=== PATIENT | female | born 1955 | race Asian ===

== ENCOUNTER 2016-12-26 07:06 | Inpatient (IN) | payer MEDICARE, MEDICAID ==
[2016-12-26] VITALS (9 sets, daily range): BP systolic 100–150; BP diastolic 55–81
[~2016-12-26] VITALS: Ht 154.9 cm; Wt 24.6 kg
[~2016-12-26 07:06] MED LIST: NALT50 PO; QUET200T29 PO
[2016-12-26] MEDS ORDERED: CYANOCOBALAMIN 1,000 MCG/ML VIAL IM ONE ×2 (10:30→13:30)
[2016-12-26] MEDS ORDERED: LOPERAMIDE HCL 2 MG CAPSULE PO PRN ×2 (10:30→13:30)
[2016-12-26] MEDS ORDERED: HydrOXYzine PAMOATE 50 MG CAPSULE PO PRN ×2 (10:30→13:30)
[2016-12-26] MEDS ORDERED: GuaiFENesin/D-METHORPHAN [SUGAR-FREE] 200-20MG/10 ML SYRUP UDCUP PO PRN ×2 (10:30→13:30)
[2016-12-26] MEDS ORDERED: ZOLPIDEM TARTRATE 10 MG TABLET PO PRN (10:30)
[2016-12-26] MEDS ORDERED: QUEtiapine FUMARATE 100 MG TABLET PO PRN (10:30)
[2016-12-26] MEDS ORDERED: LORazepam 2 MG TABLET PO PRN (10:30)
[2016-12-26] MEDS ORDERED: LORA2TAB2 PO (10:52)
[2016-12-26] MEDS ORDERED: ZOLP10 PO (10:52)
[2016-12-26] MEDS ORDERED: INFLUENZA VIRUS VACCINE QVS 2016-17 (3YR+)/PF 60 MCG/0.5 ML SYRINGE IM ONE (11:00)
[2016-12-26] MEDS ORDERED: LORazepam 2 MG/ML VIAL IM ONE (11:45)
[2016-12-26] MEDS ORDERED: DiphenhydrAMINE HCL 50 MG/ML VIAL IM ONE (11:45)
[2016-12-26] MEDS ORDERED: HALOPERIDOL LACTATE 5 MG/ML VIAL IM ONE (11:45)
[2016-12-26] MEDS ORDERED: DIAZEPAM 10 MG TABLET PO PRN (13:30)
[2016-12-26] MEDS ORDERED: ARIPiprazole ER SUSPENSION 400 MG PRE-FILLED DUAL CHAMBER SYRINGE IM ONE (14:15)
[2016-12-26] MEDS ORDERED: THIAMINE HCL 100 MG TABLET PO SCH (17:00)
[2016-12-26] MEDS: THIAMINE HCL 100 MG TABLET PO SCH (17:26)
[2016-12-26] MEDS: LORazepam 2 MG TABLET PO PRN (17:27)
[2016-12-26] MEDS ORDERED: DENTURE ADHESIVE 68 GM CREAM DT PRN (19:30)
[2016-12-26] MEDS: ARIPiprazole 15 MG TABLET PO SCH (21:51)
[2016-12-27 02:03] VITALS: BP 110/73
[2016-12-27] MEDS: LORazepam 2 MG TABLET PO PRN ×3 (02:09→14:01)
[2016-12-27 02:31] VITALS: BP 100/66
[2016-12-27] MEDS ORDERED: -PHARMACY VACCINE NOTE- MISC ONE ×2 (02:45)
[2016-12-27 06:30] VITALS: BP 118/68
[2016-12-27] MEDS ORDERED: DIAZEPAM 10 MG TABLET PO PRN (07:00)
[2016-12-27] MEDS ORDERED: LORazepam 2 MG TABLET PO PRN (07:00)
[2016-12-27 08:00] VITALS: BP 104/64
[2016-12-27 08:30] LABS: BASOPHILS # (AUTO) 0.02 K/uL (0.00-0.20); BASOPHILS % (AUTO) 0.4 % (0.0-2.0); EOSINOPHILS # (AUTO) 0.37 K/uL (0.00-0.70); EOSINOPHILS % (AUTO) 7.05 % (1.0-6.0); HEMATOCRIT 36.3 % (36-46); HEMOGLOBIN 12.3 g/dL (12.0-16.0); LYMPHOCYTES # (AUTO) 1.3 K/uL (1.0-4.8); LYMPHOCYTES % (AUTO) 24.9 % (22.0-44.0); MEAN CORPUSCULAR HEMOGLOBIN 31.9 pg (26.0-34.0); MEAN CORPUSCULAR HGB CONC 33.9 G/dL (31.0-37.0); MEAN CORPUSCULAR VOLUME 94 fL (80-100); MONOCYTES # (AUTO) 0.2 K/uL (0.1-1.0); MONOCYTES % (AUTO) 4.4 % (2.0-9.0); NEUTROPHILS # (AUTO) 3.4 K/uL (1.8-7.7); NEUTROPHILS % (AUTO) 63.3 % (40.0-70.0); PLATELET COUNT (AUTO) 169 K/uL (150-450); RED BLOOD CELL COUNT(AUTO) 3.86 MIL/uL (4.00-5.20); RED CELL DISTRIBUTION WIDTH 13.6 % (11.5-14.5); WHITE BLOOD COUNT (AUTO) 5.3 K/uL (4.5-11.0)
[2016-12-27] MEDS: FOLIC ACID 1 MG TABLET PO SCH (08:30)
[2016-12-27] MEDS: NICOTINE 21 MG/24 HOUR PATCH TD SCH (08:30)
[2016-12-27] MEDS: DIAZEPAM 10 MG TABLET PO SCH ×4 (08:30→21:38)
[2016-12-27] MEDS: MULTIVITAMINS WITH MINERALS, THERAPEUTIC TABLET PO SCH (08:30)
[2016-12-27] MEDS: THIAMINE HCL 100 MG TABLET PO SCH ×2 (08:30→17:59)
[2016-12-27 08:45] LABS: HEMOGLOBIN A1C 5.3 % (4.5-6.2)
[2016-12-27] MEDS ORDERED: FOLIC ACID 1 MG TABLET PO SCH (09:00)
[2016-12-27] MEDS ORDERED: MULTIVITAMINS WITH MINERALS, THERAPEUTIC TABLET PO SCH (09:00)
[2016-12-27] MEDS ORDERED: LORazepam 2 MG TABLET PO SCH (09:00)
[2016-12-27 09:02] LABS: ALANINE AMINOTRANSFERASE 28 U/L (12-78); ALBUMIN 3.6 g/dL (3.4-5.0); ANION GAP 10 mmol/L (8-16); ASPARTATE AMINOTRANSFERASE 27 U/L (15-37); BILIRUBIN,TOTAL 0.5 mg/dL (0.1-1.0); CALCIUM, TOTAL 8.7 mg/dL (8.8-10.5); CARBON DIOXIDE 25 mmol/L (22-29); CHLORIDE 105 mmol/L (98-107); CREATININE 0.87 mg/dL (0.60-1.30); GLOMERULAR FILTR. RATE CALC > 60 mL/min (>60); SODIUM SERUM 140 mmol/L (136-145); THYROID STIMULATING HORMONE 2.02 uIU/mL (0.36-3.74); TOTAL PROTEIN, SERUM 6.8 g/dL (6.4-8.2); UREA NITROGEN, BLOOD 12 mg/dL (7-18)
[2016-12-27 09:27] LABS: APPEARANCE,URINE CLEAR (CLEAR); GLUCOSE, URINE (UA) NEGATIVE (NEGATIVE); KETONES,URINE NEGATIVE (NEGATIVE); LEUKOCYTE ESTERASE ,URINE NEGATIVE (NEGATIVE); OCCULT BLOOD,URINE NEGATIVE (NEGATIVE); PROTEIN,URINE NEGATIVE (NEGATIVE)
[2016-12-27 09:31] LABS: ADD UA MICROSCOPIC NO
[2016-12-27 16:02] VITALS: BP 128/79
[2016-12-27] MEDS ORDERED: LORazepam 2 MG/ML VIAL IM ONE (17:05)
[2016-12-27] MEDS ORDERED: DiphenhydrAMINE HCL 50 MG/ML VIAL IM ONE (17:05)
[2016-12-27] MEDS ORDERED: HALOPERIDOL LACTATE 5 MG/ML VIAL IM ONE (17:05)
[2016-12-27] MEDS ORDERED: LORazepam 2 MG/ML VIAL ONE (17:12)
[2016-12-27] MEDS ORDERED: HALOPERIDOL LACTATE 5 MG/ML VIAL ONE (17:13)
[2016-12-27] MEDS ORDERED: DiphenhydrAMINE HCL 50 MG/ML VIAL ONE (17:13)
[2016-12-27] MEDS: ARIPiprazole 15 MG TABLET PO SCH (21:39)
[2016-12-28 04:55] VITALS: BP 107/75
[2016-12-28] MEDS: LORazepam 2 MG TABLET PO PRN ×2 (05:02→11:14)
[2016-12-28 08:35] VITALS: BP 94/61
[2016-12-28] MEDS: THIAMINE HCL 100 MG TABLET PO SCH (09:33)
[2016-12-28] MEDS: NICOTINE 21 MG/24 HOUR PATCH TD SCH (09:33)
[2016-12-28] MEDS: FOLIC ACID 1 MG TABLET PO SCH (09:33)
[2016-12-28] MEDS: DIAZEPAM 10 MG TABLET PO SCH (09:33)
[2016-12-28] MEDS: MULTIVITAMINS WITH MINERALS, THERAPEUTIC TABLET PO SCH (09:33)
[2016-12-28] MEDS ORDERED: OLAN7.5T2 PO (10:27)
[2016-12-28] MEDS ORDERED: ARIP400S3 IM (10:29)
[2016-12-29] MEDS ORDERED: DIAZEPAM 5 MG TABLET PO PRN (07:00)
[2016-12-29] MEDS ORDERED: LORazepam 1 MG TABLET PO PRN (07:00)
[2016-12-29] MEDS ORDERED: LORazepam 1 MG TABLET PO SCH (09:00)
[2016-12-29] MEDS ORDERED: DIAZEPAM 5 MG TABLET PO SCH (09:00)
[2016-12-30] MEDS ORDERED: DIAZEPAM 5 MG TABLET PO PRN (07:00)
[2016-12-30] MEDS ORDERED: LORazepam 1 MG TABLET PO PRN (07:00)
[2017-01-23] MEDS ORDERED: ARIPiprazole ER SUSPENSION 400 MG PRE-FILLED DUAL CHAMBER SYRINGE IM SCH (09:00)
== END 2016-12-28 12:00 | disposition home or self-care (01) | DRG 885 ==
LOC: B2S 10:35 → EDSTATUS 10:51
PROVIDERS: ADMIT Psychiatry & Neurology Psychiatry; ATTEND Psychiatry & Neurology Psychiatry
PROC: 3E0234Z Introduction of Serum, Toxoid and Vaccine into Muscle, Percutaneous Approach (ICD-10-PCS; principal; 2016-12-26)
PROC: GZ51ZZZ Individual Psychotherapy, Behavioral (ICD-10-PCS; 2016-12-26)
DX: F25.0 Schizoaffective disorder, bipolar type (principal); E03.9 Hypothyroidism, unspecified; E78.5 Hyperlipidemia, unspecified; F17.200 Nicotine dependence, unspecified, uncomplicated; R32 Unspecified urinary incontinence; Z63.8 Other specified problems related to primary support group; Z91.5 Personal history of self-harm; Z23 Encounter for immunization; Z88.0 Allergy status to penicillin; Z91.19 Patient's noncompliance with other medical treatment and regimen; Z79.899 Other long term (current) drug therapy
CPT/HCPCS: 83036; 84439; 84443; 86592; 90471; J0401; J1200; J1630; J2060

== ENCOUNTER 2017-03-05 12:33 | Inpatient (IN) | payer MEDICARE, MEDICAID ==
[~2017-03-05] VITALS: Ht 154.9 cm; Wt 61.0 kg
[~2017-03-05 12:33] MED LIST changes: +ARIP400S3 IM; -NALT50 PO; -QUET200T29 PO
[2017-03-05 12:45] VITALS: BP 130/90
[2017-03-05] MEDS ORDERED: MAG HYDROX/AL HYDROX/SIMETH ES 30 ML SUSPENSION UDCUP PO PRN (12:45)
[2017-03-05] MEDS ORDERED: LORazepam 2 MG/ML VIAL IM ONE (12:45)
[2017-03-05] MEDS ORDERED: DiphenhydrAMINE HCL 50 MG/ML VIAL IM ONE (12:45)
[2017-03-05] MEDS ORDERED: PROMETHAZINE HCL 25 MG TABLET PO PRN (12:45)
[2017-03-05] MEDS ORDERED: HALOPERIDOL 5 MG TABLET PO PRN (12:45)
[2017-03-05] MEDS ORDERED: GuaiFENesin/D-METHORPHAN [SUGAR-FREE] 200-20MG/10 ML SYRUP UDCUP PO PRN (12:45)
[2017-03-05] MEDS ORDERED: HydrOXYzine PAMOATE 50 MG CAPSULE PO PRN (12:45)
[2017-03-05] MEDS ORDERED: HALOPERIDOL LACTATE 5 MG/ML VIAL IM ONE (12:45)
[2017-03-05] MEDS ORDERED: ACETAMINOPHEN 325 MG TABLET PO PRN ×2 (12:45→21:15)
[2017-03-05] MEDS ORDERED: LOPERAMIDE HCL 2 MG CAPSULE PO PRN (12:45)
[2017-03-05] MEDS ORDERED: ZOLPIDEM TARTRATE 10 MG TABLET PO PRN (12:45)
[2017-03-05] MEDS ORDERED: MAGNESIUM HYDROXIDE SUSPENSION 30 ML UDCUP PO PRN (12:45)
[2017-03-05] MEDS ORDERED: ARIP15TA3 PO (13:30)
[2017-03-05] MEDS: NICOTINE 14 MG/24 HOUR PATCH TD SCH (14:24)
[2017-03-05] MEDS ORDERED: LORazepam 2 MG/ML VIAL ONE (14:47)
[2017-03-05] MEDS ORDERED: DiphenhydrAMINE HCL 50 MG/ML VIAL ONE (14:47)
[2017-03-05] MEDS ORDERED: HALOPERIDOL LACTATE 5 MG/ML VIAL ONE (14:47)
[2017-03-05 16:07] VITALS: BP 101/60
[2017-03-05] MEDS: THIAMINE HCL 100 MG TABLET PO SCH (17:05)
[2017-03-05] MEDS: LORazepam 2 MG TABLET PO PRN (17:56)
[2017-03-05] MEDS ORDERED: IBUPROFEN 600 MG TABLET PO PRN (21:15)
[2017-03-06 00:32] VITALS: BP 100/73
[2017-03-06 01:59] VITALS: BP 111/88
[2017-03-06] MEDS: LORazepam 2 MG TABLET PO PRN ×2 (02:07→08:40)
[2017-03-06] MEDS ORDERED: DENTURE ADHESIVE 68 GM CREAM DT PRN (05:00)
[2017-03-06 08:15] VITALS: BP 100/61
[2017-03-06 08:27] LABS: BASOPHILS % (AUTO) 0.6 % (0.0-2.0); EOSINOPHILS % (AUTO) 10.2 % (1.0-6.0); HEMATOCRIT 36.6 % (36-46); LYMPHOCYTES # (AUTO) 1.3 K/uL (1.0-4.8); LYMPHOCYTES % (AUTO) 28.3 % (22.0-44.0); MEAN CORPUSCULAR HEMOGLOBIN 30.7 pg (26.0-34.0); MEAN CORPUSCULAR HGB CONC 32.7 G/dL (31.0-37.0); MEAN CORPUSCULAR VOLUME 94 fL (80-100); MONOCYTES # (AUTO) 0.3 K/uL (0.1-1.0); MONOCYTES % (AUTO) 5.6 % (2.0-9.0); NEUTROPHILS # (AUTO) 2.5 K/uL (1.8-7.7); NEUTROPHILS % (AUTO) 55.3 % (40.0-70.0); PLATELET COUNT (AUTO) 282 K/uL (150-450); RED BLOOD CELL COUNT(AUTO) 3.89 MIL/uL (4.00-5.20); RED CELL DISTRIBUTION WIDTH 13.3 % (11.5-14.5); WHITE BLOOD COUNT (AUTO) 4.5 K/uL (4.5-11.0)
[2017-03-06 08:35] LABS: HEMOGLOBIN A1C 5.4 % (4.5-6.2)
[2017-03-06] MEDS: THIAMINE HCL 100 MG TABLET PO SCH (08:39)
[2017-03-06 08:40] VITALS: BP 121/81
[2017-03-06] MEDS: NICOTINE 14 MG/24 HOUR PATCH TD SCH (08:40)
[2017-03-06] MEDS ORDERED: MULTIVITAMINS WITH MINERALS, THERAPEUTIC TABLET PO SCH (09:00)
[2017-03-06] MEDS ORDERED: FOLIC ACID 1 MG TABLET PO SCH (09:00)
[2017-03-06] MEDS ORDERED: ARIPiprazole 15 MG TABLET PO SCH (09:00)
[2017-03-06 09:06] LABS: APPEARANCE,URINE CLEAR (CLEAR); GLUCOSE, URINE (UA) NEGATIVE (NEGATIVE); KETONES,URINE NEGATIVE (NEGATIVE); LEUKOCYTE ESTERASE ,URINE NEGATIVE (NEGATIVE); OCCULT BLOOD,URINE NEGATIVE (NEGATIVE); PH,URINE 5.5 (5.0-8.0); PROTEIN,URINE NEGATIVE (NEGATIVE)
[2017-03-06 09:08] LABS: ALANINE AMINOTRANSFERASE 27 U/L (12-78); ALBUMIN 3.7 g/dL (3.4-5.0); ANION GAP 8 mmol/L (8-16); ASPARTATE AMINOTRANSFERASE 28 U/L (15-37); BILIRUBIN,TOTAL 0.3 mg/dL (0.1-1.0); CALCIUM, TOTAL 8.7 mg/dL (8.8-10.5); CARBON DIOXIDE 26 mmol/L (22-29); CHLORIDE 105 mmol/L (98-107); CREATININE 0.76 mg/dL (0.60-1.30); GLOMERULAR FILTR. RATE CALC > 60 mL/min (>60); POTASSIUM 4.5 mmol/L (3.5-5.1); SODIUM SERUM 139 mmol/L (136-145); TOTAL PROTEIN, SERUM 6.7 g/dL (6.4-8.2); UREA NITROGEN, BLOOD 17 mg/dL (7-18)
[2017-03-06 09:09] LABS: CHOL/HDL RATIO 2.5 (3.9-5.7); THYROID STIMULATING HORMONE 2.32 uIU/mL (0.36-3.74)
[2017-03-06 10:24] LABS: ADD UA MICROSCOPIC NO
== END 2017-03-06 10:05 | disposition left against medical advice (07) | DRG 885 ==
LOC: B2X 12:57 → EDSTATUS 13:04 → B2X 13:09 → UNDOADMIN 13:09 → UNDODISIN 03-06 10:05
PROVIDERS: ADMIT Psychiatry & Neurology Psychiatry; ATTEND Psychiatry & Neurology Psychiatry
PROC: GZ51ZZZ Individual Psychotherapy, Behavioral (ICD-10-PCS; principal; 2017-03-06)
DX: F25.0 Schizoaffective disorder, bipolar type (principal); R45.851 Suicidal ideations; Z53.21 Procedure and treatment not carried out due to patient leaving prior to being seen by health care provider; Z53.29 Procedure and treatment not carried out because of patient's decision for other reasons; N39.44 Nocturnal enuresis; K59.00 Constipation, unspecified; I10 Essential (primary) hypertension; F17.200 Nicotine dependence, unspecified, uncomplicated; E11.9 Type 2 diabetes mellitus without complications; E03.9 Hypothyroidism, unspecified; J44.9 Chronic obstructive pulmonary disease, unspecified; M54.40 Lumbago with sciatica, unspecified side; Z91.19 Patient's noncompliance with other medical treatment and regimen; Z88.0 Allergy status to penicillin; Z79.899 Other long term (current) drug therapy
CPT/HCPCS: 83036; 84439; 84443; 86592; J1200; J1630; J2060

== ENCOUNTER 2017-07-27 10:58 | Inpatient (IN) | payer MEDICARE, MEDICAID ==
[~2017-07-27] VITALS: Ht 154.9 cm; Wt 64.9 kg
[2017-07-27 11:39] VITALS: BP 132/84
[2017-07-27] MEDS: LORazepam 2 MG TABLET PO PRN ×2 (12:35→17:02)
[2017-07-27] MEDS ORDERED: GuaiFENesin/D-METHORPHAN [SUGAR-FREE] 200-20MG/10 ML SYRUP UDCUP PO PRN (12:45)
[2017-07-27] MEDS ORDERED: HydrOXYzine PAMOATE 50 MG CAPSULE PO PRN (12:45)
[2017-07-27] MEDS ORDERED: PROMETHAZINE HCL 25 MG TABLET PO PRN (12:45)
[2017-07-27] MEDS ORDERED: MAGNESIUM HYDROXIDE SUSPENSION 30 ML UDCUP PO PRN (12:45)
[2017-07-27] MEDS ORDERED: OLANZapine 5 MG RAPDIS TABLET PO PRN (12:45)
[2017-07-27] MEDS ORDERED: MAG HYDROX/AL HYDROX/SIMETH ES 30 ML SUSPENSION UDCUP PO PRN (12:45)
[2017-07-27] MEDS ORDERED: LOPERAMIDE HCL 2 MG CAPSULE PO PRN (12:45)
[2017-07-27] MEDS ORDERED: INFLUENZA VIRUS VACCINE QVS 2017-18 (3YR+)/PF 60 MCG/0.5 ML SYRINGE IM ONE (14:15)
[2017-07-27] MEDS ORDERED: DiphenhydrAMINE HCL 50 MG/ML VIAL IM ONE (15:00)
[2017-07-27 16:16] VITALS: BP 127/87
[2017-07-27] MEDS: THIAMINE HCL 100 MG TABLET PO SCH (16:18)
[2017-07-27] MEDS: RisperiDONE 4 MG TABLET PO SCH (20:09)
[2017-07-27] MEDS: ZOLPIDEM TARTRATE 10 MG TABLET PO PRN (22:54)
[2017-07-28 05:30] VITALS: BP 110/67
[2017-07-28] MEDS: LORazepam 2 MG TABLET PO PRN ×3 (06:38→16:12)
[2017-07-28] MEDS: ACETAMINOPHEN 325 MG TABLET PO PRN ×2 (06:45→16:13)
[2017-07-28 08:16] LABS: BASOPHILS % (AUTO) 0.1 % (0.0-2.0); EOSINOPHILS % (AUTO) 4.5 % (1.0-6.0); HEMOGLOBIN 12.9 g/dL (12.0-16.0); LYMPHOCYTES # (AUTO) 0.8 K/uL (1.0-4.8); LYMPHOCYTES % (AUTO) 10.8 % (22.0-44.0); MEAN CORPUSCULAR HEMOGLOBIN 32.3 pg (26.0-34.0); MEAN CORPUSCULAR VOLUME 95 fL (80-100); MONOCYTES # (AUTO) 0.3 K/uL (0.1-1.0); MONOCYTES % (AUTO) 4.5 % (2.0-9.0); NEUTROPHILS # (AUTO) 6.2 K/uL (1.8-7.7); NEUTROPHILS % (AUTO) 80.1 % (40.0-70.0); PLATELET COUNT (AUTO) 253 K/uL (150-450); RED CELL DISTRIBUTION WIDTH 14.2 % (11.5-14.5); WHITE BLOOD COUNT (AUTO) 7.7 K/uL (4.5-11.0)
[2017-07-28] MEDS: FOLIC ACID 1 MG TABLET PO SCH (08:18)
[2017-07-28] MEDS: THIAMINE HCL 100 MG TABLET PO SCH ×2 (08:18→16:37)
[2017-07-28] MEDS: MULTIVITAMINS WITH MINERALS, THERAPEUTIC TABLET PO SCH (08:18)
[2017-07-28 08:25] VITALS: BP 101/61
[2017-07-28 08:49] LABS: HEMOGLOBIN A1C 5.6 % (4.5-6.2)
[2017-07-28 08:57] LABS: ALANINE AMINOTRANSFERASE 15 U/L (12-78); ANION GAP 10 mmol/L (8-16); ASPARTATE AMINOTRANSFERASE 12 U/L (15-37); BILIRUBIN,TOTAL 0.3 mg/dL (0.1-1.0); CALCIUM, TOTAL 8.7 mg/dL (8.8-10.5); CARBON DIOXIDE 24 mmol/L (22-29); CHLORIDE 105 mmol/L (98-107); CHOL/HDL RATIO 2.4 (3.9-5.7); CREATININE 0.79 mg/dL (0.60-1.30); GLOMERULAR FILTR. RATE CALC > 60 mL/min (>60); POTASSIUM 4.3 mmol/L (3.5-5.1); SODIUM SERUM 139 mmol/L (136-145); THYROID STIMULATING HORMONE 1.13 uIU/mL (0.36-3.74); UREA NITROGEN, BLOOD 11 mg/dL (7-18)
[2017-07-28 11:00] VITALS: BP 112/66
[2017-07-28] MEDS ORDERED: DiphenhydrAMINE HCL 50 MG/ML VIAL IM ONE (12:00)
[2017-07-28 17:10] VITALS: BP 122/73
[2017-07-28] MEDS: RisperiDONE 4 MG TABLET PO SCH (20:32)
[2017-07-28] MEDS: ZOLPIDEM TARTRATE 10 MG TABLET PO PRN (20:46)
[2017-07-29 00:06] VITALS: BP 121/76
[2017-07-29 05:05] VITALS: BP 110/73
[2017-07-29] MEDS: LORazepam 2 MG TABLET PO PRN ×4 (05:09→22:44)
[2017-07-29 08:17] VITALS: BP 114/68
[2017-07-29] MEDS: THIAMINE HCL 100 MG TABLET PO SCH ×2 (08:47→16:36)
[2017-07-29] MEDS: MULTIVITAMINS WITH MINERALS, THERAPEUTIC TABLET PO SCH (08:47)
[2017-07-29] MEDS: FOLIC ACID 1 MG TABLET PO SCH (08:47)
[2017-07-29] MEDS ORDERED: DiphenhydrAMINE HCL 50 MG/ML VIAL IM ONE (13:45)
[2017-07-29] MEDS: NICOTINE 21 MG/24 HOUR PATCH TD SCH (15:00)
[2017-07-29 16:12] VITALS: BP 119/78
[2017-07-29] MEDS: RisperiDONE 4 MG TABLET PO SCH (20:33)
[2017-07-29] MEDS: ZOLPIDEM TARTRATE 10 MG TABLET PO PRN (20:52)
[2017-07-30 00:06] VITALS: BP 113/79
[2017-07-30 05:22] VITALS: BP 110/75
[2017-07-30] MEDS: LORazepam 2 MG TABLET PO PRN ×4 (05:26→23:58)
[2017-07-30] MEDS: ACETAMINOPHEN 325 MG TABLET PO PRN (05:45)
[2017-07-30] MEDS: MULTIVITAMINS WITH MINERALS, THERAPEUTIC TABLET PO SCH (08:24)
[2017-07-30] MEDS: THIAMINE HCL 100 MG TABLET PO SCH ×2 (08:24→16:06)
[2017-07-30] MEDS: NICOTINE 21 MG/24 HOUR PATCH TD SCH (08:24)
[2017-07-30] MEDS: FOLIC ACID 1 MG TABLET PO SCH (08:24)
[2017-07-30 08:26] VITALS: BP 109/69
[2017-07-30] MEDS ORDERED: DiphenhydrAMINE HCL 25 MG CAPSULE PO ONE (09:45)
[2017-07-30 10:23] VITALS: BP 115/85
[2017-07-30] MEDS ORDERED: RISP4 PO (13:30)
[2017-07-30] MEDS ORDERED: DiphenhydrAMINE HCL 25 MG CAPSULE PO PRN (13:30)
[2017-07-30] MEDS ORDERED: DIPH25 PO (13:30)
[2017-07-30] MEDS ORDERED: DiphenhydrAMINE HCL 50 MG/ML VIAL IM ONE (13:30)
[2017-07-30] MEDS ORDERED: NALT50TA6 PO (13:31)
[2017-07-30 16:06] VITALS: BP 118/78
[2017-07-30] MEDS: RisperiDONE 4 MG TABLET PO SCH (20:20)
[2017-07-30] MEDS: ZOLPIDEM TARTRATE 10 MG TABLET PO PRN (21:09)
[2017-07-31 01:54] VITALS: BP 114/80
[2017-07-31 06:32] VITALS: BP 110/69
[2017-07-31] MEDS: ACETAMINOPHEN 325 MG TABLET PO PRN (06:34)
[2017-07-31] MEDS ORDERED: DiphenhydrAMINE HCL 50 MG/ML VIAL IM ONE (08:15)
[2017-07-31 08:30] VITALS: BP 94/64
[2017-07-31 08:55] VITALS: BP 114/76
[2017-07-31] MEDS: MULTIVITAMINS WITH MINERALS, THERAPEUTIC TABLET PO SCH (08:57)
[2017-07-31] MEDS: NICOTINE 21 MG/24 HOUR PATCH TD SCH (08:58)
[2017-07-31] MEDS: FOLIC ACID 1 MG TABLET PO SCH (08:58)
[2017-07-31] MEDS: THIAMINE HCL 100 MG TABLET PO SCH (08:58)
[2017-07-31] MEDS ORDERED: NALTREXONE HCL 50 MG TABLET PO SCH (09:00)
== END 2017-07-31 11:00 | disposition home or self-care (01) | DRG 885 ==
LOC: B2X 11:36
PROVIDERS: ADMIT Psychiatry & Neurology Psychiatry; ATTEND Psychiatry & Neurology Psychiatry
PROC: 3E0234Z Introduction of Serum, Toxoid and Vaccine into Muscle, Percutaneous Approach (ICD-10-PCS; principal; 2017-07-27)
DX: F25.0 Schizoaffective disorder, bipolar type (principal); C50.912 Malignant neoplasm of unspecified site of left female breast; R45.851 Suicidal ideations; E11.9 Type 2 diabetes mellitus without complications; E03.9 Hypothyroidism, unspecified; D64.9 Anemia, unspecified; F17.210 Nicotine dependence, cigarettes, uncomplicated; I10 Essential (primary) hypertension; K59.00 Constipation, unspecified; N39.44 Nocturnal enuresis; M54.5 Low back pain; G89.29 Other chronic pain; Z88.0 Allergy status to penicillin; Z91.19 Patient's noncompliance with other medical treatment and regimen; Z23 Encounter for immunization
CPT/HCPCS: 83036; 84439; 84443; 90471; J1200

== ENCOUNTER 2017-10-18 05:48 | Inpatient (IN) | payer MEDICARE, MEDICAID ==
[~2017-10-18] VITALS: Ht 160 cm; Wt 65.6 kg
[~2017-10-18 05:48] MED LIST changes: -ARIP400S3 IM; +DIPH25 PO; +NALT50TA6 PO; +RISP4 PO
[2017-10-18] MEDS ORDERED: RISP2 PO (06:11)
[2017-10-18] MEDS ORDERED: ZOLP10TA7 PO (06:11)
[2017-10-18] MEDS ORDERED: LORA2TAB2 PO (06:11)
[2017-10-18 06:50] LABS: BASOPHILS % (AUTO) 0.5 % (0.0-2.0); EOSINOPHILS % (AUTO) 4.4 % (1.0-6.0); HEMATOCRIT 36.4 % (36-46); HEMOGLOBIN 12.5 g/dL (12.0-16.0); LYMPHOCYTES # (AUTO) 1.1 K/uL (1.0-4.8); LYMPHOCYTES % (AUTO) 18.1 % (22.0-44.0); MEAN CORPUSCULAR HEMOGLOBIN 32.5 pg (26.0-34.0); MEAN CORPUSCULAR HGB CONC 34.3 G/dL (31.0-37.0); MEAN CORPUSCULAR VOLUME 95 fL (80-100); MONOCYTES # (AUTO) 0.3 K/uL (0.1-1.0); MONOCYTES % (AUTO) 5.4 % (2.0-9.0); NEUTROPHILS # (AUTO) 4.5 K/uL (1.8-7.7); NEUTROPHILS % (AUTO) 71.6 % (40.0-70.0); PLATELET COUNT (AUTO) 308 K/uL (150-450); RED BLOOD CELL COUNT(AUTO) 3.84 MIL/uL (4.00-5.20); RED CELL DISTRIBUTION WIDTH 13.8 % (11.5-14.5)
[2017-10-18 06:54] LABS: ANION GAP 10 mmol/L (8-16); CALCIUM, TOTAL 9.2 mg/dL (8.8-10.5); CARBON DIOXIDE 25 mmol/L (22-29); CHLORIDE 103 mmol/L (98-107); CREATININE 0.71 mg/dL (0.60-1.30); GLOMERULAR FILTR. RATE CALC > 60 mL/min (>60); GLUCOSE,RANDOM 107 mg/dL (70-110); POTASSIUM 4.1 mmol/L (3.5-5.1); SODIUM SERUM 138 mmol/L (136-145); UREA NITROGEN, BLOOD 12 mg/dL (7-18)
[2017-10-18 07:00] LABS: ALANINE AMINOTRANSFERASE 19 U/L (12-78); ALBUMIN 4.2 g/dL (3.4-5.0); ALKALINE PHOSPHATASE 74 U/L (46-116); ASPARTATE AMINOTRANSFERASE 14 U/L (15-37); BILIRUBIN,TOTAL 0.4 mg/dL (0.1-1.0); TOTAL PROTEIN, SERUM 7.7 g/dL (6.4-8.2)
[2017-10-18 07:22] LABS: AMPHET/METH SCREEN,URINE NEGATIVE (NEGATIVE); BARBITURATE SCREEN, URINE NEGATIVE (NEGATIVE); BENZODIAZEPINES SCREEN,URINE NEGATIVE (NEGATIVE); CANNABINOID SCREEN,URINE NEGATIVE (NEGATIVE); COCAINE SCREEN,URINE NEGATIVE (NEGATIVE); METHADONE SCREEN, URINE NEGATIVE (NEGATIVE); OPIATE SCREEN,URINE NEGATIVE (NEGATIVE); PHENCYCLIDINE SCREEN,URINE NEGATIVE (NEGATIVE)
[2017-10-18] MEDS ORDERED: LORazepam 2 MG TABLET PO ONE (10:15)
[2017-10-18] MEDS ORDERED: DiphenhydrAMINE HCL 50 MG/ML VIAL IM ONE (12:30)
[2017-10-18 13:03] VITALS: BP 109/85
[2017-10-18] MEDS: NICOTINE 21 MG/24 HOUR PATCH TD SCH (13:40)
[2017-10-18] MEDS ORDERED: -PHARMACY VACCINE NOTE- MISC ONE (15:30)
[2017-10-18] MEDS: LORazepam 2 MG TABLET PO PRN (17:01)
[2017-10-18] MEDS: RisperiDONE 4 MG TABLET PO SCH (17:01)
[2017-10-18 17:40] VITALS: BP 108/60
[2017-10-18 18:00] VITALS: BP 111/69
[2017-10-18] MEDS ORDERED: ACETAMINOPHEN 325 MG TABLET PO PRN (18:00)
[2017-10-18] MEDS: IBUPROFEN 600 MG TABLET PO PRN (18:10)
[2017-10-18] MEDS: HALOPERIDOL 5 MG TABLET PO PRN (18:13)
[2017-10-18 19:10] VITALS: BP 110/65
[2017-10-18] MEDS ORDERED: RisperiDONE 4 MG TABLET PO SCH (21:00)
[2017-10-18] MEDS: ZOLPIDEM TARTRATE 10 MG TABLET PO PRN (21:36)
[2017-10-19 05:35] VITALS: BP 107/63
[2017-10-19] MEDS: LORazepam 2 MG TABLET PO PRN ×3 (05:39→17:07)
[2017-10-19] MEDS: IBUPROFEN 600 MG TABLET PO PRN ×2 (06:33→18:48)
[2017-10-19] MEDS: RisperiDONE 4 MG TABLET PO SCH ×2 (08:28→16:49)
[2017-10-19] MEDS: NICOTINE 21 MG/24 HOUR PATCH TD SCH (08:29)
[2017-10-19 08:56] VITALS: BP 104/68
[2017-10-19 10:50] VITALS: BP 122/82
[2017-10-19] MEDS: CHOLECALCIFEROL (VIT D3) 5,000 UNITS CAPSULE PO SCH (12:07)
[2017-10-19] MEDS: HALOPERIDOL 5 MG TABLET PO PRN ×2 (12:23→18:27)
[2017-10-19 16:38] VITALS: BP 104/72
[2017-10-19 17:07] VITALS: BP 122/87
[2017-10-19 18:48] VITALS: BP 116/82
[2017-10-19] MEDS: SIMVASTATIN 40 MG TABLET PO SCH (20:03)
[2017-10-19] MEDS: ZOLPIDEM TARTRATE 10 MG TABLET PO PRN (20:55)
[2017-10-20] VITALS (7 sets, daily range): BP systolic 104–123; BP diastolic 68–86
[2017-10-20] MEDS: LORazepam 2 MG TABLET PO PRN ×4 (04:46→23:46)
[2017-10-20] MEDS: IBUPROFEN 600 MG TABLET PO PRN ×2 (04:55→11:58)
[2017-10-20] MEDS: HALOPERIDOL 5 MG TABLET PO PRN ×4 (04:56→23:46)
[2017-10-20] MEDS: NICOTINE 21 MG/24 HOUR PATCH TD SCH (08:07)
[2017-10-20] MEDS: RisperiDONE 4 MG TABLET PO SCH ×2 (08:07→16:51)
[2017-10-20] MEDS: CHOLECALCIFEROL (VIT D3) 5,000 UNITS CAPSULE PO SCH (08:07)
[2017-10-20] MEDS ORDERED: RISP1 PO (13:19)
[2017-10-20] MEDS: TraMADol HCL 50 MG TABLET PO PRN ×2 (13:30→20:20)
[2017-10-20] MEDS: SIMVASTATIN 40 MG TABLET PO SCH (20:19)
[2017-10-20] MEDS: ZOLPIDEM TARTRATE 10 MG TABLET PO PRN (20:52)
[2017-10-21] VITALS: BP 140/95
[2017-10-21 04:45] VITALS: BP 105/69
[2017-10-21] MEDS: IBUPROFEN 600 MG TABLET PO PRN (05:01)
[2017-10-21 05:32] VITALS: BP 117/85
[2017-10-21] MEDS: LORazepam 2 MG TABLET PO PRN ×3 (05:43→17:09)
[2017-10-21] MEDS: HALOPERIDOL 5 MG TABLET PO PRN (05:43)
[2017-10-21] MEDS: NICOTINE 21 MG/24 HOUR PATCH TD SCH (09:09)
[2017-10-21] MEDS: CHOLECALCIFEROL (VIT D3) 5,000 UNITS CAPSULE PO SCH (09:09)
[2017-10-21] MEDS: RisperiDONE 4 MG TABLET PO SCH ×2 (09:09→16:06)
[2017-10-21 09:10] VITALS: BP 112/75
[2017-10-21] MEDS: TraMADol HCL 50 MG TABLET PO PRN ×2 (09:10→16:06)
[2017-10-21 16:06] VITALS: BP 118/80
[2017-10-21 16:33] VITALS: BP 118/88
[2017-10-21] MEDS: SIMVASTATIN 40 MG TABLET PO SCH (20:11)
[2017-10-21] MEDS: HALOPERIDOL 5 MG TABLET PO SCH (20:11)
[2017-10-21] MEDS: ZOLPIDEM TARTRATE 10 MG TABLET PO PRN (20:56)
[2017-10-22] VITALS (7 sets, daily range): BP systolic 105–125; BP diastolic 70–85
[2017-10-22] MEDS: LORazepam 2 MG TABLET PO PRN ×4 (00:01→18:07)
[2017-10-22] MEDS: TraMADol HCL 50 MG TABLET PO PRN ×3 (05:24→18:07)
[2017-10-22] MEDS: RisperiDONE 4 MG TABLET PO SCH ×2 (08:23→16:41)
[2017-10-22] MEDS: CHOLECALCIFEROL (VIT D3) 5,000 UNITS CAPSULE PO SCH (08:23)
[2017-10-22] MEDS: NICOTINE 21 MG/24 HOUR PATCH TD SCH (08:25)
[2017-10-22] MEDS: IBUPROFEN 600 MG TABLET PO PRN (10:19)
[2017-10-22] MEDS: ZOLPIDEM TARTRATE 10 MG TABLET PO PRN (20:19)
[2017-10-22] MEDS: HALOPERIDOL 5 MG TABLET PO SCH (21:12)
[2017-10-22] MEDS: SIMVASTATIN 40 MG TABLET PO SCH (21:12)
[2017-10-23 00:05] VITALS: BP 131/95
[2017-10-23] MEDS: LORazepam 2 MG TABLET PO PRN ×4 (00:06→17:51)
[2017-10-23 02:35] VITALS: BP 130/80
[2017-10-23] MEDS: TraMADol HCL 50 MG TABLET PO PRN ×3 (02:37→16:07)
[2017-10-23 05:01] VITALS: BP 110/82
[2017-10-23 08:20] VITALS: BP 110/65
[2017-10-23] MEDS: HALOPERIDOL 5 MG TABLET PO PRN (08:57)
[2017-10-23] MEDS: CHOLECALCIFEROL (VIT D3) 5,000 UNITS CAPSULE PO SCH (08:57)
[2017-10-23] MEDS: RisperiDONE 4 MG TABLET PO SCH ×2 (08:57→16:40)
[2017-10-23] MEDS: NICOTINE 21 MG/24 HOUR PATCH TD SCH (08:57)
[2017-10-23 10:00] VITALS: BP 117/73
[2017-10-23 16:02] VITALS: BP 120/84
[2017-10-23] MEDS: SIMVASTATIN 40 MG TABLET PO SCH (20:34)
[2017-10-23] MEDS: HALOPERIDOL 5 MG TABLET PO SCH (20:35)
[2017-10-23] MEDS: ZOLPIDEM TARTRATE 10 MG TABLET PO PRN (21:15)
[2017-10-24 00:40] VITALS: BP 115/76
[2017-10-24] MEDS: TraMADol HCL 50 MG TABLET PO PRN ×4 (00:46→21:14)
[2017-10-24] MEDS: LORazepam 2 MG TABLET PO PRN ×4 (00:46→14:36)
[2017-10-24 06:42] VITALS: BP 123/73
[2017-10-24 09:01] VITALS: BP 104/60
[2017-10-24] MEDS: RisperiDONE 4 MG TABLET PO SCH ×2 (09:18→17:08)
[2017-10-24] MEDS: CHOLECALCIFEROL (VIT D3) 5,000 UNITS CAPSULE PO SCH (09:19)
[2017-10-24] MEDS: NICOTINE 21 MG/24 HOUR PATCH TD SCH (09:19)
[2017-10-24] MEDS: IBUPROFEN 600 MG TABLET PO PRN (09:56)
[2017-10-24 14:36] VITALS: BP 104/65
[2017-10-24 16:07] VITALS: BP 103/60
[2017-10-24] MEDS: HALOPERIDOL 5 MG TABLET PO SCH (20:10)
[2017-10-24] MEDS: SIMVASTATIN 40 MG TABLET PO SCH (20:10)
[2017-10-24] MEDS: ZOLPIDEM TARTRATE 10 MG TABLET PO PRN (20:27)
[2017-10-25 00:43] VITALS: BP 110/76
[2017-10-25] MEDS: LORazepam 2 MG TABLET PO PRN ×2 (01:23→05:57)
[2017-10-25 08:00] VITALS: BP 110/70
[2017-10-25] MEDS: TraMADol HCL 50 MG TABLET PO PRN (08:00)
[2017-10-25] MEDS: RisperiDONE 4 MG TABLET PO SCH (08:16)
[2017-10-25] MEDS ORDERED: HALO5 PO (08:16)
[2017-10-25] MEDS: NICOTINE 21 MG/24 HOUR PATCH TD SCH (08:16)
[2017-10-25] MEDS ORDERED: HYDR28.45 TP (08:16)
[2017-10-25] MEDS ORDERED: RISP4 PO (08:16)
[2017-10-25] MEDS ORDERED: SIMV-261 PO (08:16)
[2017-10-25] MEDS ORDERED: VITAD1000 PO (08:16)
[2017-10-25] MEDS: CHOLECALCIFEROL (VIT D3) 5,000 UNITS CAPSULE PO SCH (08:16)
[2017-10-25] MEDS ORDERED: TRAM50TA4 PO (08:30)
[2017-10-25] MEDS ORDERED: HYDROCORTISONE 1% 30 GM CREAM TP SCH (09:00)
== END 2017-10-25 10:00 | disposition home or self-care (01) | DRG 885 ==
LOC: EMS 05:50 → UNDOADMIN 11:06 → B2X 11:06 → EMS 11:33 → B2X 10-22 16:27
PROVIDERS: ADMIT Psychiatry & Neurology Psychiatry; ATTEND Psychiatry & Neurology Psychiatry
DX: F20.0 Paranoid schizophrenia (principal); R45.851 Suicidal ideations; E11.9 Type 2 diabetes mellitus without complications; E03.9 Hypothyroidism, unspecified; E78.5 Hyperlipidemia, unspecified; F17.210 Nicotine dependence, cigarettes, uncomplicated; F32.9 Major depressive disorder, single episode, unspecified; Z88.0 Allergy status to penicillin; Z85.3 Personal history of malignant neoplasm of breast
CPT/HCPCS: 82306; 99285; 99406; G0480; J1200

== ENCOUNTER 2017-11-20 21:40 | Inpatient (IN) | payer MEDICARE, MEDICAID ==
[~2017-11-20 21:40] MED LIST changes: -DIPH25 PO; +HALO5 PO; +HYDR28.45 TP; -NALT50TA6 PO; +SIMV-261 PO; +TRAM50TA4 PO; +VITAD1000 PO
[2017-11-20] MEDS ORDERED: DiphenhydrAMINE HCL 50 MG/ML VIAL IM ONE (22:00)
[2017-11-20] MEDS ORDERED: LORazepam 2 MG/ML VIAL IM ONE (22:00)
[2017-11-20] MEDS ORDERED: HALOPERIDOL 5 MG TABLET PO PRN (22:00)
[2017-11-20] MEDS ORDERED: HALOPERIDOL LACTATE 5 MG/ML VIAL IM ONE (22:00)
[2017-11-20] MEDS ORDERED: HALOPERIDOL LACTATE 5 MG/ML VIAL ONE (22:04)
[2017-11-20] MEDS ORDERED: LORazepam 2 MG/ML VIAL ONE (22:04)
[2017-11-20] MEDS ORDERED: DiphenhydrAMINE HCL 50 MG/ML VIAL ONE (22:04)
[2017-11-20 22:44] VITALS: BP 143/80
[2017-11-21 01:50] VITALS: BP 131/93
[2017-11-21] MEDS: ZOLPIDEM TARTRATE 10 MG TABLET PO PRN ×2 (01:52→20:56)
[2017-11-21] MEDS ORDERED: TraMADol HCL 50 MG TABLET PO PRN (03:45)
[2017-11-21] MEDS ORDERED: CHOLECALCIFEROL (VIT D3) 1,000 UNITS TABLET PO ONE (03:45)
[2017-11-21] MEDS: LORazepam 2 MG TABLET PO PRN ×3 (06:12→14:45)
[2017-11-21 08:09] LABS: BASOPHILS % (AUTO) 0.9 % (0.0-2.0); EOSINOPHILS % (AUTO) 11.4 % (1.0-6.0); HEMOGLOBIN 11.9 g/dL (12.0-16.0); LYMPHOCYTES # (AUTO) 1.3 K/uL (1.0-4.8); LYMPHOCYTES % (AUTO) 28.3 % (22.0-44.0); MEAN CORPUSCULAR HEMOGLOBIN 31.4 pg (26.0-34.0); MEAN CORPUSCULAR HGB CONC 34.2 G/dL (31.0-37.0); MEAN CORPUSCULAR VOLUME 92 fL (80-100); MONOCYTES # (AUTO) 0.3 K/uL (0.1-1.0); MONOCYTES % (AUTO) 7.5 % (2.0-9.0); NEUTROPHILS # (AUTO) 2.3 K/uL (1.8-7.7); NEUTROPHILS % (AUTO) 51.9 % (40.0-70.0); PLATELET COUNT (AUTO) 233 K/uL (150-450); RED CELL DISTRIBUTION WIDTH 13.1 % (11.5-14.5)
[2017-11-21 08:17] LABS: HEMOGLOBIN A1C 4.8 % (4.5-6.2)
[2017-11-21 08:20] LABS: AMPHET/METH SCREEN,URINE NEGATIVE (NEGATIVE); BARBITURATE SCREEN, URINE NEGATIVE (NEGATIVE); BENZODIAZEPINES SCREEN,URINE NEGATIVE (NEGATIVE); CANNABINOID SCREEN,URINE NEGATIVE (NEGATIVE); COCAINE SCREEN,URINE NEGATIVE (NEGATIVE); METHADONE SCREEN, URINE NEGATIVE (NEGATIVE); OPIATE SCREEN,URINE NEGATIVE (NEGATIVE); PHENCYCLIDINE SCREEN,URINE NEGATIVE (NEGATIVE)
[2017-11-21 08:23] LABS: ANION GAP 9 mmol/L (8-16); CARBON DIOXIDE 27 mmol/L (22-29); CHLORIDE 106 mmol/L (98-107); GLUCOSE,RANDOM 85 mg/dL (70-110); POTASSIUM 3.8 mmol/L (3.5-5.1); SODIUM SERUM 142 mmol/L (136-145)
[2017-11-21 08:24] LABS: ALANINE AMINOTRANSFERASE 17 U/L (12-78); ALBUMIN 3.5 g/dL (3.4-5.0); ALKALINE PHOSPHATASE 77 U/L (46-116); ASPARTATE AMINOTRANSFERASE 14 U/L (15-37); BILIRUBIN,TOTAL 0.5 mg/dL (0.1-1.0); CALCIUM, TOTAL 8.5 mg/dL (8.8-10.5); CHOL/HDL RATIO 2.4 (3.9-5.7); CHOLESTEROL 167 mg/dL (131-200); CREATININE 0.61 mg/dL (0.60-1.30); FREE T4 (FREE THYROXINE) 0.71 ng/dL (0.76-1.46); GLOMERULAR FILTR. RATE CALC > 60 mL/min (>60); HDL CHOLESTEROL 71 mg/dL (40-60); LDL CHOL (CALC.) 70 mg/dL (0-130); THYROID STIMULATING HORMONE 0.66 uIU/mL (0.36-3.74); TOTAL PROTEIN, SERUM 6.7 g/dL (6.4-8.2); TRIGLYCERIDES 132 mg/dL (15-150); UREA NITROGEN, BLOOD 9 mg/dL (7-18)
[2017-11-21] MEDS: HALOPERIDOL 10 MG TABLET PO SCH (08:41)
[2017-11-21 08:47] LABS: APPEARANCE,URINE CLEAR (CLEAR); BILIRUBIN,URINE NEGATIVE (NEGATIVE); GLUCOSE, URINE (UA) NEGATIVE (NEGATIVE); KETONES,URINE NEGATIVE (NEGATIVE); LEUKOCYTE ESTERASE ,URINE NEGATIVE (NEGATIVE); NITRATE,URINE NEGATIVE (NEGATIVE); OCCULT BLOOD,URINE NEGATIVE (NEGATIVE); PROTEIN,URINE NEGATIVE (NEGATIVE); UROBILINOGEN,URINE 0.2 mg/dL (<=1.0)
[2017-11-21] MEDS ORDERED: CHOLECALCIFEROL (VIT D3) 1,000 UNITS TABLET PO SCH (09:00)
[2017-11-21] MEDS ORDERED: MAG HYDROX/AL HYDROX/SIMETH ES 30 ML SUSPENSION UDCUP PO PRN (11:30)
[2017-11-21] MEDS ORDERED: GuaiFENesin/D-METHORPHAN [SUGAR-FREE] 200-20MG/10 ML SYRUP UDCUP PO PRN (11:30)
[2017-11-21] MEDS ORDERED: ACETAMINOPHEN 325 MG TABLET PO PRN (11:30)
[2017-11-21] MEDS ORDERED: LOPERAMIDE HCL 2 MG CAPSULE PO PRN (11:30)
[2017-11-21] MEDS ORDERED: HydrOXYzine PAMOATE 50 MG CAPSULE PO PRN (11:30)
[2017-11-21] MEDS ORDERED: MAGNESIUM HYDROXIDE SUSPENSION 30 ML UDCUP PO PRN (11:30)
[2017-11-21] MEDS ORDERED: PROMETHAZINE HCL 25 MG TABLET PO PRN (11:30)
[2017-11-21] MEDS: ACAMPROSATE CALCIUM 333 MG DR TABLET PO SCH ×2 (13:34→16:19)
[2017-11-21 16:15] VITALS: BP 126/91
[2017-11-21] MEDS: THIAMINE HCL 100 MG TABLET PO SCH (16:21)
[2017-11-21] MEDS ORDERED: ACAM333T7 PO (17:02)
[2017-11-21] MEDS ORDERED: HALO10 PO (17:02)
[2017-11-21] MEDS ORDERED: HALOPERIDOL LACTATE 5 MG/ML VIAL IM ONE (17:15)
[2017-11-21] MEDS ORDERED: LORazepam 2 MG/ML VIAL IM ONE (17:15)
[2017-11-21] MEDS ORDERED: DiphenhydrAMINE HCL 50 MG/ML VIAL IM ONE (17:15)
[2017-11-21] MEDS: TraMADol HCL 50 MG TABLET PO PRN (19:40)
[2017-11-21] MEDS ORDERED: SIMVASTATIN 40 MG TABLET PO SCH (21:00)
[2017-11-22 01:24] VITALS: BP 124/81
[2017-11-22] MEDS: TraMADol HCL 50 MG TABLET PO PRN ×2 (01:30→09:32)
[2017-11-22] MEDS: LORazepam 2 MG TABLET PO PRN ×2 (02:58→08:40)
[2017-11-22 08:19] VITALS: BP 119/76
[2017-11-22] MEDS ORDERED: CHOL100053 PO (08:35)
[2017-11-22] MEDS ORDERED: SIMV40TA5 PO (08:35)
[2017-11-22] MEDS: ACAMPROSATE CALCIUM 333 MG DR TABLET PO SCH (08:39)
[2017-11-22] MEDS: THIAMINE HCL 100 MG TABLET PO SCH (08:39)
[2017-11-22] MEDS: HALOPERIDOL 10 MG TABLET PO SCH (08:39)
[2017-11-22] MEDS ORDERED: FOLIC ACID 1 MG TABLET PO SCH (09:00)
[2017-11-22] MEDS ORDERED: MULTIVITAMINS WITH MINERALS, THERAPEUTIC TABLET PO SCH (09:00)
[2017-11-22] MEDS ORDERED: CHOLECALCIFEROL (VIT D3) 5,000 UNITS CAPSULE PO SCH (09:00)
[2017-11-22] MEDS ORDERED: NICOTINE 21 MG/24 HOUR PATCH TD SCH (09:00)
== END 2017-11-22 12:13 | disposition home or self-care (01) | DRG 885 ==
LOC: EDSTATUS 21:40 → B3A 21:54 → EDSTATUS 22:08
PROVIDERS: ADMIT Psychiatry & Neurology Psychiatry; ATTEND Psychiatry & Neurology Psychiatry
DX: F25.9 Schizoaffective disorder, unspecified (principal); E11.9 Type 2 diabetes mellitus without complications; D64.9 Anemia, unspecified; E03.9 Hypothyroidism, unspecified; E78.5 Hyperlipidemia, unspecified; F17.210 Nicotine dependence, cigarettes, uncomplicated; G89.29 Other chronic pain; I10 Essential (primary) hypertension; K59.00 Constipation, unspecified; M54.5 Low back pain; J44.9 Chronic obstructive pulmonary disease, unspecified; Z85.3 Personal history of malignant neoplasm of breast; Z88.0 Allergy status to penicillin; Z91.19 Patient's noncompliance with other medical treatment and regimen; Z79.899 Other long term (current) drug therapy
CPT/HCPCS: 83036; 84439; 84443; 87081; J1200; J1630; J2060

== ENCOUNTER 2018-02-01 09:53 | Inpatient (IN) | payer MEDICARE, MEDICAID ==
[~2018-02-01] VITALS: Ht 154.9 cm; Wt 83.6 kg
[~2018-02-01 09:53] MED LIST changes: +BENZ1TAB10 PO; +CHOL100053 PO; -HALO5 PO; -HYDR28.45 TP; +RISP3 PO; -RISP4 PO; -SIMV-261 PO; +SIMV40TA5 PO; -VITAD1000 PO
[2018-02-01] MEDS ORDERED: ZOLP10TA7 PO (10:02)
[2018-02-01] MEDS ORDERED: LORA2TAB2 PO (10:02)
[2018-02-01 10:43] LABS: BASOPHILS % (AUTO) 1.3 % (0.0-2.0); EOSINOPHILS % (AUTO) 7.8 % (1.0-6.0); HEMATOCRIT 34.7 % (36-46); HEMOGLOBIN 12.1 g/dL (12.0-16.0); LYMPHOCYTES # (AUTO) 0.9 K/uL (1.0-4.8); LYMPHOCYTES % (AUTO) 32.8 % (22.0-44.0); MEAN CORPUSCULAR HEMOGLOBIN 31.7 pg (26.0-34.0); MEAN CORPUSCULAR HGB CONC 34.9 G/dL (31.0-37.0); MEAN CORPUSCULAR VOLUME 91 fL (80-100); MONOCYTES # (AUTO) 0.2 K/uL (0.1-1.0); MONOCYTES % (AUTO) 8.2 % (2.0-9.0); NEUTROPHILS # (AUTO) 1.4 K/uL (1.8-7.7); NEUTROPHILS % (AUTO) 49.9 % (40.0-70.0); PLATELET COUNT (AUTO) 229 K/uL (150-450); RED BLOOD CELL COUNT(AUTO) 3.82 MIL/uL (4.00-5.20); RED CELL DISTRIBUTION WIDTH 13.8 % (11.5-14.5)
[2018-02-01 10:52] LABS: ANION GAP 6 mmol/L (8-16); CALCIUM, TOTAL 8.9 mg/dL (8.8-10.5); CARBON DIOXIDE 28 mmol/L (22-29); CHLORIDE 105 mmol/L (98-107); CREATININE 0.89 mg/dL (0.60-1.30); GLOMERULAR FILTR. RATE CALC > 60 mL/min (>60); GLUCOSE,RANDOM 106 mg/dL (70-110); POTASSIUM 3.5 mmol/L (3.5-5.1); SODIUM SERUM 139 mmol/L (136-145); UREA NITROGEN, BLOOD 8 mg/dL (7-18)
[2018-02-01 11:00] LABS: ALANINE AMINOTRANSFERASE 20 U/L (12-78); ALKALINE PHOSPHATASE 74 U/L (46-116); ASPARTATE AMINOTRANSFERASE 17 U/L (15-37); BILIRUBIN,TOTAL 0.3 mg/dL (0.1-1.0); TOTAL PROTEIN, SERUM 7.4 g/dL (6.4-8.2)
[2018-02-01] MEDS ORDERED: LORazepam 2 MG/ML VIAL IM ONE (12:15)
[2018-02-01] MEDS ORDERED: DiphenhydrAMINE HCL 50 MG/ML VIAL IM ONE (12:15)
[2018-02-01] MEDS ORDERED: HALOPERIDOL LACTATE 5 MG/ML VIAL IM ONE (12:15)
[2018-02-01 12:16] LABS: AMPHET/METH SCREEN,URINE NEGATIVE (NEGATIVE); BARBITURATE SCREEN, URINE NEGATIVE (NEGATIVE); BENZODIAZEPINES SCREEN,URINE NEGATIVE (NEGATIVE); CANNABINOID SCREEN,URINE NEGATIVE (NEGATIVE); COCAINE SCREEN,URINE NEGATIVE (NEGATIVE); METHADONE SCREEN, URINE NEGATIVE (NEGATIVE); OPIATE SCREEN,URINE NEGATIVE (NEGATIVE); PHENCYCLIDINE SCREEN,URINE NEGATIVE (NEGATIVE)
[2018-02-01] MEDS ORDERED: ZOLPIDEM TARTRATE 10 MG TABLET PO PRN (12:45)
[2018-02-01] MEDS ORDERED: LOPERAMIDE HCL 2 MG CAPSULE PO PRN ×2 (14:00→14:15)
[2018-02-01] MEDS ORDERED: ACETAMINOPHEN 325 MG TABLET PO PRN (14:00)
[2018-02-01] MEDS ORDERED: MAG HYDROX/AL HYDROX/SIMETH ES 30 ML SUSPENSION UDCUP PO PRN ×2 (14:00→14:15)
[2018-02-01] MEDS ORDERED: HydrOXYzine PAMOATE 50 MG CAPSULE PO PRN ×2 (14:00→14:15)
[2018-02-01] MEDS ORDERED: MAGNESIUM HYDROXIDE SUSPENSION 30 ML UDCUP PO PRN (14:00)
[2018-02-01] MEDS ORDERED: GuaiFENesin/D-METHORPHAN [SUGAR-FREE] 200-20MG/10 ML SYRUP UDCUP PO PRN ×2 (14:00→14:15)
[2018-02-01 14:30] VITALS: BP 130/66
[2018-02-01 16:26] VITALS: BP 111/68
[2018-02-01] MEDS: THIAMINE HCL 100 MG TABLET PO SCH (16:50)
[2018-02-01] MEDS: RisperiDONE 3 MG TABLET PO SCH (16:50)
[2018-02-01] MEDS: BENZTROPINE MESYLATE 1 MG TABLET PO SCH (16:50)
[2018-02-01] MEDS: ACETAMINOPHEN 325 MG TABLET PO PRN (16:50)
[2018-02-01] MEDS: ZOLPIDEM TARTRATE 10 MG TABLET PO PRN (20:15)
[2018-02-01] MEDS ORDERED: RisperiDONE 3 MG TABLET PO SCH (21:00)
[2018-02-01] MEDS ORDERED: BENZTROPINE MESYLATE 1 MG TABLET PO SCH (21:00)
[2018-02-01] MEDS ORDERED: THIAMINE HCL 100 MG TABLET PO SCH (21:00)
[2018-02-01] MEDS: LORazepam 2 MG TABLET PO PRN (22:02)
[2018-02-02] VITALS (7 sets, daily range): BP systolic 103–123; BP diastolic 59–84
[2018-02-02] MEDS: LORazepam 2 MG TABLET PO PRN ×3 (03:41→17:06)
[2018-02-02] MEDS: HALOPERIDOL 5 MG TABLET PO PRN (05:36)
[2018-02-02] MEDS: ACETAMINOPHEN 325 MG TABLET PO PRN ×2 (05:37→20:39)
[2018-02-02] MEDS: RisperiDONE 3 MG TABLET PO SCH ×2 (08:37→16:27)
[2018-02-02] MEDS: BENZTROPINE MESYLATE 1 MG TABLET PO SCH ×2 (08:38→16:27)
[2018-02-02] MEDS: NALTREXONE HCL 50 MG TABLET PO SCH (08:38)
[2018-02-02] MEDS: FOLIC ACID 1 MG TABLET PO SCH (08:38)
[2018-02-02] MEDS: MULTIVITAMINS WITH MINERALS, THERAPEUTIC TABLET PO SCH (08:38)
[2018-02-02] MEDS: THIAMINE HCL 100 MG TABLET PO SCH ×2 (08:38→16:27)
[2018-02-02] MEDS ORDERED: DiphenhydrAMINE HCL 50 MG/ML VIAL IM ONE (08:45)
[2018-02-02] MEDS ORDERED: NALTREXONE HCL 50 MG TABLET PO SCH (09:00)
[2018-02-02] MEDS ORDERED: MULTIVITAMINS WITH MINERALS, THERAPEUTIC TABLET PO SCH (09:00)
[2018-02-02] MEDS ORDERED: FOLIC ACID 1 MG TABLET PO SCH (09:00)
[2018-02-02] MEDS: NICOTINE 21 MG/24 HOUR PATCH TD SCH (11:46)
[2018-02-02] MEDS: MAGNESIUM HYDROXIDE SUSPENSION 30 ML UDCUP PO PRN (17:57)
[2018-02-02] MEDS: ZOLPIDEM TARTRATE 10 MG TABLET PO PRN (20:39)
[2018-02-03 00:06] VITALS: BP 108/72
[2018-02-03] MEDS: MAGNESIUM HYDROXIDE SUSPENSION 30 ML UDCUP PO PRN (05:23)
[2018-02-03 05:31] VITALS: BP 116/92
[2018-02-03] MEDS: LORazepam 2 MG TABLET PO PRN ×3 (05:43→22:04)
[2018-02-03] MEDS: HALOPERIDOL 5 MG TABLET PO PRN (07:19)
[2018-02-03] MEDS: RisperiDONE 3 MG TABLET PO SCH ×2 (08:18→17:03)
[2018-02-03] MEDS: NALTREXONE HCL 50 MG TABLET PO SCH (08:18)
[2018-02-03] MEDS: FOLIC ACID 1 MG TABLET PO SCH (08:18)
[2018-02-03] MEDS: THIAMINE HCL 100 MG TABLET PO SCH ×2 (08:18→17:03)
[2018-02-03] MEDS: MULTIVITAMINS WITH MINERALS, THERAPEUTIC TABLET PO SCH (08:18)
[2018-02-03] MEDS: BENZTROPINE MESYLATE 1 MG TABLET PO SCH ×2 (08:18→17:03)
[2018-02-03] MEDS: NICOTINE 21 MG/24 HOUR PATCH TD SCH (08:19)
[2018-02-03 08:34] VITALS: BP 100/66
[2018-02-03 08:36] LABS: BASOPHILS % (AUTO) 0.4 % (0.0-2.0); EOSINOPHILS % (AUTO) 11.5 % (1.0-6.0); HEMATOCRIT 35.2 % (36-46); HEMOGLOBIN 11.9 g/dL (12.0-16.0); MEAN CORPUSCULAR HEMOGLOBIN 30.8 pg (26.0-34.0); MEAN CORPUSCULAR HGB CONC 33.7 G/dL (31.0-37.0); MEAN CORPUSCULAR VOLUME 92 fL (80-100); MONOCYTES # (AUTO) 0.3 K/uL (0.1-1.0); MONOCYTES % (AUTO) 7.5 % (2.0-9.0); NEUTROPHILS # (AUTO) 2.3 K/uL (1.8-7.7); NEUTROPHILS % (AUTO) 55.6 % (40.0-70.0); PLATELET COUNT (AUTO) 216 K/uL (150-450); RED BLOOD CELL COUNT(AUTO) 3.85 MIL/uL (4.00-5.20); RED CELL DISTRIBUTION WIDTH 13.8 % (11.5-14.5)
[2018-02-03 10:49] VITALS: BP 112/68
[2018-02-03] MEDS: ACETAMINOPHEN 325 MG TABLET PO PRN (10:49)
[2018-02-03] MEDS ORDERED: DiphenhydrAMINE HCL 50 MG/ML VIAL IM ONE (12:15)
[2018-02-03] MEDS ORDERED: TraMADol HCL 50 MG TABLET PO PRN (12:15)
[2018-02-03 14:09] VITALS: BP 116/69
[2018-02-03 16:24] VITALS: BP 125/72
[2018-02-03] MEDS ORDERED: HydrOXYzine HCL 25 MG TABLET PO SCH (17:00)
[2018-02-03] MEDS: HYDROCORTISONE 1% 30 GM OINTMENT TP SCH (17:03)
[2018-02-03] MEDS: ZOLPIDEM TARTRATE 10 MG TABLET PO PRN (20:37)
[2018-02-04 00:07] VITALS: BP 116/81
[2018-02-04] MEDS: LORazepam 2 MG TABLET PO PRN ×2 (03:53→08:59)
[2018-02-04 03:55] VITALS: BP 120/78
[2018-02-04 08:27] VITALS: BP 117/74
[2018-02-04] MEDS ORDERED: NALT50TA6 PO (08:44)
[2018-02-04] MEDS ORDERED: BENZ1TAB10 PO (08:45)
[2018-02-04] MEDS ORDERED: HYDR-3421 PO (08:45)
[2018-02-04] MEDS ORDERED: HYDR30OI13 TP (08:47)
[2018-02-04] MEDS: RisperiDONE 3 MG TABLET PO SCH (08:57)
[2018-02-04] MEDS: NALTREXONE HCL 50 MG TABLET PO SCH (08:57)
[2018-02-04] MEDS: BENZTROPINE MESYLATE 1 MG TABLET PO SCH (08:57)
[2018-02-04] MEDS: FOLIC ACID 1 MG TABLET PO SCH (08:57)
[2018-02-04] MEDS: MULTIVITAMINS WITH MINERALS, THERAPEUTIC TABLET PO SCH (08:57)
[2018-02-04] MEDS: HALOPERIDOL 5 MG TABLET PO PRN (08:58)
[2018-02-04] MEDS: THIAMINE HCL 100 MG TABLET PO SCH (08:58)
[2018-02-04] MEDS: NICOTINE 21 MG/24 HOUR PATCH TD SCH (08:59)
[2018-02-04] MEDS: HYDROCORTISONE 1% 30 GM OINTMENT TP SCH (09:02)
[2018-02-04] MEDS ORDERED: TRAM50TA4 PO (09:06)
== END 2018-02-04 10:10 | disposition home or self-care (01) | DRG 885 ==
LOC: EMS 09:54 → B2X 13:15 → EMS 14:11
PROVIDERS: ADMIT Psychiatry & Neurology Psychiatry; ATTEND Psychiatry & Neurology Psychiatry
DX: F25.9 Schizoaffective disorder, unspecified (principal); R45.851 Suicidal ideations; E11.9 Type 2 diabetes mellitus without complications; E03.9 Hypothyroidism, unspecified; F17.210 Nicotine dependence, cigarettes, uncomplicated; F41.9 Anxiety disorder, unspecified; M16.11 Unilateral primary osteoarthritis, right hip; R32 Unspecified urinary incontinence; Z85.3 Personal history of malignant neoplasm of breast; Z91.5 Personal history of self-harm; Z88.0 Allergy status to penicillin; Z79.899 Other long term (current) drug therapy; Z91.19 Patient's noncompliance with other medical treatment and regimen
CPT/HCPCS: 87081; G0480; J1200; J1630; J2060; J3230

== ENCOUNTER 2018-02-05 11:53 | Inpatient (IN) | payer MEDICARE, MEDICAID ==
[~2018-02-05] VITALS: Ht 154.9 cm; Wt 68.9 kg
[~2018-02-05 11:53] MED LIST changes: -CHOL100053 PO; +HYDR-3421 PO; +HYDR30OI13 TP; +NALT50TA6 PO; -SIMV40TA5 PO; -TRAM50TA4 PO
[2018-02-05] MEDS ORDERED: RisperiDONE 1 MG TABLET PO PRN (12:45)
[2018-02-05] MEDS ORDERED: HydrOXYzine PAMOATE 50 MG CAPSULE PO PRN (12:45)
[2018-02-05] MEDS ORDERED: GuaiFENesin/D-METHORPHAN [SUGAR-FREE] 200-20MG/10 ML SYRUP UDCUP PO PRN (12:45)
[2018-02-05] MEDS ORDERED: LOPERAMIDE HCL 2 MG CAPSULE PO PRN (12:45)
[2018-02-05] MEDS ORDERED: PROMETHAZINE HCL 25 MG TABLET PO PRN (12:45)
[2018-02-05] MEDS ORDERED: MAG HYDROX/AL HYDROX/SIMETH ES 30 ML SUSPENSION UDCUP PO PRN (12:45)
[2018-02-05] MEDS ORDERED: -PHARMACY VACCINE NOTE- MISC ONE (13:30)
[2018-02-05] MEDS ORDERED: LORazepam 2 MG/ML VIAL IM ONE (13:45)
[2018-02-05] MEDS ORDERED: DiphenhydrAMINE HCL 50 MG/ML VIAL IM ONE (13:45)
[2018-02-05] MEDS ORDERED: ChlorproMAZINE HCL 25 MG TABLET PO PRN (13:45)
[2018-02-05 14:50] VITALS: BP 116/80
[2018-02-05 15:13] LABS: GLUCOMETER DEV NAME(LOC) BV2N3; GLUCOSE,POINT OF CARE 103 MG/DL (70-110)
[2018-02-05 16:07] VITALS: BP 116/83
[2018-02-05] MEDS: RisperiDONE 3 MG TABLET PO SCH (16:09)
[2018-02-05] MEDS: BENZTROPINE MESYLATE 1 MG TABLET PO SCH (16:09)
[2018-02-05] MEDS: THIAMINE HCL 100 MG TABLET PO SCH (16:09)
[2018-02-05] MEDS: ZOLPIDEM TARTRATE 10 MG TABLET PO PRN (20:41)
[2018-02-05] MEDS: ACETAMINOPHEN 325 MG TABLET PO PRN (20:41)
[2018-02-06] MEDS: LORazepam 2 MG TABLET PO PRN ×4 (00:05→16:54)
[2018-02-06 05:22] VITALS: BP 120/86
[2018-02-06 06:10] VITALS: BP 110/68
[2018-02-06 08:26] VITALS: BP 109/77
[2018-02-06] MEDS: THIAMINE HCL 100 MG TABLET PO SCH ×2 (09:07→16:54)
[2018-02-06] MEDS: MULTIVITAMINS WITH MINERALS, THERAPEUTIC TABLET PO SCH (09:07)
[2018-02-06] MEDS: BENZTROPINE MESYLATE 1 MG TABLET PO SCH (09:07)
[2018-02-06] MEDS: RisperiDONE 3 MG TABLET PO SCH (09:07)
[2018-02-06] MEDS: FOLIC ACID 1 MG TABLET PO SCH (09:07)
[2018-02-06] MEDS ORDERED: DiphenhydrAMINE HCL 50 MG/ML VIAL IM ONE (12:45)
[2018-02-06] MEDS ORDERED: NALT50TA6 PO (13:54)
[2018-02-06] MEDS ORDERED: DIPH25 PO (13:54)
[2018-02-06] MEDS ORDERED: CHLO50 PO (13:54)
[2018-02-06 16:36] VITALS: BP 117/78
[2018-02-06] MEDS: DiphenhydrAMINE HCL 25 MG CAPSULE PO SCH ×2 (16:54→20:56)
[2018-02-06] MEDS: ChlorproMAZINE HCL 50 MG TABLET PO SCH ×2 (16:59→20:55)
[2018-02-06] MEDS: MAGNESIUM HYDROXIDE SUSPENSION 30 ML UDCUP PO PRN (17:35)
[2018-02-06] MEDS: ACETAMINOPHEN 325 MG TABLET PO PRN (17:36)
[2018-02-06] MEDS: ZOLPIDEM TARTRATE 10 MG TABLET PO PRN (20:56)
[2018-02-07 01:28] VITALS: BP 118/75
[2018-02-07] MEDS: LORazepam 2 MG TABLET PO PRN (01:28)
[2018-02-07] MEDS ORDERED: CHLO50 PO (04:28)
[2018-02-07] MEDS ORDERED: DIPH50 PO (04:28)
[2018-02-07] MEDS ORDERED: NALT50TA6 PO (04:28)
[2018-02-07] MEDS: MAGNESIUM HYDROXIDE SUSPENSION 30 ML UDCUP PO PRN (06:17)
[2018-02-07 08:18] VITALS: BP 105/66
[2018-02-07] MEDS: MULTIVITAMINS WITH MINERALS, THERAPEUTIC TABLET PO SCH (08:25)
[2018-02-07] MEDS: DiphenhydrAMINE HCL 25 MG CAPSULE PO SCH (08:26)
[2018-02-07] MEDS: THIAMINE HCL 100 MG TABLET PO SCH (08:26)
[2018-02-07] MEDS: FOLIC ACID 1 MG TABLET PO SCH (08:26)
[2018-02-07] MEDS: ChlorproMAZINE HCL 50 MG TABLET PO SCH (08:26)
[2018-02-07] MEDS ORDERED: NALTREXONE HCL 50 MG TABLET PO SCH (09:00)
== END 2018-02-07 10:00 | disposition home or self-care (01) | DRG 885 ==
LOC: B2S 12:21
PROVIDERS: ADMIT Psychiatry & Neurology Psychiatry; ATTEND Psychiatry & Neurology Psychiatry
DX: F31.5 Bipolar disorder, current episode depressed, severe, with psychotic features (principal); R45.851 Suicidal ideations; E11.9 Type 2 diabetes mellitus without complications; D64.9 Anemia, unspecified; E03.9 Hypothyroidism, unspecified; F17.210 Nicotine dependence, cigarettes, uncomplicated; G89.29 Other chronic pain; I10 Essential (primary) hypertension; M54.5 Low back pain; K59.00 Constipation, unspecified; N39.44 Nocturnal enuresis; Z85.3 Personal history of malignant neoplasm of breast; Z88.0 Allergy status to penicillin; Z91.19 Patient's noncompliance with other medical treatment and regimen
CPT/HCPCS: 82962; 87081; J1200; J2060; J3230

== ENCOUNTER 2018-04-14 08:55 | Emergency (ER) | payer MEDICARE, OTHER ==
[~2018-04-14] VITALS: Ht 154.9 cm; Wt 68.2 kg
[~2018-04-14 08:55] MED LIST changes: -BENZ1TAB10 PO; +CHLO50 PO; +DIPH25 PO; +DIPH50 PO; -HYDR-3421 PO; -HYDR30OI13 TP; -RISP3 PO
[2018-04-14 09:03] VITALS: BP 140/94
[2018-04-14] MEDS ORDERED: ARIP400S IM (09:11)
[2018-04-14] MEDS ORDERED: LORA2TAB2 PO (09:11)
[2018-04-14 09:25] LABS: BASOPHILS % (AUTO) 0.9 % (0.0-2.0); EOSINOPHILS % (AUTO) 8.5 % (1.0-6.0); HEMATOCRIT 38.1 % (36-46); HEMOGLOBIN 13.2 g/dL (12.0-16.0); LYMPHOCYTES # (AUTO) 0.9 K/uL (1.0-4.8); MEAN CORPUSCULAR HEMOGLOBIN 31.6 pg (26.0-34.0); MEAN CORPUSCULAR HGB CONC 34.6 G/dL (31.0-37.0); MEAN CORPUSCULAR VOLUME 91 fL (80-100); MONOCYTES # (AUTO) 0.2 K/uL (0.1-1.0); MONOCYTES % (AUTO) 4.9 % (2.0-9.0); NEUTROPHILS # (AUTO) 2.5 K/uL (1.8-7.7); NEUTROPHILS % (AUTO) 62.7 % (40.0-70.0); PLATELET COUNT (AUTO) 242 K/uL (150-450); RED BLOOD CELL COUNT(AUTO) 4.18 MIL/uL (4.00-5.20); RED CELL DISTRIBUTION WIDTH 13.5 % (11.5-14.5)
[2018-04-14 09:39] LABS: ANION GAP 8 mmol/L (8-16); CALCIUM, TOTAL 8.6 mg/dL (8.8-10.5); CARBON DIOXIDE 26 mmol/L (22-29); CHLORIDE 106 mmol/L (98-107); CREATININE 0.94 mg/dL (0.60-1.30); GLOMERULAR FILTR. RATE CALC > 60 mL/min (>60); GLUCOSE,RANDOM 100 mg/dL (70-110); POTASSIUM 3.9 mmol/L (3.5-5.1); SODIUM SERUM 140 mmol/L (136-145); UREA NITROGEN, BLOOD 11 mg/dL (7-18)
[2018-04-14 09:45] LABS: ALANINE AMINOTRANSFERASE 20 U/L (12-78); ALBUMIN 4.3 g/dL (3.4-5.0); ALKALINE PHOSPHATASE 82 U/L (46-116); ASPARTATE AMINOTRANSFERASE 13 U/L (15-37); BILIRUBIN,TOTAL 0.3 mg/dL (0.1-1.0); TOTAL PROTEIN, SERUM 7.4 g/dL (6.4-8.2)
[2018-04-14] MEDS ORDERED: RisperiDONE 1 MG TABLET PO ONE (10:45)
[2018-04-14] MEDS ORDERED: LORazepam 2 MG TABLET PO ONE (10:45)
[2018-04-14 11:01] LABS: AMPHET/METH SCREEN,URINE NEGATIVE (NEGATIVE); BARBITURATE SCREEN, URINE NEGATIVE (NEGATIVE); BENZODIAZEPINES SCREEN,URINE NEGATIVE (NEGATIVE); CANNABINOID SCREEN,URINE NEGATIVE (NEGATIVE); COCAINE SCREEN,URINE NEGATIVE (NEGATIVE); METHADONE SCREEN, URINE NEGATIVE (NEGATIVE); OPIATE SCREEN,URINE NEGATIVE (NEGATIVE); PHENCYCLIDINE SCREEN,URINE NEGATIVE (NEGATIVE)
== END 2018-04-14 11:15 | disposition home or self-care (01) ==
LOC: EMS 08:56
DX: F20.0 Paranoid schizophrenia (principal); F17.210 Nicotine dependence, cigarettes, uncomplicated; E11.9 Type 2 diabetes mellitus without complications; E03.9 Hypothyroidism, unspecified; Z88.0 Allergy status to penicillin; Z79.899 Other long term (current) drug therapy
CPT/HCPCS: 36415; 80053; 80307; 85025; 99284; 99406; G0480

== ENCOUNTER 2018-05-06 12:03 | Inpatient (IN) | payer MEDICARE, MEDICAID ==
[~2018-05-06] VITALS: Ht 154.9 cm; Wt 66.1 kg
[~2018-05-06 12:03] MED LIST changes: +ARIP400S IM; -CHLO50 PO; -DIPH25 PO; -DIPH50 PO; +LORA2TAB2 PO; -NALT50TA6 PO
[2018-05-06] MEDS ORDERED: ZOLPIDEM TARTRATE 10 MG TABLET PO PRN (12:45)
[2018-05-06] MEDS ORDERED: GuaiFENesin/D-METHORPHAN [SUGAR-FREE] 200-20MG/10 ML SYRUP UDCUP PO PRN (12:45)
[2018-05-06] MEDS ORDERED: MAG HYDROX/AL HYDROX/SIMETH ES 30 ML SUSPENSION UDCUP PO PRN (12:45)
[2018-05-06] MEDS ORDERED: ACETAMINOPHEN 325 MG TABLET PO PRN (12:45)
[2018-05-06] MEDS ORDERED: LOPERAMIDE HCL 2 MG CAPSULE PO PRN (12:45)
[2018-05-06] MEDS ORDERED: ARIPiprazole ER SUSPENSION 400 MG PRE-FILLED DUAL CHAMBER SYRINGE IM ONE (12:45)
[2018-05-06] MEDS ORDERED: HALOPERIDOL 5 MG TABLET PO PRN (12:45)
[2018-05-06] MEDS ORDERED: MAGNESIUM HYDROXIDE SUSPENSION 30 ML UDCUP PO PRN (12:45)
[2018-05-06] MEDS ORDERED: PROMETHAZINE HCL 25 MG TABLET PO PRN (12:45)
[2018-05-06] MEDS ORDERED: HydrOXYzine PAMOATE 50 MG CAPSULE PO PRN (12:45)
[2018-05-06 13:45] VITALS: BP 158/100
[2018-05-06 13:50] VITALS: BP 128/99
[2018-05-06] MEDS ORDERED: CloNIDine HCL 0.1 MG TABLET PO PRN (14:30)
[2018-05-06] MEDS ORDERED: INSULIN LISPRO 100 UNITS/ML SQ PRN (14:30)
[2018-05-06] MEDS ORDERED: GLUCAGON,HUMAN RECOMBINANT 1 MG VIAL IM PRN (14:30)
[2018-05-06 14:55] LABS: GLUCOMETER DEV NAME(LOC) BV2N3; GLUCOSE,POINT OF CARE 101 MG/DL (70-110)
[2018-05-06] MEDS: LORazepam 2 MG TABLET PO PRN (15:06)
[2018-05-06] MEDS: THIAMINE HCL 100 MG TABLET PO SCH (16:48)
[2018-05-06 18:43] LABS: GLUCOMETER DEV NAME(LOC) BV2N3; GLUCOSE,POINT OF CARE 107 MG/DL (70-110)
[2018-05-06] MEDS ORDERED: DiphenhydrAMINE HCL 50 MG/ML VIAL IM ONE (19:15)
[2018-05-06 20:53] VITALS: BP 114/79
[2018-05-06 20:54] LABS: GLUCOMETER DEV NAME(LOC) BV2N3; GLUCOSE,POINT OF CARE 122 MG/DL (70-110)
[2018-05-06] MEDS ORDERED: LORazepam 2 MG/ML VIAL IM ONE (21:00)
[2018-05-07] MEDS ORDERED: BISACODYL 5 MG EC TABLET PO PRN
[2018-05-07 00:24] VITALS: BP 115/84
[2018-05-07] MEDS: LORazepam 2 MG TABLET PO PRN ×2 (04:30→17:29)
[2018-05-07 04:31] VITALS: BP 118/79
[2018-05-07 05:58] LABS: GLUCOMETER DEV NAME(LOC) BV2N3; GLUCOSE,POINT OF CARE 94 MG/DL (70-110)
[2018-05-07 08:10] VITALS: BP 108/68
[2018-05-07] MEDS: NICOTINE 7 MG/24 HOUR PATCH TD SCH (08:49)
[2018-05-07] MEDS: THIAMINE HCL 100 MG TABLET PO SCH ×2 (08:49→16:39)
[2018-05-07] MEDS: NALTREXONE HCL 50 MG TABLET PO SCH (08:49)
[2018-05-07] MEDS: MULTIVITAMINS WITH MINERALS, THERAPEUTIC TABLET PO SCH (08:49)
[2018-05-07] MEDS: FOLIC ACID 1 MG TABLET PO SCH (08:49)
[2018-05-07] MEDS: ARIPiprazole 15 MG TABLET PO SCH (08:49)
[2018-05-07 08:54] LABS: BASOPHILS % (AUTO) 0.8 % (0.0-2.0); EOSINOPHILS % (AUTO) 7.8 % (1.0-6.0); HEMATOCRIT 35.5 % (36-46); HEMOGLOBIN 12.2 g/dL (12.0-16.0); LYMPHOCYTES # (AUTO) 0.8 K/uL (1.0-4.8); LYMPHOCYTES % (AUTO) 17.3 % (22.0-44.0); MEAN CORPUSCULAR HEMOGLOBIN 31.9 pg (26.0-34.0); MEAN CORPUSCULAR HGB CONC 34.4 G/dL (31.0-37.0); MEAN CORPUSCULAR VOLUME 93 fL (80-100); MONOCYTES # (AUTO) 0.3 K/uL (0.1-1.0); MONOCYTES % (AUTO) 6.6 % (2.0-9.0); NEUTROPHILS % (AUTO) 67.5 % (40.0-70.0); PLATELET COUNT (AUTO) 248 K/uL (150-450); RED BLOOD CELL COUNT(AUTO) 3.83 MIL/uL (4.00-5.20); RED CELL DISTRIBUTION WIDTH 14.2 % (11.5-14.5)
[2018-05-07 09:09] LABS: ALANINE AMINOTRANSFERASE 16 U/L (12-78); ALBUMIN 3.6 g/dL (3.4-5.0); ALKALINE PHOSPHATASE 76 U/L (46-116); ANION GAP 8 mmol/L (8-16); ASPARTATE AMINOTRANSFERASE 12 U/L (15-37); BILIRUBIN,TOTAL 0.3 mg/dL (0.1-1.0); CALCIUM, TOTAL 8.4 mg/dL (8.8-10.5); CARBON DIOXIDE 24 mmol/L (22-29); CHLORIDE 104 mmol/L (98-107); CHOL/HDL RATIO 2.9 (3.9-5.7); CHOLESTEROL 205 mg/dL (131-200); FREE T4 (FREE THYROXINE) 0.81 ng/dL (0.76-1.46); GLOMERULAR FILTR. RATE CALC > 60 mL/min (>60); GLUCOSE,RANDOM 179 mg/dL (70-110); HDL CHOLESTEROL 71 mg/dL (40-60); LDL CHOL (CALC.) 104 mg/dL (0-130); POTASSIUM 3.7 mmol/L (3.5-5.1); SODIUM SERUM 136 mmol/L (136-145); THYROID STIMULATING HORMONE 1.46 uIU/mL (0.36-3.74); TOTAL PROTEIN, SERUM 6.6 g/dL (6.4-8.2); TRIGLYCERIDES 150 mg/dL (15-150); UREA NITROGEN, BLOOD 17 mg/dL (7-18)
[2018-05-07] MEDS ORDERED: BACLOFEN 10 MG TABLET PO PRN (09:15)
[2018-05-07 09:16] LABS: HEMOGLOBIN A1C 5.5 % (4.5-6.2)
[2018-05-07] MEDS ORDERED: DiphenhydrAMINE HCL 50 MG/ML VIAL IM ONE (09:45)
[2018-05-07 13:48] VITALS: BP 118/73
[2018-05-07] MEDS: TraMADol HCL 50 MG TABLET PO PRN ×2 (13:48→20:09)
[2018-05-07] MEDS ORDERED: DiphenhydrAMINE HCL 25 MG CAPSULE PO PRN (16:15)
[2018-05-07 16:18] LABS: GLUCOMETER DEV NAME(LOC) BV2N3; GLUCOSE,POINT OF CARE 96 MG/DL (70-110)
[2018-05-07 16:24] VITALS: BP 116/77
[2018-05-07 20:10] VITALS: BP 115/80
[2018-05-07] MEDS: DiphenhydrAMINE HCL 25 MG CAPSULE PO SCH (21:11)
[2018-05-08 01:45] VITALS: BP 119/76
[2018-05-08] MEDS: LORazepam 2 MG TABLET PO PRN ×2 (02:55→08:04)
[2018-05-08 06:30] LABS: GLUCOMETER DEV NAME(LOC) BV2N3; GLUCOSE,POINT OF CARE 92 MG/DL (70-110)
[2018-05-08 08:00] VITALS: BP 115/75
[2018-05-08] MEDS: MULTIVITAMINS WITH MINERALS, THERAPEUTIC TABLET PO SCH (08:04)
[2018-05-08] MEDS: NICOTINE 7 MG/24 HOUR PATCH TD SCH (08:04)
[2018-05-08] MEDS: FOLIC ACID 1 MG TABLET PO SCH (08:04)
[2018-05-08] MEDS: DiphenhydrAMINE HCL 25 MG CAPSULE PO SCH (08:04)
[2018-05-08] MEDS: NALTREXONE HCL 50 MG TABLET PO SCH (08:04)
[2018-05-08] MEDS: ARIPiprazole 15 MG TABLET PO SCH (08:04)
[2018-05-08] MEDS: THIAMINE HCL 100 MG TABLET PO SCH (08:05)
[2018-05-08] MEDS ORDERED: THIA100T67 PO (09:16)
[2018-05-08] MEDS ORDERED: NALT50TA6 PO (09:16)
[2018-05-08] MEDS ORDERED: DIPH25 PO (09:16)
[2018-05-08] MEDS ORDERED: MULT-1239 PO (09:16)
[2018-05-08] MEDS ORDERED: FOLI1 PO (09:16)
[2018-05-08] MEDS ORDERED: ARIP15TA2 PO (09:16)
[2018-05-09] MEDS ORDERED: LORA2TAB2 PO (08:00)
[2018-06-03] MEDS ORDERED: ARIPiprazole ER SUSPENSION 400 MG PRE-FILLED DUAL CHAMBER SYRINGE IM SCH (09:00)
== END 2018-05-08 10:15 | disposition home or self-care (01) | DRG 885 ==
LOC: B2X 14:27
PROVIDERS: ADMIT Psychiatry & Neurology Psychiatry; ATTEND Psychiatry & Neurology Psychiatry
DX: F25.9 Schizoaffective disorder, unspecified (principal); D64.9 Anemia, unspecified; E03.9 Hypothyroidism, unspecified; K59.00 Constipation, unspecified; F17.200 Nicotine dependence, unspecified, uncomplicated; M16.10 Unilateral primary osteoarthritis, unspecified hip; N39.44 Nocturnal enuresis; R73.03 Prediabetes; Z80.3 Family history of malignant neoplasm of breast; Z85.3 Personal history of malignant neoplasm of breast; Z88.0 Allergy status to penicillin; Z91.19 Patient's noncompliance with other medical treatment and regimen; Z82.0 Family history of epilepsy and other diseases of the nervous system
CPT/HCPCS: 83036; 84439; 84443; 86592; 93005; J0401; J1200; J2060

== ENCOUNTER 2018-05-09 07:07 | Inpatient (IN) | payer MEDICARE, MEDICAID ==
[~2018-05-09] VITALS: Ht 154.9 cm; Wt 68.7 kg
[~2018-05-09 07:07] MED LIST changes: +ARIP15TA2 PO; +DIPH25 PO; +FOLI1 PO; -LORA2TAB2 PO; +MULT-1239 PO; +NALT50TA6 PO; +THIA100T67 PO
[2018-05-09] MEDS ORDERED: LORA2TAB2 PO (08:00)
[2018-05-09] MEDS ORDERED: LORazepam 2 MG TABLET PO ONE (08:30)
[2018-05-09 08:42] LABS: BASOPHILS % (AUTO) 0.9 % (0.0-2.0); EOSINOPHILS % (AUTO) 3.1 % (1.0-6.0); HEMOGLOBIN 13.4 g/dL (12.0-16.0); LYMPHOCYTES # (AUTO) 0.6 K/uL (1.0-4.8); LYMPHOCYTES % (AUTO) 14.9 % (22.0-44.0); MEAN CORPUSCULAR HEMOGLOBIN 32.1 pg (26.0-34.0); MEAN CORPUSCULAR HGB CONC 35.2 G/dL (31.0-37.0); MEAN CORPUSCULAR VOLUME 91 fL (80-100); MONOCYTES # (AUTO) 0.2 K/uL (0.1-1.0); MONOCYTES % (AUTO) 4.5 % (2.0-9.0); NEUTROPHILS # (AUTO) 2.9 K/uL (1.8-7.7); NEUTROPHILS % (AUTO) 76.6 % (40.0-70.0); PLATELET COUNT (AUTO) 269 K/uL (150-450); RED BLOOD CELL COUNT(AUTO) 4.16 MIL/uL (4.00-5.20); RED CELL DISTRIBUTION WIDTH 14.2 % (11.5-14.5)
[2018-05-09 08:54] LABS: AMPHET/METH SCREEN,URINE NEGATIVE (NEGATIVE); BARBITURATE SCREEN, URINE NEGATIVE (NEGATIVE); BENZODIAZEPINES SCREEN,URINE NEGATIVE (NEGATIVE); CANNABINOID SCREEN,URINE NEGATIVE (NEGATIVE); COCAINE SCREEN,URINE NEGATIVE (NEGATIVE); METHADONE SCREEN, URINE NEGATIVE (NEGATIVE); OPIATE SCREEN,URINE NEGATIVE (NEGATIVE)
[2018-05-09 08:54] LABS: ANION GAP 10 mmol/L (8-16); CALCIUM, TOTAL 8.9 mg/dL (8.8-10.5); CARBON DIOXIDE 28 mmol/L (22-29); CHLORIDE 103 mmol/L (98-107); CREATININE 0.62 mg/dL (0.60-1.30); GLOMERULAR FILTR. RATE CALC > 60 mL/min (>60); GLUCOSE,RANDOM 98 mg/dL (70-110); POTASSIUM 4.1 mmol/L (3.5-5.1); SODIUM SERUM 141 mmol/L (136-145); UREA NITROGEN, BLOOD 14 mg/dL (7-18)
[2018-05-09 08:55] LABS: PHENCYCLIDINE SCREEN,URINE NEGATIVE (NEGATIVE)
[2018-05-09 08:59] LABS: ALANINE AMINOTRANSFERASE 19 U/L (12-78); ALBUMIN 4.1 g/dL (3.4-5.0); ALKALINE PHOSPHATASE 76 U/L (46-116); ASPARTATE AMINOTRANSFERASE 20 U/L (15-37); BILIRUBIN,TOTAL 0.4 mg/dL (0.1-1.0); TOTAL PROTEIN, SERUM 7.6 g/dL (6.4-8.2)
[2018-05-09] MEDS ORDERED: DiphenhydrAMINE HCL 25 MG CAPSULE PO PRN (09:30)
[2018-05-09] MEDS ORDERED: HALOPERIDOL 5 MG TABLET PO PRN (09:30)
[2018-05-09] MEDS ORDERED: ARIPiprazole 15 MG TABLET PO SCH (09:43)
[2018-05-09 10:55] LABS: APPEARANCE,URINE CLOUDY (CLEAR); BILIRUBIN,URINE NEGATIVE (NEGATIVE); GLUCOSE, URINE (UA) NEGATIVE (NEGATIVE); KETONES,URINE NEGATIVE (NEGATIVE); LEUKOCYTE ESTERASE ,URINE NEGATIVE (NEGATIVE); NITRATE,URINE NEGATIVE (NEGATIVE); OCCULT BLOOD,URINE NEGATIVE (NEGATIVE); PH,URINE 6.5 (5.0-8.0); PROTEIN,URINE NEGATIVE (NEGATIVE); UROBILINOGEN,URINE 0.2 mg/dL (<=1.0)
[2018-05-09] MEDS: LORazepam 2 MG TABLET PO PRN ×2 (13:44→20:37)
[2018-05-09] MEDS ORDERED: PROMETHAZINE HCL 25 MG TABLET PO PRN ×2 (14:00)
[2018-05-09] MEDS ORDERED: HydrOXYzine PAMOATE 50 MG CAPSULE PO PRN (14:00)
[2018-05-09] MEDS ORDERED: ACETAMINOPHEN 325 MG TABLET PO PRN (14:00)
[2018-05-09] MEDS ORDERED: LOPERAMIDE HCL 2 MG CAPSULE PO PRN (14:00)
[2018-05-09] MEDS ORDERED: GuaiFENesin/D-METHORPHAN [SUGAR-FREE] 200-20MG/10 ML SYRUP UDCUP PO PRN (14:00)
[2018-05-09] MEDS ORDERED: MAG HYDROX/AL HYDROX/SIMETH ES 30 ML SUSPENSION UDCUP PO PRN (14:00)
[2018-05-09] MEDS ORDERED: MAGNESIUM HYDROXIDE SUSPENSION 30 ML UDCUP PO PRN (14:00)
[2018-05-09] MEDS: DiphenhydrAMINE HCL 25 MG CAPSULE PO SCH ×2 (16:10→20:31)
[2018-05-09] MEDS: THIAMINE HCL 100 MG TABLET PO SCH (16:10)
[2018-05-09 16:11] VITALS: BP 121/86
[2018-05-09] MEDS: PROPRANOLOL HCL 10 MG TABLET PO SCH (16:58)
[2018-05-09] MEDS ORDERED: ZOLPIDEM TARTRATE 10 MG TABLET PO SCH (21:00)
[2018-05-10 06:42] VITALS: BP 117/68
[2018-05-10] MEDS: LORazepam 2 MG TABLET PO PRN ×4 (06:43→23:50)
[2018-05-10] MEDS ORDERED: BISACODYL 5 MG EC TABLET PO PRN (07:15)
[2018-05-10 08:47] VITALS: BP 102/61
[2018-05-10] MEDS: MULTIVITAMINS WITH MINERALS, THERAPEUTIC TABLET PO SCH (09:00)
[2018-05-10] MEDS: DiphenhydrAMINE HCL 25 MG CAPSULE PO SCH ×4 (09:00→20:54)
[2018-05-10] MEDS: NALTREXONE HCL 50 MG TABLET PO SCH (09:00)
[2018-05-10] MEDS: FOLIC ACID 1 MG TABLET PO SCH (09:01)
[2018-05-10] MEDS: PROPRANOLOL HCL 10 MG TABLET PO SCH ×3 (09:01→16:15)
[2018-05-10] MEDS: THIAMINE HCL 100 MG TABLET PO SCH ×2 (09:01→16:15)
[2018-05-10 09:14] LABS: BASOPHILS % (AUTO) 0.9 % (0.0-2.0); EOSINOPHILS % (AUTO) 10.6 % (1.0-6.0); HEMATOCRIT 40.3 % (36-46); HEMOGLOBIN 13.8 g/dL (12.0-16.0); LYMPHOCYTES # (AUTO) 0.9 K/uL (1.0-4.8); LYMPHOCYTES % (AUTO) 24.7 % (22.0-44.0); MEAN CORPUSCULAR HEMOGLOBIN 31.8 pg (26.0-34.0); MEAN CORPUSCULAR HGB CONC 34.4 G/dL (31.0-37.0); MEAN CORPUSCULAR VOLUME 93 fL (80-100); MONOCYTES # (AUTO) 0.2 K/uL (0.1-1.0); MONOCYTES % (AUTO) 5.9 % (2.0-9.0); NEUTROPHILS # (AUTO) 2.1 K/uL (1.8-7.7); NEUTROPHILS % (AUTO) 57.9 % (40.0-70.0); PLATELET COUNT (AUTO) 287 K/uL (150-450); RED BLOOD CELL COUNT(AUTO) 4.35 MIL/uL (4.00-5.20); RED CELL DISTRIBUTION WIDTH 14.3 % (11.5-14.5)
[2018-05-10 09:46] LABS: ALANINE AMINOTRANSFERASE 19 U/L (12-78); ALBUMIN 4.1 g/dL (3.4-5.0); ALKALINE PHOSPHATASE 71 U/L (46-116); ANION GAP 6 mmol/L (8-16); ASPARTATE AMINOTRANSFERASE 15 U/L (15-37); BILIRUBIN,TOTAL 0.6 mg/dL (0.1-1.0); CALCIUM, TOTAL 8.9 mg/dL (8.8-10.5); CARBON DIOXIDE 28 mmol/L (22-29); CHLORIDE 105 mmol/L (98-107); CHOLESTEROL 242 mg/dL (131-200); CREATININE 0.76 mg/dL (0.60-1.30); GLOMERULAR FILTR. RATE CALC > 60 mL/min (>60); GLUCOSE,RANDOM 101 mg/dL (70-110); HDL CHOLESTEROL 80 mg/dL (40-60); LDL CHOL (CALC.) 137 mg/dL (0-130); POTASSIUM 4.6 mmol/L (3.5-5.1); SODIUM SERUM 139 mmol/L (136-145); TOTAL PROTEIN, SERUM 7.1 g/dL (6.4-8.2); TRIGLYCERIDES 126 mg/dL (15-150); UREA NITROGEN, BLOOD 13 mg/dL (7-18)
[2018-05-10 10:38] VITALS: BP 112/67
[2018-05-10] MEDS: IBUPROFEN 600 MG TABLET PO PRN (10:38)
[2018-05-10] MEDS: ACETAMINOPHEN 325 MG TABLET PO PRN (16:16)
[2018-05-10] MEDS: ZOLPIDEM TARTRATE 10 MG TABLET PO PRN (21:53)
[2018-05-11 00:47] VITALS: BP 126/94
[2018-05-11] MEDS: ACETAMINOPHEN 325 MG TABLET PO PRN (00:49)
[2018-05-11 08:37] VITALS: BP 101/69
[2018-05-11] MEDS: FOLIC ACID 1 MG TABLET PO SCH (08:58)
[2018-05-11] MEDS: NALTREXONE HCL 50 MG TABLET PO SCH (08:58)
[2018-05-11] MEDS: MULTIVITAMINS WITH MINERALS, THERAPEUTIC TABLET PO SCH (08:58)
[2018-05-11] MEDS: PROPRANOLOL HCL 10 MG TABLET PO SCH ×3 (08:58→16:31)
[2018-05-11] MEDS: THIAMINE HCL 100 MG TABLET PO SCH ×2 (08:58→16:31)
[2018-05-11] MEDS: DiphenhydrAMINE HCL 25 MG CAPSULE PO SCH ×4 (08:58→20:31)
[2018-05-11] MEDS: LORazepam 2 MG TABLET PO PRN ×3 (08:58→19:16)
[2018-05-11] MEDS: ARIPiprazole 10 MG TABLET PO SCH (09:57)
[2018-05-11 15:53] VITALS: BP 112/84
[2018-05-11] MEDS: IBUPROFEN 600 MG TABLET PO PRN (15:53)
[2018-05-11 16:36] VITALS: BP 118/89
[2018-05-11] MEDS: ZOLPIDEM TARTRATE 10 MG TABLET PO PRN (21:46)
[2018-05-12 02:20] VITALS: BP 150/100
[2018-05-12] MEDS: LORazepam 2 MG TABLET PO PRN ×3 (02:21→15:50)
[2018-05-12] MEDS: IBUPROFEN 600 MG TABLET PO PRN ×2 (05:42→12:34)
[2018-05-12] MEDS: ARIPiprazole 10 MG TABLET PO SCH (08:35)
[2018-05-12] MEDS: THIAMINE HCL 100 MG TABLET PO SCH ×2 (08:36→16:59)
[2018-05-12] MEDS: NALTREXONE HCL 50 MG TABLET PO SCH (08:36)
[2018-05-12] MEDS: MULTIVITAMINS WITH MINERALS, THERAPEUTIC TABLET PO SCH (08:36)
[2018-05-12] MEDS: FOLIC ACID 1 MG TABLET PO SCH (08:36)
[2018-05-12] MEDS: PROPRANOLOL HCL 10 MG TABLET PO SCH ×3 (08:36→16:59)
[2018-05-12] MEDS: DiphenhydrAMINE HCL 25 MG CAPSULE PO SCH ×4 (08:36→20:02)
[2018-05-12 08:40] VITALS: BP 118/91
[2018-05-12 12:32] VITALS: BP 104/71
[2018-05-12 16:00] VITALS: BP 125/84
[2018-05-12 16:58] VITALS: BP 123/88
[2018-05-12] MEDS: ZOLPIDEM TARTRATE 10 MG TABLET PO PRN (20:35)
[2018-05-13] VITALS: BP 127/64
[2018-05-13] MEDS: LORazepam 2 MG TABLET PO PRN ×2 (00:28→05:51)
[2018-05-13 05:48] VITALS: BP 137/83
[2018-05-13 08:00] VITALS: BP 118/84
[2018-05-13] MEDS ORDERED: NALT50TA6 PO (08:32)
[2018-05-13] MEDS ORDERED: ARIP10TA8 PO (08:32)
[2018-05-13] MEDS ORDERED: PROP10TA73 PO (08:33)
[2018-05-13] MEDS: ARIPiprazole 10 MG TABLET PO SCH (09:00)
[2018-05-13] MEDS: NALTREXONE HCL 50 MG TABLET PO SCH (09:00)
[2018-05-13] MEDS: DiphenhydrAMINE HCL 25 MG CAPSULE PO SCH (09:00)
[2018-05-13] MEDS: FOLIC ACID 1 MG TABLET PO SCH (09:00)
[2018-05-13] MEDS: PROPRANOLOL HCL 10 MG TABLET PO SCH (09:00)
[2018-05-13] MEDS: MULTIVITAMINS WITH MINERALS, THERAPEUTIC TABLET PO SCH (09:00)
[2018-05-13] MEDS: THIAMINE HCL 100 MG TABLET PO SCH (09:01)
== END 2018-05-13 09:07 | disposition home or self-care (01) | DRG 885 ==
LOC: EMS 07:08 → B2S 10:12
PROVIDERS: ADMIT Psychiatry & Neurology Psychiatry; ATTEND Psychiatry & Neurology Psychiatry
DX: F25.9 Schizoaffective disorder, unspecified (principal); R45.851 Suicidal ideations; F17.210 Nicotine dependence, cigarettes, uncomplicated; D72.819 Decreased white blood cell count, unspecified; E03.9 Hypothyroidism, unspecified; E11.9 Type 2 diabetes mellitus without complications; E78.5 Hyperlipidemia, unspecified; F32.9 Major depressive disorder, single episode, unspecified; F41.9 Anxiety disorder, unspecified; K59.00 Constipation, unspecified; M16.10 Unilateral primary osteoarthritis, unspecified hip; Z88.0 Allergy status to penicillin; Z79.899 Other long term (current) drug therapy; Z80.3 Family history of malignant neoplasm of breast; Z81.8 Family history of other mental and behavioral disorders; Z85.3 Personal history of malignant neoplasm of breast; Z91.19 Patient's noncompliance with other medical treatment and regimen
CPT/HCPCS: 87081; 99285; G0480

== ENCOUNTER 2018-05-29 08:41 | Emergency (ER) | payer MEDICARE, OTHER ==
[~2018-05-29] VITALS: Ht 154.9 cm; Wt 70.5 kg
[~2018-05-29 08:41] MED LIST changes: +ARIP10TA8 PO; -ARIP15TA2 PO; -ARIP400S IM; -DIPH25 PO; -FOLI1 PO; -MULT-1239 PO; +PROP10TA73 PO; -THIA100T67 PO
[2018-05-29 10:22] LABS: BASOPHILS % (AUTO) 0.8 % (0.0-2.0); EOSINOPHILS % (AUTO) 11.4 % (1.0-6.0); HEMATOCRIT 37.5 % (36-46); HEMOGLOBIN 12.9 g/dL (12.0-16.0); LYMPHOCYTES # (AUTO) 0.6 K/uL (1.0-4.8); LYMPHOCYTES % (AUTO) 21.2 % (22.0-44.0); MEAN CORPUSCULAR HEMOGLOBIN 32.6 pg (26.0-34.0); MEAN CORPUSCULAR HGB CONC 34.4 G/dL (31.0-37.0); MEAN CORPUSCULAR VOLUME 95 fL (80-100); MONOCYTES # (AUTO) 0.2 K/uL (0.1-1.0); MONOCYTES % (AUTO) 7.9 % (2.0-9.0); NEUTROPHILS # (AUTO) 1.6 K/uL (1.8-7.7); NEUTROPHILS % (AUTO) 58.7 % (40.0-70.0); PLATELET COUNT (AUTO) 243 K/uL (150-450); RED BLOOD CELL COUNT(AUTO) 3.95 MIL/uL (4.00-5.20); RED CELL DISTRIBUTION WIDTH 14.4 % (11.5-14.5)
[2018-05-29 10:31] LABS: ANION GAP 11 mmol/L (8-16); CALCIUM, TOTAL 9.2 mg/dL (8.8-10.5); CARBON DIOXIDE 23 mmol/L (22-29); CHLORIDE 105 mmol/L (98-107); CREATININE 0.66 mg/dL (0.60-1.30); GLOMERULAR FILTR. RATE CALC > 60 mL/min (>60); GLUCOSE,RANDOM 85 mg/dL (70-110); POTASSIUM 3.7 mmol/L (3.5-5.1); SODIUM SERUM 139 mmol/L (136-145); UREA NITROGEN, BLOOD 5 mg/dL (7-18)
[2018-05-29 10:37] LABS: ALANINE AMINOTRANSFERASE 18 U/L (12-78); ALKALINE PHOSPHATASE 74 U/L (46-116); ASPARTATE AMINOTRANSFERASE 18 U/L (15-37); BILIRUBIN,TOTAL 0.6 mg/dL (0.1-1.0); TOTAL PROTEIN, SERUM 7.2 g/dL (6.4-8.2)
[2018-05-29 12:20] VITALS: BP 138/78
[2018-05-29] MEDS ORDERED: LORazepam 1 MG TABLET PO ONE (12:30)
[2018-05-29 12:37] LABS: AMPHET/METH SCREEN,URINE NEGATIVE (NEGATIVE); BARBITURATE SCREEN, URINE NEGATIVE (NEGATIVE); BENZODIAZEPINES SCREEN,URINE NEGATIVE (NEGATIVE); CANNABINOID SCREEN,URINE NEGATIVE (NEGATIVE); COCAINE SCREEN,URINE NEGATIVE (NEGATIVE); METHADONE SCREEN, URINE NEGATIVE (NEGATIVE); OPIATE SCREEN,URINE NEGATIVE (NEGATIVE)
[2018-05-29 12:38] LABS: PHENCYCLIDINE SCREEN,URINE NEGATIVE (NEGATIVE)
== END 2018-05-29 13:55 | disposition home or self-care (01) ==
LOC: EMS 08:43
DX: R44.0 Auditory hallucinations (principal); R45.851 Suicidal ideations; F41.9 Anxiety disorder, unspecified; E11.9 Type 2 diabetes mellitus without complications; E03.9 Hypothyroidism, unspecified; F20.9 Schizophrenia, unspecified; F17.210 Nicotine dependence, cigarettes, uncomplicated; Z88.0 Allergy status to penicillin
CPT/HCPCS: 99284

== ENCOUNTER 2018-06-01 08:45 | Emergency (ER) | payer MEDICARE, OTHER ==
[~2018-06-01] VITALS: Ht 154.9 cm; Wt 68.2 kg
[~2018-06-01 08:45] MED LIST changes: -NALT50TA6 PO; -PROP10TA73 PO
[2018-06-01] MEDS ORDERED: LORA2TAB2 PO (09:00)
[2018-06-01 09:35] LABS: BASOPHILS % (AUTO) 1.3 % (0.0-2.0); EOSINOPHILS % (AUTO) 9.8 % (1.0-6.0); HEMATOCRIT 35.3 % (36-46); HEMOGLOBIN 12.4 g/dL (12.0-16.0); LYMPHOCYTES # (AUTO) 0.7 K/uL (1.0-4.8); LYMPHOCYTES % (AUTO) 26.6 % (22.0-44.0); MEAN CORPUSCULAR HEMOGLOBIN 33.1 pg (26.0-34.0); MEAN CORPUSCULAR HGB CONC 35.2 G/dL (31.0-37.0); MEAN CORPUSCULAR VOLUME 94 fL (80-100); MONOCYTES # (AUTO) 0.2 K/uL (0.1-1.0); MONOCYTES % (AUTO) 7.9 % (2.0-9.0); NEUTROPHILS # (AUTO) 1.5 K/uL (1.8-7.7); NEUTROPHILS % (AUTO) 54.4 % (40.0-70.0); PLATELET COUNT (AUTO) 235 K/uL (150-450); RED BLOOD CELL COUNT(AUTO) 3.76 MIL/uL (4.00-5.20); RED CELL DISTRIBUTION WIDTH 14.8 % (11.5-14.5)
[2018-06-01 09:38] LABS: ANION GAP 11 mmol/L (8-16); CALCIUM, TOTAL 8.6 mg/dL (8.8-10.5); CARBON DIOXIDE 24 mmol/L (22-29); CHLORIDE 107 mmol/L (98-107); CREATININE 0.66 mg/dL (0.60-1.30); GLOMERULAR FILTR. RATE CALC > 60 mL/min (>60); GLUCOSE,RANDOM 97 mg/dL (70-110); POTASSIUM 3.7 mmol/L (3.5-5.1); SODIUM SERUM 142 mmol/L (136-145); UREA NITROGEN, BLOOD 6 mg/dL (7-18)
[2018-06-01 09:44] LABS: ALANINE AMINOTRANSFERASE 18 U/L (12-78); ALBUMIN 3.7 g/dL (3.4-5.0); ALKALINE PHOSPHATASE 68 U/L (46-116); ASPARTATE AMINOTRANSFERASE 13 U/L (15-37); BILIRUBIN,TOTAL 0.3 mg/dL (0.1-1.0); TOTAL PROTEIN, SERUM 6.7 g/dL (6.4-8.2)
[2018-06-01] MEDS ORDERED: LORazepam 1 MG TABLET PO ONE (09:45)
[2018-06-01 11:05] VITALS: BP 119/90
[2018-06-01 11:05] LABS: AMPHET/METH SCREEN,URINE NEGATIVE (NEGATIVE); BARBITURATE SCREEN, URINE NEGATIVE (NEGATIVE); BENZODIAZEPINES SCREEN,URINE NEGATIVE (NEGATIVE); CANNABINOID SCREEN,URINE NEGATIVE (NEGATIVE); COCAINE SCREEN,URINE NEGATIVE (NEGATIVE); METHADONE SCREEN, URINE NEGATIVE (NEGATIVE); OPIATE SCREEN,URINE NEGATIVE (NEGATIVE)
[2018-06-01 11:10] LABS: PHENCYCLIDINE SCREEN,URINE NEGATIVE (NEGATIVE)
[2018-06-01] MEDS ORDERED: HALOPERIDOL 5 MG TABLET PO ONE (11:15)
== END 2018-06-01 11:28 | disposition home or self-care (01) ==
LOC: EMS 08:47
DX: F41.9 Anxiety disorder, unspecified (principal); F25.9 Schizoaffective disorder, unspecified; F31.9 Bipolar disorder, unspecified; E11.9 Type 2 diabetes mellitus without complications; E03.9 Hypothyroidism, unspecified; F20.9 Schizophrenia, unspecified; F17.210 Nicotine dependence, cigarettes, uncomplicated; Z88.0 Allergy status to penicillin
CPT/HCPCS: 36415; 80053; 80307; 85025; 99284; G0480

== ENCOUNTER 2018-06-13 15:36 | Inpatient (IN) | payer MEDICARE, MEDICAID ==
[~2018-06-13] VITALS: Ht 154.9 cm; Wt 62.6 kg
[~2018-06-13 15:36] MED LIST changes: +LORA2TAB2 PO
[2018-06-13 15:44] VITALS: BP 110/74
[2018-06-13] MEDS ORDERED: RisperiDONE 1 MG TABLET PO PRN (15:45)
[2018-06-13] MEDS ORDERED: PROMETHAZINE HCL 25 MG TABLET PO PRN (15:45)
[2018-06-13] MEDS ORDERED: MAG HYDROX/AL HYDROX/SIMETH ES 30 ML SUSPENSION UDCUP PO PRN (15:45)
[2018-06-13] MEDS ORDERED: GuaiFENesin/D-METHORPHAN [SUGAR-FREE] 200-20MG/10 ML SYRUP UDCUP PO PRN (15:45)
[2018-06-13] MEDS ORDERED: LOPERAMIDE HCL 2 MG CAPSULE PO PRN (15:45)
[2018-06-13] MEDS ORDERED: HydrOXYzine PAMOATE 50 MG CAPSULE PO PRN (15:45)
[2018-06-13] MEDS ORDERED: MAGNESIUM HYDROXIDE SUSPENSION 30 ML UDCUP PO PRN (15:45)
[2018-06-13 16:19] VITALS: BP 140/86
[2018-06-13] MEDS ORDERED: RISP2 PO (16:23)
[2018-06-13] MEDS: LORazepam 2 MG TABLET PO PRN (16:52)
[2018-06-13] MEDS: ACETAMINOPHEN 325 MG TABLET PO PRN (16:53)
[2018-06-13] MEDS: THIAMINE HCL 100 MG TABLET PO SCH (16:56)
[2018-06-13 17:09] LABS: GLUCOMETER DEV NAME(LOC) BV2N3; GLUCOSE,POINT OF CARE 72 MG/DL (70-110)
[2018-06-13] MEDS ORDERED: RisperiDONE 3 MG TABLET PO SCH (21:00)
[2018-06-14] VITALS (9 sets, daily range): BP systolic 110–141; BP diastolic 72–86
[2018-06-14] MEDS: LORazepam 2 MG TABLET PO PRN ×4 (01:57→19:29)
[2018-06-14] MEDS: ZOLPIDEM TARTRATE 10 MG TABLET PO PRN ×2 (02:56→20:53)
[2018-06-14] MEDS: MULTIVITAMINS WITH MINERALS, THERAPEUTIC TABLET PO SCH (08:14)
[2018-06-14] MEDS: NALTREXONE HCL 50 MG TABLET PO SCH (08:14)
[2018-06-14] MEDS: THIAMINE HCL 100 MG TABLET PO SCH ×2 (08:14→16:35)
[2018-06-14] MEDS: FOLIC ACID 1 MG TABLET PO SCH (08:14)
[2018-06-14] MEDS: NICOTINE 14 MG/24 HOUR PATCH TD SCH (08:14)
[2018-06-14] MEDS: ACETAMINOPHEN 325 MG TABLET PO PRN ×2 (08:15→13:06)
[2018-06-14 08:46] LABS: EOSINOPHILS % (AUTO) 12.3 % (1.0-6.0); HEMATOCRIT 37.8 % (36-46); HEMOGLOBIN 12.8 g/dL (12.0-16.0); LYMPHOCYTES # (AUTO) 1.1 K/uL (1.0-4.8); LYMPHOCYTES % (AUTO) 36.5 % (22.0-44.0); MEAN CORPUSCULAR HEMOGLOBIN 32.4 pg (26.0-34.0); MEAN CORPUSCULAR HGB CONC 33.9 G/dL (31.0-37.0); MEAN CORPUSCULAR VOLUME 96 fL (80-100); MONOCYTES # (AUTO) 0.2 K/uL (0.1-1.0); MONOCYTES % (AUTO) 6.2 % (2.0-9.0); NEUTROPHILS # (AUTO) 1.3 K/uL (1.8-7.7); PLATELET COUNT (AUTO) 269 K/uL (150-450); RED BLOOD CELL COUNT(AUTO) 3.95 MIL/uL (4.00-5.20); RED CELL DISTRIBUTION WIDTH 14.2 % (11.5-14.5)
[2018-06-14 08:54] LABS: HEMOGLOBIN A1C 5.1 % (4.5-6.2)
[2018-06-14 08:56] LABS: APPEARANCE,URINE CLEAR (CLEAR); BILIRUBIN,URINE NEGATIVE (NEGATIVE); GLUCOSE, URINE (UA) NEGATIVE (NEGATIVE); KETONES,URINE NEGATIVE (NEGATIVE); LEUKOCYTE ESTERASE ,URINE NEGATIVE (NEGATIVE); NITRATE,URINE NEGATIVE (NEGATIVE); OCCULT BLOOD,URINE NEGATIVE (NEGATIVE); PROTEIN,URINE NEGATIVE (NEGATIVE); UROBILINOGEN,URINE 0.2 mg/dL (<=1.0)
[2018-06-14 09:05] LABS: AMPHET/METH SCREEN,URINE NEGATIVE (NEGATIVE); BARBITURATE SCREEN, URINE NEGATIVE (NEGATIVE); BENZODIAZEPINES SCREEN,URINE NEGATIVE (NEGATIVE); CANNABINOID SCREEN,URINE NEGATIVE (NEGATIVE); COCAINE SCREEN,URINE NEGATIVE (NEGATIVE); METHADONE SCREEN, URINE NEGATIVE (NEGATIVE); OPIATE SCREEN,URINE NEGATIVE (NEGATIVE)
[2018-06-14 09:05] LABS: ALANINE AMINOTRANSFERASE 16 U/L (12-78); ALBUMIN 3.4 g/dL (3.4-5.0); ALKALINE PHOSPHATASE 67 U/L (46-116); ANION GAP 8 mmol/L (8-16); ASPARTATE AMINOTRANSFERASE 6 U/L (15-37); BILIRUBIN,TOTAL 0.3 mg/dL (0.1-1.0); CALCIUM, TOTAL 8.8 mg/dL (8.8-10.5); CARBON DIOXIDE 27 mmol/L (22-29); CHLORIDE 110 mmol/L (98-107); CHOLESTEROL 196 mg/dL (131-200); CREATININE 0.63 mg/dL (0.60-1.30); GLOMERULAR FILTR. RATE CALC > 60 mL/min (>60); GLUCOSE,RANDOM 84 mg/dL (70-110); HDL CHOLESTEROL 66 mg/dL (40-60); LDL CHOL (CALC.) 109 mg/dL (0-130); POTASSIUM 4.3 mmol/L (3.5-5.1); SODIUM SERUM 145 mmol/L (136-145); TOTAL PROTEIN, SERUM 6.2 g/dL (6.4-8.2); TRIGLYCERIDES 105 mg/dL (15-150); UREA NITROGEN, BLOOD 9 mg/dL (7-18)
[2018-06-14 09:10] LABS: PHENCYCLIDINE SCREEN,URINE NEGATIVE (NEGATIVE)
[2018-06-14] MEDS ORDERED: PALIPERIDONE 1.5 MG ER TABLET PO PRN (13:45)
[2018-06-14] MEDS ORDERED: PALIPERIDONE PALMITATE 234 MG/1.5 ML SYRINGE IM ONE (13:45)
[2018-06-14] MEDS ORDERED: DiphenhydrAMINE HCL 50 MG/ML VIAL IM ONE (14:15)
[2018-06-14] MEDS: DiphenhydrAMINE HCL 25 MG CAPSULE PO SCH ×2 (16:35→20:43)
[2018-06-14] MEDS: PALIPERIDONE 3 MG ER TABLET PO SCH (20:43)
[2018-06-15] VITALS (9 sets, daily range): BP systolic 122–134; BP diastolic 78–89
[2018-06-15] MEDS: LORazepam 2 MG TABLET PO PRN ×2 (01:41→06:42)
[2018-06-15] MEDS: ACETAMINOPHEN 325 MG TABLET PO PRN (06:42)
[2018-06-15 09:43] LABS: BASOPHILS % (AUTO) 0.8 % (0.0-2.0); HEMATOCRIT 33.9 % (36-46); HEMOGLOBIN 11.8 g/dL (12.0-16.0); LYMPHOCYTES # (AUTO) 0.7 K/uL (1.0-4.8); LYMPHOCYTES % (AUTO) 22.4 % (22.0-44.0); MEAN CORPUSCULAR HEMOGLOBIN 33.2 pg (26.0-34.0); MEAN CORPUSCULAR HGB CONC 34.9 G/dL (31.0-37.0); MEAN CORPUSCULAR VOLUME 95 fL (80-100); MONOCYTES # (AUTO) 0.2 K/uL (0.1-1.0); MONOCYTES % (AUTO) 6.4 % (2.0-9.0); NEUTROPHILS # (AUTO) 1.7 K/uL (1.8-7.7); NEUTROPHILS % (AUTO) 56.4 % (40.0-70.0); PLATELET COUNT (AUTO) 227 K/uL (150-450); RED BLOOD CELL COUNT(AUTO) 3.55 MIL/uL (4.00-5.20); RED CELL DISTRIBUTION WIDTH 13.9 % (11.5-14.5)
[2018-06-15] MEDS: LORazepam 2 MG TABLET PO SCH ×4 (09:50→20:55)
[2018-06-15] MEDS: NALTREXONE HCL 50 MG TABLET PO SCH (09:50)
[2018-06-15] MEDS: FOLIC ACID 1 MG TABLET PO SCH (09:51)
[2018-06-15] MEDS: MULTIVITAMINS WITH MINERALS, THERAPEUTIC TABLET PO SCH (09:51)
[2018-06-15] MEDS: THIAMINE HCL 100 MG TABLET PO SCH ×2 (09:51→16:29)
[2018-06-15] MEDS: DiphenhydrAMINE HCL 25 MG CAPSULE PO SCH ×4 (09:51→20:54)
[2018-06-15] MEDS: NICOTINE 14 MG/24 HOUR PATCH TD SCH (09:52)
[2018-06-15] MEDS: PALIPERIDONE 3 MG ER TABLET PO SCH (20:55)
[2018-06-16 00:40] VITALS: BP 132/91
[2018-06-16] MEDS: LORazepam 2 MG TABLET PO PRN ×2 (00:45→05:55)
[2018-06-16 08:00] VITALS: BP 114/84
[2018-06-16] MEDS: FOLIC ACID 1 MG TABLET PO SCH (08:15)
[2018-06-16] MEDS: MULTIVITAMINS WITH MINERALS, THERAPEUTIC TABLET PO SCH (08:15)
[2018-06-16] MEDS: DiphenhydrAMINE HCL 25 MG CAPSULE PO SCH ×4 (08:15→20:32)
[2018-06-16] MEDS: LORazepam 2 MG TABLET PO SCH ×4 (08:15→20:32)
[2018-06-16] MEDS: THIAMINE HCL 100 MG TABLET PO SCH ×2 (08:15→16:31)
[2018-06-16] MEDS: NALTREXONE HCL 50 MG TABLET PO SCH (08:15)
[2018-06-16] MEDS: NICOTINE 14 MG/24 HOUR PATCH TD SCH (08:15)
[2018-06-16 09:34] VITALS: BP 114/84
[2018-06-16 12:26] VITALS: BP 112/78
[2018-06-16] MEDS: ACETAMINOPHEN 325 MG TABLET PO PRN (12:26)
[2018-06-16 16:12] VITALS: BP 115/78
[2018-06-16] MEDS: PALIPERIDONE 3 MG ER TABLET PO SCH (20:32)
[2018-06-16] MEDS: ZOLPIDEM TARTRATE 10 MG TABLET PO PRN (21:19)
[2018-06-17] MEDS: LORazepam 2 MG TABLET PO PRN ×2 (00:16→04:53)
[2018-06-17 05:25] VITALS: BP 118/80
[2018-06-17 08:00] VITALS: BP 117/85
[2018-06-17 08:11] VITALS: BP 117/85
[2018-06-17] MEDS: MULTIVITAMINS WITH MINERALS, THERAPEUTIC TABLET PO SCH (08:15)
[2018-06-17] MEDS: NALTREXONE HCL 50 MG TABLET PO SCH (08:15)
[2018-06-17] MEDS: FOLIC ACID 1 MG TABLET PO SCH (08:15)
[2018-06-17] MEDS: DiphenhydrAMINE HCL 25 MG CAPSULE PO SCH ×4 (08:15→20:38)
[2018-06-17] MEDS: THIAMINE HCL 100 MG TABLET PO SCH ×2 (08:16→16:35)
[2018-06-17] MEDS: LORazepam 1 MG TABLET PO SCH ×4 (08:16→20:38)
[2018-06-17] MEDS: NICOTINE 14 MG/24 HOUR PATCH TD SCH (08:16)
[2018-06-17 16:00] VITALS: BP 114/77
[2018-06-17 16:01] VITALS: BP 114/77
[2018-06-17] MEDS: ACETAMINOPHEN 325 MG TABLET PO PRN (16:06)
[2018-06-17] MEDS: PALIPERIDONE 3 MG ER TABLET PO SCH (20:38)
[2018-06-17] MEDS: ZOLPIDEM TARTRATE 10 MG TABLET PO PRN (21:03)
[2018-06-18 00:40] VITALS: BP 122/87
[2018-06-18] MEDS: LORazepam 1 MG TABLET PO PRN ×2 (00:41→06:25)
[2018-06-18] MEDS ORDERED: LORazepam 1 MG TABLET PO PRN (07:00)
[2018-06-18] MEDS: DiphenhydrAMINE HCL 25 MG CAPSULE PO SCH ×2 (08:01→12:32)
[2018-06-18] MEDS: NALTREXONE HCL 50 MG TABLET PO SCH (08:01)
[2018-06-18] MEDS: FOLIC ACID 1 MG TABLET PO SCH (08:01)
[2018-06-18] MEDS: THIAMINE HCL 100 MG TABLET PO SCH (08:01)
[2018-06-18] MEDS: MULTIVITAMINS WITH MINERALS, THERAPEUTIC TABLET PO SCH (08:01)
[2018-06-18] MEDS: NICOTINE 14 MG/24 HOUR PATCH TD SCH (08:02)
[2018-06-18 08:19] LABS: CREATINE KINASE, TOTAL 33 U/L (26-192); FREE T4 (FREE THYROXINE) 0.66 ng/dL (0.76-1.46); THYROID STIMULATING HORMONE 1.91 uIU/mL (0.36-3.74)
[2018-06-18 08:34] LABS: FOLATE SERUM 11.6 ng/mL (5.4-)
[2018-06-18] MEDS ORDERED: PALIPERIDONE PALMITATE 156 MG/ML SYRINGE IM ONE (09:00)
[2018-06-18] MEDS ORDERED: BISACODYL 5 MG EC TABLET PO PRN (09:15)
[2018-06-18] MEDS ORDERED: PALI117D IM (09:53)
[2018-06-18] MEDS ORDERED: DIPH25 PO ×2 (09:53→10:23)
[2018-06-18] MEDS ORDERED: NALT50TA PO (09:53)
[2018-06-18] MEDS ORDERED: THIA100T67 PO (10:23)
[2018-06-18] MEDS ORDERED: PALI3 PO (10:23)
[2018-06-18] MEDS ORDERED: FOLI1 PO (10:23)
[2018-06-18] MEDS ORDERED: MULT-1239 PO (10:23)
[2018-06-18] MEDS ORDERED: NALT50TA6 PO (10:23)
== END 2018-06-18 13:20 | disposition home or self-care (01) | DRG 885 ==
LOC: B2X 15:56
PROVIDERS: ADMIT Psychiatry & Neurology Psychiatry; ATTEND Psychiatry & Neurology Psychiatry
DX: F25.9 Schizoaffective disorder, unspecified (principal); R45.851 Suicidal ideations; G89.29 Other chronic pain; G47.00 Insomnia, unspecified; F32.9 Major depressive disorder, single episode, unspecified; F17.200 Nicotine dependence, unspecified, uncomplicated; E55.9 Vitamin D deficiency, unspecified; E11.9 Type 2 diabetes mellitus without complications; I10 Essential (primary) hypertension; K59.00 Constipation, unspecified; N39.44 Nocturnal enuresis; M19.90 Unspecified osteoarthritis, unspecified site; C50.919 Malignant neoplasm of unspecified site of unspecified female breast; D72.819 Decreased white blood cell count, unspecified; D64.9 Anemia, unspecified; E03.9 Hypothyroidism, unspecified; Z59.9 Problem related to housing and economic circumstances, unspecified; Z68.28 Body mass index [BMI] 28.0-28.9, adult; Z79.899 Other long term (current) drug therapy; Z65.3 Problems related to other legal circumstances; Z91.19 Patient's noncompliance with other medical treatment and regimen; Z91.14 Patient's other noncompliance with medication regimen; Z88.0 Allergy status to penicillin; Z85.3 Personal history of malignant neoplasm of breast; Z82.0 Family history of epilepsy and other diseases of the nervous system; Z80.3 Family history of malignant neoplasm of breast
CPT/HCPCS: 80307; 82306; 82607; 82746; 83036; 83735; 84439; 84443; 87081; J1200

== ENCOUNTER 2018-07-22 09:55 | Inpatient (IN) | payer MEDICARE, MEDICAID ==
[~2018-07-22] VITALS: Ht 154.9 cm; Wt 62.1 kg
[~2018-07-22 09:55] MED LIST changes: -ARIP10TA8 PO; +DIPH25 PO; +FOLI1 PO; -LORA2TAB2 PO; +MULT-1239 PO; +NALT50TA PO; +NALT50TA6 PO; +PALI117D IM; +PALI3 PO; +THIA100T67 PO
[2018-07-22] MEDS ORDERED: QUEtiapine FUMARATE 100 MG TABLET PO PRN (10:15)
[2018-07-22 10:36] VITALS: BP 112/72
[2018-07-22] MEDS ORDERED: LORazepam 2 MG/ML VIAL IM ONE (11:45)
[2018-07-22] MEDS ORDERED: DiphenhydrAMINE HCL 50 MG/ML VIAL IM ONE (11:45)
[2018-07-22] MEDS ORDERED: HALOPERIDOL LACTATE 5 MG/ML VIAL IM ONE (11:45)
[2018-07-22] MEDS: DiphenhydrAMINE HCL 25 MG CAPSULE PO SCH ×3 (12:21→20:32)
[2018-07-22 12:44] VITALS: BP 111/71
[2018-07-22] MEDS ORDERED: MAG HYDROX/AL HYDROX/SIMETH ES 30 ML SUSPENSION UDCUP PO PRN (13:00)
[2018-07-22] MEDS ORDERED: MAGNESIUM HYDROXIDE SUSPENSION 30 ML UDCUP PO PRN (13:00)
[2018-07-22] MEDS ORDERED: HydrOXYzine PAMOATE 50 MG CAPSULE PO PRN (13:00)
[2018-07-22] MEDS ORDERED: GuaiFENesin/D-METHORPHAN [SUGAR-FREE] 200-20MG/10 ML SYRUP UDCUP PO PRN (13:00)
[2018-07-22] MEDS ORDERED: PROMETHAZINE HCL 25 MG TABLET PO PRN (13:00)
[2018-07-22] MEDS ORDERED: LOPERAMIDE HCL 2 MG CAPSULE PO PRN (13:00)
[2018-07-22] MEDS: ACETAMINOPHEN 325 MG TABLET PO PRN (15:58)
[2018-07-22 16:00] VITALS: BP 100/72
[2018-07-22] MEDS: THIAMINE HCL 100 MG TABLET PO SCH (16:37)
[2018-07-22] MEDS ORDERED: DENTURE ADHESIVE 68 GM CREAM DT PRN (19:45)
[2018-07-22] MEDS: LORazepam 2 MG TABLET PO PRN (20:32)
[2018-07-22] MEDS: ZOLPIDEM TARTRATE 10 MG TABLET PO PRN (21:01)
[2018-07-23 00:32] VITALS: BP 120/81
[2018-07-23] MEDS: LORazepam 2 MG TABLET PO PRN ×3 (01:27→14:41)
[2018-07-23] MEDS: NALTREXONE HCL 50 MG TABLET PO SCH (08:29)
[2018-07-23 08:30] VITALS: BP 106/66
[2018-07-23] MEDS: THIAMINE HCL 100 MG TABLET PO SCH ×2 (08:30→16:21)
[2018-07-23] MEDS: MULTIVITAMINS WITH MINERALS, THERAPEUTIC TABLET PO SCH (08:30)
[2018-07-23] MEDS: DiphenhydrAMINE HCL 25 MG CAPSULE PO SCH ×4 (08:31→20:39)
[2018-07-23] MEDS: FOLIC ACID 1 MG TABLET PO SCH (08:31)
[2018-07-23] MEDS: NICOTINE 21 MG/24 HOUR PATCH TD SCH (08:36)
[2018-07-23] MEDS ORDERED: ARIPiprazole 10 MG TABLET PO SCH (09:00)
[2018-07-23] MEDS ORDERED: HALOPERIDOL 5 MG TABLET PO PRN (16:15)
[2018-07-23] MEDS ORDERED: DiphenhydrAMINE HCL 50 MG/ML VIAL IM ONE (16:15)
[2018-07-23] MEDS ORDERED: HALOPERIDOL DECANOATE 50 MG/ML VIAL IM ONE (16:15)
[2018-07-23] MEDS ORDERED: HALOPERIDOL LACTATE 5 MG/ML VIAL IM ONE (16:15)
[2018-07-23] MEDS ORDERED: LORazepam 2 MG/ML VIAL IM ONE (16:15)
[2018-07-23 16:21] VITALS: BP 124/80
[2018-07-23] MEDS: HALOPERIDOL 10 MG TABLET PO SCH (20:39)
[2018-07-23] MEDS: ZOLPIDEM TARTRATE 10 MG TABLET PO PRN (21:12)
[2018-07-24 01:26] VITALS: BP 134/95
[2018-07-24] MEDS: LORazepam 2 MG TABLET PO PRN ×3 (01:35→19:23)
[2018-07-24] MEDS: ACETAMINOPHEN 325 MG TABLET PO PRN ×3 (01:36→17:01)
[2018-07-24 08:15] VITALS: BP 104/70
[2018-07-24] MEDS: DiphenhydrAMINE HCL 25 MG CAPSULE PO SCH ×4 (08:38→20:32)
[2018-07-24] MEDS: FOLIC ACID 1 MG TABLET PO SCH (08:38)
[2018-07-24] MEDS: NALTREXONE HCL 50 MG TABLET PO SCH (08:38)
[2018-07-24] MEDS: NICOTINE 21 MG/24 HOUR PATCH TD SCH (08:38)
[2018-07-24] MEDS: THIAMINE HCL 100 MG TABLET PO SCH ×2 (08:38→17:00)
[2018-07-24] MEDS: MULTIVITAMINS WITH MINERALS, THERAPEUTIC TABLET PO SCH (08:38)
[2018-07-24 09:36] VITALS: BP 111/76
[2018-07-24] MEDS ORDERED: GABAPENTIN 400 MG CAPSULE PO ONE (13:15)
[2018-07-24] MEDS ORDERED: DiphenhydrAMINE HCL 50 MG/ML VIAL IM ONE (13:15)
[2018-07-24] MEDS ORDERED: HALOPERIDOL LACTATE 5 MG/ML VIAL IM ONE (13:15)
[2018-07-24] MEDS ORDERED: LORazepam 2 MG/ML VIAL IM ONE (13:15)
[2018-07-24 17:01] VITALS: BP 110/76
[2018-07-24] MEDS: GABAPENTIN 300 MG CAPSULE PO SCH (17:01)
[2018-07-24] MEDS: HALOPERIDOL 10 MG TABLET PO SCH (20:32)
[2018-07-24] MEDS: GABAPENTIN 400 MG CAPSULE PO SCH (20:32)
[2018-07-24] MEDS: ZOLPIDEM TARTRATE 10 MG TABLET PO PRN (22:05)
[2018-07-25 02:21] VITALS: BP 116/80
[2018-07-25] MEDS: LORazepam 2 MG TABLET PO PRN ×3 (03:50→18:29)
[2018-07-25 08:32] VITALS: BP 111/69
[2018-07-25] MEDS: NALTREXONE HCL 50 MG TABLET PO SCH (08:43)
[2018-07-25] MEDS: MULTIVITAMINS WITH MINERALS, THERAPEUTIC TABLET PO SCH (08:44)
[2018-07-25] MEDS: THIAMINE HCL 100 MG TABLET PO SCH ×2 (08:44→16:33)
[2018-07-25] MEDS: FOLIC ACID 1 MG TABLET PO SCH (08:44)
[2018-07-25] MEDS: CHOLECALCIFEROL (VIT D3) 1,000 UNITS TABLET PO SCH (08:44)
[2018-07-25] MEDS: DiphenhydrAMINE HCL 25 MG CAPSULE PO SCH ×4 (08:44→20:37)
[2018-07-25] MEDS: GABAPENTIN 300 MG CAPSULE PO SCH ×3 (08:44→16:33)
[2018-07-25] MEDS: NICOTINE 21 MG/24 HOUR PATCH TD SCH (08:45)
[2018-07-25 16:07] VITALS: BP 100/74
[2018-07-25] MEDS: ACETAMINOPHEN 325 MG TABLET PO PRN (18:29)
[2018-07-25 18:30] VITALS: BP 111/80
[2018-07-25] MEDS: GABAPENTIN 400 MG CAPSULE PO SCH (20:37)
[2018-07-25] MEDS ORDERED: HALOPERIDOL 10 MG TABLET PO SCH (21:00)
[2018-07-26] MEDS: ZOLPIDEM TARTRATE 10 MG TABLET PO PRN (00:44)
[2018-07-26 02:54] VITALS: BP 111/77
[2018-07-26 08:14] VITALS: BP 103/70
[2018-07-26] MEDS: NALTREXONE HCL 50 MG TABLET PO SCH (08:31)
[2018-07-26] MEDS: GABAPENTIN 300 MG CAPSULE PO SCH ×2 (08:31→12:55)
[2018-07-26] MEDS: THIAMINE HCL 100 MG TABLET PO SCH (08:31)
[2018-07-26] MEDS: LORazepam 2 MG TABLET PO PRN ×2 (08:31→12:44)
[2018-07-26] MEDS: FOLIC ACID 1 MG TABLET PO SCH (08:32)
[2018-07-26] MEDS: CHOLECALCIFEROL (VIT D3) 1,000 UNITS TABLET PO SCH (08:32)
[2018-07-26] MEDS: MULTIVITAMINS WITH MINERALS, THERAPEUTIC TABLET PO SCH (08:32)
[2018-07-26] MEDS: DiphenhydrAMINE HCL 25 MG CAPSULE PO SCH ×2 (08:32→12:55)
[2018-07-26] MEDS: NICOTINE 21 MG/24 HOUR PATCH TD SCH (08:32)
[2018-07-26] MEDS: ACETAMINOPHEN 325 MG TABLET PO PRN (09:52)
[2018-07-26] MEDS ORDERED: GABA-531 PO (12:38)
[2018-07-26] MEDS ORDERED: NALT50TA PO (12:38)
[2018-07-26] MEDS ORDERED: GABA-533 PO (12:38)
[2018-07-26] MEDS ORDERED: DIPH25 PO (12:38)
[2018-07-26] MEDS ORDERED: HALO50VI4 IM (12:38)
[2018-07-26] MEDS ORDERED: HALO10 PO (12:38)
[2018-07-26] MEDS ORDERED: VITAD1000 PO (13:58)
[2018-07-26] MEDS ORDERED: IBUPROFEN 400 MG TABLET PO PRN (14:15)
[2018-07-26 14:25] VITALS: BP 112/74
[2018-07-30] MEDS ORDERED: ARIPiprazole ER SUSPENSION 400 MG PRE-FILLED DUAL CHAMBER SYRINGE IM SCH (09:00)
[2018-08-06] MEDS ORDERED: HALOPERIDOL DECANOATE 50 MG/ML VIAL IM SCH (09:00)
== END 2018-07-26 16:10 | disposition home or self-care (01) | DRG 885 ==
LOC: B2X 10:20
PROVIDERS: ADMIT Psychiatry & Neurology Psychiatry; ATTEND Psychiatry & Neurology Psychiatry
DX: F25.0 Schizoaffective disorder, bipolar type (principal); E03.9 Hypothyroidism, unspecified; F17.200 Nicotine dependence, unspecified, uncomplicated; G89.29 Other chronic pain; F14.90 Cocaine use, unspecified, uncomplicated; F15.90 Other stimulant use, unspecified, uncomplicated; Z88.0 Allergy status to penicillin; Z80.3 Family history of malignant neoplasm of breast; Z82.0 Family history of epilepsy and other diseases of the nervous system; Z85.3 Personal history of malignant neoplasm of breast
CPT/HCPCS: J1200; J1630; J1631; J2060

== ENCOUNTER 2018-08-02 13:28 | Inpatient (IN) | payer MEDICARE, MEDICAID ==
[~2018-08-02] VITALS: Ht 154.9 cm; Wt 59.0 kg
[~2018-08-02 13:28] MED LIST changes: -FOLI1 PO; +GABA-531 PO; +GABA-533 PO; +HALO10 PO; +HALO50VI4 IM; -MULT-1239 PO; -NALT50TA6 PO; -PALI117D IM; -PALI3 PO; -THIA100T67 PO; +VITAD1000 PO
[2018-08-02 17:09] VITALS: BP 122/71
[2018-08-02] MEDS ORDERED: HALOPERIDOL 5 MG TABLET PO PRN (17:30)
[2018-08-02] MEDS ORDERED: PROMETHAZINE HCL 25 MG TABLET PO PRN (17:45)
[2018-08-02] MEDS ORDERED: MAG HYDROX/AL HYDROX/SIMETH ES 30 ML SUSPENSION UDCUP PO PRN (17:45)
[2018-08-02] MEDS ORDERED: LOPERAMIDE HCL 2 MG CAPSULE PO PRN (17:45)
[2018-08-02] MEDS ORDERED: GuaiFENesin/D-METHORPHAN [SUGAR-FREE] 200-20MG/10 ML SYRUP UDCUP PO PRN (17:45)
[2018-08-02] MEDS ORDERED: HydrOXYzine PAMOATE 50 MG CAPSULE PO PRN (17:45)
[2018-08-02 17:52] VITALS: BP 112/96
[2018-08-02] MEDS: THIAMINE HCL 100 MG TABLET PO SCH (19:15)
[2018-08-02] MEDS: LORazepam 2 MG TABLET PO PRN ×2 (19:15→23:37)
[2018-08-02] MEDS: HALOPERIDOL 10 MG TABLET PO SCH (20:26)
[2018-08-02] MEDS: DiphenhydrAMINE HCL 25 MG CAPSULE PO SCH (20:26)
[2018-08-02] MEDS: GABAPENTIN 400 MG CAPSULE PO SCH (20:27)
[2018-08-02] MEDS: ZOLPIDEM TARTRATE 10 MG TABLET PO PRN (21:30)
[2018-08-03 00:03] VITALS: BP 110/74
[2018-08-03 05:10] VITALS: BP 97/63
[2018-08-03] MEDS: ACETAMINOPHEN 325 MG TABLET PO PRN (06:04)
[2018-08-03 07:14] LABS: BASOPHILS % (AUTO) 0.9 % (0.0-2.0); EOSINOPHILS % (AUTO) 8.8 % (1.0-6.0); HEMATOCRIT 37.4 % (36-46); LYMPHOCYTES # (AUTO) 1.5 K/uL (1.0-4.8); LYMPHOCYTES % (AUTO) 37.6 % (22.0-44.0); MEAN CORPUSCULAR HEMOGLOBIN 32.7 pg (26.0-34.0); MEAN CORPUSCULAR HGB CONC 34.9 G/dL (31.0-37.0); MEAN CORPUSCULAR VOLUME 94 fL (80-100); MONOCYTES # (AUTO) 0.3 K/uL (0.1-1.0); MONOCYTES % (AUTO) 8.5 % (2.0-9.0); NEUTROPHILS # (AUTO) 1.7 K/uL (1.8-7.7); NEUTROPHILS % (AUTO) 44.2 % (40.0-70.0); PLATELET COUNT (AUTO) 246 K/uL (150-450); RED BLOOD CELL COUNT(AUTO) 3.98 MIL/uL (4.00-5.20); RED CELL DISTRIBUTION WIDTH 12.7 % (11.5-14.5)
[2018-08-03 07:43] LABS: ALANINE AMINOTRANSFERASE 18 U/L (12-78); ALBUMIN 3.7 g/dL (3.4-5.0); ALKALINE PHOSPHATASE 81 U/L (46-116); ANION GAP 7 mmol/L (8-16); ASPARTATE AMINOTRANSFERASE 11 U/L (15-37); BILIRUBIN,TOTAL 0.5 mg/dL (0.1-1.0); CALCIUM, TOTAL 8.9 mg/dL (8.8-10.5); CARBON DIOXIDE 27 mmol/L (22-29); CHLORIDE 102 mmol/L (98-107); CHOL/HDL RATIO 2.8 (3.9-5.7); CHOLESTEROL 207 mg/dL (131-200); CREATININE 0.84 mg/dL (0.60-1.30); GLOMERULAR FILTR. RATE CALC > 60 mL/min (>60); GLUCOSE,RANDOM 81 mg/dL (70-110); HDL CHOLESTEROL 75 mg/dL (40-60); HEMOGLOBIN A1C 5.2 % (4.5-6.2); LDL CHOL (CALC.) 119 mg/dL (0-130); POTASSIUM 4.1 mmol/L (3.5-5.1); SODIUM SERUM 136 mmol/L (136-145); THYROID STIMULATING HORMONE 1.96 uIU/mL (0.36-3.74); TOTAL PROTEIN, SERUM 6.6 g/dL (6.4-8.2); TRIGLYCERIDES 66 mg/dL (15-150); UREA NITROGEN, BLOOD 20 mg/dL (7-18)
[2018-08-03 08:35] VITALS: BP 96/63
[2018-08-03] MEDS: GABAPENTIN 300 MG CAPSULE PO SCH ×3 (08:39→16:04)
[2018-08-03] MEDS: NICOTINE 21 MG/24 HOUR PATCH TD SCH (08:39)
[2018-08-03] MEDS: FOLIC ACID 1 MG TABLET PO SCH (08:39)
[2018-08-03] MEDS: MULTIVITAMINS WITH MINERALS, THERAPEUTIC TABLET PO SCH (08:39)
[2018-08-03] MEDS: NALTREXONE HCL 50 MG TABLET PO SCH (08:39)
[2018-08-03] MEDS: THIAMINE HCL 100 MG TABLET PO SCH ×2 (08:39→16:04)
[2018-08-03] MEDS: DiphenhydrAMINE HCL 25 MG CAPSULE PO SCH ×4 (08:39→20:28)
[2018-08-03] MEDS: LORazepam 2 MG TABLET PO PRN (15:32)
[2018-08-03 16:03] VITALS: BP 114/76
[2018-08-03] MEDS ORDERED: HALOPERIDOL DECANOATE 50 MG/ML VIAL IM SCH (18:45)
[2018-08-03] MEDS: GABAPENTIN 400 MG CAPSULE PO SCH (20:28)
[2018-08-03] MEDS: HALOPERIDOL 10 MG TABLET PO SCH (20:28)
[2018-08-03] MEDS: ZOLPIDEM TARTRATE 10 MG TABLET PO PRN (21:04)
[2018-08-04 00:28] VITALS: BP 111/63
[2018-08-04] MEDS: LORazepam 2 MG TABLET PO PRN ×3 (00:30→14:38)
[2018-08-04 06:18] VITALS: BP 113/73
[2018-08-04] MEDS: ACETAMINOPHEN 325 MG TABLET PO PRN (06:26)
[2018-08-04 07:25] VITALS: BP 110/70
[2018-08-04 08:26] VITALS: BP 107/76
[2018-08-04] MEDS: GABAPENTIN 300 MG CAPSULE PO SCH ×3 (08:26→16:53)
[2018-08-04] MEDS: MULTIVITAMINS WITH MINERALS, THERAPEUTIC TABLET PO SCH (08:26)
[2018-08-04] MEDS: NALTREXONE HCL 50 MG TABLET PO SCH (08:26)
[2018-08-04] MEDS: DiphenhydrAMINE HCL 25 MG CAPSULE PO SCH ×4 (08:26→20:05)
[2018-08-04] MEDS: FOLIC ACID 1 MG TABLET PO SCH (08:26)
[2018-08-04] MEDS: THIAMINE HCL 100 MG TABLET PO SCH ×2 (08:26→16:53)
[2018-08-04] MEDS: NICOTINE 21 MG/24 HOUR PATCH TD SCH (08:27)
[2018-08-04] MEDS: MAGNESIUM HYDROXIDE SUSPENSION 30 ML UDCUP PO PRN (09:46)
[2018-08-04 16:24] VITALS: BP 103/62
[2018-08-04] MEDS: NAPROXEN 500 MG TABLET PO SCH (16:53)
[2018-08-04] MEDS: GABAPENTIN 400 MG CAPSULE PO SCH (20:05)
[2018-08-04] MEDS: HALOPERIDOL 10 MG TABLET PO SCH (20:05)
[2018-08-04] MEDS: ZOLPIDEM TARTRATE 10 MG TABLET PO PRN (20:58)
[2018-08-05] MEDS ORDERED: FOLI1 PO (03:20)
[2018-08-05] MEDS ORDERED: NAPR-58 PO (03:20)
[2018-08-05] MEDS ORDERED: MULT-1239 PO (03:20)
[2018-08-05] MEDS ORDERED: THIA100T67 PO (03:20)
[2018-08-05] MEDS ORDERED: HALO10 PO (03:20)
[2018-08-05] MEDS ORDERED: NALT50TA6 PO (03:20)
[2018-08-05] MEDS: MAGNESIUM HYDROXIDE SUSPENSION 30 ML UDCUP PO PRN (03:33)
[2018-08-05 03:41] VITALS: BP 109/65
[2018-08-05 08:18] VITALS: BP 109/69
[2018-08-05] MEDS: NALTREXONE HCL 50 MG TABLET PO SCH (08:22)
[2018-08-05] MEDS: FOLIC ACID 1 MG TABLET PO SCH (08:22)
[2018-08-05] MEDS: NAPROXEN 500 MG TABLET PO SCH ×2 (08:22→16:49)
[2018-08-05] MEDS: NICOTINE 21 MG/24 HOUR PATCH TD SCH (08:23)
[2018-08-05] MEDS: MULTIVITAMINS WITH MINERALS, THERAPEUTIC TABLET PO SCH (08:23)
[2018-08-05] MEDS: GABAPENTIN 300 MG CAPSULE PO SCH ×3 (08:23→16:49)
[2018-08-05] MEDS: THIAMINE HCL 100 MG TABLET PO SCH ×2 (08:23→16:49)
[2018-08-05] MEDS: DiphenhydrAMINE HCL 25 MG CAPSULE PO SCH ×3 (08:23→16:49)
[2018-08-05] MEDS ORDERED: CHOLECALCIFEROL (VIT D3) 5,000 UNITS CAPSULE PO SCH (09:00)
[2018-08-05] MEDS: LORazepam 2 MG TABLET PO PRN (10:09)
[2018-08-05] MEDS ORDERED: NALT50TA PO (15:29)
[2018-08-05] MEDS ORDERED: HALO50VI4 IM (15:29)
[2018-08-05] MEDS ORDERED: GABA-531 PO (15:29)
[2018-08-05] MEDS ORDERED: GABA-533 PO (15:29)
[2018-08-05] MEDS ORDERED: DIPH25 PO (15:29)
[2018-08-05] MEDS ORDERED: NAPR-923 PO (16:05)
== END 2018-08-05 17:00 | disposition home or self-care (01) | DRG 885 ==
LOC: B2X 17:41
PROVIDERS: ADMIT Psychiatry & Neurology Psychiatry; ATTEND Psychiatry & Neurology Psychiatry
DX: F25.0 Schizoaffective disorder, bipolar type (principal); R45.851 Suicidal ideations; F25.1 Schizoaffective disorder, depressive type; M19.90 Unspecified osteoarthritis, unspecified site; J44.9 Chronic obstructive pulmonary disease, unspecified; E55.9 Vitamin D deficiency, unspecified; F60.0 Paranoid personality disorder; Z60.2 Problems related to living alone; M25.551 Pain in right hip; G89.29 Other chronic pain; T50.902A Poisoning by unspecified drugs, medicaments and biological substances, intentional self-harm, initial encounter; Z72.0 Tobacco use; Z80.3 Family history of malignant neoplasm of breast; Z82.0 Family history of epilepsy and other diseases of the nervous system; Z85.3 Personal history of malignant neoplasm of breast; Z91.14 Patient's other noncompliance with medication regimen; Z91.19 Patient's noncompliance with other medical treatment and regimen; Z88.0 Allergy status to penicillin; Y92.89 Other specified places as the place of occurrence of the external cause
CPT/HCPCS: 83036; 84439; 84443; 87081; J1631

== ENCOUNTER 2018-08-17 04:30 | Inpatient (IN) | payer MEDICARE, MEDICAID ==
[~2018-08-17] VITALS: Ht 154.9 cm; Wt 63.0 kg
[~2018-08-17 04:30] MED LIST changes: -HALO10 PO; +NAPR-58 PO; -VITAD1000 PO
[2018-08-17] MEDS ORDERED: ARIP400S3 IM (04:37)
[2018-08-17] MEDS ORDERED: HALO1TAB19 PO (04:37)
[2018-08-17 04:48] LABS: GLUCOSE,POINT OF CARE 85 MG/DL (70-110)
[2018-08-17] MEDS ORDERED: LORazepam 2 MG TABLET PO ONE (05:00)
[2018-08-17 05:05] LABS: BASOPHILS % (AUTO) 0.8 % (0.0-2.0); EOSINOPHILS % (AUTO) 8.8 % (1.0-6.0); HEMATOCRIT 35.5 % (36-46); HEMOGLOBIN 12.3 g/dL (12.0-16.0); LYMPHOCYTES # (AUTO) 1.4 K/uL (1.0-4.8); LYMPHOCYTES % (AUTO) 33.8 % (22.0-44.0); MEAN CORPUSCULAR HEMOGLOBIN 32.6 pg (26.0-34.0); MEAN CORPUSCULAR HGB CONC 34.6 G/dL (31.0-37.0); MEAN CORPUSCULAR VOLUME 94 fL (80-100); MONOCYTES # (AUTO) 0.3 K/uL (0.1-1.0); MONOCYTES % (AUTO) 7.6 % (2.0-9.0); PLATELET COUNT (AUTO) 280 K/uL (150-450); RED BLOOD CELL COUNT(AUTO) 3.78 MIL/uL (4.00-5.20); RED CELL DISTRIBUTION WIDTH 13.1 % (11.5-14.5)
[2018-08-17 05:15] LABS: ANION GAP 9 mmol/L (8-16); CALCIUM, TOTAL 8.8 mg/dL (8.8-10.5); CARBON DIOXIDE 27 mmol/L (22-29); CHLORIDE 105 mmol/L (98-107); CREATININE 0.71 mg/dL (0.60-1.30); GLOMERULAR FILTR. RATE CALC > 60 mL/min (>60); GLUCOSE,RANDOM 90 mg/dL (70-110); POTASSIUM 3.5 mmol/L (3.5-5.1); SODIUM SERUM 141 mmol/L (136-145); UREA NITROGEN, BLOOD 3 mg/dL (7-18)
[2018-08-17 05:20] LABS: ALANINE AMINOTRANSFERASE 16 U/L (12-78); ALBUMIN 4.1 g/dL (3.4-5.0); ALKALINE PHOSPHATASE 102 U/L (46-116); ASPARTATE AMINOTRANSFERASE 10 U/L (15-37); BILIRUBIN,TOTAL 0.4 mg/dL (0.1-1.0); TOTAL PROTEIN, SERUM 7.3 g/dL (6.4-8.2)
[2018-08-17 07:50] LABS: AMPHET/METH SCREEN,URINE NEGATIVE (NEGATIVE); BARBITURATE SCREEN, URINE NEGATIVE (NEGATIVE); BENZODIAZEPINES SCREEN,URINE NEGATIVE (NEGATIVE); CANNABINOID SCREEN,URINE NEGATIVE (NEGATIVE); COCAINE SCREEN,URINE NEGATIVE (NEGATIVE); METHADONE SCREEN, URINE NEGATIVE (NEGATIVE); OPIATE SCREEN,URINE NEGATIVE (NEGATIVE)
[2018-08-17 07:51] LABS: PHENCYCLIDINE SCREEN,URINE NEGATIVE (NEGATIVE)
[2018-08-17 10:49] VITALS: BP 123/87
[2018-08-17] MEDS: LORazepam 2 MG TABLET PO PRN ×2 (11:02→15:43)
[2018-08-17 12:30] VITALS: BP 120/84
[2018-08-17] MEDS: IBUPROFEN 600 MG TABLET PO PRN (12:30)
[2018-08-17 16:03] VITALS: BP 117/75
[2018-08-17] MEDS: ARIPiprazole 5 MG TABLET PO SCH (20:12)
[2018-08-17] MEDS: GABAPENTIN 300 MG CAPSULE PO SCH (20:12)
[2018-08-17] MEDS: DiphenhydrAMINE HCL 25 MG CAPSULE PO SCH (20:16)
[2018-08-17] MEDS: ZOLPIDEM TARTRATE 10 MG TABLET PO PRN (21:22)
[2018-08-18 04:40] VITALS: BP 119/74
[2018-08-18] MEDS: LORazepam 2 MG TABLET PO PRN ×4 (04:54→19:55)
[2018-08-18 07:02] LABS: BASOPHILS % (AUTO) 0.6 % (0.0-2.0); EOSINOPHILS % (AUTO) 13.8 % (1.0-6.0); HEMATOCRIT 32.5 % (36-46); HEMOGLOBIN 11.2 g/dL (12.0-16.0); LYMPHOCYTES # (AUTO) 1.6 K/uL (1.0-4.8); LYMPHOCYTES % (AUTO) 38.5 % (22.0-44.0); MEAN CORPUSCULAR HEMOGLOBIN 32.2 pg (26.0-34.0); MEAN CORPUSCULAR HGB CONC 34.5 G/dL (31.0-37.0); MEAN CORPUSCULAR VOLUME 93 fL (80-100); MONOCYTES # (AUTO) 0.3 K/uL (0.1-1.0); MONOCYTES % (AUTO) 7.5 % (2.0-9.0); NEUTROPHILS # (AUTO) 1.6 K/uL (1.8-7.7); NEUTROPHILS % (AUTO) 39.6 % (40.0-70.0); PLATELET COUNT (AUTO) 235 K/uL (150-450); RED BLOOD CELL COUNT(AUTO) 3.48 MIL/uL (4.00-5.20); RED CELL DISTRIBUTION WIDTH 12.9 % (11.5-14.5)
[2018-08-18 07:31] LABS: HEMOGLOBIN A1C 5.4 % (4.5-6.2)
[2018-08-18 07:43] LABS: ALANINE AMINOTRANSFERASE 14 U/L (12-78); ALBUMIN 3.2 g/dL (3.4-5.0); ALKALINE PHOSPHATASE 87 U/L (46-116); ANION GAP 6 mmol/L (8-16); ASPARTATE AMINOTRANSFERASE 8 U/L (15-37); BILIRUBIN,TOTAL 0.2 mg/dL (0.1-1.0); CALCIUM, TOTAL 7.9 mg/dL (8.8-10.5); CARBON DIOXIDE 28 mmol/L (22-29); CHLORIDE 104 mmol/L (98-107); CHOL/HDL RATIO 2.5 (3.9-5.7); CHOLESTEROL 163 mg/dL (131-200); CREATININE 0.67 mg/dL (0.60-1.30); FREE T4 (FREE THYROXINE) 0.77 ng/dL (0.76-1.46); GLOMERULAR FILTR. RATE CALC > 60 mL/min (>60); GLUCOSE,RANDOM 85 mg/dL (70-110); HDL CHOLESTEROL 65 mg/dL (40-60); LDL CHOL (CALC.) 77 mg/dL (0-130); POTASSIUM 3.9 mmol/L (3.5-5.1); SODIUM SERUM 138 mmol/L (136-145); THYROID STIMULATING HORMONE 0.86 uIU/mL (0.36-3.74); TOTAL PROTEIN, SERUM 5.7 g/dL (6.4-8.2); TRIGLYCERIDES 105 mg/dL (15-150); UREA NITROGEN, BLOOD 13 mg/dL (7-18)
[2018-08-18 08:05] VITALS: BP 112/80
[2018-08-18] MEDS: IBUPROFEN 600 MG TABLET PO PRN ×2 (08:09→19:56)
[2018-08-18] MEDS: GABAPENTIN 300 MG CAPSULE PO SCH ×4 (08:09→20:39)
[2018-08-18] MEDS ORDERED: DENTURE ADHESIVE 68 GM CREAM DT PRN (10:30)
[2018-08-18] MEDS: NICOTINE 21 MG/24 HOUR PATCH TD SCH (11:18)
[2018-08-18] MEDS: HALOPERIDOL 5 MG TABLET PO PRN (15:52)
[2018-08-18 16:04] VITALS: BP 139/85
[2018-08-18 19:56] VITALS: BP 132/82
[2018-08-18] MEDS: DiphenhydrAMINE HCL 25 MG CAPSULE PO SCH (20:39)
[2018-08-18] MEDS: ARIPiprazole 5 MG TABLET PO SCH (20:39)
[2018-08-18] MEDS: ZOLPIDEM TARTRATE 10 MG TABLET PO PRN (22:46)
[2018-08-19 06:08] VITALS: BP 104/73
[2018-08-19] MEDS: GABAPENTIN 300 MG CAPSULE PO SCH ×4 (08:41→20:34)
[2018-08-19] MEDS: NICOTINE 21 MG/24 HOUR PATCH TD SCH (08:42)
[2018-08-19] MEDS: LORazepam 2 MG TABLET PO PRN ×2 (08:42→18:01)
[2018-08-19 08:45] VITALS: BP 119/83
[2018-08-19] MEDS ORDERED: GuaiFENesin/D-METHORPHAN [SUGAR-FREE] 200-20MG/10 ML SYRUP UDCUP PO PRN (09:45)
[2018-08-19] MEDS ORDERED: MAGNESIUM HYDROXIDE SUSPENSION 30 ML UDCUP PO PRN (09:45)
[2018-08-19] MEDS ORDERED: LOPERAMIDE HCL 2 MG CAPSULE PO PRN (09:45)
[2018-08-19] MEDS ORDERED: MAG HYDROX/AL HYDROX/SIMETH ES 30 ML SUSPENSION UDCUP PO PRN (09:45)
[2018-08-19] MEDS ORDERED: PROMETHAZINE HCL 25 MG TABLET PO PRN (09:45)
[2018-08-19] MEDS ORDERED: HydrOXYzine PAMOATE 50 MG CAPSULE PO PRN (09:45)
[2018-08-19] MEDS: IBUPROFEN 600 MG TABLET PO PRN (11:09)
[2018-08-19] MEDS: HALOPERIDOL 5 MG TABLET PO PRN (13:10)
[2018-08-19] MEDS ORDERED: FluPHENAZine HCL 2.5 MG/ML INJ IM ONE (14:00)
[2018-08-19] MEDS ORDERED: LORazepam 2 MG/ML VIAL IM ONE ×2 (14:00→14:30)
[2018-08-19] MEDS ORDERED: DiphenhydrAMINE HCL 50 MG/ML VIAL IM ONE ×2 (14:00→14:30)
[2018-08-19] MEDS ORDERED: HALOPERIDOL LACTATE 5 MG/ML VIAL IM ONE (14:30)
[2018-08-19 16:06] VITALS: BP 117/89
[2018-08-19] MEDS: THIAMINE HCL 100 MG TABLET PO SCH (16:37)
[2018-08-19] MEDS: DiphenhydrAMINE HCL 25 MG CAPSULE PO SCH (20:34)
[2018-08-19] MEDS: ZOLPIDEM TARTRATE 10 MG TABLET PO PRN (20:43)
[2018-08-19] MEDS ORDERED: ARIPiprazole 10 MG TABLET PO SCH (21:00)
[2018-08-20] VITALS (7 sets, daily range): BP systolic 104–124; BP diastolic 63–84
[2018-08-20] MEDS: LORazepam 2 MG TABLET PO PRN ×2 (03:55→11:48)
[2018-08-20] MEDS: FOLIC ACID 1 MG TABLET PO SCH (08:37)
[2018-08-20] MEDS: THIAMINE HCL 100 MG TABLET PO SCH ×2 (08:37→16:31)
[2018-08-20] MEDS: MULTIVITAMINS WITH MINERALS, THERAPEUTIC TABLET PO SCH (08:37)
[2018-08-20] MEDS: GABAPENTIN 300 MG CAPSULE PO SCH ×4 (08:37→20:41)
[2018-08-20] MEDS: NICOTINE 21 MG/24 HOUR PATCH TD SCH (08:37)
[2018-08-20] MEDS: HALOPERIDOL 5 MG TABLET PO PRN (10:18)
[2018-08-20] MEDS: ACETAMINOPHEN 325 MG TABLET PO PRN ×2 (10:38→18:27)
[2018-08-20] MEDS ORDERED: HALOPERIDOL LACTATE 5 MG/ML VIAL IM ONE (14:00)
[2018-08-20] MEDS ORDERED: LORazepam 2 MG/ML VIAL IM ONE (14:00)
[2018-08-20] MEDS ORDERED: DiphenhydrAMINE HCL 50 MG/ML VIAL IM ONE (14:00)
[2018-08-20] MEDS: ZOLPIDEM TARTRATE 10 MG TABLET PO PRN (20:41)
[2018-08-20] MEDS: DiphenhydrAMINE HCL 25 MG CAPSULE PO SCH (20:41)
[2018-08-20] MEDS ORDERED: ARIPiprazole 15 MG TABLET PO SCH (21:00)
[2018-08-20] MEDS: IBUPROFEN 600 MG TABLET PO PRN (21:07)
[2018-08-21 03:25] VITALS: BP 109/72
[2018-08-21] MEDS: LORazepam 2 MG TABLET PO PRN ×2 (03:43→09:08)
[2018-08-21] MEDS: THIAMINE HCL 100 MG TABLET PO SCH (08:18)
[2018-08-21] MEDS: NICOTINE 21 MG/24 HOUR PATCH TD SCH (08:18)
[2018-08-21] MEDS: GABAPENTIN 300 MG CAPSULE PO SCH ×2 (08:18→12:20)
[2018-08-21] MEDS: MULTIVITAMINS WITH MINERALS, THERAPEUTIC TABLET PO SCH (08:18)
[2018-08-21] MEDS: FOLIC ACID 1 MG TABLET PO SCH (08:18)
[2018-08-21 08:19] VITALS: BP 112/68
[2018-08-21] MEDS: HALOPERIDOL 5 MG TABLET PO PRN (08:19)
[2018-08-21] MEDS: IBUPROFEN 600 MG TABLET PO PRN (08:19)
[2018-08-21 08:46] VITALS: BP 119/67
[2018-08-21] MEDS: ACETAMINOPHEN 325 MG TABLET PO PRN (09:45)
[2018-08-21] MEDS ORDERED: ARIP15TA2 PO (12:21)
[2018-08-21] MEDS ORDERED: NALT50TA6 PO (12:21)
[2018-08-21] MEDS ORDERED: GABA-531 PO (12:21)
[2018-08-21] MEDS ORDERED: DIPH25 PO (12:21)
[2018-08-21] MEDS ORDERED: IBUP-2070 PO (12:49)
[2018-08-21] MEDS ORDERED: ACET-784 PO (12:49)
== END 2018-08-21 13:25 | disposition home or self-care (01) | DRG 885 ==
LOC: EMS 04:30 → B2X 08:56
PROVIDERS: ADMIT Psychiatry & Neurology Psychiatry; ATTEND Psychiatry & Neurology Psychiatry
DX: F25.0 Schizoaffective disorder, bipolar type (principal); R45.851 Suicidal ideations; E03.9 Hypothyroidism, unspecified; F10.10 Alcohol abuse, uncomplicated; E11.40 Type 2 diabetes mellitus with diabetic neuropathy, unspecified; G89.29 Other chronic pain; F41.9 Anxiety disorder, unspecified; M25.551 Pain in right hip; J44.9 Chronic obstructive pulmonary disease, unspecified; M19.90 Unspecified osteoarthritis, unspecified site; Z79.899 Other long term (current) drug therapy; Z80.3 Family history of malignant neoplasm of breast; Z82.0 Family history of epilepsy and other diseases of the nervous system; Z88.0 Allergy status to penicillin; Z85.3 Personal history of malignant neoplasm of breast; Z56.0 Unemployment, unspecified; Z91.19 Patient's noncompliance with other medical treatment and regimen
CPT/HCPCS: 83036; 84439; 84443; 87081; G0480; J1200; J1630; J2060

== ENCOUNTER 2018-08-25 18:46 | Inpatient (IN) | payer MEDICARE, MEDICAID ==
[~2018-08-25] VITALS: Ht 154.9 cm; Wt 62.5 kg
[~2018-08-25 18:46] MED LIST changes: +ACET-784 PO; +ARIP15TA2 PO; -GABA-533 PO; -HALO50VI4 IM; +IBUP-2070 PO; -NALT50TA PO; +NALT50TA6 PO; -NAPR-58 PO
[2018-08-25 20:17] LABS: GLUCOSE,POINT OF CARE 91 MG/DL (70-110)
[2018-08-25 20:24] LABS: AMPHET/METH SCREEN,URINE NEGATIVE (NEGATIVE); BARBITURATE SCREEN, URINE NEGATIVE (NEGATIVE); BENZODIAZEPINES SCREEN,URINE NEGATIVE (NEGATIVE); CANNABINOID SCREEN,URINE NEGATIVE (NEGATIVE); COCAINE SCREEN,URINE NEGATIVE (NEGATIVE); METHADONE SCREEN, URINE NEGATIVE (NEGATIVE); OPIATE SCREEN,URINE NEGATIVE (NEGATIVE); PHENCYCLIDINE SCREEN,URINE NEGATIVE (NEGATIVE)
[2018-08-25 20:56] LABS: BASOPHILS % (AUTO) 0.6 % (0.0-2.0); EOSINOPHILS % (AUTO) 3.3 % (1.0-6.0); HEMATOCRIT 36.7 % (36-46); HEMOGLOBIN 12.5 g/dL (12.0-16.0); LYMPHOCYTES # (AUTO) 1.3 K/uL (1.0-4.8); LYMPHOCYTES % (AUTO) 25.3 % (22.0-44.0); MEAN CORPUSCULAR HEMOGLOBIN 31.9 pg (26.0-34.0); MEAN CORPUSCULAR HGB CONC 34.2 G/dL (31.0-37.0); MEAN CORPUSCULAR VOLUME 93 fL (80-100); MONOCYTES # (AUTO) 0.3 K/uL (0.1-1.0); MONOCYTES % (AUTO) 5.8 % (2.0-9.0); NEUTROPHILS # (AUTO) 3.4 K/uL (1.8-7.7); PLATELET COUNT (AUTO) 238 K/uL (150-450); RED BLOOD CELL COUNT(AUTO) 3.93 MIL/uL (4.00-5.20); RED CELL DISTRIBUTION WIDTH 13.3 % (11.5-14.5)
[2018-08-25 21:03] LABS: ANION GAP 8 mmol/L (8-16); CALCIUM, TOTAL 8.8 mg/dL (8.8-10.5); CARBON DIOXIDE 27 mmol/L (22-29); CHLORIDE 101 mmol/L (98-107); CREATININE 0.65 mg/dL (0.60-1.30); GLOMERULAR FILTR. RATE CALC > 60 mL/min (>60); GLUCOSE,RANDOM 97 mg/dL (70-110); POTASSIUM 3.8 mmol/L (3.5-5.1); SODIUM SERUM 136 mmol/L (136-145); UREA NITROGEN, BLOOD 15 mg/dL (7-18)
[2018-08-25 21:08] LABS: SALICYLATE 1.8 mg/dL (2.8-20.0)
[2018-08-25 21:09] LABS: ALANINE AMINOTRANSFERASE 18 U/L (12-78); ALBUMIN 4.5 g/dL (3.4-5.0); ALKALINE PHOSPHATASE 114 U/L (46-116); ASPARTATE AMINOTRANSFERASE 11 U/L (15-37); BILIRUBIN,TOTAL 0.5 mg/dL (0.1-1.0); TOTAL PROTEIN, SERUM 7.4 g/dL (6.4-8.2)
[2018-08-25] MEDS ORDERED: LORazepam 2 MG/ML VIAL IM ONE (21:15)
[2018-08-25 21:19] LABS: ACETAMINOPHEN < 2 mcg/mL (10-30)
[2018-08-25] MEDS ORDERED: IBUPROFEN 600 MG TABLET PO ONE (22:00)
[2018-08-25] MEDS ORDERED: ZOLPIDEM TARTRATE 5 MG TABLET PO PRN (22:30)
[2018-08-26 03:15] VITALS: BP 115/81
[2018-08-26] MEDS: LORazepam 1 MG TABLET PO PRN ×4 (04:06→16:27)
[2018-08-26] MEDS ORDERED: MAGNESIUM HYDROXIDE SUSPENSION 30 ML UDCUP PO PRN (08:00)
[2018-08-26] MEDS ORDERED: GuaiFENesin/D-METHORPHAN [SUGAR-FREE] 200-20MG/10 ML SYRUP UDCUP PO PRN (08:00)
[2018-08-26] MEDS ORDERED: ACETAMINOPHEN 325 MG TABLET PO PRN (08:00)
[2018-08-26 08:29] LABS: CHOL/HDL RATIO 2.4 (3.9-5.7)
[2018-08-26 08:30] VITALS: BP 133/95
[2018-08-26] MEDS: DENTURE ADHESIVE 68 GM CREAM DT PRN (08:42)
[2018-08-26] MEDS: FOLIC ACID 1 MG TABLET PO SCH (08:43)
[2018-08-26] MEDS: GABAPENTIN 300 MG CAPSULE PO SCH ×3 (08:43→16:27)
[2018-08-26] MEDS: MULTIVITAMINS WITH MINERALS, THERAPEUTIC TABLET PO SCH (08:46)
[2018-08-26] MEDS: NICOTINE 21 MG/24 HOUR PATCH TD SCH (08:47)
[2018-08-26 12:49] VITALS: BP 132/94
[2018-08-26] MEDS: IBUPROFEN 600 MG TABLET PO PRN (12:49)
[2018-08-26] MEDS: ChlorproMAZINE HCL 50 MG TABLET PO PRN (13:35)
[2018-08-26 13:49] VITALS: BP 142/74
[2018-08-26 16:00] VITALS: BP 116/66
[2018-08-26] MEDS: LORazepam 2 MG TABLET PO PRN (20:17)
[2018-08-26] MEDS: ChlorproMAZINE HCL 100 MG TABLET PO SCH (20:18)
[2018-08-26] MEDS: DiphenhydrAMINE HCL 25 MG CAPSULE PO SCH (20:18)
[2018-08-26] MEDS ORDERED: ARIPiprazole 15 MG TABLET PO SCH (21:00)
[2018-08-26] MEDS ORDERED: DiphenhydrAMINE HCL 25 MG CAPSULE PO SCH (21:00)
[2018-08-27 01:45] VITALS: BP 95/59
[2018-08-27] MEDS: IBUPROFEN 600 MG TABLET PO PRN (01:50)
[2018-08-27] MEDS: LORazepam 2 MG TABLET PO PRN ×5 (04:42→22:38)
[2018-08-27] MEDS: ChlorproMAZINE HCL 50 MG TABLET PO SCH ×3 (08:50→16:59)
[2018-08-27] MEDS: MULTIVITAMINS WITH MINERALS, THERAPEUTIC TABLET PO SCH (08:50)
[2018-08-27] MEDS: FOLIC ACID 1 MG TABLET PO SCH (08:50)
[2018-08-27] MEDS: DiphenhydrAMINE HCL 25 MG CAPSULE PO SCH ×3 (08:51→16:00)
[2018-08-27] MEDS: NICOTINE 21 MG/24 HOUR PATCH TD SCH (08:51)
[2018-08-27 09:32] VITALS: BP 111/70
[2018-08-27] MEDS: ChlorproMAZINE HCL 50 MG TABLET PO PRN (14:06)
[2018-08-27 16:03] VITALS: BP 134/82
[2018-08-27] MEDS: HydrOXYzine PAMOATE 25 MG CAPSULE PO SCH ×2 (17:32→19:48)
[2018-08-27] MEDS ORDERED: DiphenhydrAMINE HCL 50 MG/ML VIAL IM ONE (17:45)
[2018-08-27] MEDS ORDERED: HALOPERIDOL LACTATE 5 MG/ML VIAL IM ONE (17:45)
[2018-08-27] MEDS: ChlorproMAZINE HCL 100 MG TABLET PO SCH (19:46)
[2018-08-27] MEDS: ZOLPIDEM TARTRATE 10 MG TABLET PO PRN (19:50)
[2018-08-28 08:00] VITALS: BP 108/78
[2018-08-28] MEDS: ChlorproMAZINE HCL 50 MG TABLET PO SCH ×3 (08:01→16:12)
[2018-08-28] MEDS: FOLIC ACID 1 MG TABLET PO SCH (08:01)
[2018-08-28] MEDS: MULTIVITAMINS WITH MINERALS, THERAPEUTIC TABLET PO SCH (08:01)
[2018-08-28] MEDS: HydrOXYzine PAMOATE 25 MG CAPSULE PO SCH ×3 (08:05→17:16)
[2018-08-28] MEDS: NICOTINE 21 MG/24 HOUR PATCH TD SCH (08:05)
[2018-08-28] MEDS: LORazepam 2 MG TABLET PO PRN ×4 (09:20→21:49)
[2018-08-28] MEDS: IBUPROFEN 600 MG TABLET PO PRN (17:50)
[2018-08-28 17:51] VITALS: BP 122/79
[2018-08-28] MEDS: ZOLPIDEM TARTRATE 10 MG TABLET PO PRN (20:04)
[2018-08-28] MEDS: ChlorproMAZINE HCL 100 MG TABLET PO SCH (20:04)
[2018-08-29 08:05] VITALS: BP 119/77
[2018-08-29] MEDS: MULTIVITAMINS WITH MINERALS, THERAPEUTIC TABLET PO SCH (08:08)
[2018-08-29] MEDS: LORazepam 2 MG TABLET PO PRN ×3 (08:08→16:15)
[2018-08-29] MEDS: TRIHEXYPHENIDYL HCL 5 MG TABLET PO SCH ×3 (08:08→16:14)
[2018-08-29] MEDS: FOLIC ACID 1 MG TABLET PO SCH (08:08)
[2018-08-29] MEDS: ChlorproMAZINE HCL 25 MG TABLET PO SCH ×3 (08:08→16:14)
[2018-08-29] MEDS: NICOTINE 21 MG/24 HOUR PATCH TD SCH (08:12)
[2018-08-29] MEDS ORDERED: GABA-531 PO (17:20)
[2018-08-29] MEDS ORDERED: NALT50TA PO (17:20)
[2018-08-29] MEDS ORDERED: CHLO25 PO (17:20)
[2018-08-29] MEDS ORDERED: CHLO100T23 PO (17:20)
[2018-08-29] MEDS ORDERED: TRIH5TAB2 PO (17:20)
[2018-08-29 18:00] VITALS: BP 120/74
[2018-08-29] MEDS: IBUPROFEN 600 MG TABLET PO PRN (18:02)
[2018-08-29] MEDS: ChlorproMAZINE HCL 100 MG TABLET PO SCH (20:09)
[2018-08-29] MEDS: ZOLPIDEM TARTRATE 10 MG TABLET PO PRN (21:25)
[2018-08-30] VITALS: BP 126/87
[2018-08-30] MEDS: LORazepam 2 MG TABLET PO PRN ×2 (00:09→09:25)
[2018-08-30] MEDS: GABAPENTIN 300 MG CAPSULE PO SCH ×2 (07:41→12:09)
[2018-08-30] MEDS: MULTIVITAMINS WITH MINERALS, THERAPEUTIC TABLET PO SCH (07:41)
[2018-08-30] MEDS: FOLIC ACID 1 MG TABLET PO SCH (07:42)
[2018-08-30] MEDS: TRIHEXYPHENIDYL HCL 5 MG TABLET PO SCH ×2 (07:42→12:09)
[2018-08-30] MEDS: ChlorproMAZINE HCL 25 MG TABLET PO SCH ×2 (07:44→12:10)
[2018-08-30] MEDS: DENTURE ADHESIVE 68 GM CREAM DT PRN (07:45)
[2018-08-30 08:36] VITALS: BP 102/76
[2018-08-30] MEDS: NICOTINE 21 MG/24 HOUR PATCH TD SCH (08:43)
[2018-08-30] MEDS ORDERED: NALTREXONE HCL 50 MG TABLET PO SCH (09:00)
== END 2018-08-30 12:05 | disposition home or self-care (01) | DRG 885 ==
LOC: EMS 18:48 → 3EX 08-26 00:10
PROVIDERS: ADMIT Psychiatry & Neurology Psychiatry; ATTEND Psychiatry & Neurology Psychiatry
DX: F25.9 Schizoaffective disorder, unspecified (principal); K59.00 Constipation, unspecified; F41.9 Anxiety disorder, unspecified; E11.9 Type 2 diabetes mellitus without complications; E03.9 Hypothyroidism, unspecified; D64.9 Anemia, unspecified; F17.210 Nicotine dependence, cigarettes, uncomplicated; M25.551 Pain in right hip; M19.90 Unspecified osteoarthritis, unspecified site; Z88.0 Allergy status to penicillin; Z79.899 Other long term (current) drug therapy; Z79.84 Long term (current) use of oral hypoglycemic drugs
CPT/HCPCS: 87081; 93005; 96372; G0378; G0480; G0481; J1200; J1630; J2060

== ENCOUNTER 2018-10-23 09:39 | Inpatient (IN) | payer MEDICARE, MEDICAID ==
[~2018-10-23] VITALS: Ht 154.9 cm; Wt 67.5 kg
[~2018-10-23 09:39] MED LIST changes: -ACET-784 PO; -ARIP15TA2 PO; +CHLO100T23 PO; +CHLO25 PO; -DIPH25 PO; -IBUP-2070 PO; +NALT50TA PO; +TRIH5TAB2 PO
[2018-10-23 13:45] VITALS: BP 123/83
[2018-10-23] MEDS ORDERED: GuaiFENesin/D-METHORPHAN [SUGAR-FREE] 200-20MG/10 ML SYRUP UDCUP PO PRN (13:45)
[2018-10-23] MEDS ORDERED: MAG HYDROX/AL HYDROX/SIMETH ES 30 ML SUSPENSION UDCUP PO PRN (13:45)
[2018-10-23] MEDS ORDERED: PROMETHAZINE HCL 25 MG TABLET PO PRN (13:45)
[2018-10-23] MEDS ORDERED: ACETAMINOPHEN 325 MG TABLET PO PRN ×2 (13:45→20:30)
[2018-10-23] MEDS ORDERED: HydrOXYzine PAMOATE 50 MG CAPSULE PO PRN (13:45)
[2018-10-23] MEDS ORDERED: ChlorproMAZINE HCL 100 MG TABLET PO PRN (13:45)
[2018-10-23] MEDS ORDERED: LOPERAMIDE HCL 2 MG CAPSULE PO PRN (13:45)
[2018-10-23 14:27] VITALS: BP 119/86
[2018-10-23] MEDS: ChlorproMAZINE HCL 25 MG TABLET PO SCH ×2 (14:30→16:28)
[2018-10-23] MEDS: LORazepam 2 MG TABLET PO PRN ×2 (14:41→20:06)
[2018-10-23] MEDS: GABAPENTIN 300 MG CAPSULE PO SCH ×2 (14:41→17:52)
[2018-10-23 15:01] VITALS: BP 119/86
[2018-10-23 16:10] VITALS: BP 119/89
[2018-10-23] MEDS: THIAMINE HCL 100 MG TABLET PO SCH (16:28)
[2018-10-23] MEDS: MAGNESIUM HYDROXIDE SUSPENSION 30 ML UDCUP PO PRN (16:46)
[2018-10-23] MEDS ORDERED: BENZTROPINE MESYLATE 2 MG TABLET PO ONE (17:00)
[2018-10-23] MEDS: BENZTROPINE MESYLATE 2 MG TABLET PO SCH (17:39)
[2018-10-23] MEDS ORDERED: DENTURE ADHESIVE 68 GM CREAM DT PRN (18:15)
[2018-10-23 20:07] VITALS: BP 113/79
[2018-10-23] MEDS: ChlorproMAZINE HCL 100 MG TABLET PO SCH (20:32)
[2018-10-24 00:07] VITALS: BP 122/76
[2018-10-24] MEDS: LORazepam 2 MG TABLET PO PRN ×3 (00:09→20:08)
[2018-10-24] MEDS: GABAPENTIN 300 MG CAPSULE PO SCH ×2 (08:07→12:11)
[2018-10-24] MEDS: BENZTROPINE MESYLATE 2 MG TABLET PO SCH ×3 (08:07→16:42)
[2018-10-24] MEDS: FOLIC ACID 1 MG TABLET PO SCH (08:07)
[2018-10-24] MEDS: THIAMINE HCL 100 MG TABLET PO SCH ×2 (08:07→16:42)
[2018-10-24] MEDS: MULTIVITAMINS WITH MINERALS, THERAPEUTIC TABLET PO SCH (08:07)
[2018-10-24] MEDS: NALTREXONE HCL 50 MG TABLET PO SCH (08:08)
[2018-10-24] MEDS: ChlorproMAZINE HCL 25 MG TABLET PO SCH ×2 (08:08→12:12)
[2018-10-24 08:28] VITALS: BP 113/73
[2018-10-24] MEDS: NICOTINE 21 MG/24 HOUR PATCH TD SCH (08:49)
[2018-10-24 09:28] LABS: BASOPHILS % (AUTO) 0.7 % (0.0-2.0); EOSINOPHILS % (AUTO) 7.8 % (1.0-6.0); HEMATOCRIT 33.9 % (36-46); HEMOGLOBIN 11.4 g/dL (12.0-16.0); LYMPHOCYTES # (AUTO) 0.9 K/uL (1.0-4.8); LYMPHOCYTES % (AUTO) 21.3 % (22.0-44.0); MEAN CORPUSCULAR HEMOGLOBIN 31.7 pg (26.0-34.0); MEAN CORPUSCULAR HGB CONC 33.7 G/dL (31.0-37.0); MEAN CORPUSCULAR VOLUME 94 fL (80-100); MONOCYTES # (AUTO) 0.4 K/uL (0.1-1.0); MONOCYTES % (AUTO) 8.7 % (2.0-9.0); NEUTROPHILS # (AUTO) 2.5 K/uL (1.8-7.7); NEUTROPHILS % (AUTO) 61.5 % (40.0-70.0); PLATELET COUNT (AUTO) 276 K/uL (150-450); RED BLOOD CELL COUNT(AUTO) 3.61 MIL/uL (4.00-5.20); RED CELL DISTRIBUTION WIDTH 13.3 % (11.5-14.5)
[2018-10-24 09:39] LABS: HEMOGLOBIN A1C 5.3 % (4.5-6.2)
[2018-10-24 09:47] LABS: ALKALINE PHOSPHATASE 84 U/L (46-116); ANION GAP 9 mmol/L (8-16); BILIRUBIN,TOTAL 0.3 mg/dL (0.1-1.0); CALCIUM, TOTAL 9.2 mg/dL (8.8-10.5); CARBON DIOXIDE 26 mmol/L (22-29); CHLORIDE 105 mmol/L (98-107); CREATININE 0.71 mg/dL (0.60-1.30); GLOMERULAR FILTR. RATE CALC > 60 mL/min (>60); GLUCOSE,RANDOM 102 mg/dL (70-110); POTASSIUM 4.6 mmol/L (3.5-5.1); SODIUM SERUM 140 mmol/L (136-145); UREA NITROGEN, BLOOD 21 mg/dL (7-18)
[2018-10-24 09:48] LABS: ALANINE AMINOTRANSFERASE 13 U/L (12-78); ALBUMIN 3.7 g/dL (3.4-5.0); ASPARTATE AMINOTRANSFERASE 16 U/L (15-37); CHOL/HDL RATIO 2.4 (3.9-5.7); CHOLESTEROL 204 mg/dL (131-200); HDL CHOLESTEROL 86 mg/dL (40-60); LDL CHOL (CALC.) 103 mg/dL (0-130); TOTAL PROTEIN, SERUM 6.9 g/dL (6.4-8.2); TRIGLYCERIDES 76 mg/dL (15-150)
[2018-10-24 10:02] LABS: AMPHET/METH SCREEN,URINE NEGATIVE (NEGATIVE); BARBITURATE SCREEN, URINE NEGATIVE (NEGATIVE); BENZODIAZEPINES SCREEN,URINE NEGATIVE (NEGATIVE); CANNABINOID SCREEN,URINE NEGATIVE (NEGATIVE); COCAINE SCREEN,URINE NEGATIVE (NEGATIVE); METHADONE SCREEN, URINE NEGATIVE (NEGATIVE); OPIATE SCREEN,URINE NEGATIVE (NEGATIVE)
[2018-10-24 10:03] LABS: PHENCYCLIDINE SCREEN,URINE NEGATIVE (NEGATIVE)
[2018-10-24 16:15] VITALS: BP 120/66
[2018-10-24] MEDS: GABAPENTIN 400 MG CAPSULE PO SCH (16:42)
[2018-10-24] MEDS: ChlorproMAZINE HCL 100 MG TABLET PO SCH ×2 (16:42→20:34)
[2018-10-24] MEDS: ZOLPIDEM TARTRATE 10 MG TABLET PO PRN (21:34)
[2018-10-25 02:55] VITALS: BP 116/82
[2018-10-25] MEDS: LORazepam 2 MG TABLET PO PRN ×2 (02:59→10:09)
[2018-10-25] MEDS: IBUPROFEN 600 MG TABLET PO PRN (03:22)
[2018-10-25] MEDS: MULTIVITAMINS WITH MINERALS, THERAPEUTIC TABLET PO SCH (08:05)
[2018-10-25] MEDS: THIAMINE HCL 100 MG TABLET PO SCH ×2 (08:05→16:37)
[2018-10-25] MEDS: BENZTROPINE MESYLATE 2 MG TABLET PO SCH ×3 (08:05→16:37)
[2018-10-25] MEDS: FOLIC ACID 1 MG TABLET PO SCH (08:05)
[2018-10-25] MEDS: NALTREXONE HCL 50 MG TABLET PO SCH (08:05)
[2018-10-25] MEDS: GABAPENTIN 400 MG CAPSULE PO SCH ×2 (08:05→12:46)
[2018-10-25] MEDS: ChlorproMAZINE HCL 100 MG TABLET PO SCH ×4 (08:05→21:00)
[2018-10-25] MEDS: NICOTINE 21 MG/24 HOUR PATCH TD SCH (08:06)
[2018-10-25 08:19] VITALS: BP 136/73
[2018-10-25 09:32] LABS: FREE T4 (FREE THYROXINE) 1.12 ng/dL (0.76-1.46); THYROID STIMULATING HORMONE 3.84 uIU/mL (0.36-3.74)
[2018-10-25 16:21] VITALS: BP 109/61
[2018-10-25] MEDS: GABAPENTIN 300 MG CAPSULE PO SCH (16:37)
[2018-10-25] MEDS ORDERED: GABAPENTIN 400 MG CAPSULE PO SCH (17:00)
[2018-10-26 01:21] VITALS: BP 116/74
[2018-10-26] MEDS: ZOLPIDEM TARTRATE 10 MG TABLET PO PRN (01:44)
[2018-10-26 05:41] VITALS: BP 114/76
[2018-10-26] MEDS: LORazepam 2 MG TABLET PO PRN ×2 (05:48→12:42)
[2018-10-26] MEDS: FOLIC ACID 1 MG TABLET PO SCH (08:15)
[2018-10-26] MEDS: ChlorproMAZINE HCL 100 MG TABLET PO SCH ×4 (08:15→20:31)
[2018-10-26] MEDS: MULTIVITAMINS WITH MINERALS, THERAPEUTIC TABLET PO SCH (08:15)
[2018-10-26] MEDS: NALTREXONE HCL 50 MG TABLET PO SCH (08:15)
[2018-10-26] MEDS: BENZTROPINE MESYLATE 2 MG TABLET PO SCH ×3 (08:16→17:04)
[2018-10-26] MEDS: NICOTINE 21 MG/24 HOUR PATCH TD SCH (08:16)
[2018-10-26] MEDS: THIAMINE HCL 100 MG TABLET PO SCH ×2 (08:16→17:04)
[2018-10-26] MEDS: GABAPENTIN 300 MG CAPSULE PO SCH ×3 (08:16→17:04)
[2018-10-26 08:46] VITALS: BP 114/84
[2018-10-26 16:20] VITALS: BP 121/84
[2018-10-27] MEDS: LORazepam 2 MG TABLET PO PRN ×3 (03:03→18:35)
[2018-10-27 03:07] VITALS: BP 127/81
[2018-10-27 07:27] LABS: APPEARANCE,URINE CLEAR (CLEAR); BILIRUBIN,URINE NEGATIVE (NEGATIVE); GLUCOSE, URINE (UA) NEGATIVE (NEGATIVE); KETONES,URINE NEGATIVE (NEGATIVE); LEUKOCYTE ESTERASE ,URINE NEGATIVE (NEGATIVE); NITRATE,URINE NEGATIVE (NEGATIVE); OCCULT BLOOD,URINE NEGATIVE (NEGATIVE); PROTEIN,URINE NEGATIVE (NEGATIVE); UROBILINOGEN,URINE 0.2 mg/dL (<=1.0)
[2018-10-27] MEDS: GABAPENTIN 300 MG CAPSULE PO SCH ×3 (08:04→17:01)
[2018-10-27] MEDS: FOLIC ACID 1 MG TABLET PO SCH (08:04)
[2018-10-27] MEDS: NALTREXONE HCL 50 MG TABLET PO SCH (08:04)
[2018-10-27] MEDS: BENZTROPINE MESYLATE 2 MG TABLET PO SCH ×3 (08:04→17:01)
[2018-10-27] MEDS: THIAMINE HCL 100 MG TABLET PO SCH ×2 (08:04→17:01)
[2018-10-27] MEDS: MULTIVITAMINS WITH MINERALS, THERAPEUTIC TABLET PO SCH (08:04)
[2018-10-27] MEDS: ChlorproMAZINE HCL 100 MG TABLET PO SCH ×4 (08:04→20:25)
[2018-10-27 08:05] VITALS: BP 113/82
[2018-10-27] MEDS: TraMADol HCL 50 MG TABLET PO PRN (08:05)
[2018-10-27] MEDS: NICOTINE 21 MG/24 HOUR PATCH TD SCH (08:05)
[2018-10-27 08:17] VITALS: BP 113/82
[2018-10-27 16:06] VITALS: BP 124/83
[2018-10-28 00:04] VITALS: BP 115/80
[2018-10-28] MEDS: LORazepam 2 MG TABLET PO PRN ×2 (00:07→09:21)
[2018-10-28] MEDS: ZOLPIDEM TARTRATE 10 MG TABLET PO PRN (00:07)
[2018-10-28] MEDS: TraMADol HCL 50 MG TABLET PO PRN (06:17)
[2018-10-28] MEDS: NALTREXONE HCL 50 MG TABLET PO SCH (08:05)
[2018-10-28] MEDS: ChlorproMAZINE HCL 100 MG TABLET PO SCH ×4 (08:05→21:37)
[2018-10-28] MEDS: GABAPENTIN 300 MG CAPSULE PO SCH ×3 (08:05→16:53)
[2018-10-28] MEDS: NICOTINE 21 MG/24 HOUR PATCH TD SCH (08:06)
[2018-10-28] MEDS: FOLIC ACID 1 MG TABLET PO SCH (08:06)
[2018-10-28] MEDS: MULTIVITAMINS WITH MINERALS, THERAPEUTIC TABLET PO SCH (08:06)
[2018-10-28] MEDS: BENZTROPINE MESYLATE 2 MG TABLET PO SCH ×3 (08:06→16:52)
[2018-10-28] MEDS: THIAMINE HCL 100 MG TABLET PO SCH ×2 (08:06→16:52)
[2018-10-28 08:23] VITALS: BP 109/79
[2018-10-28 16:29] VITALS: BP 107/79
[2018-10-29 00:40] VITALS: BP 116/78
[2018-10-29] MEDS: ZOLPIDEM TARTRATE 10 MG TABLET PO PRN (00:53)
[2018-10-29] MEDS: LORazepam 2 MG TABLET PO PRN ×2 (00:53→11:25)
[2018-10-29 05:35] VITALS: BP 116/76
[2018-10-29] MEDS: TraMADol HCL 50 MG TABLET PO PRN ×2 (05:52→22:04)
[2018-10-29 08:34] VITALS: BP 124/83
[2018-10-29] MEDS: ChlorproMAZINE HCL 100 MG TABLET PO SCH ×4 (08:37→20:37)
[2018-10-29] MEDS: BENZTROPINE MESYLATE 2 MG TABLET PO SCH ×3 (08:37→16:48)
[2018-10-29] MEDS: GABAPENTIN 300 MG CAPSULE PO SCH ×3 (08:38→16:48)
[2018-10-29] MEDS: MULTIVITAMINS WITH MINERALS, THERAPEUTIC TABLET PO SCH (08:38)
[2018-10-29] MEDS: NALTREXONE HCL 50 MG TABLET PO SCH (08:38)
[2018-10-29] MEDS: THIAMINE HCL 100 MG TABLET PO SCH ×2 (08:38→16:48)
[2018-10-29] MEDS: FOLIC ACID 1 MG TABLET PO SCH (08:38)
[2018-10-29] MEDS: NICOTINE 21 MG/24 HOUR PATCH TD SCH (08:39)
[2018-10-29 16:30] VITALS: BP 116/84
[2018-10-29 21:59] VITALS: BP 121/81
[2018-10-30 00:01] VITALS: BP 114/79
[2018-10-30] MEDS: LORazepam 2 MG TABLET PO PRN ×3 (00:16→17:31)
[2018-10-30 00:47] VITALS: BP 134/89
[2018-10-30 06:00] VITALS: BP 118/77
[2018-10-30] MEDS: TraMADol HCL 50 MG TABLET PO PRN (06:06)
[2018-10-30] MEDS: BENZTROPINE MESYLATE 2 MG TABLET PO SCH ×3 (08:17→16:09)
[2018-10-30] MEDS: ChlorproMAZINE HCL 100 MG TABLET PO SCH ×4 (08:18→20:37)
[2018-10-30] MEDS: MULTIVITAMINS WITH MINERALS, THERAPEUTIC TABLET PO SCH (08:18)
[2018-10-30] MEDS: THIAMINE HCL 100 MG TABLET PO SCH ×2 (08:18→16:10)
[2018-10-30] MEDS: NICOTINE 21 MG/24 HOUR PATCH TD SCH (08:18)
[2018-10-30] MEDS: GABAPENTIN 300 MG CAPSULE PO SCH ×3 (08:18→16:10)
[2018-10-30] MEDS: NALTREXONE HCL 50 MG TABLET PO SCH (08:18)
[2018-10-30] MEDS: FOLIC ACID 1 MG TABLET PO SCH (08:18)
[2018-10-30 08:42] VITALS: BP 117/71
[2018-10-30] MEDS: MAGNESIUM HYDROXIDE SUSPENSION 30 ML UDCUP PO PRN (08:42)
[2018-10-30] MEDS: IBUPROFEN 600 MG TABLET PO PRN (08:42)
[2018-10-30 08:45] VITALS: BP 117/71
[2018-10-30 16:19] VITALS: BP 117/69
[2018-10-31 04:35] VITALS: BP 110/76
[2018-10-31] MEDS: ChlorproMAZINE HCL 100 MG TABLET PO SCH ×2 (08:07→12:18)
[2018-10-31] MEDS: GABAPENTIN 300 MG CAPSULE PO SCH ×2 (08:07→12:18)
[2018-10-31] MEDS: MULTIVITAMINS WITH MINERALS, THERAPEUTIC TABLET PO SCH (08:07)
[2018-10-31] MEDS: THIAMINE HCL 100 MG TABLET PO SCH (08:07)
[2018-10-31] MEDS: NALTREXONE HCL 50 MG TABLET PO SCH (08:07)
[2018-10-31] MEDS: FOLIC ACID 1 MG TABLET PO SCH (08:07)
[2018-10-31] MEDS: BENZTROPINE MESYLATE 2 MG TABLET PO SCH ×2 (08:08→12:18)
[2018-10-31] MEDS: NICOTINE 21 MG/24 HOUR PATCH TD SCH (08:09)
[2018-10-31 08:34] VITALS: BP 115/73
[2018-10-31] MEDS ORDERED: GABA-531 PO (10:11)
[2018-10-31] MEDS ORDERED: NALT50TA6 PO (10:11)
[2018-10-31] MEDS ORDERED: CHLO100T24 PO ×2 (10:11)
[2018-10-31] MEDS ORDERED: BENZ2TAB10 PO (10:11)
== END 2018-10-31 13:10 | disposition home or self-care (01) | DRG 885 ==
LOC: B2X 13:51
PROVIDERS: ADMIT Psychiatry & Neurology Psychiatry; ATTEND Psychiatry & Neurology Psychiatry
DX: F25.9 Schizoaffective disorder, unspecified (principal); F11.20 Opioid dependence, uncomplicated; R45.851 Suicidal ideations; D64.9 Anemia, unspecified; E03.9 Hypothyroidism, unspecified; E11.9 Type 2 diabetes mellitus without complications; F17.210 Nicotine dependence, cigarettes, uncomplicated; G89.29 Other chronic pain; I10 Essential (primary) hypertension; J44.9 Chronic obstructive pulmonary disease, unspecified; K59.00 Constipation, unspecified; M17.10 Unilateral primary osteoarthritis, unspecified knee; N39.44 Nocturnal enuresis; Z91.14 Patient's other noncompliance with medication regimen; Z91.19 Patient's noncompliance with other medical treatment and regimen; Z80.3 Family history of malignant neoplasm of breast; Z85.3 Personal history of malignant neoplasm of breast
CPT/HCPCS: 83036; 84439; 84443

== ENCOUNTER 2018-12-09 12:56 | Emergency (ER) | payer MEDICARE, OTHER ==
[~2018-12-09] VITALS: Ht 167.6 cm; Wt 70.5 kg
[~2018-12-09 12:56] MED LIST changes: +BENZ2TAB10 PO; -CHLO100T23 PO; +CHLO100T24 PO; -CHLO25 PO; -NALT50TA PO; -TRIH5TAB2 PO
[2018-12-09] MEDS ORDERED: KETOROLAC TROMETHAMINE 60 MG/2 ML VIAL IM ONE (17:45)
[2018-12-09 20:47] VITALS: BP 151/91
== END 2018-12-09 20:51 | disposition home or self-care (01) ==
LOC: EMS 12:57
DX: M25.551 Pain in right hip (principal); F20.9 Schizophrenia, unspecified; F17.210 Nicotine dependence, cigarettes, uncomplicated; F31.9 Bipolar disorder, unspecified; E11.9 Type 2 diabetes mellitus without complications; E03.9 Hypothyroidism, unspecified; Z88.0 Allergy status to penicillin; Z79.899 Other long term (current) drug therapy
CPT/HCPCS: 73502; 96372; 99284; 99406; J1885

== ENCOUNTER 2018-12-10 07:12 | Inpatient (IN) | payer MEDICARE, MEDICAID ==
[~2018-12-10] VITALS: Ht 154.9 cm; Wt 63.3 kg
[2018-12-10 10:09] LABS: BASOPHILS % (AUTO) 0.1 % (0.0-2.0); EOSINOPHILS % (AUTO) 0.3 % (1.0-6.0); HEMATOCRIT 36.3 % (36-46); HEMOGLOBIN 12.2 g/dL (12.0-16.0); LYMPHOCYTES # (AUTO) 0.2 K/uL (1.0-4.8); MEAN CORPUSCULAR HEMOGLOBIN 30.9 pg (26.0-34.0); MEAN CORPUSCULAR HGB CONC 33.5 G/dL (31.0-37.0); MEAN CORPUSCULAR VOLUME 92 fL (80-100); MONOCYTES # (AUTO) 0.7 K/uL (0.1-1.0); MONOCYTES % (AUTO) 5.6 % (2.0-9.0); NEUTROPHILS # (AUTO) 11.1 K/uL (1.8-7.7); PLATELET COUNT (AUTO) 273 K/uL (150-450); RED BLOOD CELL COUNT(AUTO) 3.95 MIL/uL (4.00-5.20); RED CELL DISTRIBUTION WIDTH 12.9 % (11.5-14.5)
[2018-12-10 10:17] LABS: ANION GAP 14 mmol/L (8-16); CALCIUM, TOTAL 9.3 mg/dL (8.8-10.5); CARBON DIOXIDE 23 mmol/L (22-29); CHLORIDE 106 mmol/L (98-107); CREATININE 1.15 mg/dL (0.60-1.30); GLOMERULAR FILTR. RATE CALC 48 mL/min (>60); GLUCOSE,RANDOM 125 mg/dL (70-110); POTASSIUM 3.2 mmol/L (3.5-5.1); SODIUM SERUM 143 mmol/L (136-145); UREA NITROGEN, BLOOD 19 mg/dL (7-18)
[2018-12-10 10:23] LABS: ALANINE AMINOTRANSFERASE 20 U/L (12-78); ALBUMIN 3.6 g/dL (3.4-5.0); ALKALINE PHOSPHATASE 239 U/L (46-116); ASPARTATE AMINOTRANSFERASE 20 U/L (15-37); BILIRUBIN,TOTAL 0.7 mg/dL (0.1-1.0); TOTAL PROTEIN, SERUM 7.1 g/dL (6.4-8.2)
[2018-12-10 11:08] LABS: SALICYLATE 6.7 mg/dL (2.8-20.0)
[2018-12-10 11:12] LABS: ACETAMINOPHEN < 2 mcg/mL (10-30)
[2018-12-10] MEDS ORDERED: POTASSIUM CHLORIDE 10% 40 MEQ/30 ML LIQUID UDCUP PO ONE (11:45)
[2018-12-10] MEDS ORDERED: ZOLPIDEM TARTRATE 10 MG TABLET PO PRN (12:30)
[2018-12-10] MEDS ORDERED: GuaiFENesin/D-METHORPHAN [SUGAR-FREE] 200-20MG/10 ML SYRUP UDCUP PO PRN (12:30)
[2018-12-10] MEDS ORDERED: ACETAMINOPHEN 325 MG TABLET PO PRN (12:30)
[2018-12-10] MEDS ORDERED: ChlorproMAZINE HCL 25 MG TABLET PO PRN (12:30)
[2018-12-10] MEDS ORDERED: HydrOXYzine PAMOATE 50 MG CAPSULE PO PRN (12:30)
[2018-12-10] MEDS ORDERED: LOPERAMIDE HCL 2 MG CAPSULE PO PRN (12:30)
[2018-12-10] MEDS ORDERED: MAGNESIUM HYDROXIDE SUSPENSION 30 ML UDCUP PO PRN (12:30)
[2018-12-10] MEDS ORDERED: MAG HYDROX/AL HYDROX/SIMETH ES 30 ML SUSPENSION UDCUP PO PRN (12:30)
[2018-12-10] MEDS ORDERED: PROMETHAZINE HCL 25 MG TABLET PO PRN (12:30)
[2018-12-10] MEDS ORDERED: LORazepam 2 MG TABLET PO PRN (12:30)
[2018-12-10 14:42] VITALS: BP 108/65
[2018-12-10] MEDS ORDERED: -PHARMACY VACCINE NOTE- MISC ONE (15:15)
[2018-12-10] MEDS: GABAPENTIN 300 MG CAPSULE PO SCH ×2 (16:13→20:06)
[2018-12-10] MEDS ORDERED: OLANZapine 5 MG RAPDIS TABLET PO PRN (16:30)
[2018-12-10 16:45] VITALS: BP 122/64
[2018-12-10] MEDS ORDERED: BENZTROPINE MESYLATE 2 MG TABLET PO SCH (17:00)
[2018-12-10] MEDS ORDERED: THIAMINE HCL 100 MG TABLET PO SCH (17:00)
[2018-12-10] MEDS ORDERED: OLANZapine 5 MG RAPDIS TABLET PO SCH (21:00)
[2018-12-11] MEDS ORDERED: MULTIVITAMINS WITH MINERALS, THERAPEUTIC TABLET PO SCH (09:00)
[2018-12-11] MEDS ORDERED: FOLIC ACID 1 MG TABLET PO SCH (09:00)
[2018-12-11] MEDS ORDERED: NALTREXONE HCL 50 MG TABLET PO SCH (09:00)
== END 2018-12-10 21:00 | disposition short-term general hospital (02) | DRG 885 ==
LOC: EMS 07:18 → 3EX 13:43
PROVIDERS: ADMIT Psychiatry & Neurology Psychiatry; ATTEND Psychiatry & Neurology Psychiatry
DX: F25.9 Schizoaffective disorder, unspecified (principal); F31.9 Bipolar disorder, unspecified; E11.9 Type 2 diabetes mellitus without complications; E03.9 Hypothyroidism, unspecified; I45.81 Long QT syndrome; F41.9 Anxiety disorder, unspecified; K59.00 Constipation, unspecified; Z87.891 Personal history of nicotine dependence
CPT/HCPCS: 93005; 99291; G0378; G0480; G0481

== ENCOUNTER 2018-12-12 18:00 | Inpatient (IN) | payer MEDICARE, MEDICAID ==
[~2018-12-12] VITALS: Ht 154.9 cm; Wt 66.0 kg
[2018-12-12] MEDS ORDERED: ZOLPIDEM TARTRATE 10 MG TABLET PO PRN (18:30)
[2018-12-12] MEDS ORDERED: HydrOXYzine PAMOATE 50 MG CAPSULE PO PRN (18:30)
[2018-12-12] MEDS ORDERED: LORazepam 2 MG TABLET PO PRN (18:30)
[2018-12-12] MEDS ORDERED: OLANZapine 5 MG RAPDIS TABLET PO PRN (18:30)
[2018-12-12 19:11] VITALS: BP 116/78
[2018-12-12] MEDS ORDERED: ACETAMINOPHEN 325 MG TABLET PO PRN (19:15)
[2018-12-12] MEDS ORDERED: IBUPROFEN 600 MG TABLET PO PRN (19:15)
[2018-12-12] MEDS ORDERED: MAGNESIUM HYDROXIDE SUSPENSION 30 ML UDCUP PO PRN (19:15)
[2018-12-12] MEDS: BENZTROPINE MESYLATE 2 MG TABLET PO SCH (19:47)
[2018-12-12] MEDS: THIAMINE HCL 100 MG TABLET PO SCH (19:47)
[2018-12-12] MEDS ORDERED: ARIPiprazole 15 MG TABLET PO SCH (21:00)
[2018-12-12] MEDS: GABAPENTIN 300 MG CAPSULE PO SCH (21:18)
[2018-12-13 01:03] VITALS: BP 109/73
[2018-12-13 07:52] LABS: APPEARANCE,URINE CLEAR (CLEAR); BILIRUBIN,URINE NEGATIVE (NEGATIVE); GLUCOSE, URINE (UA) NEGATIVE (NEGATIVE); KETONES,URINE NEGATIVE (NEGATIVE); LEUKOCYTE ESTERASE ,URINE NEGATIVE (NEGATIVE); NITRATE,URINE NEGATIVE (NEGATIVE); OCCULT BLOOD,URINE NEGATIVE (NEGATIVE); PH,URINE 5.5 (5.0-8.0); PROTEIN,URINE NEGATIVE (NEGATIVE); UROBILINOGEN,URINE 0.2 mg/dL (<=1.0)
[2018-12-13 08:00] VITALS: BP 101/64
[2018-12-13] MEDS: NALTREXONE HCL 50 MG TABLET PO SCH ×2 (08:56→09:00)
[2018-12-13] MEDS: THIAMINE HCL 100 MG TABLET PO SCH (08:56)
[2018-12-13] MEDS: BENZTROPINE MESYLATE 2 MG TABLET PO SCH ×2 (08:57→12:46)
[2018-12-13] MEDS: GABAPENTIN 300 MG CAPSULE PO SCH ×2 (08:57→12:46)
[2018-12-13] MEDS ORDERED: MULTIVITAMINS WITH MINERALS, THERAPEUTIC TABLET PO SCH (09:00)
[2018-12-13] MEDS ORDERED: FOLIC ACID 1 MG TABLET PO SCH (09:00)
[2018-12-13] MEDS ORDERED: NICOTINE 14 MG/24 HOUR PATCH TD ONE (09:00)
[2018-12-13] MEDS ORDERED: PANTOPRAZOLE SODIUM 40 MG DR TABLET PO SCH (09:00)
[2018-12-13 10:45] VITALS: BP 115/78
[2018-12-13] MEDS ORDERED: ARIP15TA2 PO (11:44)
[2018-12-13] MEDS ORDERED: GABA-531 PO (11:44)
[2018-12-13] MEDS ORDERED: ARIP400S3 IM (11:45)
[2018-12-13] MEDS ORDERED: PANT40TA25 PO (11:49)
[2019-01-09] MEDS ORDERED: ARIPiprazole ER SUSPENSION 400 MG PRE-FILLED DUAL CHAMBER SYRINGE IM SCH (09:00)
== END 2018-12-13 15:25 | disposition home or self-care (01) | DRG 885 ==
LOC: 3EX 18:00
PROVIDERS: ADMIT Psychiatry & Neurology Psychiatry; ATTEND Psychiatry & Neurology Psychiatry
DX: F25.0 Schizoaffective disorder, bipolar type (principal); D72.828 Other elevated white blood cell count; E03.9 Hypothyroidism, unspecified; E87.6 Hypokalemia; M16.11 Unilateral primary osteoarthritis, right hip; F17.200 Nicotine dependence, unspecified, uncomplicated; Z80.3 Family history of malignant neoplasm of breast; Z85.3 Personal history of malignant neoplasm of breast; Z88.0 Allergy status to penicillin; Z28.21 Immunization not carried out because of patient refusal
CPT/HCPCS: 87081; 90686; G0378

== ENCOUNTER 2018-12-18 07:04 | Inpatient (IN) | payer MEDICARE, MEDICAID ==
[~2018-12-18] VITALS: Ht 154.9 cm; Wt 61.2 kg
[~2018-12-18 07:04] MED LIST changes: +ARIP15TA2 PO; +ARIP400S3 IM; -CHLO100T24 PO; +PANT40TA25 PO
[2018-12-18 07:40] LABS: BASOPHILS % (AUTO) 0.4 % (0.0-2.0); EOSINOPHILS % (AUTO) 0.2 % (1.0-6.0); HEMATOCRIT 35.4 % (36-46); LYMPHOCYTES # (AUTO) 0.5 K/uL (1.0-4.8); LYMPHOCYTES % (AUTO) 6.9 % (22.0-44.0); MEAN CORPUSCULAR HEMOGLOBIN 30.6 pg (26.0-34.0); MEAN CORPUSCULAR VOLUME 90 fL (80-100); MONOCYTES # (AUTO) 0.2 K/uL (0.1-1.0); MONOCYTES % (AUTO) 3.7 % (2.0-9.0); PLATELET COUNT (AUTO) 469 K/uL (150-450); RED BLOOD CELL COUNT(AUTO) 3.93 MIL/uL (4.00-5.20)
[2018-12-18 07:41] LABS: NEUTROPHILS % (AUTO) 88.8 % (40.0-70.0)
[2018-12-18 07:44] LABS: ANION GAP 14 mmol/L (8-16); CALCIUM, TOTAL 9.4 mg/dL (8.8-10.5); CARBON DIOXIDE 23 mmol/L (22-29); CHLORIDE 100 mmol/L (98-107); CREATININE 0.92 mg/dL (0.60-1.30); GLOMERULAR FILTR. RATE CALC > 60 mL/min (>60); GLUCOSE,RANDOM 115 mg/dL (70-110); POTASSIUM 4.1 mmol/L (3.5-5.1); SODIUM SERUM 137 mmol/L (136-145); UREA NITROGEN, BLOOD 21 mg/dL (7-18)
[2018-12-18 07:50] LABS: ALANINE AMINOTRANSFERASE 21 U/L (12-78); ALBUMIN 3.7 g/dL (3.4-5.0); ALKALINE PHOSPHATASE 119 U/L (46-116); ASPARTATE AMINOTRANSFERASE 14 U/L (15-37); BILIRUBIN,TOTAL 0.5 mg/dL (0.1-1.0)
[2018-12-18 08:03] LABS: APPEARANCE,URINE CLOUDY (CLEAR); GLUCOSE, URINE (UA) NEGATIVE (NEGATIVE); KETONES,URINE 40 mg/dL (NEGATIVE); LEUKOCYTE ESTERASE ,URINE NEGATIVE (NEGATIVE); NITRATE,URINE NEGATIVE (NEGATIVE); OCCULT BLOOD,URINE NEGATIVE (NEGATIVE); PH,URINE 5.5 (5.0-8.0); PROTEIN,URINE NEGATIVE (NEGATIVE); UROBILINOGEN,URINE 0.2 mg/dL (<=1.0)
[2018-12-18 08:03] LABS: GLUCOSE,POINT OF CARE 103 MG/DL (70-110)
[2018-12-18 08:08] LABS: AMPHET/METH SCREEN,URINE NEGATIVE (NEGATIVE); BARBITURATE SCREEN, URINE NEGATIVE (NEGATIVE); BENZODIAZEPINES SCREEN,URINE NEGATIVE (NEGATIVE); BILIRUBIN,URINE PRELIM. POSITIVE (NEGATIVE); CANNABINOID SCREEN,URINE NEGATIVE (NEGATIVE); COCAINE SCREEN,URINE NEGATIVE (NEGATIVE); METHADONE SCREEN, URINE NEGATIVE (NEGATIVE); OPIATE SCREEN,URINE NEGATIVE (NEGATIVE)
[2018-12-18 08:10] LABS: PHENCYCLIDINE SCREEN,URINE NEGATIVE (NEGATIVE)
[2018-12-18 08:15] LABS: BACTERIA,URINE None Seen /HPF (None Seen); RBC,URINE None Seen /HPF (0-2); WBC,URINE 0-2 /HPF (0-5)
[2018-12-18 08:16] LABS: SQUAMOUS EPITHELIAL CELL,UR Moderate /LPF (None Seen)
[2018-12-18] MEDS ORDERED: MAG HYDROX/AL HYDROX/SIMETH ES 30 ML SUSPENSION UDCUP PO PRN (11:15)
[2018-12-18] MEDS ORDERED: GuaiFENesin/D-METHORPHAN [SUGAR-FREE] 200-20MG/10 ML SYRUP UDCUP PO PRN (11:15)
[2018-12-18] MEDS ORDERED: HydrOXYzine PAMOATE 50 MG CAPSULE PO PRN (11:15)
[2018-12-18] MEDS ORDERED: OLANZapine 5 MG RAPDIS TABLET PO PRN (11:15)
[2018-12-18] MEDS ORDERED: MAGNESIUM HYDROXIDE SUSPENSION 30 ML UDCUP PO PRN (11:15)
[2018-12-18] MEDS ORDERED: LOPERAMIDE HCL 2 MG CAPSULE PO PRN (11:15)
[2018-12-18] MEDS ORDERED: PROMETHAZINE HCL 25 MG TABLET PO PRN (11:15)
[2018-12-18] MEDS: LORazepam 2 MG TABLET PO PRN (14:10)
[2018-12-18] MEDS: BENZTROPINE MESYLATE 2 MG TABLET PO SCH ×2 (14:10→17:46)
[2018-12-18] MEDS: GABAPENTIN 300 MG CAPSULE PO SCH ×2 (14:10→17:43)
[2018-12-18 15:33] VITALS: BP 146/75
[2018-12-18 16:30] VITALS: BP 136/92
[2018-12-18] MEDS: THIAMINE HCL 100 MG TABLET PO SCH (17:46)
[2018-12-19 00:37] VITALS: BP 113/85
[2018-12-19] MEDS: ZOLPIDEM TARTRATE 10 MG TABLET PO PRN ×2 (00:50→20:34)
[2018-12-19 08:00] VITALS: BP 136/90
[2018-12-19] MEDS: MULTIVITAMINS WITH MINERALS, THERAPEUTIC TABLET PO SCH (08:05)
[2018-12-19] MEDS: NALTREXONE HCL 50 MG TABLET PO SCH (08:05)
[2018-12-19] MEDS: FOLIC ACID 1 MG TABLET PO SCH (08:05)
[2018-12-19] MEDS: GABAPENTIN 300 MG CAPSULE PO SCH ×3 (08:05→16:20)
[2018-12-19] MEDS: BENZTROPINE MESYLATE 2 MG TABLET PO SCH ×3 (08:05→16:21)
[2018-12-19] MEDS: THIAMINE HCL 100 MG TABLET PO SCH ×2 (08:05→16:20)
[2018-12-19] MEDS: PANTOPRAZOLE SODIUM 40 MG DR TABLET PO SCH (08:05)
[2018-12-19] MEDS: LORazepam 2 MG TABLET PO PRN ×2 (08:07→13:44)
[2018-12-19] MEDS ORDERED: ARIPiprazole 15 MG TABLET PO SCH (09:00)
[2018-12-19 16:15] VITALS: BP 132/92
[2018-12-19] MEDS ORDERED: HALOPERIDOL 5 MG TABLET PO PRN (17:00)
[2018-12-19] MEDS ORDERED: HALOPERIDOL DECANOATE 50 MG/ML VIAL IM ONE (17:00)
[2018-12-19] MEDS ORDERED: HALOPERIDOL 10 MG TABLET PO SCH (21:00)
[2018-12-20 00:46] VITALS: BP 125/90
[2018-12-20 04:40] VITALS: BP 115/91
[2018-12-20] MEDS: ACETAMINOPHEN 325 MG TABLET PO PRN ×2 (04:44→14:04)
[2018-12-20 05:40] VITALS: BP 108/67
[2018-12-20] MEDS: LORazepam 2 MG TABLET PO PRN ×2 (06:45→14:04)
[2018-12-20] MEDS: MULTIVITAMINS WITH MINERALS, THERAPEUTIC TABLET PO SCH (08:01)
[2018-12-20] MEDS: THIAMINE HCL 100 MG TABLET PO SCH ×2 (08:01→16:20)
[2018-12-20] MEDS: PANTOPRAZOLE SODIUM 40 MG DR TABLET PO SCH (08:01)
[2018-12-20] MEDS: BENZTROPINE MESYLATE 2 MG TABLET PO SCH ×3 (08:01→16:20)
[2018-12-20] MEDS: GABAPENTIN 300 MG CAPSULE PO SCH ×3 (08:01→16:20)
[2018-12-20] MEDS: NALTREXONE HCL 50 MG TABLET PO SCH (08:02)
[2018-12-20] MEDS: FOLIC ACID 1 MG TABLET PO SCH (08:02)
[2018-12-20] MEDS ORDERED: OXYBUTYNIN CHLORIDE 5 MG ER TABLET PO SCH (09:00)
[2018-12-20 09:12] VITALS: BP 113/82
[2018-12-20 14:07] VITALS: BP 123/86
[2018-12-20] MEDS ORDERED: NALT50TA PO (15:53)
[2018-12-20] MEDS ORDERED: BENZ2TAB10 PO (15:53)
[2018-12-20] MEDS ORDERED: GABA-531 PO (15:53)
[2018-12-20] MEDS ORDERED: HALO50VI4 IM (15:53)
[2018-12-20] MEDS ORDERED: HALO10 PO (15:54)
[2018-12-20 16:55] VITALS: BP 108/68
[2018-12-20] MEDS ORDERED: OXYB5XL PO (18:31)
== END 2018-12-20 19:00 | disposition home or self-care (01) | DRG 885 ==
LOC: EMS 07:05 → 3EX 11:59
PROVIDERS: ADMIT Psychiatry & Neurology Psychiatry; ATTEND Psychiatry & Neurology Psychiatry
DX: F25.0 Schizoaffective disorder, bipolar type (principal); I10 Essential (primary) hypertension; K21.9 Gastro-esophageal reflux disease without esophagitis; F17.210 Nicotine dependence, cigarettes, uncomplicated; K59.00 Constipation, unspecified; M16.11 Unilateral primary osteoarthritis, right hip; E11.9 Type 2 diabetes mellitus without complications; E03.9 Hypothyroidism, unspecified; N39.44 Nocturnal enuresis; Z80.3 Family history of malignant neoplasm of breast; Z85.3 Personal history of malignant neoplasm of breast; Z91.19 Patient's noncompliance with other medical treatment and regimen
CPT/HCPCS: 80173; 87081; 99406; G0378; G0480; J1631

== ENCOUNTER 2018-12-23 12:42 | Inpatient (IN) | payer MEDICARE, MEDICAID ==
[~2018-12-23] VITALS: Ht 154.9 cm; Wt 61.0 kg
[~2018-12-23 12:42] MED LIST changes: -ARIP15TA2 PO; -ARIP400S3 IM; +HALO10 PO; +HALO50VI4 IM; +NALT50TA PO; +OXYB5XL PO
[2018-12-23 14:07] VITALS: BP 129/80
[2018-12-23] MEDS ORDERED: ACETAMINOPHEN 325 MG TABLET PO PRN (14:15)
[2018-12-23] MEDS ORDERED: MAG HYDROX/AL HYDROX/SIMETH ES 30 ML SUSPENSION UDCUP PO PRN (14:15)
[2018-12-23] MEDS ORDERED: LOPERAMIDE HCL 2 MG CAPSULE PO PRN (14:15)
[2018-12-23] MEDS ORDERED: MAGNESIUM HYDROXIDE SUSPENSION 30 ML UDCUP PO PRN (14:15)
[2018-12-23] MEDS ORDERED: HALOPERIDOL 5 MG TABLET PO PRN (14:15)
[2018-12-23 14:40] VITALS: BP 148/83
[2018-12-23] MEDS ORDERED: GuaiFENesin/D-METHORPHAN [SUGAR-FREE] 200-20MG/10 ML SYRUP UDCUP PO PRN (16:00)
[2018-12-23] MEDS ORDERED: OLANZapine 5 MG RAPDIS TABLET PO PRN (16:00)
[2018-12-23] MEDS ORDERED: HydrOXYzine PAMOATE 50 MG CAPSULE PO PRN (16:00)
[2018-12-23] MEDS: LORazepam 2 MG TABLET PO PRN (16:39)
[2018-12-23] MEDS: BENZTROPINE MESYLATE 2 MG TABLET PO SCH (16:39)
[2018-12-23] MEDS: GABAPENTIN 300 MG CAPSULE PO SCH (16:39)
[2018-12-23] MEDS: THIAMINE HCL 100 MG TABLET PO SCH (17:01)
[2018-12-23 20:15] VITALS: BP 119/78
[2018-12-23] MEDS: ZOLPIDEM TARTRATE 10 MG TABLET PO PRN (20:55)
[2018-12-23] MEDS ORDERED: HALOPERIDOL 10 MG TABLET PO SCH (21:00)
[2018-12-23 21:45] VITALS: BP 112/71
[2018-12-23] MEDS: IBUPROFEN 600 MG TABLET PO PRN (21:45)
[2018-12-24 01:13] VITALS: BP 113/68
[2018-12-24] MEDS: LORazepam 2 MG TABLET PO PRN ×3 (02:03→13:10)
[2018-12-24 06:10] VITALS: BP 123/78
[2018-12-24] MEDS: IBUPROFEN 600 MG TABLET PO PRN ×2 (06:14→22:46)
[2018-12-24 08:38] VITALS: BP 107/84
[2018-12-24 08:41] LABS: BASOPHILS % (AUTO) 0.5 % (0.0-2.0); EOSINOPHILS % (AUTO) 7.2 % (1.0-6.0); HEMATOCRIT 34.1 % (36-46); HEMOGLOBIN 11.4 g/dL (12.0-16.0); LYMPHOCYTES # (AUTO) 1.1 K/uL (1.0-4.8); LYMPHOCYTES % (AUTO) 17.6 % (22.0-44.0); MEAN CORPUSCULAR HEMOGLOBIN 30.6 pg (26.0-34.0); MEAN CORPUSCULAR HGB CONC 33.5 G/dL (31.0-37.0); MEAN CORPUSCULAR VOLUME 91 fL (80-100); MONOCYTES # (AUTO) 0.3 K/uL (0.1-1.0); MONOCYTES % (AUTO) 5.7 % (2.0-9.0); NEUTROPHILS # (AUTO) 4.1 K/uL (1.8-7.7); PLATELET COUNT (AUTO) 511 K/uL (150-450); RED BLOOD CELL COUNT(AUTO) 3.73 MIL/uL (4.00-5.20); RED CELL DISTRIBUTION WIDTH 13.2 % (11.5-14.5)
[2018-12-24] MEDS: PANTOPRAZOLE SODIUM 40 MG DR TABLET PO SCH (08:41)
[2018-12-24] MEDS: NALTREXONE HCL 50 MG TABLET PO SCH (08:41)
[2018-12-24] MEDS: BENZTROPINE MESYLATE 2 MG TABLET PO SCH ×3 (08:41→16:37)
[2018-12-24] MEDS: FOLIC ACID 1 MG TABLET PO SCH (08:41)
[2018-12-24] MEDS: MULTIVITAMINS WITH MINERALS, THERAPEUTIC TABLET PO SCH (08:41)
[2018-12-24] MEDS: OXYBUTYNIN CHLORIDE 5 MG ER TABLET PO SCH (08:41)
[2018-12-24] MEDS: THIAMINE HCL 100 MG TABLET PO SCH ×2 (08:41→16:37)
[2018-12-24] MEDS: GABAPENTIN 300 MG CAPSULE PO SCH ×3 (08:42→16:37)
[2018-12-24] MEDS ORDERED: CloZAPine 25 MG TABLET PO SCH (09:00)
[2018-12-24 16:12] VITALS: BP 120/76
[2018-12-24] MEDS ORDERED: MAGNESIUM CITRATE 300 ML ORAL SOLUTION PO ONE (17:00)
[2018-12-24] MEDS: ZOLPIDEM TARTRATE 10 MG TABLET PO PRN (21:52)
[2018-12-24 22:40] VITALS: BP 134/81
[2018-12-25 00:06] VITALS: BP 136/82
[2018-12-25] MEDS: LORazepam 2 MG TABLET PO PRN ×3 (00:12→19:42)
[2018-12-25 08:00] VITALS: BP 108/72
[2018-12-25] MEDS: PANTOPRAZOLE SODIUM 40 MG DR TABLET PO SCH (08:23)
[2018-12-25] MEDS: THIAMINE HCL 100 MG TABLET PO SCH ×2 (08:23→16:40)
[2018-12-25] MEDS: GABAPENTIN 300 MG CAPSULE PO SCH ×3 (08:23→16:40)
[2018-12-25] MEDS: NALTREXONE HCL 50 MG TABLET PO SCH (08:23)
[2018-12-25] MEDS: BENZTROPINE MESYLATE 2 MG TABLET PO SCH ×3 (08:23→16:40)
[2018-12-25] MEDS: MULTIVITAMINS WITH MINERALS, THERAPEUTIC TABLET PO SCH (08:23)
[2018-12-25] MEDS: FOLIC ACID 1 MG TABLET PO SCH (08:23)
[2018-12-25] MEDS: OXYBUTYNIN CHLORIDE 5 MG ER TABLET PO SCH (08:23)
[2018-12-25] MEDS ORDERED: CloZAPine 25 MG TABLET PO SCH ×2 (09:00→21:00)
[2018-12-25 16:33] VITALS: BP 119/76
[2018-12-25] MEDS: ZOLPIDEM TARTRATE 10 MG TABLET PO PRN (22:19)
[2018-12-26] MEDS: IBUPROFEN 600 MG TABLET PO PRN ×2 (00:22→15:56)
[2018-12-26 00:34] VITALS: BP 130/81
[2018-12-26] MEDS: LORazepam 2 MG TABLET PO PRN ×3 (00:56→15:56)
[2018-12-26 08:04] VITALS: BP 116/74
[2018-12-26] MEDS: THIAMINE HCL 100 MG TABLET PO SCH ×2 (08:34→16:34)
[2018-12-26] MEDS: NALTREXONE HCL 50 MG TABLET PO SCH (08:34)
[2018-12-26] MEDS: GABAPENTIN 300 MG CAPSULE PO SCH ×3 (08:34→16:34)
[2018-12-26] MEDS: FOLIC ACID 1 MG TABLET PO SCH (08:34)
[2018-12-26] MEDS: BENZTROPINE MESYLATE 2 MG TABLET PO SCH ×3 (08:34→16:34)
[2018-12-26] MEDS: PANTOPRAZOLE SODIUM 40 MG DR TABLET PO SCH (08:34)
[2018-12-26] MEDS: OXYBUTYNIN CHLORIDE 5 MG ER TABLET PO SCH (08:34)
[2018-12-26] MEDS: MULTIVITAMINS WITH MINERALS, THERAPEUTIC TABLET PO SCH (08:34)
[2018-12-26] MEDS ORDERED: CloZAPine 25 MG TABLET PO SCH ×2 (09:00→21:00)
[2018-12-26 16:12] VITALS: BP 116/74
[2018-12-26] MEDS: ZOLPIDEM TARTRATE 10 MG TABLET PO PRN (21:06)
[2018-12-27] MEDS: LORazepam 2 MG TABLET PO PRN ×3 (05:29→17:45)
[2018-12-27] MEDS: IBUPROFEN 600 MG TABLET PO PRN (05:29)
[2018-12-27] MEDS ORDERED: LACTULOSE 20 GM/30 ML SOLUTION UDCUP PO PRN (06:00)
[2018-12-27 08:01] VITALS: BP_SYST 128; BP_SYST 129; BP_DIAS 76; BP_DIAS 79
[2018-12-27] MEDS: BENZTROPINE MESYLATE 2 MG TABLET PO SCH ×3 (08:29→16:42)
[2018-12-27] MEDS: GABAPENTIN 300 MG CAPSULE PO SCH ×3 (08:29→16:42)
[2018-12-27] MEDS: MULTIVITAMINS WITH MINERALS, THERAPEUTIC TABLET PO SCH (08:29)
[2018-12-27] MEDS: OXYBUTYNIN CHLORIDE 5 MG ER TABLET PO SCH (08:29)
[2018-12-27] MEDS: THIAMINE HCL 100 MG TABLET PO SCH ×2 (08:29→16:42)
[2018-12-27] MEDS: FOLIC ACID 1 MG TABLET PO SCH (08:29)
[2018-12-27] MEDS: PANTOPRAZOLE SODIUM 40 MG DR TABLET PO SCH (08:29)
[2018-12-27] MEDS: CloZAPine 25 MG TABLET PO SCH ×2 (08:30→20:28)
[2018-12-27] MEDS: NALTREXONE HCL 50 MG TABLET PO SCH (08:30)
[2018-12-27] MEDS ORDERED: DOCUSATE SODIUM 100 MG CAPSULE PO SCH (09:00)
[2018-12-27] MEDS: DOCUSATE SODIUM 250 MG CAPSULE PO SCH ×2 (09:05→16:42)
[2018-12-27 18:12] VITALS: BP 130/99
[2018-12-27] MEDS: ZOLPIDEM TARTRATE 10 MG TABLET PO PRN (21:35)
[2018-12-28] MEDS: LORazepam 2 MG TABLET PO PRN ×4 (01:57→18:55)
[2018-12-28] MEDS: IBUPROFEN 600 MG TABLET PO PRN ×2 (01:58→14:14)
[2018-12-28 08:11] VITALS: BP 136/83
[2018-12-28] MEDS: NALTREXONE HCL 50 MG TABLET PO SCH (08:31)
[2018-12-28] MEDS: OXYBUTYNIN CHLORIDE 5 MG ER TABLET PO SCH (08:31)
[2018-12-28] MEDS: GABAPENTIN 300 MG CAPSULE PO SCH ×3 (08:31→16:38)
[2018-12-28] MEDS: PANTOPRAZOLE SODIUM 40 MG DR TABLET PO SCH (08:31)
[2018-12-28] MEDS: THIAMINE HCL 100 MG TABLET PO SCH ×2 (08:31→16:38)
[2018-12-28] MEDS: CloZAPine 25 MG TABLET PO SCH ×2 (08:31→20:38)
[2018-12-28] MEDS: BENZTROPINE MESYLATE 2 MG TABLET PO SCH ×3 (08:31→16:38)
[2018-12-28] MEDS: DOCUSATE SODIUM 250 MG CAPSULE PO SCH ×2 (08:31→16:38)
[2018-12-28] MEDS: MULTIVITAMINS WITH MINERALS, THERAPEUTIC TABLET PO SCH (08:32)
[2018-12-28] MEDS: FOLIC ACID 1 MG TABLET PO SCH (08:32)
[2018-12-28 14:14] VITALS: BP 128/80
[2018-12-28 16:04] VITALS: BP 135/69
[2018-12-28] MEDS: ZOLPIDEM TARTRATE 10 MG TABLET PO PRN (21:53)
[2018-12-29 01:00] VITALS: BP 140/68
[2018-12-29] MEDS: IBUPROFEN 600 MG TABLET PO PRN (01:00)
[2018-12-29] MEDS: ACETAMINOPHEN 325 MG TABLET PO PRN (02:30)
[2018-12-29] MEDS: LORazepam 2 MG TABLET PO PRN ×2 (06:44→16:44)
[2018-12-29] MEDS: MULTIVITAMINS WITH MINERALS, THERAPEUTIC TABLET PO SCH (08:07)
[2018-12-29] MEDS: DOCUSATE SODIUM 250 MG CAPSULE PO SCH ×2 (08:07→16:45)
[2018-12-29] MEDS: OXYBUTYNIN CHLORIDE 5 MG ER TABLET PO SCH (08:07)
[2018-12-29] MEDS: PANTOPRAZOLE SODIUM 40 MG DR TABLET PO SCH (08:07)
[2018-12-29] MEDS: NALTREXONE HCL 50 MG TABLET PO SCH (08:07)
[2018-12-29] MEDS: THIAMINE HCL 100 MG TABLET PO SCH ×2 (08:08→16:45)
[2018-12-29] MEDS: BENZTROPINE MESYLATE 2 MG TABLET PO SCH ×3 (08:08→16:45)
[2018-12-29] MEDS: GABAPENTIN 300 MG CAPSULE PO SCH ×3 (08:08→16:45)
[2018-12-29] MEDS: FOLIC ACID 1 MG TABLET PO SCH (08:08)
[2018-12-29 08:24] VITALS: BP 123/67
[2018-12-29] MEDS ORDERED: CloZAPine 25 MG TABLET PO SCH (09:00)
[2018-12-29 16:05] VITALS: BP 119/71
[2018-12-29] MEDS: ZOLPIDEM TARTRATE 10 MG TABLET PO PRN (20:55)
[2018-12-29] MEDS ORDERED: CloZAPine 100 MG TABLET PO SCH (21:00)
[2018-12-30] VITALS: BP 126/76
[2018-12-30] MEDS: LORazepam 2 MG TABLET PO PRN ×2 (02:59→09:23)
[2018-12-30] MEDS: GABAPENTIN 300 MG CAPSULE PO SCH ×3 (08:12→16:39)
[2018-12-30] MEDS: BENZTROPINE MESYLATE 0.5 MG TABLET PO SCH ×2 (08:12→20:39)
[2018-12-30] MEDS: OXYBUTYNIN CHLORIDE 5 MG ER TABLET PO SCH (08:13)
[2018-12-30] MEDS: MULTIVITAMINS WITH MINERALS, THERAPEUTIC TABLET PO SCH (08:13)
[2018-12-30] MEDS: NALTREXONE HCL 50 MG TABLET PO SCH (08:13)
[2018-12-30] MEDS: THIAMINE HCL 100 MG TABLET PO SCH ×2 (08:13→16:39)
[2018-12-30] MEDS: DOCUSATE SODIUM 250 MG CAPSULE PO SCH ×2 (08:13→16:39)
[2018-12-30] MEDS: FOLIC ACID 1 MG TABLET PO SCH (08:13)
[2018-12-30] MEDS: PANTOPRAZOLE SODIUM 40 MG DR TABLET PO SCH (08:13)
[2018-12-30 08:24] VITALS: BP 128/81
[2018-12-30] MEDS ORDERED: CloZAPine 25 MG TABLET PO SCH (09:00)
[2018-12-30] MEDS ORDERED: DiphenhydrAMINE HCL 50 MG/ML VIAL IM ONE (15:45)
[2018-12-30] MEDS ORDERED: LORazepam 2 MG/ML VIAL IM ONE (15:45)
[2018-12-30] MEDS ORDERED: HALOPERIDOL LACTATE 5 MG/ML VIAL IM ONE (15:45)
[2018-12-30 16:06] VITALS: BP 119/64
[2018-12-30] MEDS: ZOLPIDEM TARTRATE 10 MG TABLET PO PRN (20:52)
[2018-12-30] MEDS ORDERED: CloZAPine 100 MG TABLET PO SCH (21:00)
[2018-12-31] MEDS: ACETAMINOPHEN 325 MG TABLET PO PRN (03:01)
[2018-12-31] MEDS: LORazepam 2 MG TABLET PO PRN ×2 (03:01→07:17)
[2018-12-31 03:02] VITALS: BP 132/86
[2018-12-31] MEDS: GABAPENTIN 300 MG CAPSULE PO SCH ×3 (08:14→16:33)
[2018-12-31] MEDS: DOCUSATE SODIUM 250 MG CAPSULE PO SCH ×2 (08:14→16:33)
[2018-12-31] MEDS: PANTOPRAZOLE SODIUM 40 MG DR TABLET PO SCH (08:15)
[2018-12-31] MEDS: BENZTROPINE MESYLATE 0.5 MG TABLET PO SCH ×2 (08:15→20:41)
[2018-12-31] MEDS: OXYBUTYNIN CHLORIDE 5 MG ER TABLET PO SCH (08:15)
[2018-12-31] MEDS: THIAMINE HCL 100 MG TABLET PO SCH ×2 (08:15→16:33)
[2018-12-31] MEDS: NALTREXONE HCL 50 MG TABLET PO SCH (08:15)
[2018-12-31] MEDS: FOLIC ACID 1 MG TABLET PO SCH (08:15)
[2018-12-31] MEDS: MULTIVITAMINS WITH MINERALS, THERAPEUTIC TABLET PO SCH (08:15)
[2018-12-31 08:33] VITALS: BP 135/87
[2018-12-31 08:45] LABS: BASOPHILS % (AUTO) 0.7 % (0.0-2.0); EOSINOPHILS % (AUTO) 7.8 % (1.0-6.0); HEMATOCRIT 34.4 % (36-46); HEMOGLOBIN 11.2 g/dL (12.0-16.0); LYMPHOCYTES % (AUTO) 24.4 % (22.0-44.0); MEAN CORPUSCULAR HEMOGLOBIN 30.2 pg (26.0-34.0); MEAN CORPUSCULAR HGB CONC 32.5 G/dL (31.0-37.0); MEAN CORPUSCULAR VOLUME 93 fL (80-100); MONOCYTES # (AUTO) 0.2 K/uL (0.1-1.0); MONOCYTES % (AUTO) 5.6 % (2.0-9.0); NEUTROPHILS # (AUTO) 2.5 K/uL (1.8-7.7); NEUTROPHILS % (AUTO) 61.5 % (40.0-70.0); PLATELET COUNT (AUTO) 375 K/uL (150-450); RED BLOOD CELL COUNT(AUTO) 3.71 MIL/uL (4.00-5.20); RED CELL DISTRIBUTION WIDTH 14.4 % (11.5-14.5)
[2018-12-31] MEDS ORDERED: CloZAPine 25 MG TABLET PO SCH (09:00)
[2018-12-31] MEDS ORDERED: HALOPERIDOL LACTATE 5 MG/ML VIAL IM ONE (14:00)
[2018-12-31] MEDS ORDERED: DiphenhydrAMINE HCL 50 MG/ML VIAL IM ONE (14:00)
[2018-12-31] MEDS ORDERED: LORazepam 2 MG/ML VIAL IM ONE (14:00)
[2018-12-31 14:39] VITALS: BP 122/83
[2018-12-31 16:03] VITALS: BP 110/80
[2018-12-31 20:53] VITALS: BP 115/76
[2018-12-31] MEDS: ZOLPIDEM TARTRATE 10 MG TABLET PO PRN (20:57)
[2018-12-31] MEDS: IBUPROFEN 600 MG TABLET PO PRN (20:57)
[2018-12-31] MEDS ORDERED: CloZAPine 100 MG TABLET PO SCH (21:00)
[2019-01-01 04:48] VITALS: BP 125/88
[2019-01-01] MEDS: LORazepam 2 MG TABLET PO PRN ×3 (04:50→15:48)
[2019-01-01] MEDS: IBUPROFEN 600 MG TABLET PO PRN (05:00)
[2019-01-01] MEDS: CloZAPine 100 MG TABLET PO SCH ×2 (08:12→20:50)
[2019-01-01] MEDS: THIAMINE HCL 100 MG TABLET PO SCH ×2 (08:12→16:35)
[2019-01-01] MEDS: DOCUSATE SODIUM 250 MG CAPSULE PO SCH ×2 (08:12→16:35)
[2019-01-01] MEDS: NALTREXONE HCL 50 MG TABLET PO SCH (08:12)
[2019-01-01] MEDS: MULTIVITAMINS WITH MINERALS, THERAPEUTIC TABLET PO SCH (08:12)
[2019-01-01] MEDS: OXYBUTYNIN CHLORIDE 5 MG ER TABLET PO SCH (08:12)
[2019-01-01] MEDS: PANTOPRAZOLE SODIUM 40 MG DR TABLET PO SCH (08:13)
[2019-01-01] MEDS: BENZTROPINE MESYLATE 0.5 MG TABLET PO SCH ×2 (08:13→20:51)
[2019-01-01] MEDS: FOLIC ACID 1 MG TABLET PO SCH (08:13)
[2019-01-01] MEDS: GABAPENTIN 300 MG CAPSULE PO SCH ×3 (08:13→16:35)
[2019-01-01 08:16] VITALS: BP 124/80
[2019-01-01 16:10] VITALS: BP 123/77
[2019-01-01] MEDS: ZOLPIDEM TARTRATE 10 MG TABLET PO PRN (20:50)
[2019-01-02 01:55] VITALS: BP 113/70
[2019-01-02] MEDS: IBUPROFEN 600 MG TABLET PO PRN ×2 (01:55→16:03)
[2019-01-02] MEDS: LORazepam 2 MG TABLET PO PRN ×4 (03:55→21:43)
[2019-01-02] MEDS: BENZTROPINE MESYLATE 0.5 MG TABLET PO SCH ×2 (08:05→20:48)
[2019-01-02] MEDS: THIAMINE HCL 100 MG TABLET PO SCH (08:05)
[2019-01-02] MEDS: GABAPENTIN 300 MG CAPSULE PO SCH ×3 (08:05→16:31)
[2019-01-02] MEDS: CloZAPine 100 MG TABLET PO SCH ×2 (08:05→20:49)
[2019-01-02] MEDS: DOCUSATE SODIUM 250 MG CAPSULE PO SCH ×2 (08:05→16:31)
[2019-01-02] MEDS: MULTIVITAMINS WITH MINERALS, THERAPEUTIC TABLET PO SCH (08:05)
[2019-01-02] MEDS: FOLIC ACID 1 MG TABLET PO SCH (08:05)
[2019-01-02] MEDS: OXYBUTYNIN CHLORIDE 5 MG ER TABLET PO SCH (08:05)
[2019-01-02] MEDS: NALTREXONE HCL 50 MG TABLET PO SCH (08:06)
[2019-01-02] MEDS: PANTOPRAZOLE SODIUM 40 MG DR TABLET PO SCH (08:06)
[2019-01-02 08:10] VITALS: BP 106/74
[2019-01-02] MEDS ORDERED: HALOPERIDOL DECANOATE 50 MG/ML VIAL IM SCH (09:00)
[2019-01-02] MEDS ORDERED: NALT50TA PO (14:59)
[2019-01-02] MEDS ORDERED: GABA-531 PO (14:59)
[2019-01-02] MEDS ORDERED: BENZ0.5T44 PO (14:59)
[2019-01-02] MEDS ORDERED: CLOZ100 PO (15:01)
[2019-01-02] MEDS ORDERED: CLOZ25TA4 PO (15:01)
[2019-01-02 16:04] VITALS: BP 115/72
[2019-01-02] MEDS: ZOLPIDEM TARTRATE 10 MG TABLET PO PRN (20:48)
[2019-01-03 00:04] VITALS: BP 102/78
[2019-01-03 03:45] VITALS: BP 110/80
[2019-01-03] MEDS: IBUPROFEN 600 MG TABLET PO PRN (03:50)
[2019-01-03] MEDS: LORazepam 2 MG TABLET PO PRN (04:00)
[2019-01-03 08:08] VITALS: BP 142/90
[2019-01-03] MEDS: GABAPENTIN 300 MG CAPSULE PO SCH (08:09)
[2019-01-03] MEDS: OXYBUTYNIN CHLORIDE 5 MG ER TABLET PO SCH (08:09)
[2019-01-03] MEDS: BENZTROPINE MESYLATE 0.5 MG TABLET PO SCH (08:09)
[2019-01-03] MEDS: PANTOPRAZOLE SODIUM 40 MG DR TABLET PO SCH (08:09)
[2019-01-03] MEDS: DOCUSATE SODIUM 250 MG CAPSULE PO SCH (08:09)
[2019-01-03] MEDS: MULTIVITAMINS WITH MINERALS, THERAPEUTIC TABLET PO SCH (08:10)
[2019-01-03] MEDS: NALTREXONE HCL 50 MG TABLET PO SCH (08:10)
[2019-01-03] MEDS ORDERED: MULT-1239 PO (08:41)
[2019-01-03] MEDS ORDERED: DOCU250C91 PO (08:41)
[2019-01-03] MEDS ORDERED: CloZAPine 25 MG TABLET PO SCH (09:00)
[2019-01-03] MEDS ORDERED: CloZAPine 100 MG TABLET PO SCH (21:00)
[2019-01-04] MEDS ORDERED: CloZAPine 25 MG TABLET PO SCH (09:00)
[2019-01-04] MEDS ORDERED: CloZAPine 100 MG TABLET PO SCH (21:00)
[2019-01-05] MEDS ORDERED: CloZAPine 100 MG TABLET PO SCH ×2 (09:00→21:00)
== END 2019-01-03 10:30 | disposition home or self-care (01) | DRG 885 ==
LOC: B2X 14:12
PROVIDERS: ADMIT Psychiatry & Neurology Psychiatry; ATTEND Psychiatry & Neurology Psychiatry
DX: F25.0 Schizoaffective disorder, bipolar type (principal); C50.919 Malignant neoplasm of unspecified site of unspecified female breast; D64.9 Anemia, unspecified; D72.819 Decreased white blood cell count, unspecified; E03.9 Hypothyroidism, unspecified; G89.29 Other chronic pain; K21.9 Gastro-esophageal reflux disease without esophagitis; K59.00 Constipation, unspecified; M16.11 Unilateral primary osteoarthritis, right hip; N39.44 Nocturnal enuresis; Z80.3 Family history of malignant neoplasm of breast; Z85.3 Personal history of malignant neoplasm of breast; Z91.19 Patient's noncompliance with other medical treatment and regimen
CPT/HCPCS: 80173; 87081; J1200; J1630; J2060

== ENCOUNTER 2019-01-22 17:19 | Inpatient (IN) | payer MEDICARE, MEDICAID ==
[~2019-01-22] VITALS: Ht 154.9 cm; Wt 64.7 kg
[~2019-01-22 17:19] MED LIST changes: +BENZ0.5T44 PO; -BENZ2TAB10 PO; +CLOZ100 PO; +CLOZ25TA4 PO; +DOCU250C91 PO; -HALO10 PO; -HALO50VI4 IM; +MULT-1239 PO; -NALT50TA6 PO
[2019-01-22 18:06] LABS: ANION GAP 10 mmol/L (8-16); CALCIUM, TOTAL 9.5 mg/dL (8.8-10.5); CARBON DIOXIDE 27 mmol/L (22-29); CHLORIDE 103 mmol/L (98-107); CREATININE 0.62 mg/dL (0.60-1.30); GLOMERULAR FILTR. RATE CALC > 60 mL/min (>60); GLUCOSE,RANDOM 96 mg/dL (70-110); POTASSIUM 3.1 mmol/L (3.5-5.1); SODIUM SERUM 140 mmol/L (136-145); UREA NITROGEN, BLOOD 2 mg/dL (7-18)
[2019-01-22 18:12] LABS: ALANINE AMINOTRANSFERASE 13 U/L (12-78); ALBUMIN 4.2 g/dL (3.4-5.0); ALKALINE PHOSPHATASE 86 U/L (46-116); ASPARTATE AMINOTRANSFERASE 11 U/L (15-37); BASOPHILS % (AUTO) 0.8 % (0.0-2.0); BILIRUBIN,TOTAL 0.5 mg/dL (0.1-1.0); EOSINOPHILS % (AUTO) 6.3 % (1.0-6.0); HEMATOCRIT 36.2 % (36-46); HEMOGLOBIN 12.2 g/dL (12.0-16.0); LYMPHOCYTES # (AUTO) 1.2 K/uL (1.0-4.8); LYMPHOCYTES % (AUTO) 30.5 % (22.0-44.0); MEAN CORPUSCULAR HEMOGLOBIN 30.9 pg (26.0-34.0); MEAN CORPUSCULAR HGB CONC 33.6 G/dL (31.0-37.0); MEAN CORPUSCULAR VOLUME 92 fL (80-100); MONOCYTES # (AUTO) 0.2 K/uL (0.1-1.0); MONOCYTES % (AUTO) 6.6 % (2.0-9.0); NEUTROPHILS # (AUTO) 2.1 K/uL (1.8-7.7); NEUTROPHILS % (AUTO) 55.8 % (40.0-70.0); PLATELET COUNT (AUTO) 231 K/uL (150-450); RED BLOOD CELL COUNT(AUTO) 3.93 MIL/uL (4.00-5.20); RED CELL DISTRIBUTION WIDTH 14.6 % (11.5-14.5)
[2019-01-22 18:17] LABS: AMPHET/METH SCREEN,URINE NEGATIVE (NEGATIVE); BARBITURATE SCREEN, URINE NEGATIVE (NEGATIVE); BENZODIAZEPINES SCREEN,URINE NEGATIVE (NEGATIVE); CANNABINOID SCREEN,URINE NEGATIVE (NEGATIVE); COCAINE SCREEN,URINE NEGATIVE (NEGATIVE); METHADONE SCREEN, URINE NEGATIVE (NEGATIVE); OPIATE SCREEN,URINE NEGATIVE (NEGATIVE)
[2019-01-22 18:19] LABS: PHENCYCLIDINE SCREEN,URINE NEGATIVE (NEGATIVE)
[2019-01-22 18:26] LABS: APPEARANCE,URINE CLEAR (CLEAR); BILIRUBIN,URINE NEGATIVE (NEGATIVE); GLUCOSE, URINE (UA) NEGATIVE (NEGATIVE); KETONES,URINE NEGATIVE (NEGATIVE); LEUKOCYTE ESTERASE ,URINE NEGATIVE (NEGATIVE); NITRATE,URINE NEGATIVE (NEGATIVE); OCCULT BLOOD,URINE NEGATIVE (NEGATIVE); PROTEIN,URINE NEGATIVE (NEGATIVE); UROBILINOGEN,URINE 0.2 mg/dL (<=1.0)
[2019-01-22] MEDS ORDERED: HALOPERIDOL 5 MG TABLET PO PRN (19:00)
[2019-01-22] MEDS ORDERED: POTASSIUM CHLORIDE 20 MEQ ER TABLET PO ONE (19:45)
[2019-01-22 20:20] VITALS: BP_SYST 123; BP_SYST 140; BP_DIAS 77; BP_DIAS 91
[2019-01-22] MEDS: ZOLPIDEM TARTRATE 10 MG TABLET PO PRN (20:54)
[2019-01-22 21:32] VITALS: BP 123/77
[2019-01-23 02:06] VITALS: BP 140/96
[2019-01-23] MEDS: LORazepam 2 MG TABLET PO PRN ×3 (02:11→12:40)
[2019-01-23] MEDS: OXYBUTYNIN CHLORIDE 5 MG ER TABLET PO SCH (08:04)
[2019-01-23] MEDS: PANTOPRAZOLE SODIUM 40 MG DR TABLET PO SCH (08:04)
[2019-01-23] MEDS: DOCUSATE SODIUM 250 MG CAPSULE PO SCH ×2 (08:04→16:40)
[2019-01-23 08:06] VITALS: BP 145/78
[2019-01-23] MEDS ORDERED: ACETAMINOPHEN 325 MG TABLET PO PRN ×2 (09:45→11:15)
[2019-01-23 09:59] VITALS: BP 138/78
[2019-01-23] MEDS: IBUPROFEN 800 MG TABLET PO PRN ×2 (09:59→20:31)
[2019-01-23] MEDS ORDERED: GuaiFENesin/D-METHORPHAN [SUGAR-FREE] 200-20MG/10 ML SYRUP UDCUP PO PRN (11:15)
[2019-01-23] MEDS ORDERED: LOPERAMIDE HCL 2 MG CAPSULE PO PRN (11:15)
[2019-01-23] MEDS ORDERED: MAG HYDROX/AL HYDROX/SIMETH ES 30 ML SUSPENSION UDCUP PO PRN (11:15)
[2019-01-23] MEDS ORDERED: HydrOXYzine PAMOATE 50 MG CAPSULE PO PRN (11:15)
[2019-01-23] MEDS ORDERED: PROMETHAZINE HCL 25 MG TABLET PO PRN (11:15)
[2019-01-23] MEDS ORDERED: MAGNESIUM HYDROXIDE SUSPENSION 30 ML UDCUP PO PRN (11:15)
[2019-01-23] MEDS: NICOTINE 14 MG/24 HOUR PATCH TD SCH (12:32)
[2019-01-23] MEDS: GABAPENTIN 300 MG CAPSULE PO SCH ×3 (12:32→20:30)
[2019-01-23] MEDS ORDERED: LORazepam 2 MG/ML VIAL IM ONE (14:45)
[2019-01-23] MEDS ORDERED: DiphenhydrAMINE HCL 50 MG/ML VIAL IM ONE (14:45)
[2019-01-23] MEDS ORDERED: RisperiDONE MICROSPHERES 50 MG/2 ML SYRINGE IM ONE (14:45)
[2019-01-23 16:11] VITALS: BP_SYST 125; BP_SYST 136; BP_DIAS 76; BP_DIAS 93
[2019-01-23] MEDS: THIAMINE HCL 100 MG TABLET PO SCH (16:40)
[2019-01-23 20:29] VITALS: BP 118/73
[2019-01-23] MEDS: RisperiDONE 4 MG TABLET PO SCH (20:31)
[2019-01-23] MEDS: ZOLPIDEM TARTRATE 10 MG TABLET PO PRN (20:53)
[2019-01-24 02:47] VITALS: BP 126/93
[2019-01-24] MEDS: LORazepam 2 MG TABLET PO PRN ×2 (04:15→08:22)
[2019-01-24] MEDS: IBUPROFEN 800 MG TABLET PO PRN ×2 (04:15→19:08)
[2019-01-24 08:15] VITALS: BP 131/82
[2019-01-24] MEDS: MULTIVITAMINS WITH MINERALS, THERAPEUTIC TABLET PO SCH (08:20)
[2019-01-24] MEDS: OXYBUTYNIN CHLORIDE 5 MG ER TABLET PO SCH (08:20)
[2019-01-24] MEDS: DOCUSATE SODIUM 250 MG CAPSULE PO SCH ×2 (08:20→16:11)
[2019-01-24] MEDS: GABAPENTIN 300 MG CAPSULE PO SCH ×4 (08:21→20:03)
[2019-01-24] MEDS: FOLIC ACID 1 MG TABLET PO SCH (08:21)
[2019-01-24] MEDS: NICOTINE 14 MG/24 HOUR PATCH TD SCH (08:21)
[2019-01-24] MEDS: THIAMINE HCL 100 MG TABLET PO SCH ×2 (08:21→16:11)
[2019-01-24] MEDS: PANTOPRAZOLE SODIUM 40 MG DR TABLET PO SCH (08:21)
[2019-01-24] MEDS: NALTREXONE HCL 50 MG TABLET PO SCH (08:21)
[2019-01-24] MEDS: RisperiDONE 2 MG TABLET PO PRN (09:10)
[2019-01-24 09:11] LABS: CHOL/HDL RATIO 2.7 (3.9-5.7); POTASSIUM 4.5 mmol/L (3.5-5.1)
[2019-01-24 09:28] LABS: FREE T4 (FREE THYROXINE) 0.91 ng/dL (0.76-1.46); MAGNESIUM 1.8 mg/dL (1.80-2.40); THYROID STIMULATING HORMONE 1.03 uIU/mL (0.36-3.74)
[2019-01-24] MEDS ORDERED: DiphenhydrAMINE HCL 50 MG/ML VIAL IM ONE (15:45)
[2019-01-24] MEDS ORDERED: LORazepam 2 MG/ML VIAL IM ONE (15:45)
[2019-01-24 19:08] VITALS: BP 128/78
[2019-01-24] MEDS: RisperiDONE 4 MG TABLET PO SCH (20:03)
[2019-01-24] MEDS: ZOLPIDEM TARTRATE 10 MG TABLET PO PRN (20:40)
[2019-01-25 03:10] VITALS: BP 122/71
[2019-01-25] MEDS: LORazepam 2 MG TABLET PO PRN ×4 (03:17→20:18)
[2019-01-25] MEDS: IBUPROFEN 800 MG TABLET PO PRN ×3 (03:17→22:49)
[2019-01-25] MEDS: FOLIC ACID 1 MG TABLET PO SCH (08:19)
[2019-01-25] MEDS: GABAPENTIN 300 MG CAPSULE PO SCH ×4 (08:19→20:37)
[2019-01-25] MEDS: NALTREXONE HCL 50 MG TABLET PO SCH (08:19)
[2019-01-25] MEDS: PANTOPRAZOLE SODIUM 40 MG DR TABLET PO SCH (08:19)
[2019-01-25] MEDS: MULTIVITAMINS WITH MINERALS, THERAPEUTIC TABLET PO SCH (08:19)
[2019-01-25] MEDS: OXYBUTYNIN CHLORIDE 5 MG ER TABLET PO SCH (08:19)
[2019-01-25] MEDS: DOCUSATE SODIUM 250 MG CAPSULE PO SCH ×2 (08:19→16:38)
[2019-01-25] MEDS: THIAMINE HCL 100 MG TABLET PO SCH ×2 (08:19→16:38)
[2019-01-25] MEDS: NICOTINE 21 MG/24 HOUR PATCH TD SCH (08:20)
[2019-01-25 08:36] VITALS: BP 144/90
[2019-01-25 10:00] VITALS: BP 134/91
[2019-01-25 14:12] VITALS: BP 128/86
[2019-01-25] MEDS: RisperiDONE 2 MG TABLET PO PRN (15:49)
[2019-01-25 16:01] VITALS: BP 116/87
[2019-01-25] MEDS: RisperiDONE 4 MG TABLET PO SCH (20:37)
[2019-01-25] MEDS: ZOLPIDEM TARTRATE 10 MG TABLET PO PRN (22:36)
[2019-01-25 22:43] VITALS: BP 110/79
[2019-01-26 05:46] VITALS: BP 142/86
[2019-01-26] MEDS: LORazepam 2 MG TABLET PO PRN ×4 (05:51→22:57)
[2019-01-26] MEDS: IBUPROFEN 800 MG TABLET PO PRN (05:54)
[2019-01-26 05:58] VITALS: BP 142/86
[2019-01-26 08:07] VITALS: BP 140/83
[2019-01-26] MEDS: FOLIC ACID 1 MG TABLET PO SCH (08:37)
[2019-01-26] MEDS: PANTOPRAZOLE SODIUM 40 MG DR TABLET PO SCH (08:37)
[2019-01-26] MEDS: MULTIVITAMINS WITH MINERALS, THERAPEUTIC TABLET PO SCH (08:37)
[2019-01-26] MEDS: OXYBUTYNIN CHLORIDE 5 MG ER TABLET PO SCH (08:37)
[2019-01-26] MEDS: NALTREXONE HCL 50 MG TABLET PO SCH (08:37)
[2019-01-26] MEDS: DOCUSATE SODIUM 250 MG CAPSULE PO SCH ×2 (08:37→16:31)
[2019-01-26] MEDS: GABAPENTIN 300 MG CAPSULE PO SCH ×4 (08:38→20:30)
[2019-01-26] MEDS: RisperiDONE 2 MG TABLET PO PRN ×2 (08:38→14:46)
[2019-01-26] MEDS: NICOTINE 21 MG/24 HOUR PATCH TD SCH (08:38)
[2019-01-26] MEDS: THIAMINE HCL 100 MG TABLET PO SCH ×2 (08:38→16:32)
[2019-01-26 16:01] VITALS: BP 140/73
[2019-01-26] MEDS: RisperiDONE 4 MG TABLET PO SCH (20:30)
[2019-01-26] MEDS: ZOLPIDEM TARTRATE 10 MG TABLET PO PRN (20:48)
[2019-01-27] VITALS: BP 125/75
[2019-01-27] MEDS: IBUPROFEN 800 MG TABLET PO PRN (00:05)
[2019-01-27] MEDS ORDERED: FOLI1 PO (03:42)
[2019-01-27] MEDS ORDERED: GABA-531 PO (03:42)
[2019-01-27] MEDS ORDERED: THIA100T67 PO (03:51)
[2019-01-27] MEDS ORDERED: MULT-248 PO (03:51)
[2019-01-27] MEDS ORDERED: RISP4 PO (03:52)
[2019-01-27] MEDS: DOCUSATE SODIUM 250 MG CAPSULE PO SCH (07:09)
[2019-01-27] MEDS: GABAPENTIN 300 MG CAPSULE PO SCH (07:09)
[2019-01-27] MEDS: PANTOPRAZOLE SODIUM 40 MG DR TABLET PO SCH (07:09)
[2019-01-27] MEDS: THIAMINE HCL 100 MG TABLET PO SCH (07:09)
[2019-01-27] MEDS: MULTIVITAMINS WITH MINERALS, THERAPEUTIC TABLET PO SCH (07:09)
[2019-01-27] MEDS: OXYBUTYNIN CHLORIDE 5 MG ER TABLET PO SCH (07:09)
[2019-01-27] MEDS: FOLIC ACID 1 MG TABLET PO SCH (07:09)
[2019-01-27] MEDS: NICOTINE 21 MG/24 HOUR PATCH TD SCH (07:10)
== END 2019-01-27 07:30 | disposition home or self-care (01) | DRG 885 ==
LOC: EMS 17:21 → B2X 19:24
PROVIDERS: ADMIT Psychiatry & Neurology Psychiatry; ATTEND Psychiatry & Neurology Psychiatry
DX: F25.0 Schizoaffective disorder, bipolar type (principal); R45.851 Suicidal ideations; F17.210 Nicotine dependence, cigarettes, uncomplicated; Z88.0 Allergy status to penicillin; F41.9 Anxiety disorder, unspecified; K59.00 Constipation, unspecified; E11.9 Type 2 diabetes mellitus without complications; Z91.19 Patient's noncompliance with other medical treatment and regimen; Z91.14 Patient's other noncompliance with medication regimen; I10 Essential (primary) hypertension; C50.919 Malignant neoplasm of unspecified site of unspecified female breast; Z80.3 Family history of malignant neoplasm of breast; Z85.3 Personal history of malignant neoplasm of breast; N39.44 Nocturnal enuresis; E87.6 Hypokalemia; K21.9 Gastro-esophageal reflux disease without esophagitis; M16.11 Unilateral primary osteoarthritis, right hip; R26.9 Unspecified abnormalities of gait and mobility; E02 Subclinical iodine-deficiency hypothyroidism
CPT/HCPCS: 83735; 84132; 84439; 84443; 87081; G0480; J1200; J2060; J2794

== ENCOUNTER 2019-02-06 08:28 | Inpatient (IN) | payer MEDICARE, MEDICAID ==
[~2019-02-06] VITALS: Ht 154.9 cm; Wt 63.6 kg
[~2019-02-06 08:28] MED LIST changes: -BENZ0.5T44 PO; -CLOZ100 PO; -CLOZ25TA4 PO; +FOLI1 PO; +RISP4 PO; +THIA100T67 PO
[2019-02-06 08:59] LABS: GLUCOSE,POINT OF CARE 94 MG/DL (70-110)
[2019-02-06] MEDS ORDERED: RisperiDONE 2 MG TABLET PO PRN (09:45)
[2019-02-06 10:36] LABS: BASOPHILS % (AUTO) 0.8 % (0.0-2.0); EOSINOPHILS % (AUTO) 8.5 % (1.0-6.0); HEMATOCRIT 35.9 % (36-46); LYMPHOCYTES # (AUTO) 0.6 K/uL (1.0-4.8); LYMPHOCYTES % (AUTO) 14.1 % (22.0-44.0); MEAN CORPUSCULAR HGB CONC 33.4 G/dL (31.0-37.0); MEAN CORPUSCULAR VOLUME 93 fL (80-100); MONOCYTES # (AUTO) 0.2 K/uL (0.1-1.0); MONOCYTES % (AUTO) 5.5 % (2.0-9.0); NEUTROPHILS # (AUTO) 3.2 K/uL (1.8-7.7); NEUTROPHILS % (AUTO) 71.1 % (40.0-70.0); PLATELET COUNT (AUTO) 295 K/uL (150-450); RED BLOOD CELL COUNT(AUTO) 3.87 MIL/uL (4.00-5.20); RED CELL DISTRIBUTION WIDTH 14.7 % (11.5-14.5)
[2019-02-06 10:50] LABS: ANION GAP 9 mmol/L (8-16); CALCIUM, TOTAL 9.1 mg/dL (8.8-10.5); CARBON DIOXIDE 27 mmol/L (22-29); CHLORIDE 109 mmol/L (98-107); CREATININE 0.74 mg/dL (0.60-1.30); GLOMERULAR FILTR. RATE CALC > 60 mL/min (>60); GLUCOSE,RANDOM 102 mg/dL (70-110); POTASSIUM 4.1 mmol/L (3.5-5.1); SODIUM SERUM 145 mmol/L (136-145); UREA NITROGEN, BLOOD 13 mg/dL (7-18)
[2019-02-06 10:53] LABS: ALANINE AMINOTRANSFERASE 10 U/L (12-78); ALBUMIN 3.9 g/dL (3.4-5.0); ALKALINE PHOSPHATASE 76 U/L (46-116); ASPARTATE AMINOTRANSFERASE 8 U/L (15-37); BILIRUBIN,TOTAL 0.2 mg/dL (0.1-1.0); TOTAL PROTEIN, SERUM 6.7 g/dL (6.4-8.2)
[2019-02-06] MEDS ORDERED: LORazepam 2 MG TABLET PO ONE (12:30)
[2019-02-06] MEDS ORDERED: RisperiDONE 1 MG TABLET PO ONE (12:30)
[2019-02-06] MEDS ORDERED: GABAPENTIN 300 MG CAPSULE PO ONE (12:30)
[2019-02-06] MEDS ORDERED: MAG HYDROX/AL HYDROX/SIMETH ES 30 ML SUSPENSION UDCUP PO PRN (12:45)
[2019-02-06] MEDS ORDERED: HydrOXYzine PAMOATE 50 MG CAPSULE PO PRN (12:45)
[2019-02-06] MEDS ORDERED: LOPERAMIDE HCL 2 MG CAPSULE PO PRN (12:45)
[2019-02-06] MEDS ORDERED: PROMETHAZINE HCL 25 MG TABLET PO PRN (12:45)
[2019-02-06] MEDS ORDERED: GuaiFENesin/D-METHORPHAN [SUGAR-FREE] 200-20MG/10 ML SYRUP UDCUP PO PRN (12:45)
[2019-02-06] MEDS ORDERED: GABAPENTIN 300 MG CAPSULE PO SCH (12:47)
[2019-02-06 14:11] LABS: AMPHET/METH SCREEN,URINE NEGATIVE (NEGATIVE); BARBITURATE SCREEN, URINE NEGATIVE (NEGATIVE); BENZODIAZEPINES SCREEN,URINE NEGATIVE (NEGATIVE); CANNABINOID SCREEN,URINE NEGATIVE (NEGATIVE); COCAINE SCREEN,URINE NEGATIVE (NEGATIVE); METHADONE SCREEN, URINE NEGATIVE (NEGATIVE); OPIATE SCREEN,URINE NEGATIVE (NEGATIVE)
[2019-02-06 14:14] LABS: PHENCYCLIDINE SCREEN,URINE NEGATIVE (NEGATIVE)
[2019-02-06 16:05] VITALS: BP 149/101
[2019-02-06] MEDS: GABAPENTIN 300 MG CAPSULE PO SCH ×2 (17:01→20:13)
[2019-02-06] MEDS: THIAMINE HCL 100 MG TABLET PO SCH (17:01)
[2019-02-06] MEDS: LORazepam 2 MG TABLET PO PRN ×2 (17:01→22:13)
[2019-02-06 18:45] VITALS: BP 102/79
[2019-02-06] MEDS: RisperiDONE 3 MG TABLET PO SCH (20:13)
[2019-02-06] MEDS: ACETAMINOPHEN 325 MG TABLET PO PRN (20:14)
[2019-02-06] MEDS: ZOLPIDEM TARTRATE 10 MG TABLET PO PRN (20:19)
[2019-02-07 05:20] VITALS: BP 120/76
[2019-02-07] MEDS: LORazepam 2 MG TABLET PO PRN ×4 (05:32→22:58)
[2019-02-07] MEDS: ACETAMINOPHEN 325 MG TABLET PO PRN ×3 (05:33→23:40)
[2019-02-07] MEDS ORDERED: DiphenhydrAMINE HCL 50 MG/ML VIAL IM ONE (07:45)
[2019-02-07] MEDS ORDERED: RisperiDONE MICROSPHERES 50 MG/2 ML SYRINGE IM ONE (07:45)
[2019-02-07] MEDS ORDERED: LORazepam 2 MG/ML VIAL IM ONE (07:45)
[2019-02-07 08:48] VITALS: BP 115/81
[2019-02-07] MEDS: NALTREXONE HCL 50 MG TABLET PO SCH (09:00)
[2019-02-07] MEDS: PANTOPRAZOLE SODIUM 40 MG DR TABLET PO SCH (09:05)
[2019-02-07] MEDS: GABAPENTIN 300 MG CAPSULE PO SCH ×4 (09:05→20:55)
[2019-02-07] MEDS: FOLIC ACID 1 MG TABLET PO SCH (09:05)
[2019-02-07] MEDS: MULTIVITAMINS WITH MINERALS, THERAPEUTIC TABLET PO SCH (09:06)
[2019-02-07] MEDS: THIAMINE HCL 100 MG TABLET PO SCH ×2 (09:06→15:55)
[2019-02-07] MEDS: NICOTINE 21 MG/24 HOUR PATCH TD SCH (09:07)
[2019-02-07] MEDS: CHOLECALCIFEROL (VIT D3) 5,000 UNITS CAPSULE PO SCH (12:47)
[2019-02-07 16:06] VITALS: BP 114/79
[2019-02-07] MEDS: RisperiDONE 3 MG TABLET PO SCH (20:55)
[2019-02-07] MEDS: ZOLPIDEM TARTRATE 10 MG TABLET PO PRN (21:09)
[2019-02-07] MEDS: LIDOCAINE 5% TRANSDERMAL PATCH TD PRN (23:37)
[2019-02-08 00:10] VITALS: BP 120/81
[2019-02-08] MEDS: LORazepam 2 MG TABLET PO PRN ×3 (07:19→15:51)
[2019-02-08 08:00] VITALS: BP 123/86
[2019-02-08] MEDS: PANTOPRAZOLE SODIUM 40 MG DR TABLET PO SCH (08:35)
[2019-02-08] MEDS: NALTREXONE HCL 50 MG TABLET PO SCH (08:35)
[2019-02-08] MEDS: THIAMINE HCL 100 MG TABLET PO SCH ×2 (08:35→16:10)
[2019-02-08] MEDS: CHOLECALCIFEROL (VIT D3) 5,000 UNITS CAPSULE PO SCH (08:35)
[2019-02-08] MEDS: FOLIC ACID 1 MG TABLET PO SCH (08:35)
[2019-02-08] MEDS: MULTIVITAMINS WITH MINERALS, THERAPEUTIC TABLET PO SCH (08:35)
[2019-02-08] MEDS: GABAPENTIN 300 MG CAPSULE PO SCH ×4 (08:35→20:09)
[2019-02-08] MEDS: NICOTINE 21 MG/24 HOUR PATCH TD SCH (08:36)
[2019-02-08] MEDS: ACETAMINOPHEN 325 MG TABLET PO PRN ×2 (09:21→15:51)
[2019-02-08] MEDS: LIDOCAINE 5% TRANSDERMAL PATCH TD PRN (12:38)
[2019-02-08 16:11] VITALS: BP 108/70
[2019-02-08] MEDS: RisperiDONE 3 MG TABLET PO SCH (20:09)
[2019-02-09 00:01] VITALS: BP 123/87
[2019-02-09] MEDS: ZOLPIDEM TARTRATE 10 MG TABLET PO PRN ×2 (00:03→20:31)
[2019-02-09] MEDS: ACETAMINOPHEN 325 MG TABLET PO PRN ×4 (00:04→17:36)
[2019-02-09] MEDS: LORazepam 2 MG TABLET PO PRN ×4 (04:33→19:21)
[2019-02-09 04:43] VITALS: BP 122/80
[2019-02-09] MEDS: GABAPENTIN 300 MG CAPSULE PO SCH ×4 (08:26→20:15)
[2019-02-09] MEDS: NICOTINE 21 MG/24 HOUR PATCH TD SCH (08:26)
[2019-02-09] MEDS: PANTOPRAZOLE SODIUM 40 MG DR TABLET PO SCH (08:26)
[2019-02-09] MEDS: NALTREXONE HCL 50 MG TABLET PO SCH (08:26)
[2019-02-09] MEDS: THIAMINE HCL 100 MG TABLET PO SCH ×2 (08:26→16:11)
[2019-02-09] MEDS: MULTIVITAMINS WITH MINERALS, THERAPEUTIC TABLET PO SCH (08:26)
[2019-02-09] MEDS: CHOLECALCIFEROL (VIT D3) 5,000 UNITS CAPSULE PO SCH (08:26)
[2019-02-09] MEDS: FOLIC ACID 1 MG TABLET PO SCH (08:26)
[2019-02-09 08:27] VITALS: BP 112/80
[2019-02-09] MEDS: LIDOCAINE 5% TRANSDERMAL PATCH TD PRN (09:22)
[2019-02-09 16:02] VITALS: BP 121/68
[2019-02-09] MEDS: MAGNESIUM HYDROXIDE SUSPENSION 30 ML UDCUP PO PRN (17:14)
[2019-02-09] MEDS: RisperiDONE 3 MG TABLET PO SCH (20:15)
[2019-02-10 00:05] VITALS: BP 118/79
[2019-02-10] MEDS: ACETAMINOPHEN 325 MG TABLET PO PRN ×3 (02:51→12:45)
[2019-02-10 02:52] VITALS: BP 120/81
[2019-02-10 07:00] VITALS: BP 126/82
[2019-02-10] MEDS: LORazepam 2 MG TABLET PO PRN ×3 (07:00→16:22)
[2019-02-10] MEDS: PANTOPRAZOLE SODIUM 40 MG DR TABLET PO SCH (08:21)
[2019-02-10] MEDS: FOLIC ACID 1 MG TABLET PO SCH (08:22)
[2019-02-10] MEDS: NALTREXONE HCL 50 MG TABLET PO SCH ×2 (08:22→09:00)
[2019-02-10] MEDS: THIAMINE HCL 100 MG TABLET PO SCH ×2 (08:22→16:04)
[2019-02-10] MEDS: GABAPENTIN 300 MG CAPSULE PO SCH ×4 (08:22→20:16)
[2019-02-10] MEDS: CHOLECALCIFEROL (VIT D3) 5,000 UNITS CAPSULE PO SCH (08:22)
[2019-02-10] MEDS: MULTIVITAMINS WITH MINERALS, THERAPEUTIC TABLET PO SCH (08:22)
[2019-02-10] MEDS: LIDOCAINE 5% TRANSDERMAL PATCH TD PRN (08:23)
[2019-02-10] MEDS: NICOTINE 21 MG/24 HOUR PATCH TD SCH (08:23)
[2019-02-10 09:14] VITALS: BP 115/56
[2019-02-10] MEDS: MAGNESIUM HYDROXIDE SUSPENSION 30 ML UDCUP PO PRN (09:22)
[2019-02-10 16:43] VITALS: BP 117/77
[2019-02-10] MEDS: RisperiDONE 3 MG TABLET PO SCH (20:16)
[2019-02-10] MEDS: ZOLPIDEM TARTRATE 10 MG TABLET PO PRN (20:47)
[2019-02-11] MEDS: ACETAMINOPHEN 325 MG TABLET PO PRN ×4 (02:53→16:56)
[2019-02-11 03:15] VITALS: BP 112/73
[2019-02-11] MEDS: LORazepam 2 MG TABLET PO PRN ×4 (03:19→18:23)
[2019-02-11] MEDS: FOLIC ACID 1 MG TABLET PO SCH (08:10)
[2019-02-11] MEDS: THIAMINE HCL 100 MG TABLET PO SCH ×2 (08:10→16:56)
[2019-02-11] MEDS: PANTOPRAZOLE SODIUM 40 MG DR TABLET PO SCH (08:10)
[2019-02-11] MEDS: MULTIVITAMINS WITH MINERALS, THERAPEUTIC TABLET PO SCH (08:10)
[2019-02-11] MEDS: GABAPENTIN 300 MG CAPSULE PO SCH ×4 (08:10→21:19)
[2019-02-11] MEDS: NICOTINE 21 MG/24 HOUR PATCH TD SCH (08:11)
[2019-02-11] MEDS: CHOLECALCIFEROL (VIT D3) 5,000 UNITS CAPSULE PO SCH (08:11)
[2019-02-11] MEDS: LIDOCAINE 5% TRANSDERMAL PATCH TD PRN (08:11)
[2019-02-11 08:53] VITALS: BP 116/70
[2019-02-11] MEDS: NALTREXONE HCL 50 MG TABLET PO SCH (09:00)
[2019-02-11 16:12] VITALS: BP 101/60
[2019-02-11] MEDS: RisperiDONE 3 MG TABLET PO SCH (21:19)
[2019-02-11] MEDS: ZOLPIDEM TARTRATE 10 MG TABLET PO PRN (21:19)
[2019-02-12 02:52] VITALS: BP 112/79
[2019-02-12] MEDS: ACETAMINOPHEN 325 MG TABLET PO PRN ×5 (02:56→21:38)
[2019-02-12] MEDS: LORazepam 2 MG TABLET PO PRN ×3 (03:37→16:07)
[2019-02-12 08:00] VITALS: BP 107/69
[2019-02-12] MEDS: NICOTINE 21 MG/24 HOUR PATCH TD SCH (08:23)
[2019-02-12] MEDS: CHOLECALCIFEROL (VIT D3) 5,000 UNITS CAPSULE PO SCH (08:24)
[2019-02-12] MEDS: MULTIVITAMINS WITH MINERALS, THERAPEUTIC TABLET PO SCH (08:24)
[2019-02-12] MEDS: PANTOPRAZOLE SODIUM 40 MG DR TABLET PO SCH (08:24)
[2019-02-12] MEDS: GABAPENTIN 300 MG CAPSULE PO SCH ×4 (08:24→20:30)
[2019-02-12] MEDS: NALTREXONE HCL 50 MG TABLET PO SCH (08:25)
[2019-02-12] MEDS: FOLIC ACID 1 MG TABLET PO SCH (08:25)
[2019-02-12] MEDS: THIAMINE HCL 100 MG TABLET PO SCH ×2 (08:32→16:07)
[2019-02-12] MEDS: LIDOCAINE 5% TRANSDERMAL PATCH TD PRN (08:36)
[2019-02-12 16:00] VITALS: BP 110/62
[2019-02-12] MEDS: RisperiDONE 3 MG TABLET PO SCH (20:30)
[2019-02-12] MEDS: ZOLPIDEM TARTRATE 10 MG TABLET PO PRN (20:38)
[2019-02-13] MEDS ORDERED: CHOL50004 PO (00:07)
[2019-02-13] MEDS ORDERED: HYDR-4031 PO (00:07)
[2019-02-13 00:15] VITALS: BP 133/86
[2019-02-13 03:11] VITALS: BP 124/90
[2019-02-13] MEDS: LORazepam 2 MG TABLET PO PRN (03:16)
[2019-02-13] MEDS: ACETAMINOPHEN 325 MG TABLET PO PRN (03:17)
[2019-02-13] MEDS: MULTIVITAMINS WITH MINERALS, THERAPEUTIC TABLET PO SCH (07:08)
[2019-02-13] MEDS: PANTOPRAZOLE SODIUM 40 MG DR TABLET PO SCH (07:08)
[2019-02-13] MEDS: GABAPENTIN 300 MG CAPSULE PO SCH (07:08)
[2019-02-13] MEDS: THIAMINE HCL 100 MG TABLET PO SCH (07:08)
[2019-02-13] MEDS: FOLIC ACID 1 MG TABLET PO SCH (07:08)
[2019-02-13] MEDS: NICOTINE 21 MG/24 HOUR PATCH TD SCH (07:10)
[2019-02-21] MEDS ORDERED: RisperiDONE MICROSPHERES 50 MG/2 ML SYRINGE IM SCH (09:00)
== END 2019-02-13 07:10 | disposition home or self-care (01) | DRG 885 ==
LOC: EMS 08:28 → B3A 13:45 → B2S 15:21
PROVIDERS: ADMIT Psychiatry & Neurology Psychiatry; ATTEND Psychiatry & Neurology Psychiatry
DX: F25.0 Schizoaffective disorder, bipolar type (principal); D64.9 Anemia, unspecified; E03.9 Hypothyroidism, unspecified; E11.9 Type 2 diabetes mellitus without complications; E55.9 Vitamin D deficiency, unspecified; F17.200 Nicotine dependence, unspecified, uncomplicated; F41.9 Anxiety disorder, unspecified; G47.00 Insomnia, unspecified; I10 Essential (primary) hypertension; K21.9 Gastro-esophageal reflux disease without esophagitis; K59.00 Constipation, unspecified; Z79.899 Other long term (current) drug therapy; Z85.3 Personal history of malignant neoplasm of breast; Z91.19 Patient's noncompliance with other medical treatment and regimen
CPT/HCPCS: 87081; G0480; J1200; J2060; J2794

== ENCOUNTER 2019-02-22 18:52 | Emergency (ER) | payer MEDICARE, OTHER ==
[~2019-02-22] VITALS: Ht 160 cm; Wt 60.0 kg
[~2019-02-22 18:52] MED LIST changes: +CHOL50004 PO; -DOCU250C91 PO; -FOLI1 PO; +HYDR-4031 PO; -MULT-1239 PO; -NALT50TA PO; -OXYB5XL PO; -THIA100T67 PO
[2019-02-22 21:27] LABS: BASOPHILS % (AUTO) 0.9 % (0.0-2.0); EOSINOPHILS % (AUTO) 10.2 % (1.0-6.0); HEMATOCRIT 32.8 % (36-46); HEMOGLOBIN 11.1 g/dL (12.0-16.0); LYMPHOCYTES # (AUTO) 1.3 K/uL (1.0-4.8); LYMPHOCYTES % (AUTO) 30.5 % (22.0-44.0); MEAN CORPUSCULAR HEMOGLOBIN 31.3 pg (26.0-34.0); MEAN CORPUSCULAR HGB CONC 33.9 G/dL (31.0-37.0); MEAN CORPUSCULAR VOLUME 92 fL (80-100); MONOCYTES # (AUTO) 0.3 K/uL (0.1-1.0); MONOCYTES % (AUTO) 7.7 % (2.0-9.0); NEUTROPHILS # (AUTO) 2.2 K/uL (1.8-7.7); NEUTROPHILS % (AUTO) 50.7 % (40.0-70.0); PLATELET COUNT (AUTO) 232 K/uL (150-450); RED BLOOD CELL COUNT(AUTO) 3.56 MIL/uL (4.00-5.20); RED CELL DISTRIBUTION WIDTH 14.4 % (11.5-14.5)
[2019-02-22 21:32] LABS: ANION GAP 12 mmol/L (8-16); CALCIUM, TOTAL 8.9 mg/dL (8.8-10.5); CARBON DIOXIDE 25 mmol/L (22-29); CHLORIDE 107 mmol/L (98-107); CREATININE 0.97 mg/dL (0.60-1.30); GLOMERULAR FILTR. RATE CALC 58 mL/min (>60); GLUCOSE,RANDOM 91 mg/dL (70-110); POTASSIUM 3.3 mmol/L (3.5-5.1); SODIUM SERUM 144 mmol/L (136-145); UREA NITROGEN, BLOOD 17 mg/dL (7-18)
[2019-02-22 21:38] LABS: ALANINE AMINOTRANSFERASE 14 U/L (12-78); ALBUMIN 3.8 g/dL (3.4-5.0); ALKALINE PHOSPHATASE 65 U/L (46-116); ASPARTATE AMINOTRANSFERASE 11 U/L (15-37); BILIRUBIN,TOTAL 0.1 mg/dL (0.1-1.0); TOTAL PROTEIN, SERUM 6.5 g/dL (6.4-8.2)
[2019-02-22] MEDS ORDERED: IBUPROFEN 800 MG TABLET PO ONE (21:45)
[2019-02-22 21:51] LABS: SALICYLATE 2.8 mg/dL (2.8-20.0)
[2019-02-22 21:56] LABS: ACETAMINOPHEN < 2 mcg/mL (10-30)
[2019-02-23 01:33] VITALS: BP 122/80
== END 2019-02-23 01:34 | disposition home or self-care (01) ==
LOC: EMS 18:54
DX: M16.11 Unilateral primary osteoarthritis, right hip (principal); M17.11 Unilateral primary osteoarthritis, right knee; E11.9 Type 2 diabetes mellitus without complications; E03.9 Hypothyroidism, unspecified; F20.9 Schizophrenia, unspecified; F31.9 Bipolar disorder, unspecified; F41.9 Anxiety disorder, unspecified; F17.210 Nicotine dependence, cigarettes, uncomplicated; Z88.0 Allergy status to penicillin
CPT/HCPCS: 36415; 73502; 73562; 80053; 85025; 99284; G0480 ×2; G0481

== ENCOUNTER 2019-02-26 13:47 | Inpatient (IN) | payer MEDICARE, MEDICAID ==
[~2019-02-26] VITALS: Ht 154.9 cm; Wt 62.1 kg
[2019-02-26 13:55] VITALS: BP 143/93
[2019-02-26] MEDS ORDERED: RisperiDONE MICROSPHERES 50 MG/2 ML SYRINGE IM ONE (14:00)
[2019-02-26] MEDS ORDERED: GuaiFENesin/D-METHORPHAN [SUGAR-FREE] 200-20MG/10 ML SYRUP UDCUP PO PRN (14:00)
[2019-02-26] MEDS ORDERED: PROMETHAZINE HCL 25 MG TABLET PO PRN (14:00)
[2019-02-26] MEDS ORDERED: HydrOXYzine PAMOATE 50 MG CAPSULE PO PRN (14:00)
[2019-02-26] MEDS ORDERED: MAG HYDROX/AL HYDROX/SIMETH ES 30 ML SUSPENSION UDCUP PO PRN (14:00)
[2019-02-26] MEDS ORDERED: LOPERAMIDE HCL 2 MG CAPSULE PO PRN (14:00)
[2019-02-26] MEDS ORDERED: RisperiDONE 1 MG TABLET PO PRN (14:00)
[2019-02-26 14:25] VITALS: BP 124/97
[2019-02-26 16:09] VITALS: BP 130/79
[2019-02-26] MEDS: LORazepam 2 MG TABLET PO PRN ×2 (16:20→20:52)
[2019-02-26 17:01] VITALS: BP 128/85
[2019-02-26] MEDS: ACETAMINOPHEN 325 MG TABLET PO PRN (17:01)
[2019-02-26 17:52] VITALS: BP 125/86
[2019-02-26] MEDS: TraMADol HCL 50 MG TABLET PO PRN (17:52)
[2019-02-26] MEDS: THIAMINE HCL 100 MG TABLET PO SCH (20:00)
[2019-02-26] MEDS: ZOLPIDEM TARTRATE 10 MG TABLET PO PRN (21:16)
[2019-02-26] MEDS: RisperiDONE 3 MG TABLET PO SCH (22:03)
[2019-02-27] VITALS (7 sets, daily range): BP systolic 114–141; BP diastolic 68–92
[2019-02-27] MEDS: LORazepam 2 MG TABLET PO PRN ×4 (01:07→23:46)
[2019-02-27] MEDS: ACETAMINOPHEN 325 MG TABLET PO PRN ×4 (01:08→23:46)
[2019-02-27] MEDS: TraMADol HCL 50 MG TABLET PO PRN ×3 (05:13→18:00)
[2019-02-27] MEDS: CHOLECALCIFEROL (VIT D3) 5,000 UNITS CAPSULE PO SCH (08:47)
[2019-02-27] MEDS: FOLIC ACID 1 MG TABLET PO SCH (08:47)
[2019-02-27] MEDS: MULTIVITAMINS WITH MINERALS, THERAPEUTIC TABLET PO SCH (08:47)
[2019-02-27] MEDS: THIAMINE HCL 100 MG TABLET PO SCH ×2 (08:47→16:22)
[2019-02-27] MEDS: PANTOPRAZOLE SODIUM 40 MG DR TABLET PO SCH (08:47)
[2019-02-27] MEDS: NALTREXONE HCL 50 MG TABLET PO SCH (08:53)
[2019-02-27] MEDS ORDERED: DiphenhydrAMINE HCL 50 MG/ML VIAL IM ONE (14:45)
[2019-02-27] MEDS ORDERED: HALOPERIDOL LACTATE 5 MG/ML VIAL IM ONE (14:45)
[2019-02-27] MEDS ORDERED: LORazepam 2 MG/ML VIAL IM ONE (14:45)
[2019-02-27] MEDS: HALOPERIDOL 5 MG TABLET PO SCH (20:15)
[2019-02-27] MEDS: RisperiDONE 3 MG TABLET PO SCH (20:15)
[2019-02-27] MEDS: ZOLPIDEM TARTRATE 10 MG TABLET PO PRN (20:50)
[2019-02-28 00:02] VITALS: BP 150/75
[2019-02-28] MEDS: TraMADol HCL 50 MG TABLET PO PRN ×3 (02:10→20:04)
[2019-02-28 06:50] VITALS: BP 132/80
[2019-02-28] MEDS: ACETAMINOPHEN 325 MG TABLET PO PRN ×3 (06:50→16:16)
[2019-02-28 08:16] LABS: BASOPHILS % (AUTO) 0.8 % (0.0-2.0); EOSINOPHILS % (AUTO) 7.8 % (1.0-6.0); HEMATOCRIT 35.5 % (36-46); LYMPHOCYTES # (AUTO) 0.7 K/uL (1.0-4.8); LYMPHOCYTES % (AUTO) 19.2 % (22.0-44.0); MEAN CORPUSCULAR HGB CONC 33.8 G/dL (31.0-37.0); MEAN CORPUSCULAR VOLUME 92 fL (80-100); MONOCYTES # (AUTO) 0.2 K/uL (0.1-1.0); NEUTROPHILS # (AUTO) 2.6 K/uL (1.8-7.7); NEUTROPHILS % (AUTO) 67.2 % (40.0-70.0); PLATELET COUNT (AUTO) 276 K/uL (150-450); RED BLOOD CELL COUNT(AUTO) 3.87 MIL/uL (4.00-5.20)
[2019-02-28 08:22] VITALS: BP 133/79
[2019-02-28] MEDS: PANTOPRAZOLE SODIUM 40 MG DR TABLET PO SCH (08:25)
[2019-02-28] MEDS: CHOLECALCIFEROL (VIT D3) 5,000 UNITS CAPSULE PO SCH (08:26)
[2019-02-28] MEDS: FOLIC ACID 1 MG TABLET PO SCH (08:26)
[2019-02-28] MEDS: MULTIVITAMINS WITH MINERALS, THERAPEUTIC TABLET PO SCH (08:26)
[2019-02-28] MEDS: THIAMINE HCL 100 MG TABLET PO SCH ×2 (08:26→16:16)
[2019-02-28] MEDS: NICOTINE 21 MG/24 HOUR PATCH TD SCH (08:26)
[2019-02-28] MEDS: LIDOCAINE 5% TRANSDERMAL PATCH TD SCH ×2 (08:27→14:39)
[2019-02-28] MEDS: LORazepam 2 MG TABLET PO PRN ×3 (08:30→17:15)
[2019-02-28] MEDS: NALTREXONE HCL 50 MG TABLET PO SCH (08:32)
[2019-02-28 08:45] LABS: ALANINE AMINOTRANSFERASE 13 U/L (12-78); ALBUMIN 3.8 g/dL (3.4-5.0); ALKALINE PHOSPHATASE 69 U/L (46-116); ANION GAP 10 mmol/L (8-16); ASPARTATE AMINOTRANSFERASE 14 U/L (15-37); BILIRUBIN,TOTAL 0.4 mg/dL (0.1-1.0); CALCIUM, TOTAL 9.2 mg/dL (8.8-10.5); CARBON DIOXIDE 27 mmol/L (22-29); CHLORIDE 103 mmol/L (98-107); CREATININE 0.72 mg/dL (0.60-1.30); GLOMERULAR FILTR. RATE CALC > 60 mL/min (>60); GLUCOSE,RANDOM 138 mg/dL (70-110); POTASSIUM 3.7 mmol/L (3.5-5.1); SODIUM SERUM 140 mmol/L (136-145); TOTAL PROTEIN, SERUM 6.9 g/dL (6.4-8.2); UREA NITROGEN, BLOOD 7 mg/dL (7-18)
[2019-02-28] MEDS ORDERED: HALOPERIDOL LACTATE 5 MG/ML VIAL IM ONE (14:45)
[2019-02-28] MEDS ORDERED: DiphenhydrAMINE HCL 50 MG/ML VIAL IM ONE (14:45)
[2019-02-28 16:30] VITALS: BP 134/77
[2019-02-28 18:45] VITALS: BP 131/82
[2019-02-28] MEDS: -LIDODERM PATCH NOTE- MISC SCH (20:03)
[2019-02-28 20:04] VITALS: BP 132/93
[2019-02-28] MEDS: HALOPERIDOL 5 MG TABLET PO SCH (20:04)
[2019-02-28] MEDS: RisperiDONE 3 MG TABLET PO SCH (20:04)
[2019-02-28] MEDS ORDERED: -LIDODERM PATCH NOTE- MISC SCH (21:00)
[2019-02-28] MEDS: ZOLPIDEM TARTRATE 10 MG TABLET PO PRN (23:02)
[2019-03-01 03:15] VITALS: BP 117/84
[2019-03-01] MEDS: ACETAMINOPHEN 325 MG TABLET PO PRN ×4 (03:27→17:32)
[2019-03-01] MEDS: LORazepam 2 MG TABLET PO PRN ×2 (03:28→10:32)
[2019-03-01] MEDS: TraMADol HCL 50 MG TABLET PO PRN ×3 (04:53→22:13)
[2019-03-01 06:40] LABS: ANION GAP 10 mmol/L (8-16); CALCIUM, TOTAL 9.7 mg/dL (8.8-10.5); CARBON DIOXIDE 28 mmol/L (22-29); CHLORIDE 105 mmol/L (98-107); CREATININE 0.74 mg/dL (0.60-1.30); GLOMERULAR FILTR. RATE CALC > 60 mL/min (>60); GLUCOSE,RANDOM 108 mg/dL (70-110); SODIUM SERUM 143 mmol/L (136-145); UREA NITROGEN, BLOOD 10 mg/dL (7-18)
[2019-03-01] MEDS: PANTOPRAZOLE SODIUM 40 MG DR TABLET PO SCH (08:14)
[2019-03-01] MEDS: MULTIVITAMINS WITH MINERALS, THERAPEUTIC TABLET PO SCH (08:14)
[2019-03-01] MEDS: FOLIC ACID 1 MG TABLET PO SCH (08:15)
[2019-03-01] MEDS: THIAMINE HCL 100 MG TABLET PO SCH ×2 (08:15→16:14)
[2019-03-01] MEDS: CHOLECALCIFEROL (VIT D3) 5,000 UNITS CAPSULE PO SCH (08:16)
[2019-03-01] MEDS: NICOTINE 21 MG/24 HOUR PATCH TD SCH (08:16)
[2019-03-01] MEDS: LIDOCAINE 5% TRANSDERMAL PATCH TD SCH ×2 (08:22→09:25)
[2019-03-01 08:43] VITALS: BP 116/82
[2019-03-01] MEDS: NALTREXONE HCL 50 MG TABLET PO SCH ×2 (09:26→09:30)
[2019-03-01 11:34] VITALS: BP 134/85
[2019-03-01 16:37] VITALS: BP 137/70
[2019-03-01 17:32] VITALS: BP 125/90
[2019-03-01] MEDS ORDERED: DiphenhydrAMINE HCL 25 MG CAPSULE PO ONE (18:15)
[2019-03-01] MEDS: HALOPERIDOL 5 MG TABLET PO SCH (20:20)
[2019-03-01] MEDS: RisperiDONE 3 MG TABLET PO SCH (20:20)
[2019-03-01] MEDS: ZOLPIDEM TARTRATE 10 MG TABLET PO PRN (20:21)
[2019-03-01] MEDS: -LIDODERM PATCH NOTE- MISC SCH (20:22)
[2019-03-01 22:13] VITALS: BP 141/96
[2019-03-02] VITALS (8 sets, daily range): BP systolic 130–150; BP diastolic 76–99
[2019-03-02] MEDS: LORazepam 2 MG TABLET PO PRN ×3 (00:36→14:24)
[2019-03-02] MEDS: TraMADol HCL 50 MG TABLET PO PRN ×3 (04:43→17:38)
[2019-03-02] MEDS: CHOLECALCIFEROL (VIT D3) 5,000 UNITS CAPSULE PO SCH (08:25)
[2019-03-02] MEDS: THIAMINE HCL 100 MG TABLET PO SCH ×2 (08:25→16:38)
[2019-03-02] MEDS: PANTOPRAZOLE SODIUM 40 MG DR TABLET PO SCH (08:25)
[2019-03-02] MEDS: MULTIVITAMINS WITH MINERALS, THERAPEUTIC TABLET PO SCH (08:25)
[2019-03-02] MEDS: FOLIC ACID 1 MG TABLET PO SCH (08:25)
[2019-03-02] MEDS: LIDOCAINE 5% TRANSDERMAL PATCH TD SCH ×2 (10:12→10:22)
[2019-03-02] MEDS: NICOTINE 21 MG/24 HOUR PATCH TD SCH (10:13)
[2019-03-02] MEDS: ACETAMINOPHEN 325 MG TABLET PO PRN ×2 (10:13→14:24)
[2019-03-02] MEDS: RisperiDONE 3 MG TABLET PO SCH (20:10)
[2019-03-02] MEDS: ZOLPIDEM TARTRATE 10 MG TABLET PO PRN (20:10)
[2019-03-02] MEDS: HALOPERIDOL 5 MG TABLET PO SCH (20:11)
[2019-03-02] MEDS: -LIDODERM PATCH NOTE- MISC SCH (21:34)
[2019-03-03 01:05] VITALS: BP 140/85
[2019-03-03] MEDS: LORazepam 2 MG TABLET PO PRN ×4 (01:09→20:50)
[2019-03-03] MEDS: ACETAMINOPHEN 325 MG TABLET PO PRN ×4 (01:10→20:50)
[2019-03-03] MEDS: TraMADol HCL 50 MG TABLET PO PRN ×2 (06:15→12:49)
[2019-03-03 06:17] VITALS: BP 134/94
[2019-03-03 09:00] VITALS: BP 123/102
[2019-03-03] MEDS: NALTREXONE HCL 50 MG TABLET PO SCH (09:00)
[2019-03-03] MEDS: PANTOPRAZOLE SODIUM 40 MG DR TABLET PO SCH (09:06)
[2019-03-03] MEDS: MULTIVITAMINS WITH MINERALS, THERAPEUTIC TABLET PO SCH (09:06)
[2019-03-03] MEDS: THIAMINE HCL 100 MG TABLET PO SCH ×2 (09:06→16:08)
[2019-03-03] MEDS: FOLIC ACID 1 MG TABLET PO SCH (09:07)
[2019-03-03] MEDS: CHOLECALCIFEROL (VIT D3) 5,000 UNITS CAPSULE PO SCH (09:07)
[2019-03-03] MEDS: NICOTINE 21 MG/24 HOUR PATCH TD SCH (09:08)
[2019-03-03] MEDS: LIDOCAINE 5% TRANSDERMAL PATCH TD SCH ×2 (09:09→09:12)
[2019-03-03 12:49] VITALS: BP 128/96
[2019-03-03] MEDS ORDERED: DiphenhydrAMINE HCL 50 MG/ML VIAL IM ONE (14:45)
[2019-03-03] MEDS ORDERED: HALOPERIDOL LACTATE 5 MG/ML VIAL IM ONE (14:45)
[2019-03-03 16:16] VITALS: BP 125/85
[2019-03-03] MEDS: HALOPERIDOL 5 MG TABLET PO SCH (20:00)
[2019-03-03] MEDS: -LIDODERM PATCH NOTE- MISC SCH (20:48)
[2019-03-03 20:50] VITALS: BP 136/82
[2019-03-04 00:05] VITALS: BP 112/85
[2019-03-04] MEDS: TraMADol HCL 50 MG TABLET PO PRN ×3 (00:08→16:09)
[2019-03-04] MEDS: ZOLPIDEM TARTRATE 10 MG TABLET PO PRN ×2 (01:07→20:30)
[2019-03-04] MEDS: ACETAMINOPHEN 325 MG TABLET PO PRN ×3 (06:24→17:44)
[2019-03-04] MEDS: LORazepam 2 MG TABLET PO PRN ×3 (06:24→16:10)
[2019-03-04] MEDS: NALTREXONE HCL 50 MG TABLET PO SCH (09:00)
[2019-03-04] MEDS: PANTOPRAZOLE SODIUM 40 MG DR TABLET PO SCH (09:20)
[2019-03-04] MEDS: FOLIC ACID 1 MG TABLET PO SCH (09:20)
[2019-03-04] MEDS: MULTIVITAMINS WITH MINERALS, THERAPEUTIC TABLET PO SCH (09:20)
[2019-03-04] MEDS: CHOLECALCIFEROL (VIT D3) 5,000 UNITS CAPSULE PO SCH (09:20)
[2019-03-04] MEDS: NICOTINE 21 MG/24 HOUR PATCH TD SCH (09:21)
[2019-03-04] MEDS: THIAMINE HCL 100 MG TABLET PO SCH ×2 (09:21→16:03)
[2019-03-04] MEDS: LIDOCAINE 5% TRANSDERMAL PATCH TD SCH ×2 (09:25)
[2019-03-04 10:08] VITALS: BP 125/87
[2019-03-04 16:10] VITALS: BP 120/87
[2019-03-04 17:44] VITALS: BP 123/79
[2019-03-04] MEDS: HALOPERIDOL 5 MG TABLET PO SCH (20:29)
[2019-03-04] MEDS: -LIDODERM PATCH NOTE- MISC SCH (20:30)
[2019-03-05 00:44] VITALS: BP 148/82
[2019-03-05] MEDS: TraMADol HCL 50 MG TABLET PO PRN ×4 (00:44→20:18)
[2019-03-05] MEDS: LORazepam 2 MG TABLET PO PRN ×3 (00:44→13:08)
[2019-03-05 07:54] VITALS: BP 138/84
[2019-03-05] MEDS: PANTOPRAZOLE SODIUM 40 MG DR TABLET PO SCH (07:55)
[2019-03-05] MEDS: NALTREXONE HCL 50 MG TABLET PO SCH ×2 (07:55→09:00)
[2019-03-05] MEDS: MULTIVITAMINS WITH MINERALS, THERAPEUTIC TABLET PO SCH (07:55)
[2019-03-05] MEDS: FOLIC ACID 1 MG TABLET PO SCH (07:55)
[2019-03-05] MEDS: NICOTINE 21 MG/24 HOUR PATCH TD SCH (07:58)
[2019-03-05] MEDS: THIAMINE HCL 100 MG TABLET PO SCH ×2 (08:00→16:28)
[2019-03-05] MEDS: CHOLECALCIFEROL (VIT D3) 5,000 UNITS CAPSULE PO SCH (08:00)
[2019-03-05 09:59] VITALS: BP 138/84
[2019-03-05] MEDS: LIDOCAINE 5% TRANSDERMAL PATCH TD SCH ×2 (10:21)
[2019-03-05] MEDS: ACETAMINOPHEN 325 MG TABLET PO PRN ×2 (10:46→16:29)
[2019-03-05 13:09] VITALS: BP 117/74
[2019-03-05] MEDS: HALOPERIDOL 5 MG TABLET PO PRN (13:09)
[2019-03-05 16:29] VITALS: BP 117/73
[2019-03-05 20:18] VITALS: BP 115/77
[2019-03-05] MEDS: HALOPERIDOL 5 MG TABLET PO SCH (20:18)
[2019-03-05] MEDS: ZOLPIDEM TARTRATE 10 MG TABLET PO PRN (20:19)
[2019-03-05] MEDS: -LIDODERM PATCH NOTE- MISC SCH (20:21)
[2019-03-06 02:10] VITALS: BP 129/87
[2019-03-06] MEDS: LORazepam 2 MG TABLET PO PRN ×4 (02:20→17:29)
[2019-03-06] MEDS: HALOPERIDOL 5 MG TABLET PO PRN ×4 (02:32→17:29)
[2019-03-06 04:20] VITALS: BP 154/95
[2019-03-06] MEDS: TraMADol HCL 50 MG TABLET PO PRN ×3 (04:23→16:21)
[2019-03-06] MEDS: FOLIC ACID 1 MG TABLET PO SCH (08:52)
[2019-03-06] MEDS: PANTOPRAZOLE SODIUM 40 MG DR TABLET PO SCH (08:52)
[2019-03-06] MEDS: CHOLECALCIFEROL (VIT D3) 5,000 UNITS CAPSULE PO SCH (08:53)
[2019-03-06] MEDS: MULTIVITAMINS WITH MINERALS, THERAPEUTIC TABLET PO SCH (08:53)
[2019-03-06] MEDS: THIAMINE HCL 100 MG TABLET PO SCH ×2 (08:53→16:22)
[2019-03-06] MEDS: NALTREXONE HCL 50 MG TABLET PO SCH (09:00)
[2019-03-06] MEDS: NICOTINE 21 MG/24 HOUR PATCH TD SCH (09:02)
[2019-03-06 09:04] VITALS: BP 120/76
[2019-03-06] MEDS: ACETAMINOPHEN 325 MG TABLET PO PRN (09:08)
[2019-03-06] MEDS: LIDOCAINE 5% TRANSDERMAL PATCH TD SCH ×2 (11:16)
[2019-03-06 11:48] VITALS: BP 144/97
[2019-03-06] MEDS ORDERED: CloNIDine HCL 0.1 MG TABLET PO PRN (12:45)
[2019-03-06 16:30] VITALS: BP 153/76
[2019-03-06] MEDS ORDERED: DiphenhydrAMINE HCL 50 MG/ML VIAL IM ONE (18:30)
[2019-03-06] MEDS: ZOLPIDEM TARTRATE 10 MG TABLET PO PRN (20:57)
[2019-03-06] MEDS: HALOPERIDOL 5 MG TABLET PO SCH (20:57)
[2019-03-06] MEDS: -LIDODERM PATCH NOTE- MISC SCH (20:58)
[2019-03-07 02:30] VITALS: BP 100/68
[2019-03-07] MEDS: LORazepam 2 MG TABLET PO PRN ×4 (02:35→23:54)
[2019-03-07] MEDS: ACETAMINOPHEN 325 MG TABLET PO PRN ×3 (02:35→13:07)
[2019-03-07] MEDS: TraMADol HCL 50 MG TABLET PO PRN ×3 (05:22→17:46)
[2019-03-07 08:11] VITALS: BP 103/71
[2019-03-07] MEDS: MULTIVITAMINS WITH MINERALS, THERAPEUTIC TABLET PO SCH (08:22)
[2019-03-07] MEDS: THIAMINE HCL 100 MG TABLET PO SCH ×2 (08:22→17:16)
[2019-03-07] MEDS: CHOLECALCIFEROL (VIT D3) 5,000 UNITS CAPSULE PO SCH (08:22)
[2019-03-07] MEDS: PANTOPRAZOLE SODIUM 40 MG DR TABLET PO SCH (08:23)
[2019-03-07] MEDS: FOLIC ACID 1 MG TABLET PO SCH (08:23)
[2019-03-07] MEDS: HALOPERIDOL 5 MG TABLET PO PRN ×3 (08:23→17:16)
[2019-03-07] MEDS: NICOTINE 21 MG/24 HOUR PATCH TD SCH (08:24)
[2019-03-07] MEDS: LIDOCAINE 5% TRANSDERMAL PATCH TD SCH ×2 (08:24→08:25)
[2019-03-07] MEDS: NALTREXONE HCL 50 MG TABLET PO SCH (08:28)
[2019-03-07] MEDS ORDERED: LORazepam 1 MG TABLET PO ONE (10:45)
[2019-03-07] MEDS ORDERED: DiphenhydrAMINE HCL 50 MG/ML VIAL IM ONE (10:45)
[2019-03-07 11:27] VITALS: BP 111/67
[2019-03-07] MEDS: MAGNESIUM HYDROXIDE SUSPENSION 30 ML UDCUP PO PRN (13:06)
[2019-03-07 13:07] VITALS: BP 119/80
[2019-03-07] MEDS ORDERED: HYDROCODONE/ACETAMINOPHEN 5-325 MG TABLET PO PRN (14:00)
[2019-03-07 15:13] VITALS: BP 126/77
[2019-03-07] MEDS ORDERED: GADOBUTROL 1 MMOL/ML 10 ML VIAL IVP ONE (17:16)
[2019-03-07 17:45] VITALS: BP 117/68
[2019-03-07] MEDS: HALOPERIDOL 5 MG TABLET PO SCH (21:02)
[2019-03-07] MEDS: ZOLPIDEM TARTRATE 10 MG TABLET PO PRN (21:02)
[2019-03-07] MEDS: -LIDODERM PATCH NOTE- MISC SCH (21:03)
[2019-03-08] VITALS: BP 119/96
[2019-03-08] MEDS: HALOPERIDOL 5 MG TABLET PO PRN ×3 (05:19→13:59)
[2019-03-08 06:40] VITALS: BP 125/79
[2019-03-08] MEDS: TraMADol HCL 50 MG TABLET PO PRN ×3 (06:41→20:01)
[2019-03-08] MEDS: NALTREXONE HCL 50 MG TABLET PO SCH (09:00)
[2019-03-08] MEDS: PANTOPRAZOLE SODIUM 40 MG DR TABLET PO SCH (09:09)
[2019-03-08] MEDS: FOLIC ACID 1 MG TABLET PO SCH (09:09)
[2019-03-08] MEDS: MULTIVITAMINS WITH MINERALS, THERAPEUTIC TABLET PO SCH (09:09)
[2019-03-08] MEDS: LORazepam 2 MG TABLET PO PRN ×2 (09:09→13:10)
[2019-03-08 09:10] VITALS: BP 128/81
[2019-03-08] MEDS: CHOLECALCIFEROL (VIT D3) 5,000 UNITS CAPSULE PO SCH (09:10)
[2019-03-08] MEDS: ACETAMINOPHEN 325 MG TABLET PO PRN ×2 (09:11→16:59)
[2019-03-08] MEDS: NICOTINE 21 MG/24 HOUR PATCH TD SCH (09:14)
[2019-03-08] MEDS: LIDOCAINE 5% TRANSDERMAL PATCH TD SCH ×2 (09:42)
[2019-03-08 13:03] VITALS: BP 122/80
[2019-03-08 16:59] VITALS: BP 112/84
[2019-03-08 20:02] VITALS: BP 118/78
[2019-03-08] MEDS: HALOPERIDOL 5 MG TABLET PO SCH (20:02)
[2019-03-08] MEDS: -LIDODERM PATCH NOTE- MISC SCH (20:40)
[2019-03-08] MEDS: ZOLPIDEM TARTRATE 10 MG TABLET PO PRN (21:20)
[2019-03-09 00:17] VITALS: BP 129/94
[2019-03-09] MEDS: LORazepam 2 MG TABLET PO PRN ×4 (00:22→18:06)
[2019-03-09] MEDS: ACETAMINOPHEN 325 MG TABLET PO PRN ×3 (00:22→20:02)
[2019-03-09] MEDS: HALOPERIDOL 5 MG TABLET PO PRN ×4 (00:23→18:06)
[2019-03-09 05:18] VITALS: BP 120/83
[2019-03-09] MEDS: TraMADol HCL 50 MG TABLET PO PRN ×3 (05:18→16:18)
[2019-03-09] MEDS: NALTREXONE HCL 50 MG TABLET PO SCH (09:00)
[2019-03-09] MEDS: CHOLECALCIFEROL (VIT D3) 5,000 UNITS CAPSULE PO SCH (09:05)
[2019-03-09] MEDS: MULTIVITAMINS WITH MINERALS, THERAPEUTIC TABLET PO SCH (09:05)
[2019-03-09] MEDS: PANTOPRAZOLE SODIUM 40 MG DR TABLET PO SCH (09:06)
[2019-03-09] MEDS: NICOTINE 21 MG/24 HOUR PATCH TD SCH (09:08)
[2019-03-09] MEDS: LIDOCAINE 5% TRANSDERMAL PATCH TD SCH ×2 (09:09)
[2019-03-09 10:01] VITALS: BP 114/68
[2019-03-09 12:19] VITALS: BP 126/71
[2019-03-09 16:31] VITALS: BP_SYST 130; BP_SYST 149; BP_DIAS 77; BP_DIAS 88
[2019-03-09] MEDS: HALOPERIDOL 5 MG TABLET PO SCH (20:00)
[2019-03-09] MEDS: ZOLPIDEM TARTRATE 10 MG TABLET PO PRN (20:00)
[2019-03-09] MEDS: -LIDODERM PATCH NOTE- MISC SCH (20:00)
[2019-03-10] VITALS (7 sets, daily range): BP systolic 104–128; BP diastolic 68–91
[2019-03-10] MEDS: TraMADol HCL 50 MG TABLET PO PRN ×4 (00:45→22:32)
[2019-03-10] MEDS: ACETAMINOPHEN 325 MG TABLET PO PRN ×3 (03:54→16:47)
[2019-03-10] MEDS: LORazepam 2 MG TABLET PO PRN ×4 (03:55→18:43)
[2019-03-10] MEDS: HALOPERIDOL 5 MG TABLET PO PRN ×4 (03:55→18:42)
[2019-03-10] MEDS: NALTREXONE HCL 50 MG TABLET PO SCH (09:00)
[2019-03-10] MEDS: PANTOPRAZOLE SODIUM 40 MG DR TABLET PO SCH (09:20)
[2019-03-10] MEDS: MULTIVITAMINS WITH MINERALS, THERAPEUTIC TABLET PO SCH (09:20)
[2019-03-10] MEDS: CHOLECALCIFEROL (VIT D3) 5,000 UNITS CAPSULE PO SCH (09:20)
[2019-03-10] MEDS: LIDOCAINE 5% TRANSDERMAL PATCH TD SCH ×2 (09:23→09:24)
[2019-03-10] MEDS: NICOTINE 21 MG/24 HOUR PATCH TD SCH (09:27)
[2019-03-10] MEDS: HALOPERIDOL 5 MG TABLET PO SCH (20:16)
[2019-03-10] MEDS: -LIDODERM PATCH NOTE- MISC SCH (20:18)
[2019-03-10] MEDS: ZOLPIDEM TARTRATE 10 MG TABLET PO PRN (20:33)
[2019-03-11 02:22] VITALS: BP 109/76
[2019-03-11] MEDS: MAGNESIUM HYDROXIDE SUSPENSION 30 ML UDCUP PO PRN (02:22)
[2019-03-11 04:10] VITALS: BP 114/78
[2019-03-11] MEDS: HALOPERIDOL 5 MG TABLET PO PRN (04:11)
[2019-03-11] MEDS: ACETAMINOPHEN 325 MG TABLET PO PRN (04:11)
[2019-03-11] MEDS: LORazepam 2 MG TABLET PO PRN (04:12)
[2019-03-11] MEDS: TraMADol HCL 50 MG TABLET PO PRN (06:56)
[2019-03-11 06:57] VITALS: BP 101/75
[2019-03-11] MEDS ORDERED: RisperiDONE MICROSPHERES 50 MG/2 ML SYRINGE IM SCH (08:00)
[2019-03-11] MEDS ORDERED: HALO5TAB2 PO (08:08)
[2019-03-11] MEDS ORDERED: NALT50TA6 PO (08:08)
[2019-03-11] MEDS ORDERED: RISPC50 IM (08:08)
[2019-03-11] MEDS ORDERED: MULT-1239 PO (08:20)
[2019-03-11] MEDS ORDERED: LIDO700A15 TD (08:20)
[2019-03-11] MEDS ORDERED: NICO-704 TD (08:20)
[2019-03-11 08:39] VITALS: BP 102/83
[2019-03-11] MEDS: CHOLECALCIFEROL (VIT D3) 5,000 UNITS CAPSULE PO SCH (08:45)
[2019-03-11] MEDS: PANTOPRAZOLE SODIUM 40 MG DR TABLET PO SCH (08:45)
[2019-03-11] MEDS: MULTIVITAMINS WITH MINERALS, THERAPEUTIC TABLET PO SCH (08:46)
[2019-03-11] MEDS: LIDOCAINE 5% TRANSDERMAL PATCH TD SCH ×2 (08:51)
[2019-03-11] MEDS: NICOTINE 21 MG/24 HOUR PATCH TD SCH (08:51)
[2019-03-11] MEDS: NALTREXONE HCL 50 MG TABLET PO SCH (09:00)
[2019-03-11] MEDS ORDERED: RISP3TAB44 PO (15:09)
[2019-03-12] MEDS ORDERED: RisperiDONE MICROSPHERES 50 MG/2 ML SYRINGE IM SCH (09:00)
== END 2019-03-11 10:35 | disposition home or self-care (01) | DRG 885 ==
LOC: B2S 14:22 → 3EI 02-28 18:20
PROVIDERS: ADMIT Psychiatry & Neurology Psychiatry; ATTEND Psychiatry & Neurology Psychiatry
DX: F20.0 Paranoid schizophrenia (principal); G93.41 Metabolic encephalopathy; R45.851 Suicidal ideations; E55.9 Vitamin D deficiency, unspecified; E87.6 Hypokalemia; F17.200 Nicotine dependence, unspecified, uncomplicated; G89.29 Other chronic pain; I10 Essential (primary) hypertension; K21.9 Gastro-esophageal reflux disease without esophagitis; K59.00 Constipation, unspecified; E03.9 Hypothyroidism, unspecified; D72.819 Decreased white blood cell count, unspecified; D64.9 Anemia, unspecified; C50.919 Malignant neoplasm of unspecified site of unspecified female breast; M16.11 Unilateral primary osteoarthritis, right hip; R32 Unspecified urinary incontinence; Z88.0 Allergy status to penicillin; Z59.0 Homelessness; Z65.3 Problems related to other legal circumstances; Z80.3 Family history of malignant neoplasm of breast; Z85.3 Personal history of malignant neoplasm of breast; Z91.14 Patient's other noncompliance with medication regimen; Z91.19 Patient's noncompliance with other medical treatment and regimen
CPT/HCPCS: 72197; 73502; 87081; A9585; G0480; G0481; J1200; J1630; J2060; J2794

== ENCOUNTER 2019-05-10 17:14 | Inpatient (IN) | payer MEDICARE, MEDICAID ==
[~2019-05-10] VITALS: Ht 160 cm; Wt 59.4 kg
[~2019-05-10 17:14] MED LIST changes: -GABA-531 PO; -HYDR-4031 PO; +LIDO700A15 TD; +MULT-1239 PO; +NALT50TA6 PO; +NICO-704 TD; +RISP3TAB44 PO; -RISP4 PO; +RISPC50 IM
[2019-05-10 17:40] LABS: BASOPHILS % (AUTO) 0.2 % (0.0-2.0); EOSINOPHILS % (AUTO) 1.1 % (1.0-6.0); HEMATOCRIT 39.5 % (36-46); HEMOGLOBIN 12.9 g/dL (12.0-16.0); LYMPHOCYTES % (AUTO) 12.6 % (22.0-44.0); MEAN CORPUSCULAR HEMOGLOBIN 30.5 pg (26.0-34.0); MEAN CORPUSCULAR HGB CONC 32.6 G/dL (31.0-37.0); MEAN CORPUSCULAR VOLUME 94 fL (80-100); MONOCYTES # (AUTO) 0.4 K/uL (0.1-1.0); MONOCYTES % (AUTO) 5.2 % (2.0-9.0); NEUTROPHILS # (AUTO) 6.7 K/uL (1.8-7.7); NEUTROPHILS % (AUTO) 80.9 % (40.0-70.0); PLATELET COUNT (AUTO) 293 K/uL (150-450); RED BLOOD CELL COUNT(AUTO) 4.23 MIL/uL (4.00-5.20); RED CELL DISTRIBUTION WIDTH 12.7 % (11.5-14.5)
[2019-05-10 17:51] LABS: ANION GAP 13 mmol/L (8-16); CARBON DIOXIDE 27 mmol/L (22-29); CHLORIDE 102 mmol/L (98-107); CREATININE 1.35 mg/dL (0.60-1.30); GLOMERULAR FILTR. RATE CALC 40 mL/min (>60); GLUCOSE,RANDOM 112 mg/dL (70-110); POTASSIUM 4.4 mmol/L (3.5-5.1); SODIUM SERUM 142 mmol/L (136-145); UREA NITROGEN, BLOOD 28 mg/dL (7-18)
[2019-05-10 17:56] LABS: ALANINE AMINOTRANSFERASE 14 U/L (12-78); ALBUMIN 4.5 g/dL (3.4-5.0); ALKALINE PHOSPHATASE 100 U/L (46-116); ASPARTATE AMINOTRANSFERASE 11 U/L (15-37); BILIRUBIN,TOTAL 0.6 mg/dL (0.1-1.0); TOTAL PROTEIN, SERUM 8.2 g/dL (6.4-8.2)
[2019-05-10] MEDS ORDERED: ZOLPIDEM TARTRATE 10 MG TABLET PO PRN (20:15)
[2019-05-10] MEDS ORDERED: DiphenhydrAMINE HCL 50 MG/ML VIAL IM ONE (20:15)
[2019-05-10] MEDS ORDERED: LORazepam 2 MG/ML VIAL IM ONE (20:15)
[2019-05-10] MEDS: RisperiDONE 2 MG TABLET PO SCH (21:00)
[2019-05-10 22:32] VITALS: BP 115/69
[2019-05-11 06:24] VITALS: BP 112/60
[2019-05-11 07:32] LABS: CHOL/HDL RATIO 2.9 (3.9-5.7); FREE T4 (FREE THYROXINE) 1.4 ng/dL (0.76-1.46); THYROID STIMULATING HORMONE 2.24 uIU/mL (0.36-3.74)
[2019-05-11 08:11] VITALS: BP 106/67
[2019-05-11] MEDS: SULFAMETHOX/TRIMETH DS 800-160 MG/TABLET PO SCH (16:21)
[2019-05-11] MEDS: DOXYCYCLINE HYCLATE 100 MG CAPSULE PO SCH (16:21)
[2019-05-11 16:26] VITALS: BP 102/69
[2019-05-11] MEDS: BACITRACIN 28.4 GM OINTMENT TP SCH (17:16)
[2019-05-11 18:54] VITALS: BP 108/72
[2019-05-11] MEDS: IBUPROFEN 600 MG TABLET PO PRN (18:54)
[2019-05-11] MEDS: RisperiDONE 2 MG TABLET PO SCH (20:19)
[2019-05-11] MEDS ORDERED: ARIPiprazole 5 MG TABLET PO SCH (21:00)
[2019-05-11] MEDS ORDERED: ZOLPIDEM TARTRATE 5 MG TABLET PO PRN (22:15)
[2019-05-11] MEDS: LORazepam 1 MG TABLET PO PRN (23:00)
[2019-05-12 01:38] VITALS: BP 104/64
[2019-05-12] MEDS: HALOPERIDOL 5 MG TABLET PO PRN ×2 (01:38→08:58)
[2019-05-12] MEDS: IBUPROFEN 600 MG TABLET PO PRN ×3 (01:38→08:59)
[2019-05-12 01:39] VITALS: BP 110/68
[2019-05-12 08:16] VITALS: BP 102/62
[2019-05-12] MEDS: PANTOPRAZOLE SODIUM 40 MG DR TABLET PO SCH (08:25)
[2019-05-12] MEDS: NALTREXONE HCL 50 MG TABLET PO SCH (08:25)
[2019-05-12] MEDS: SULFAMETHOX/TRIMETH DS 800-160 MG/TABLET PO SCH ×2 (08:25→17:09)
[2019-05-12] MEDS: DOXYCYCLINE HYCLATE 100 MG CAPSULE PO SCH ×2 (08:25→17:09)
[2019-05-12] MEDS: CHOLECALCIFEROL (VIT D3) 5,000 UNITS CAPSULE PO SCH (08:26)
[2019-05-12] MEDS: BACITRACIN 28.4 GM OINTMENT TP SCH ×2 (08:27→17:09)
[2019-05-12 08:58] VITALS: BP 120/70
[2019-05-12] MEDS: LORazepam 1 MG TABLET PO PRN ×2 (08:58→14:35)
[2019-05-12] MEDS ORDERED: GuaiFENesin/D-METHORPHAN [SUGAR-FREE] 200-20MG/10 ML SYRUP UDCUP PO PRN (13:45)
[2019-05-12] MEDS ORDERED: PROMETHAZINE HCL 25 MG TABLET PO PRN (13:45)
[2019-05-12] MEDS ORDERED: MAG HYDROX/AL HYDROX/SIMETH ES 30 ML SUSPENSION UDCUP PO PRN (13:45)
[2019-05-12] MEDS ORDERED: HydrOXYzine PAMOATE 50 MG CAPSULE PO PRN (13:45)
[2019-05-12] MEDS ORDERED: ACETAMINOPHEN 325 MG TABLET PO PRN (13:45)
[2019-05-12] MEDS ORDERED: MAGNESIUM HYDROXIDE SUSPENSION 30 ML UDCUP PO PRN (13:45)
[2019-05-12] MEDS ORDERED: LOPERAMIDE HCL 2 MG CAPSULE PO PRN (13:45)
[2019-05-12] MEDS ORDERED: RisperiDONE 1 MG TABLET PO PRN (15:30)
[2019-05-12 16:10] VITALS: BP 103/60
[2019-05-12] MEDS: THIAMINE HCL 100 MG TABLET PO SCH (17:09)
[2019-05-12] MEDS: PREGABALIN 25 MG CAPSULE PO SCH (17:09)
[2019-05-12 20:30] VITALS: BP 110/62
[2019-05-12] MEDS ORDERED: DiphenhydrAMINE HCL 50 MG/ML VIAL IM ONE (20:30)
[2019-05-12] MEDS ORDERED: HALOPERIDOL LACTATE 5 MG/ML VIAL IM ONE (20:30)
[2019-05-12] MEDS ORDERED: LORazepam 2 MG/ML VIAL IM ONE (20:30)
[2019-05-12] MEDS ORDERED: RisperiDONE MICROSPHERES 50 MG/2 ML SYRINGE IM ONE (21:00)
[2019-05-12] MEDS ORDERED: RisperiDONE 3 MG TABLET PO SCH (21:00)
[2019-05-13 00:06] VITALS: BP 101/78
[2019-05-13 08:04] VITALS: BP 104/63
[2019-05-13] MEDS: NALTREXONE HCL 50 MG TABLET PO SCH (08:17)
[2019-05-13] MEDS: FOLIC ACID 1 MG TABLET PO SCH (08:17)
[2019-05-13] MEDS: CHOLECALCIFEROL (VIT D3) 5,000 UNITS CAPSULE PO SCH (08:17)
[2019-05-13] MEDS: MULTIVITAMINS WITH MINERALS, THERAPEUTIC TABLET PO SCH (08:17)
[2019-05-13] MEDS: DULoxetine HCL 20 MG CAPSULE PO SCH (08:17)
[2019-05-13] MEDS: PREGABALIN 25 MG CAPSULE PO SCH (08:18)
[2019-05-13] MEDS: BACITRACIN 28.4 GM OINTMENT TP SCH ×2 (08:18→17:03)
[2019-05-13] MEDS: SULFAMETHOX/TRIMETH DS 800-160 MG/TABLET PO SCH ×2 (08:18→17:03)
[2019-05-13] MEDS: THIAMINE HCL 100 MG TABLET PO SCH ×2 (08:18→17:03)
[2019-05-13] MEDS: PANTOPRAZOLE SODIUM 40 MG DR TABLET PO SCH (08:18)
[2019-05-13] MEDS: DOXYCYCLINE HYCLATE 100 MG CAPSULE PO SCH ×2 (10:22→17:03)
[2019-05-13] MEDS ORDERED: ARIPiprazole ER SUSPENSION 400 MG PRE-FILLED DUAL CHAMBER SYRINGE IM ONE (11:45)
[2019-05-13] MEDS ORDERED: QUEtiapine FUMARATE 100 MG TABLET PO PRN (11:45)
[2019-05-13] MEDS: LORazepam 2 MG TABLET PO PRN (12:11)
[2019-05-13] MEDS: GABAPENTIN 300 MG CAPSULE PO SCH ×3 (12:11→20:33)
[2019-05-13 16:00] VITALS: BP 100/59
[2019-05-13] MEDS ORDERED: ARIPiprazole 10 MG TABLET PO SCH (21:00)
[2019-05-14 04:01] VITALS: BP 97/58
[2019-05-14] MEDS: IBUPROFEN 600 MG TABLET PO PRN ×2 (04:10→16:27)
[2019-05-14 08:56] LABS: ALBUMIN 3.1 g/dL (3.4-5.0); BILIRUBIN,TOTAL 0.2 mg/dL (0.1-1.0); CALCIUM, TOTAL 9.2 mg/dL (8.8-10.5); CREATININE 1.1 mg/dL (0.60-1.30); MAGNESIUM 1.6 mg/dL (1.80-2.40); POTASSIUM 4.4 mmol/L (3.5-5.1); TOTAL PROTEIN, SERUM 6.2 g/dL (6.4-8.2)
[2019-05-14] MEDS: SULFAMETHOX/TRIMETH DS 800-160 MG/TABLET PO SCH ×2 (08:58→16:27)
[2019-05-14] MEDS: CHOLECALCIFEROL (VIT D3) 5,000 UNITS CAPSULE PO SCH (08:59)
[2019-05-14] MEDS: DULoxetine HCL 20 MG CAPSULE PO SCH (08:59)
[2019-05-14] MEDS: FOLIC ACID 1 MG TABLET PO SCH (08:59)
[2019-05-14] MEDS: GABAPENTIN 300 MG CAPSULE PO SCH ×4 (08:59→20:29)
[2019-05-14] MEDS: MULTIVITAMINS WITH MINERALS, THERAPEUTIC TABLET PO SCH (08:59)
[2019-05-14] MEDS: NALTREXONE HCL 50 MG TABLET PO SCH (08:59)
[2019-05-14] MEDS: PANTOPRAZOLE SODIUM 40 MG DR TABLET PO SCH (08:59)
[2019-05-14] MEDS: THIAMINE HCL 100 MG TABLET PO SCH ×2 (08:59→16:27)
[2019-05-14 09:06] VITALS: BP 111/66
[2019-05-14] MEDS: BACITRACIN 28.4 GM OINTMENT TP SCH ×2 (09:10→16:28)
[2019-05-14] MEDS: DOXYCYCLINE HYCLATE 100 MG CAPSULE PO SCH ×2 (10:00→16:27)
[2019-05-14 16:20] VITALS: BP 102/69
[2019-05-14] MEDS: ARIPiprazole 15 MG TABLET PO SCH (20:29)
[2019-05-15 01:30] VITALS: BP 98/60
[2019-05-15] MEDS: IBUPROFEN 600 MG TABLET PO PRN ×2 (03:17→20:44)
[2019-05-15 08:06] VITALS: BP 100/63
[2019-05-15] MEDS: NALTREXONE HCL 50 MG TABLET PO SCH (08:31)
[2019-05-15] MEDS: THIAMINE HCL 100 MG TABLET PO SCH ×2 (08:31→16:31)
[2019-05-15] MEDS: FOLIC ACID 1 MG TABLET PO SCH (08:31)
[2019-05-15] MEDS: GABAPENTIN 300 MG CAPSULE PO SCH ×4 (08:31→20:32)
[2019-05-15] MEDS: CHOLECALCIFEROL (VIT D3) 5,000 UNITS CAPSULE PO SCH (08:31)
[2019-05-15] MEDS: DULoxetine HCL 20 MG CAPSULE PO SCH (08:31)
[2019-05-15] MEDS: PANTOPRAZOLE SODIUM 40 MG DR TABLET PO SCH (08:31)
[2019-05-15] MEDS: SULFAMETHOX/TRIMETH DS 800-160 MG/TABLET PO SCH ×2 (08:31→16:31)
[2019-05-15] MEDS: MULTIVITAMINS WITH MINERALS, THERAPEUTIC TABLET PO SCH (08:31)
[2019-05-15] MEDS: BACITRACIN 28.4 GM OINTMENT TP SCH ×2 (08:32→17:25)
[2019-05-15] MEDS: DOXYCYCLINE HYCLATE 100 MG CAPSULE PO SCH ×2 (09:45→16:32)
[2019-05-15 17:22] VITALS: BP 107/67
[2019-05-15] MEDS: LORazepam 2 MG TABLET PO PRN (17:25)
[2019-05-15] MEDS: ARIPiprazole 15 MG TABLET PO SCH (20:32)
[2019-05-15 20:41] VITALS: BP 106/73
[2019-05-15] MEDS: ZOLPIDEM TARTRATE 10 MG TABLET PO PRN (21:26)
[2019-05-16] MEDS: LORazepam 2 MG TABLET PO PRN ×2 (00:17→15:27)
[2019-05-16 06:10] VITALS: BP 121/70
[2019-05-16] MEDS: SULFAMETHOX/TRIMETH DS 800-160 MG/TABLET PO SCH ×2 (08:12→16:23)
[2019-05-16] MEDS: BACITRACIN 28.4 GM OINTMENT TP SCH ×2 (08:13→16:24)
[2019-05-16] MEDS: GABAPENTIN 300 MG CAPSULE PO SCH ×4 (08:13→20:08)
[2019-05-16] MEDS: FOLIC ACID 1 MG TABLET PO SCH (08:13)
[2019-05-16] MEDS: DULoxetine HCL 20 MG CAPSULE PO SCH (08:13)
[2019-05-16] MEDS: CHOLECALCIFEROL (VIT D3) 5,000 UNITS CAPSULE PO SCH (08:13)
[2019-05-16] MEDS: NALTREXONE HCL 50 MG TABLET PO SCH (08:13)
[2019-05-16] MEDS: PANTOPRAZOLE SODIUM 40 MG DR TABLET PO SCH (08:13)
[2019-05-16] MEDS: THIAMINE HCL 100 MG TABLET PO SCH ×2 (08:13→16:23)
[2019-05-16] MEDS: MULTIVITAMINS WITH MINERALS, THERAPEUTIC TABLET PO SCH (08:13)
[2019-05-16 08:22] VITALS: BP 109/67
[2019-05-16] MEDS: DOXYCYCLINE HYCLATE 100 MG CAPSULE PO SCH ×2 (09:56→16:23)
[2019-05-16 16:05] VITALS: BP 109/68
[2019-05-16] MEDS: ARIPiprazole 15 MG TABLET PO SCH (20:08)
[2019-05-16] MEDS: ZOLPIDEM TARTRATE 10 MG TABLET PO PRN (20:58)
[2019-05-17 00:04] VITALS: BP 104/64
[2019-05-17] MEDS: IBUPROFEN 600 MG TABLET PO PRN ×2 (00:05→19:38)
[2019-05-17 08:18] VITALS: BP 100/60
[2019-05-17] MEDS: GABAPENTIN 300 MG CAPSULE PO SCH ×4 (08:28→20:27)
[2019-05-17] MEDS: DULoxetine HCL 20 MG CAPSULE PO SCH (08:28)
[2019-05-17] MEDS: MULTIVITAMINS WITH MINERALS, THERAPEUTIC TABLET PO SCH (08:28)
[2019-05-17] MEDS: CHOLECALCIFEROL (VIT D3) 5,000 UNITS CAPSULE PO SCH (08:28)
[2019-05-17] MEDS: THIAMINE HCL 100 MG TABLET PO SCH ×2 (08:28→16:28)
[2019-05-17] MEDS: NALTREXONE HCL 50 MG TABLET PO SCH (08:28)
[2019-05-17] MEDS: SULFAMETHOX/TRIMETH DS 800-160 MG/TABLET PO SCH ×2 (08:28→16:28)
[2019-05-17] MEDS: PANTOPRAZOLE SODIUM 40 MG DR TABLET PO SCH (08:28)
[2019-05-17] MEDS: FOLIC ACID 1 MG TABLET PO SCH (08:28)
[2019-05-17] MEDS: DOXYCYCLINE HYCLATE 100 MG CAPSULE PO SCH ×2 (09:54→16:28)
[2019-05-17] MEDS: BACITRACIN 28.4 GM OINTMENT TP SCH ×2 (09:54→16:28)
[2019-05-17 16:04] VITALS: BP 101/63
[2019-05-17 19:35] VITALS: BP 103/63
[2019-05-17] MEDS: ARIPiprazole 15 MG TABLET PO SCH (20:27)
[2019-05-18 02:03] VITALS: BP 103/68
[2019-05-18] MEDS: LORazepam 2 MG TABLET PO PRN ×2 (02:04→15:50)
[2019-05-18 08:06] VITALS: BP 110/60
[2019-05-18] MEDS: CHOLECALCIFEROL (VIT D3) 5,000 UNITS CAPSULE PO SCH (08:26)
[2019-05-18] MEDS: GABAPENTIN 300 MG CAPSULE PO SCH ×4 (08:26→20:27)
[2019-05-18] MEDS: DULoxetine HCL 20 MG CAPSULE PO SCH (08:27)
[2019-05-18] MEDS: SULFAMETHOX/TRIMETH DS 800-160 MG/TABLET PO SCH ×2 (08:27→16:33)
[2019-05-18] MEDS: FOLIC ACID 1 MG TABLET PO SCH (08:27)
[2019-05-18] MEDS: THIAMINE HCL 100 MG TABLET PO SCH ×2 (08:27→16:33)
[2019-05-18] MEDS: PANTOPRAZOLE SODIUM 40 MG DR TABLET PO SCH (08:27)
[2019-05-18] MEDS: NALTREXONE HCL 50 MG TABLET PO SCH (08:27)
[2019-05-18] MEDS: MULTIVITAMINS WITH MINERALS, THERAPEUTIC TABLET PO SCH (08:27)
[2019-05-18] MEDS: DOXYCYCLINE HYCLATE 100 MG CAPSULE PO SCH ×2 (08:27→16:33)
[2019-05-18] MEDS: BACITRACIN 28.4 GM OINTMENT TP SCH ×2 (08:28→16:33)
[2019-05-18 14:05] VITALS: BP 102/61
[2019-05-18] MEDS: IBUPROFEN 600 MG TABLET PO PRN (14:08)
[2019-05-18 16:08] VITALS: BP 112/68
[2019-05-18] MEDS: ARIPiprazole 10 MG TABLET PO SCH (20:27)
[2019-05-19 00:13] VITALS: BP 98/62
[2019-05-19 01:18] VITALS: BP 100/68
[2019-05-19] MEDS: ACETAMINOPHEN 325 MG TABLET PO PRN ×2 (01:18→14:16)
[2019-05-19 02:18] VITALS: BP 102/63
[2019-05-19] MEDS: SULFAMETHOX/TRIMETH DS 800-160 MG/TABLET PO SCH ×2 (08:11→16:30)
[2019-05-19] MEDS: DOXYCYCLINE HYCLATE 100 MG CAPSULE PO SCH ×2 (08:11→16:30)
[2019-05-19] MEDS: FOLIC ACID 1 MG TABLET PO SCH (08:12)
[2019-05-19] MEDS: MULTIVITAMINS WITH MINERALS, THERAPEUTIC TABLET PO SCH (08:12)
[2019-05-19] MEDS: GABAPENTIN 300 MG CAPSULE PO SCH ×4 (08:12→20:26)
[2019-05-19] MEDS: PANTOPRAZOLE SODIUM 40 MG DR TABLET PO SCH (08:12)
[2019-05-19] MEDS: THIAMINE HCL 100 MG TABLET PO SCH ×2 (08:12→16:29)
[2019-05-19] MEDS: NALTREXONE HCL 50 MG TABLET PO SCH (08:12)
[2019-05-19] MEDS: DULoxetine HCL 20 MG CAPSULE PO SCH (08:13)
[2019-05-19] MEDS: BACITRACIN 28.4 GM OINTMENT TP SCH ×2 (08:14→17:08)
[2019-05-19 08:18] VITALS: BP 106/68
[2019-05-19] MEDS: LORazepam 2 MG TABLET PO PRN ×3 (08:18→20:51)
[2019-05-19] MEDS ORDERED: ARIPiprazole LAUROXIL ER SUSPENSION 662 MG/2.4 ML SYRINGE IM SCH (09:00)
[2019-05-19] MEDS: CHOLECALCIFEROL (VIT D3) 5,000 UNITS CAPSULE PO SCH (09:52)
[2019-05-19] MEDS ORDERED: GABA-531 PO (16:00)
[2019-05-19] MEDS ORDERED: NALT50TA PO (16:00)
[2019-05-19] MEDS ORDERED: ARIP10TA8 PO (16:00)
[2019-05-19] MEDS ORDERED: DULO20CA30 PO (16:00)
[2019-05-19] MEDS ORDERED: ARIP400S3 IM (16:00)
[2019-05-19 16:15] VITALS: BP 109/69
[2019-05-19] MEDS: ARIPiprazole 10 MG TABLET PO SCH (20:26)
[2019-05-19 20:48] VITALS: BP 110/67
[2019-05-19] MEDS: IBUPROFEN 600 MG TABLET PO PRN (20:51)
[2019-05-19] MEDS: ZOLPIDEM TARTRATE 10 MG TABLET PO PRN (21:49)
[2019-05-20 00:08] VITALS: BP 116/70
[2019-05-20] MEDS: ACETAMINOPHEN 325 MG TABLET PO PRN (00:10)
[2019-05-20] MEDS: LORazepam 2 MG TABLET PO PRN ×2 (01:36→06:03)
[2019-05-20] MEDS: GABAPENTIN 300 MG CAPSULE PO SCH (08:05)
[2019-05-20] MEDS: CHOLECALCIFEROL (VIT D3) 5,000 UNITS CAPSULE PO SCH (08:05)
[2019-05-20] MEDS: PANTOPRAZOLE SODIUM 40 MG DR TABLET PO SCH (08:05)
[2019-05-20] MEDS: THIAMINE HCL 100 MG TABLET PO SCH (08:05)
[2019-05-20] MEDS: SULFAMETHOX/TRIMETH DS 800-160 MG/TABLET PO SCH (08:05)
[2019-05-20] MEDS: FOLIC ACID 1 MG TABLET PO SCH (08:05)
[2019-05-20] MEDS: MULTIVITAMINS WITH MINERALS, THERAPEUTIC TABLET PO SCH (08:05)
[2019-05-20] MEDS: DULoxetine HCL 20 MG CAPSULE PO SCH (08:05)
[2019-05-20] MEDS: NALTREXONE HCL 50 MG TABLET PO SCH (08:05)
[2019-05-20] MEDS: BACITRACIN 28.4 GM OINTMENT TP SCH (08:06)
[2019-05-20 08:19] VITALS: BP 106/58
[2019-05-20] MEDS ORDERED: SULF1TAB42 PO (08:57)
[2019-05-20] MEDS ORDERED: BACI30OI10 TP (08:57)
[2019-05-20] MEDS ORDERED: THIA100T67 PO (08:57)
[2019-05-20] MEDS ORDERED: DOXY100C PO (08:57)
[2019-05-20] MEDS ORDERED: FOLI1 PO (08:57)
[2019-05-20] MEDS: DOXYCYCLINE HYCLATE 100 MG CAPSULE PO SCH (09:52)
[2019-05-26] MEDS ORDERED: RisperiDONE MICROSPHERES 50 MG/2 ML SYRINGE IM SCH (09:00)
[2019-06-10] MEDS ORDERED: ARIPiprazole ER SUSPENSION 400 MG PRE-FILLED DUAL CHAMBER SYRINGE IM SCH (09:00)
[2019-06-11] MEDS ORDERED: ARIPiprazole ER SUSPENSION 400 MG PRE-FILLED DUAL CHAMBER SYRINGE IM SCH (09:00)
== END 2019-05-20 10:15 | disposition home or self-care (01) | DRG 885 ==
LOC: EMS 17:16 → B3A 20:30 → UNDOADMIN 20:30 → B2X 22:20 → B3A 23:40 → B2X 23:40 → UNDOADMIN 05-17 02:13 → B3A 05-17 02:13
PROVIDERS: ADMIT Psychiatry & Neurology Psychiatry; ATTEND Psychiatry & Neurology Psychiatry
DX: F25.0 Schizoaffective disorder, bipolar type (principal); N17.9 Acute kidney failure, unspecified; R45.851 Suicidal ideations; C50.919 Malignant neoplasm of unspecified site of unspecified female breast; D50.9 Iron deficiency anemia, unspecified; E03.9 Hypothyroidism, unspecified; E11.22 Type 2 diabetes mellitus with diabetic chronic kidney disease; E55.9 Vitamin D deficiency, unspecified; F17.210 Nicotine dependence, cigarettes, uncomplicated; F25.1 Schizoaffective disorder, depressive type; J44.9 Chronic obstructive pulmonary disease, unspecified; K21.9 Gastro-esophageal reflux disease without esophagitis; F41.9 Anxiety disorder, unspecified; M16.11 Unilateral primary osteoarthritis, right hip; N18.9 Chronic kidney disease, unspecified; Z88.0 Allergy status to penicillin; Z79.899 Other long term (current) drug therapy; Z90.12 Acquired absence of left breast and nipple
CPT/HCPCS: 82306; 83735; 84436; 84439; 84443; 99406; G0480; J0401; J1200; J1630; J2060; J2794; J3230

== ENCOUNTER 2019-10-01 21:33 | Emergency (ER) | payer MEDICARE, OTHER ==
[~2019-10-01] VITALS: Ht 154.9 cm; Wt 65.9 kg
[~2019-10-01 21:33] MED LIST changes: +ARIP10TA8 PO; +ARIP400S3 IM; +BACI30OI10 TP; +CHOL125C2 PO; -CHOL50004 PO; +DOXY100C PO; +DULO20CA30 PO; +FOLI1 PO; +GABA-531 PO; -LIDO700A15 TD; +NALT50TA PO; -NALT50TA6 PO; -NICO-704 TD; -RISP3TAB44 PO; -RISPC50 IM; +SULF1TAB42 PO; +THIA100T67 PO
[2019-10-01 22:02] LABS: HEMATOCRIT 33.5 % (36-46); MEAN CORPUSCULAR HEMOGLOBIN 31.1 pg (26.0-34.0); MONOCYTES # (AUTO) 0.2 K/uL (0.1-1.0); MONOCYTES % (AUTO) 4.8 % (2.0-9.0); RED CELL DISTRIBUTION WIDTH 12.7 % (11.5-14.5)
[2019-10-01 22:17] LABS: BASOPHILS % (AUTO) 0.7 % (0.0-2.0); EOSINOPHILS % (AUTO) 3.6 % (1.0-6.0); HEMOGLOBIN 11.6 g/dL (12.0-16.0); LYMPHOCYTES # (AUTO) 0.9 K/uL (1.0-4.8); LYMPHOCYTES % (AUTO) 28.4 % (22.0-44.0); MEAN CORPUSCULAR HGB CONC 34.5 G/dL (31.0-37.0); MEAN CORPUSCULAR VOLUME 90 fL (80-100); NEUTROPHILS % (AUTO) 62.5 % (40.0-70.0); PLATELET COUNT (AUTO) 289 K/uL (150-450); RED BLOOD CELL COUNT(AUTO) 3.71 MIL/uL (4.00-5.20)
[2019-10-01 23:13] LABS: ANION GAP 11 mmol/L (8-16); CALCIUM, TOTAL 9.3 mg/dL (8.8-10.5); CARBON DIOXIDE 26 mmol/L (22-29); CHLORIDE 102 mmol/L (98-107); CREATININE 0.76 mg/dL (0.60-1.30); GLOMERULAR FILTR. RATE CALC > 60 mL/min (>60); GLUCOSE,RANDOM 109 mg/dL (70-110); POTASSIUM 3.8 mmol/L (3.5-5.1); SODIUM SERUM 139 mmol/L (136-145); UREA NITROGEN, BLOOD 7 mg/dL (7-18)
[2019-10-01 23:19] LABS: ALANINE AMINOTRANSFERASE 13 U/L (12-78); ALBUMIN 4.1 g/dL (3.4-5.0); ALKALINE PHOSPHATASE 75 U/L (46-116); ASPARTATE AMINOTRANSFERASE 14 U/L (15-37); BILIRUBIN,TOTAL 0.4 mg/dL (0.1-1.0); TOTAL PROTEIN, SERUM 7.2 g/dL (6.4-8.2)
[2019-10-01 23:32] VITALS: BP 128/84
[2019-10-10] MEDS ORDERED: ARIP15TA2 PO (11:44)
[2019-10-10] MEDS ORDERED: ARIP400S3 IM (11:44)
[2019-10-10] MEDS ORDERED: NALT50TA PO (11:44)
[2019-10-10] MEDS ORDERED: DULO20CA30 PO (11:44)
[2019-10-10] MEDS ORDERED: GABA-531 PO (11:44)
== END 2019-10-02 00:05 | disposition home or self-care (01) ==
LOC: EMS 21:36
DX: F20.9 Schizophrenia, unspecified (principal); R07.0 Pain in throat; F41.9 Anxiety disorder, unspecified; F31.9 Bipolar disorder, unspecified; E11.9 Type 2 diabetes mellitus without complications; E03.9 Hypothyroidism, unspecified; F17.210 Nicotine dependence, cigarettes, uncomplicated; Z88.0 Allergy status to penicillin
CPT/HCPCS: 80053; 85025; 99284; G0480

== ENCOUNTER 2019-10-12 09:26 | Inpatient (IN) | payer MEDICARE, OTHER ==
[~2019-10-12] VITALS: Ht 156.2 cm; Wt 83.0 kg
[~2019-10-12 09:26] MED LIST changes: -ARIP10TA8 PO; +ARIP15TA2 PO; -BACI30OI10 TP; -DOXY100C PO; -FOLI1 PO; -MULT-1239 PO; -SULF1TAB42 PO; -THIA100T67 PO
[2019-10-12 10:34] LABS: BASOPHILS % (AUTO) 0.8 % (0.0-2.0); EOSINOPHILS % (AUTO) 2.7 % (1.0-6.0); HEMATOCRIT 35.9 % (36-46); HEMOGLOBIN 12.4 g/dL (12.0-16.0); LYMPHOCYTES # (AUTO) 0.6 K/uL (1.0-4.8); LYMPHOCYTES % (AUTO) 16.8 % (22.0-44.0); MEAN CORPUSCULAR HEMOGLOBIN 31.2 pg (26.0-34.0); MEAN CORPUSCULAR HGB CONC 34.5 G/dL (31.0-37.0); MEAN CORPUSCULAR VOLUME 90 fL (80-100); MONOCYTES # (AUTO) 0.2 K/uL (0.1-1.0); MONOCYTES % (AUTO) 4.9 % (2.0-9.0); NEUTROPHILS # (AUTO) 2.5 K/uL (1.8-7.7); NEUTROPHILS % (AUTO) 74.8 % (40.0-70.0); PLATELET COUNT (AUTO) 313 K/uL (150-450); RED BLOOD CELL COUNT(AUTO) 3.98 MIL/uL (4.00-5.20); RED CELL DISTRIBUTION WIDTH 13.4 % (11.5-14.5)
[2019-10-12 10:50] LABS: ANION GAP 7 mmol/L (8-16); CALCIUM, TOTAL 9.6 mg/dL (8.8-10.5); CARBON DIOXIDE 29 mmol/L (22-29); CHLORIDE 104 mmol/L (98-107); CREATININE 0.66 mg/dL (0.60-1.30); GLOMERULAR FILTR. RATE CALC > 60 mL/min (>60); GLUCOSE,RANDOM 102 mg/dL (70-110); POTASSIUM 4.1 mmol/L (3.5-5.1); SODIUM SERUM 140 mmol/L (136-145); UREA NITROGEN, BLOOD 14 mg/dL (7-18)
[2019-10-12 10:55] LABS: ALANINE AMINOTRANSFERASE 15 U/L (12-78); ALKALINE PHOSPHATASE 83 U/L (46-116); ASPARTATE AMINOTRANSFERASE 12 U/L (15-37); BILIRUBIN,TOTAL 0.5 mg/dL (0.1-1.0); TOTAL PROTEIN, SERUM 7.6 g/dL (6.4-8.2)
[2019-10-12 11:47] LABS: APPEARANCE,URINE CLOUDY (CLEAR); BILIRUBIN,URINE NEGATIVE (NEGATIVE); GLUCOSE, URINE (UA) NEGATIVE (NEGATIVE); KETONES,URINE NEGATIVE (NEGATIVE); LEUKOCYTE ESTERASE ,URINE NEGATIVE (NEGATIVE); NITRATE,URINE NEGATIVE (NEGATIVE); OCCULT BLOOD,URINE NEGATIVE (NEGATIVE); PROTEIN,URINE NEGATIVE (NEGATIVE); UROBILINOGEN,URINE 0.2 mg/dL (<=1.0)
[2019-10-12 11:56] LABS: AMPHET/METH SCREEN,URINE NEGATIVE (NEGATIVE); BARBITURATE SCREEN, URINE NEGATIVE (NEGATIVE); BENZODIAZEPINES SCREEN,URINE NEGATIVE (NEGATIVE); CANNABINOID SCREEN,URINE NEGATIVE (NEGATIVE); COCAINE SCREEN,URINE NEGATIVE (NEGATIVE); METHADONE SCREEN, URINE NEGATIVE (NEGATIVE); OPIATE SCREEN,URINE NEGATIVE (NEGATIVE)
[2019-10-12 11:57] LABS: PHENCYCLIDINE SCREEN,URINE NEGATIVE (NEGATIVE)
[2019-10-12 13:23] VITALS: BP 121/78
[2019-10-12 13:31] VITALS: BP 121/78
[2019-10-12] MEDS: GABAPENTIN 300 MG CAPSULE PO SCH ×3 (14:18→20:17)
[2019-10-12] MEDS: LORazepam 2 MG TABLET PO PRN (14:18)
[2019-10-12 16:40] VITALS: BP 113/78
[2019-10-13] MEDS: LORazepam 2 MG TABLET PO PRN (04:34)
[2019-10-13 07:53] LABS: CHOL/HDL RATIO 2.4 (3.9-5.7); FREE T4 (FREE THYROXINE) 0.96 ng/dL (0.76-1.46); THYROID STIMULATING HORMONE 0.6 uIU/mL (0.36-3.74)
[2019-10-13 08:00] VITALS: BP 103/68
[2019-10-13] MEDS: ARIPiprazole 15 MG TABLET PO SCH (08:52)
[2019-10-13] MEDS: GABAPENTIN 300 MG CAPSULE PO SCH ×4 (08:53→21:14)
[2019-10-13] MEDS: DULoxetine HCL 20 MG CAPSULE PO SCH (08:53)
[2019-10-13] MEDS: NALTREXONE HCL 50 MG TABLET PO SCH (08:53)
[2019-10-13 14:50] VITALS: BP 103/68
[2019-10-13] MEDS ORDERED: LOPERAMIDE HCL 2 MG CAPSULE PO PRN (16:45)
[2019-10-13] MEDS ORDERED: HydrOXYzine PAMOATE 50 MG CAPSULE PO PRN (16:45)
[2019-10-13] MEDS ORDERED: MAGNESIUM HYDROXIDE SUSPENSION 30 ML UDCUP PO PRN (16:45)
[2019-10-13] MEDS ORDERED: GuaiFENesin/D-METHORPHAN [SUGAR-FREE] 200-20MG/10 ML SYRUP UDCUP PO PRN (16:45)
[2019-10-13] MEDS ORDERED: MAG HYDROX/AL HYDROX/SIMETH ES 30 ML SUSPENSION UDCUP PO PRN (16:45)
[2019-10-13] MEDS ORDERED: PROMETHAZINE HCL 25 MG TABLET PO PRN (16:45)
[2019-10-13] MEDS ORDERED: HALOPERIDOL LACTATE 5 MG/ML VIAL IM ONE (17:00)
[2019-10-13] MEDS ORDERED: LORazepam 2 MG/ML VIAL IM ONE (17:00)
[2019-10-13] MEDS ORDERED: DiphenhydrAMINE HCL 50 MG/ML VIAL IM ONE (17:00)
[2019-10-13] MEDS: THIAMINE HCL 100 MG TABLET PO SCH (17:56)
[2019-10-13 20:52] VITALS: BP 122/77
[2019-10-14 05:51] VITALS: BP 124/90
[2019-10-14] MEDS: ACETAMINOPHEN 325 MG TABLET PO PRN ×2 (05:55→11:10)
[2019-10-14] MEDS: ARIPiprazole 15 MG TABLET PO SCH (08:30)
[2019-10-14] MEDS: THIAMINE HCL 100 MG TABLET PO SCH ×2 (08:30→15:54)
[2019-10-14] MEDS: GABAPENTIN 300 MG CAPSULE PO SCH ×2 (08:30→13:06)
[2019-10-14] MEDS: NALTREXONE HCL 50 MG TABLET PO SCH (08:30)
[2019-10-14] MEDS: CHOLECALCIFEROL (VIT D3) 5,000 UNITS CAPSULE PO SCH (08:30)
[2019-10-14] MEDS: FOLIC ACID 1 MG TABLET PO SCH (08:30)
[2019-10-14] MEDS: DULoxetine HCL 20 MG CAPSULE PO SCH (08:30)
[2019-10-14] MEDS: PANTOPRAZOLE SODIUM 40 MG DR TABLET PO SCH (08:31)
[2019-10-14] MEDS: MULTIVITAMINS WITH MINERALS, THERAPEUTIC TABLET PO SCH (08:31)
[2019-10-14 11:22] VITALS: BP 116/63
[2019-10-14] MEDS: HALOPERIDOL 5 MG TABLET PO PRN ×2 (11:38→15:54)
[2019-10-14] MEDS: GABAPENTIN 400 MG CAPSULE PO SCH ×2 (15:54→21:50)
[2019-10-14] MEDS: LORazepam 2 MG TABLET PO PRN (19:30)
[2019-10-14 22:06] VITALS: BP 112/77
[2019-10-15] MEDS: ARIPiprazole 15 MG TABLET PO SCH (08:10)
[2019-10-15] MEDS: CHOLECALCIFEROL (VIT D3) 5,000 UNITS CAPSULE PO SCH (08:10)
[2019-10-15] MEDS: NALTREXONE HCL 50 MG TABLET PO SCH (08:11)
[2019-10-15] MEDS: FOLIC ACID 1 MG TABLET PO SCH (08:11)
[2019-10-15] MEDS: GABAPENTIN 400 MG CAPSULE PO SCH ×4 (08:11→20:06)
[2019-10-15] MEDS: PANTOPRAZOLE SODIUM 40 MG DR TABLET PO SCH (08:11)
[2019-10-15] MEDS: MULTIVITAMINS WITH MINERALS, THERAPEUTIC TABLET PO SCH (08:11)
[2019-10-15] MEDS: DULoxetine HCL 30 MG CAPSULE PO SCH (08:11)
[2019-10-15] MEDS: THIAMINE HCL 100 MG TABLET PO SCH ×2 (08:12→18:09)
[2019-10-15] MEDS: LORazepam 2 MG TABLET PO PRN ×3 (08:13→19:27)
[2019-10-15 08:56] VITALS: BP 125/81
[2019-10-15 10:58] VITALS: BP 24/76
[2019-10-15] MEDS: ACETAMINOPHEN 325 MG TABLET PO PRN (10:58)
[2019-10-15] MEDS: HALOPERIDOL 5 MG TABLET PO PRN (10:59)
[2019-10-15] MEDS ORDERED: HALOPERIDOL 5 MG TABLET PO ONE (11:15)
[2019-10-15 16:34] VITALS: BP 111/70
[2019-10-15] MEDS: HALOPERIDOL 2 MG TABLET PO PRN (17:00)
[2019-10-15] MEDS: ZOLPIDEM TARTRATE 10 MG TABLET PO PRN (22:02)
[2019-10-16] MEDS: GABAPENTIN 400 MG CAPSULE PO SCH ×2 (08:11→12:16)
[2019-10-16] MEDS: PANTOPRAZOLE SODIUM 40 MG DR TABLET PO SCH (08:11)
[2019-10-16] MEDS: MULTIVITAMINS WITH MINERALS, THERAPEUTIC TABLET PO SCH (08:11)
[2019-10-16] MEDS: ARIPiprazole 15 MG TABLET PO SCH (08:11)
[2019-10-16] MEDS: NALTREXONE HCL 50 MG TABLET PO SCH (08:12)
[2019-10-16] MEDS: THIAMINE HCL 100 MG TABLET PO SCH ×2 (08:12→17:15)
[2019-10-16] MEDS: LORazepam 2 MG TABLET PO PRN (08:13)
[2019-10-16] MEDS: CHOLECALCIFEROL (VIT D3) 5,000 UNITS CAPSULE PO SCH (08:13)
[2019-10-16] MEDS: DULoxetine HCL 30 MG CAPSULE PO SCH (08:16)
[2019-10-16 09:00] VITALS: BP 132/86
[2019-10-16] MEDS: FOLIC ACID 1 MG TABLET PO SCH (09:08)
[2019-10-16] MEDS: ACETAMINOPHEN 325 MG TABLET PO PRN (09:10)
[2019-10-16 10:10] VITALS: BP 132/84
[2019-10-16] MEDS ORDERED: LORazepam 2 MG/ML VIAL IM ONE (13:30)
[2019-10-16] MEDS ORDERED: HALOPERIDOL LACTATE 5 MG/ML VIAL IM ONE (13:30)
[2019-10-16] MEDS ORDERED: DiphenhydrAMINE HCL 50 MG/ML VIAL IM ONE (13:30)
[2019-10-16] MEDS: GABAPENTIN 300 MG CAPSULE PO SCH (17:14)
[2019-10-16 17:18] VITALS: BP 99/55
[2019-10-16] MEDS: ZOLPIDEM TARTRATE 10 MG TABLET PO PRN (21:01)
[2019-10-16] MEDS: IBUPROFEN 600 MG TABLET PO PRN (21:37)
[2019-10-16 21:40] VITALS: BP 112/65
[2019-10-17] MEDS: IBUPROFEN 600 MG TABLET PO PRN ×3 (05:56→19:53)
[2019-10-17] MEDS: NALTREXONE HCL 50 MG TABLET PO SCH (08:01)
[2019-10-17] MEDS: ARIPiprazole 15 MG TABLET PO SCH (08:01)
[2019-10-17] MEDS: MULTIVITAMINS WITH MINERALS, THERAPEUTIC TABLET PO SCH (08:01)
[2019-10-17] MEDS: CHOLECALCIFEROL (VIT D3) 5,000 UNITS CAPSULE PO SCH (08:02)
[2019-10-17] MEDS: THIAMINE HCL 100 MG TABLET PO SCH ×2 (08:02→16:41)
[2019-10-17] MEDS: DULoxetine HCL 20 MG CAPSULE PO SCH (08:02)
[2019-10-17] MEDS: FOLIC ACID 1 MG TABLET PO SCH (08:03)
[2019-10-17] MEDS: PANTOPRAZOLE SODIUM 40 MG DR TABLET PO SCH (08:03)
[2019-10-17] MEDS: GABAPENTIN 300 MG CAPSULE PO SCH ×3 (08:03→16:42)
[2019-10-17 10:12] VITALS: BP 144/86
[2019-10-17] MEDS: LORazepam 2 MG TABLET PO PRN ×2 (12:12→19:53)
[2019-10-17 16:33] VITALS: BP 117/78
[2019-10-18] MEDS: LORazepam 2 MG TABLET PO PRN ×2 (00:02→08:04)
[2019-10-18] MEDS: ZOLPIDEM TARTRATE 10 MG TABLET PO PRN ×2 (00:19→20:49)
[2019-10-18] MEDS: GABAPENTIN 300 MG CAPSULE PO SCH ×3 (07:59→16:48)
[2019-10-18] MEDS: FOLIC ACID 1 MG TABLET PO SCH (07:59)
[2019-10-18] MEDS: PANTOPRAZOLE SODIUM 40 MG DR TABLET PO SCH (07:59)
[2019-10-18] MEDS: CHOLECALCIFEROL (VIT D3) 5,000 UNITS CAPSULE PO SCH (08:00)
[2019-10-18] MEDS: MULTIVITAMINS WITH MINERALS, THERAPEUTIC TABLET PO SCH (08:00)
[2019-10-18] MEDS: NALTREXONE HCL 50 MG TABLET PO SCH (08:00)
[2019-10-18] MEDS: DULoxetine HCL 20 MG CAPSULE PO SCH (08:00)
[2019-10-18] MEDS: THIAMINE HCL 100 MG TABLET PO SCH ×2 (08:01→16:48)
[2019-10-18 09:32] VITALS: BP 133/95
[2019-10-18 11:18] VITALS: BP 136/88
[2019-10-18] MEDS: IBUPROFEN 600 MG TABLET PO PRN ×2 (11:18→20:50)
[2019-10-18 12:18] VITALS: BP 99/78
[2019-10-18] MEDS: HALOPERIDOL 2 MG TABLET PO PRN (16:48)
[2019-10-18 17:00] VITALS: BP 98/70
[2019-10-18 20:50] VITALS: BP 104/72
[2019-10-19] MEDS: LORazepam 2 MG TABLET PO PRN ×3 (02:30→13:04)
[2019-10-19] MEDS: ACETAMINOPHEN 325 MG TABLET PO PRN (02:30)
[2019-10-19 02:35] VITALS: BP 122/80
[2019-10-19] MEDS: IBUPROFEN 600 MG TABLET PO PRN ×3 (03:22→20:51)
[2019-10-19] MEDS: MULTIVITAMINS WITH MINERALS, THERAPEUTIC TABLET PO SCH (08:09)
[2019-10-19] MEDS: PANTOPRAZOLE SODIUM 40 MG DR TABLET PO SCH (08:09)
[2019-10-19] MEDS: GABAPENTIN 300 MG CAPSULE PO SCH ×3 (08:09→17:43)
[2019-10-19] MEDS: CHOLECALCIFEROL (VIT D3) 5,000 UNITS CAPSULE PO SCH (08:10)
[2019-10-19] MEDS: FOLIC ACID 1 MG TABLET PO SCH (08:10)
[2019-10-19] MEDS: DULoxetine HCL 20 MG CAPSULE PO SCH (08:10)
[2019-10-19] MEDS: THIAMINE HCL 100 MG TABLET PO SCH ×2 (08:10→17:43)
[2019-10-19] MEDS: NALTREXONE HCL 50 MG TABLET PO SCH (08:10)
[2019-10-19] MEDS: HALOPERIDOL 2 MG TABLET PO PRN (08:14)
[2019-10-19 09:52] VITALS: BP 134/86
[2019-10-19 14:04] VITALS: BP 128/78
[2019-10-19 17:14] VITALS: BP 95/60
[2019-10-19 20:45] VITALS: BP 128/82
[2019-10-20] VITALS (9 sets, daily range): BP systolic 70–113; BP diastolic 50–85
[2019-10-20] MEDS: LORazepam 2 MG TABLET PO PRN ×2 (03:55→16:36)
[2019-10-20] MEDS: IBUPROFEN 600 MG TABLET PO PRN ×2 (03:56→10:12)
[2019-10-20] MEDS: NALTREXONE HCL 50 MG TABLET PO SCH (08:06)
[2019-10-20] MEDS: GABAPENTIN 300 MG CAPSULE PO SCH ×3 (08:06→16:35)
[2019-10-20] MEDS: THIAMINE HCL 100 MG TABLET PO SCH ×2 (08:06→16:35)
[2019-10-20] MEDS: PANTOPRAZOLE SODIUM 40 MG DR TABLET PO SCH (08:06)
[2019-10-20] MEDS: MULTIVITAMINS WITH MINERALS, THERAPEUTIC TABLET PO SCH (08:06)
[2019-10-20] MEDS: FOLIC ACID 1 MG TABLET PO SCH (08:07)
[2019-10-20] MEDS: DULoxetine HCL 20 MG CAPSULE PO SCH (08:11)
[2019-10-20] MEDS: CHOLECALCIFEROL (VIT D3) 5,000 UNITS CAPSULE PO SCH (08:12)
[2019-10-20] MEDS: HALOPERIDOL 2 MG TABLET PO PRN (08:14)
[2019-10-20] MEDS: ACETAMINOPHEN 325 MG TABLET PO PRN ×2 (08:16→16:35)
[2019-10-20] MEDS ORDERED: DiphenhydrAMINE HCL 50 MG/ML VIAL IM ONE (17:45)
[2019-10-20] MEDS ORDERED: LORazepam 2 MG/ML VIAL IM ONE (17:45)
[2019-10-20] MEDS ORDERED: HALOPERIDOL LACTATE 5 MG/ML VIAL IM ONE (17:45)
[2019-10-21] VITALS (8 sets, daily range): BP systolic 97–111; BP diastolic 63–98
[2019-10-21] MEDS: IBUPROFEN 600 MG TABLET PO PRN ×2 (01:20→12:11)
[2019-10-21] MEDS: ZOLPIDEM TARTRATE 10 MG TABLET PO PRN ×2 (01:23→21:13)
[2019-10-21] MEDS: ACETAMINOPHEN 325 MG TABLET PO PRN (06:38)
[2019-10-21] MEDS: PANTOPRAZOLE SODIUM 40 MG DR TABLET PO SCH (08:37)
[2019-10-21] MEDS: GABAPENTIN 400 MG CAPSULE PO SCH ×3 (08:38→16:40)
[2019-10-21] MEDS: MULTIVITAMINS WITH MINERALS, THERAPEUTIC TABLET PO SCH (08:38)
[2019-10-21] MEDS: THIAMINE HCL 100 MG TABLET PO SCH ×2 (08:38→16:40)
[2019-10-21] MEDS: FOLIC ACID 1 MG TABLET PO SCH (08:39)
[2019-10-21] MEDS: NALTREXONE HCL 50 MG TABLET PO SCH (08:39)
[2019-10-21] MEDS: DULoxetine HCL 60 MG CAPSULE PO SCH (08:39)
[2019-10-21] MEDS: CHOLECALCIFEROL (VIT D3) 5,000 UNITS CAPSULE PO SCH (08:40)
[2019-10-21] MEDS: LORazepam 2 MG TABLET PO PRN (08:41)
[2019-10-21] MEDS ORDERED: GABA-533 PO (12:27)
[2019-10-21] MEDS ORDERED: DULO60CA44 PO (12:27)
[2019-10-21] MEDS ORDERED: NALT50TA PO (12:27)
[2019-10-21] MEDS ORDERED: ARIP400S3 IM (12:29)
[2019-10-21] MEDS: HALOPERIDOL 2 MG TABLET PO PRN (16:44)
[2019-10-21] MEDS ORDERED: HALO50VI4 IM (17:56)
[2019-10-21] MEDS ORDERED: HALOPERIDOL DECANOATE 50 MG/ML VIAL IM ONE (18:00)
[2019-10-22 00:19] VITALS: BP 102/66
[2019-10-22] MEDS: IBUPROFEN 600 MG TABLET PO PRN ×3 (00:22→10:51)
[2019-10-22] MEDS: LORazepam 2 MG TABLET PO PRN ×2 (00:22→06:22)
[2019-10-22 06:20] VITALS: BP 114/74
[2019-10-22] MEDS: GABAPENTIN 400 MG CAPSULE PO SCH ×2 (07:58→12:08)
[2019-10-22] MEDS: PANTOPRAZOLE SODIUM 40 MG DR TABLET PO SCH (07:58)
[2019-10-22] MEDS: FOLIC ACID 1 MG TABLET PO SCH (07:58)
[2019-10-22] MEDS: MULTIVITAMINS WITH MINERALS, THERAPEUTIC TABLET PO SCH (07:58)
[2019-10-22] MEDS: NALTREXONE HCL 50 MG TABLET PO SCH (07:59)
[2019-10-22] MEDS: DULoxetine HCL 60 MG CAPSULE PO SCH (07:59)
[2019-10-22] MEDS: CHOLECALCIFEROL (VIT D3) 5,000 UNITS CAPSULE PO SCH (07:59)
[2019-10-22] MEDS: THIAMINE HCL 100 MG TABLET PO SCH (07:59)
[2019-10-22 08:33] VITALS: BP 128/77
[2019-11-04] MEDS ORDERED: HALOPERIDOL DECANOATE 50 MG/ML VIAL IM SCH (09:00)
== END 2019-10-22 12:50 | disposition home or self-care (01) | DRG 885 ==
LOC: EMS 09:30 → 3EX 12:16
PROVIDERS: ADMIT Psychiatry & Neurology Psychiatry; ATTEND Psychiatry & Neurology Psychiatry
DX: F25.0 Schizoaffective disorder, bipolar type (principal); F11.20 Opioid dependence, uncomplicated; R45.851 Suicidal ideations; C50.919 Malignant neoplasm of unspecified site of unspecified female breast; D72.819 Decreased white blood cell count, unspecified; E03.9 Hypothyroidism, unspecified; E11.9 Type 2 diabetes mellitus without complications; F41.9 Anxiety disorder, unspecified; G89.29 Other chronic pain; I10 Essential (primary) hypertension; J45.909 Unspecified asthma, uncomplicated; R32 Unspecified urinary incontinence; F17.210 Nicotine dependence, cigarettes, uncomplicated; K21.9 Gastro-esophageal reflux disease without esophagitis; M16.11 Unilateral primary osteoarthritis, right hip; Z96.649 Presence of unspecified artificial hip joint; Z80.3 Family history of malignant neoplasm of breast; Z91.19 Patient's noncompliance with other medical treatment and regimen; Z79.899 Other long term (current) drug therapy
CPT/HCPCS: 84439; 84443; 87081; G0378; G0480; J1200; J1630; J1631; J2060

== ENCOUNTER 2020-01-11 20:31 | Emergency (ER) | payer MEDICARE, OTHER ==
[~2020-01-11] VITALS: Ht 154.9 cm; Wt 68.2 kg
[~2020-01-11 20:31] MED LIST changes: -ARIP15TA2 PO; -ARIP400S3 IM; -CHOL125C2 PO; -DULO20CA30 PO; +DULO60CA44 PO; -GABA-531 PO; +GABA-533 PO; +HALO50VI4 IM; -PANT40TA25 PO
[2020-01-11] MEDS ORDERED: LIDOCAINE 5% TRANSDERMAL PATCH TD ONE (21:00)
[2020-01-11 22:00] VITALS: BP 119/74
[2020-01-11] MEDS ORDERED: IBUPROFEN 600 MG TABLET PO ONE (22:45)
== END 2020-01-11 23:53 | disposition home or self-care (01) ==
LOC: EMS 20:31
DX: M16.11 Unilateral primary osteoarthritis, right hip (principal); F41.9 Anxiety disorder, unspecified; F31.9 Bipolar disorder, unspecified; E11.9 Type 2 diabetes mellitus without complications; E03.9 Hypothyroidism, unspecified; F20.9 Schizophrenia, unspecified; F17.210 Nicotine dependence, cigarettes, uncomplicated; W19.XXXA Unspecified fall, initial encounter; Y93.89 Activity, other specified; Y92.89 Other specified places as the place of occurrence of the external cause; Y99.8 Other external cause status
CPT/HCPCS: 73502

== ENCOUNTER 2020-03-26 21:12 | Emergency (ER) | payer MEDICARE, OTHER ==
[~2020-03-26] VITALS: Ht 167.6 cm; Wt 81.8 kg
[~2020-03-26 21:12] MED LIST changes: -NALT50TA PO
[2020-03-26] MEDS ORDERED: ACETAMINOPHEN 500 MG TABLET PO ONE (22:30)
[2020-03-26] MEDS ORDERED: KETOROLAC TROMETHAMINE 30 MG/ML VIAL IM ONE (22:45)
[2020-03-26 23:26] VITALS: BP 109/68
== END 2020-03-26 23:31 | disposition home or self-care (01) ==
LOC: EMS 21:14
DX: M25.551 Pain in right hip (principal); G89.29 Other chronic pain; F41.9 Anxiety disorder, unspecified; F31.9 Bipolar disorder, unspecified; E11.9 Type 2 diabetes mellitus without complications; F20.9 Schizophrenia, unspecified; F17.210 Nicotine dependence, cigarettes, uncomplicated; Z88.0 Allergy status to penicillin
CPT/HCPCS: 96372; 99283; J1885

== ENCOUNTER 2020-06-15 22:13 | Emergency (ER) | payer MEDICARE, OTHER ==
[~2020-06-15] VITALS: Ht 154.9 cm; Wt 65.5 kg
[~2020-06-15 22:13] MED LIST changes: +ACET-66 PO; +ACET650S14 PO; +ALPR-341 PO; +AUD NEB; +DULO-8 PO; -DULO60CA44 PO; +HALO2 PO; +IPRNEB IH; +NYST30CR9 TP; +PANT-31 PO; +SUCR1TAB PO; +TRAM50TA4 PO
[2020-06-15 23:07] LABS: ANION GAP 7 mmol/L (8-16); CARBON DIOXIDE 27 mmol/L (22-29); CHLORIDE 107 mmol/L (98-107); CREATININE 0.84 mg/dL (0.60-1.30); GLOMERULAR FILTR. RATE CALC > 60 mL/min (>60); GLUCOSE,RANDOM 108 mg/dL (70-110); SODIUM SERUM 141 mmol/L (136-145); UREA NITROGEN, BLOOD 13 mg/dL (7-18)
[2020-06-15 23:07] LABS: APPEARANCE,URINE CLEAR (CLEAR); BILIRUBIN,URINE NEGATIVE (NEGATIVE); GLUCOSE, URINE (UA) NEGATIVE (NEGATIVE); KETONES,URINE 15 mg/dL (NEGATIVE); LEUKOCYTE ESTERASE ,URINE SMALL (NEGATIVE); NITRATE,URINE NEGATIVE (NEGATIVE); OCCULT BLOOD,URINE NEGATIVE (NEGATIVE); PH,URINE 6.5 (5.0-8.0); PROTEIN,URINE NEGATIVE (NEGATIVE); UROBILINOGEN,URINE 0.2 mg/dL (<=1.0)
[2020-06-15 23:10] LABS: BASOPHILS % (AUTO) 1.4 % (0.0-2.0); EOSINOPHILS % (AUTO) 4.9 % (1.0-6.0); HEMATOCRIT 38.2 % (36-46); HEMOGLOBIN 12.3 g/dL (12.0-16.0); LYMPHOCYTES # (AUTO) 1.4 K/uL (1.0-4.8); LYMPHOCYTES % (AUTO) 27.1 % (22.0-44.0); MEAN CORPUSCULAR HEMOGLOBIN 30.1 pg (26.0-34.0); MEAN CORPUSCULAR HGB CONC 32.2 G/dL (31.0-37.0); MEAN CORPUSCULAR VOLUME 94 fL (80-100); MONOCYTES # (AUTO) 0.5 K/uL (0.1-1.0); MONOCYTES % (AUTO) 10.3 % (2.0-9.0); NEUTROPHILS % (AUTO) 56.3 % (40.0-70.0); PLATELET COUNT (AUTO) 210 K/uL (150-450); RED BLOOD CELL COUNT(AUTO) 4.09 MIL/uL (4.00-5.20)
[2020-06-15 23:14] LABS: ALANINE AMINOTRANSFERASE 37 U/L (12-78); ALBUMIN 3.4 g/dL (3.4-5.0); ALKALINE PHOSPHATASE 77 U/L (46-116); ASPARTATE AMINOTRANSFERASE 24 U/L (15-37); BILIRUBIN,TOTAL 0.1 mg/dL (0.1-1.0); TOTAL PROTEIN, SERUM 7.4 g/dL (6.4-8.2)
[2020-06-15 23:16] LABS: BACTERIA,URINE None Seen /HPF (None Seen); RBC,URINE None Seen /HPF (0-2); SQUAMOUS EPITHELIAL CELL,UR Few /LPF (None Seen)
[2020-06-16 02:15] VITALS: BP 109/67
== END 2020-06-16 02:29 | disposition home or self-care (01) ==
LOC: EMS 22:16
DX: R30.0 Dysuria (principal); R52 Pain, unspecified; E03.9 Hypothyroidism, unspecified; F20.9 Schizophrenia, unspecified
CPT/HCPCS: 87086

== ENCOUNTER 2020-10-17 16:24 | Emergency (ER) | payer MEDICARE, OTHER ==
[~2020-10-17] VITALS: Ht 154.9 cm; Wt 70.5 kg
[~2020-10-17 16:24] MED LIST changes: +ACET-3385 PO; -ACET-66 PO
[2020-10-17] MEDS ORDERED: KETOROLAC TROMETHAMINE 30 MG/ML VIAL IM ONE (17:45)
[2020-10-17] MEDS ORDERED: LORazepam 2 MG TABLET PO ONE (17:45)
[2020-10-17 18:00] VITALS: BP 136/70
== END 2020-10-17 18:30 | disposition home or self-care (01) ==
LOC: EMS 16:24
DX: F20.0 Paranoid schizophrenia (principal); F41.9 Anxiety disorder, unspecified; M25.551 Pain in right hip; G89.29 Other chronic pain; F31.9 Bipolar disorder, unspecified; E11.9 Type 2 diabetes mellitus without complications; F17.210 Nicotine dependence, cigarettes, uncomplicated; Z88.0 Allergy status to penicillin
CPT/HCPCS: 96372; 99284; J1885

== ENCOUNTER 2021-11-25 03:10 | Emergency (ER) | payer MEDICARE, OTHER ==
[~2021-11-25] VITALS: Ht 160 cm; Wt 58.3 kg
[~2021-11-25 03:10] MED LIST changes: -DULO-8 PO; +DULO60CA98 PO
[2021-11-25] MEDS ORDERED: LORazepam 2 MG/ML VIAL IM ONE (03:30)
[2021-11-25 03:56] LABS: BASOPHILS % (AUTO) 0.3 % (0.0-2.0); EOSINOPHILS % (AUTO) 2.1 % (1.0-6.0); HEMATOCRIT 37.6 % (36-46); HEMOGLOBIN 12.8 g/dL (12.0-16.0); LYMPHOCYTES % (AUTO) 10.9 % (22.0-44.0); MEAN CORPUSCULAR HEMOGLOBIN 31.6 pg (26.0-34.0); MEAN CORPUSCULAR HGB CONC 34.1 G/dL (31.0-37.0); MEAN CORPUSCULAR VOLUME 93 fL (80-100); MONOCYTES # (AUTO) 0.6 K/uL (0.1-1.0); MONOCYTES % (AUTO) 6.4 % (2.0-9.0); NEUTROPHILS # (AUTO) 7.1 K/uL (1.8-7.7); NEUTROPHILS % (AUTO) 80.3 % (40.0-70.0); PLATELET COUNT (AUTO) 239 K/uL (150-450); RED BLOOD CELL COUNT(AUTO) 4.07 MIL/uL (4.00-5.20); RED CELL DISTRIBUTION WIDTH 12.8 % (11.5-14.5)
[2021-11-25 04:05] LABS: ANION GAP 14 mmol/L (8-16); CALCIUM, TOTAL 9.2 mg/dL (8.8-10.5); CARBON DIOXIDE 24 mmol/L (22-29); CHLORIDE 106 mmol/L (98-107); CREATININE 0.73 mg/dL (0.60-1.30); GLOMERULAR FILTR. RATE CALC > 60 mL/min (>60); GLUCOSE,RANDOM 120 mg/dL (70-110); POTASSIUM 3.4 mmol/L (3.5-5.1); SODIUM SERUM 144 mmol/L (136-145); UREA NITROGEN, BLOOD 25 mg/dL (7-18)
[2021-11-25 04:10] LABS: ALANINE AMINOTRANSFERASE 23 U/L (12-78); ALKALINE PHOSPHATASE 114 U/L (46-116); ASPARTATE AMINOTRANSFERASE 23 U/L (15-37); BILIRUBIN,TOTAL 0.7 mg/dL (0.1-1.0); TOTAL PROTEIN, SERUM 7.4 g/dL (6.4-8.2)
[2021-11-25 05:03] VITALS: BP 130/88
== END 2021-11-25 05:50 | disposition home or self-care (01) ==
LOC: EMS 03:11
DX: F41.9 Anxiety disorder, unspecified (principal); F31.9 Bipolar disorder, unspecified; F20.9 Schizophrenia, unspecified; E03.9 Hypothyroidism, unspecified; E11.9 Type 2 diabetes mellitus without complications; F17.210 Nicotine dependence, cigarettes, uncomplicated; Z88.0 Allergy status to penicillin; Z79.899 Other long term (current) drug therapy
CPT/HCPCS: 36415; 80053; 85025; 96372; 99283; G0480; J2060

== ENCOUNTER 2021-11-25 12:12 | Emergency (ER) | payer MEDICARE, MEDICAID ==
[~2021-11-25] VITALS: Ht 160 cm; Wt 68.0 kg
[2021-11-25 13:22] LABS: COVID AG,FIA SOURCE NASOPHARYNGEAL
[2021-11-25 14:45] VITALS: BP 110/72
== END 2021-11-25 14:53 | disposition home or self-care (01) ==
LOC: EMS 12:20
DX: F25.9 Schizoaffective disorder, unspecified (principal); I10 Essential (primary) hypertension; F32.9 Major depressive disorder, single episode, unspecified; Z20.822 Contact with and (suspected) exposure to COVID-19; Z88.0 Allergy status to penicillin; Z79.899 Other long term (current) drug therapy
CPT/HCPCS: 99283

== ENCOUNTER 2022-09-05 17:33 | Inpatient (IN) | payer MEDICARE, MEDICAID ==
[~2022-09-05] VITALS: Ht 160 cm; Wt 64.4 kg
[~2022-09-05 17:33] MED LIST changes: +DULO-113 PO; -DULO60CA98 PO; +HALO50VI29 IM; -HALO50VI4 IM; +TRAM-559 PO; -TRAM50TA4 PO
[2022-09-05 18:54] LABS: BASOPHILS % (AUTO) 1.2 % (0.0-2.0); EOSINOPHILS % (AUTO) 4.1 % (1.0-6.0); HEMATOCRIT 37.7 % (36-46); HEMOGLOBIN 12.7 g/dL (12.0-16.0); LYMPHOCYTES # (AUTO) 1.1 K/uL (1.0-4.8); LYMPHOCYTES % (AUTO) 20.4 % (22.0-44.0); MEAN CORPUSCULAR HEMOGLOBIN 31.8 pg (26.0-34.0); MEAN CORPUSCULAR HGB CONC 33.6 G/dL (31.0-37.0); MEAN CORPUSCULAR VOLUME 95 fL (80-100); MONOCYTES # (AUTO) 0.3 K/uL (0.1-1.0); MONOCYTES % (AUTO) 5.8 % (2.0-9.0); NEUTROPHILS # (AUTO) 3.8 K/uL (1.8-7.7); NEUTROPHILS % (AUTO) 68.5 % (40.0-70.0); PLATELET COUNT (AUTO) 322 K/uL (150-450); RED BLOOD CELL COUNT(AUTO) 3.99 MIL/uL (4.00-5.20); RED CELL DISTRIBUTION WIDTH 12.6 % (11.5-14.5)
[2022-09-05 19:03] LABS: ANION GAP 7 mmol/L (8-16); CALCIUM, TOTAL 9.3 mg/dL (8.8-10.5); CARBON DIOXIDE 29 mmol/L (22-29); CHLORIDE 104 mmol/L (98-107); CREATININE 0.71 mg/dL (0.60-1.30); GLUCOSE,RANDOM 107 mg/dL (70-110); POTASSIUM 3.4 mmol/L (3.5-5.1); SODIUM SERUM 140 mmol/L (136-145); UREA NITROGEN, BLOOD 9 mg/dL (7-18)
[2022-09-05 19:04] LABS: GLOMERULAR FILTR. RATE CALC > 60 mL/min (>60)
[2022-09-05 19:09] LABS: ALANINE AMINOTRANSFERASE 14 U/L (12-78); ALBUMIN 3.8 g/dL (3.4-5.0); ALKALINE PHOSPHATASE 117 U/L (46-116); ASPARTATE AMINOTRANSFERASE 10 U/L (15-37); BILIRUBIN,TOTAL 0.3 mg/dL (0.1-1.0); TOTAL PROTEIN, SERUM 7.4 g/dL (6.4-8.2)
[2022-09-05] MEDS: HALOPERIDOL 5 MG TABLET PO ONE ×2 (21:10→21:15)
[2022-09-05] MEDS ORDERED: QUEtiapine FUMARATE 100 MG TABLET PO PRN (21:30)
[2022-09-05] MEDS: LORazepam 2 MG TABLET PO PRN (21:33)
[2022-09-05 21:43] LABS: COVID AG,FIA SOURCE NASOPHARYNGEAL
[2022-09-06 03:48] VITALS: BP 123/87
[2022-09-06 08:03] VITALS: BP 106/75
[2022-09-06] MEDS: LORazepam 2 MG TABLET PO PRN (10:31)
[2022-09-06] MEDS ORDERED: PROMETHAZINE HCL 25 MG TABLET PO PRN (10:45)
[2022-09-06] MEDS ORDERED: OLANZapine 5 MG RAPDIS TABLET PO PRN (10:45)
[2022-09-06] MEDS ORDERED: ACETAMINOPHEN 325 MG TABLET PO PRN ×2 (10:45→21:00)
[2022-09-06] MEDS ORDERED: MAG HYDROX/AL HYDROX/SIMETH ES 30 ML SUSPENSION UDCUP PO PRN (10:45)
[2022-09-06] MEDS ORDERED: GuaiFENesin/D-METHORPHAN [SUGAR-FREE] 200-20MG/10 ML SYRUP UDCUP PO PRN (10:45)
[2022-09-06] MEDS ORDERED: HydrOXYzine PAMOATE 50 MG CAPSULE PO PRN (10:45)
[2022-09-06] MEDS ORDERED: LOPERAMIDE HCL 2 MG CAPSULE PO PRN ×2 (10:45)
[2022-09-06] MEDS ORDERED: MAGNESIUM HYDROXIDE SUSPENSION 30 ML UDCUP PO PRN (10:45)
[2022-09-06] MEDS ORDERED: PNEUMOCOCCAL VACCINE POLYVALENT 0.5 ML VIAL [PPSV23] IM. ONE (11:00)
[2022-09-06] MEDS ORDERED: PALIPERIDONE PALMITATE 234 MG/1.5 ML SYRINGE IM ONE (11:15)
[2022-09-06] MEDS ORDERED: DiphenhydrAMINE HCL 50 MG/ML VIAL IM ONE (15:00)
[2022-09-06] MEDS ORDERED: HALOPERIDOL LACTATE 5 MG/ML VIAL IM ONE (15:00)
[2022-09-06] MEDS ORDERED: LORazepam 2 MG/ML VIAL IM ONE (15:00)
[2022-09-06] MEDS ORDERED: HALOPERIDOL 5 MG TABLET PO PRN (15:15)
[2022-09-06] MEDS ORDERED: HALOPERIDOL DECANOATE 50 MG/ML VIAL IM ONE (15:15)
[2022-09-06] MEDS: THIAMINE 100 MG TABLET PO SCH (17:04)
[2022-09-06] MEDS: GABAPENTIN 400 MG CAPSULE PO SCH (17:06)
[2022-09-06 20:00] VITALS: BP 130/87
[2022-09-06] MEDS: MELATONIN 5 MG TABLET PO SCH (20:09)
[2022-09-06] MEDS: OLANZapine 5 MG RAPDIS TABLET PO SCH (20:09)
[2022-09-06] MEDS ORDERED: POTASSIUM CHLORIDE 20 MEQ ER TABLET PO ONE (20:45)
[2022-09-06] MEDS: ZOLPIDEM TARTRATE 10 MG TABLET PO PRN (20:57)
[2022-09-06] MEDS ORDERED: TraMADol HCL 50 MG TABLET PO PRN (21:00)
[2022-09-06] MEDS ORDERED: ALBUTEROL SULFATE HFA 90 MCG/PUFF 8 GM INHALER IH PRN (21:00)
[2022-09-07 08:04] VITALS: BP 124/77
[2022-09-07 08:12] LABS: ALANINE AMINOTRANSFERASE 12 U/L (12-78); ALBUMIN 3.3 g/dL (3.4-5.0); ALKALINE PHOSPHATASE 111 U/L (46-116); ANION GAP 4 mmol/L (8-16); ASPARTATE AMINOTRANSFERASE 19 U/L (15-37); BILIRUBIN,TOTAL 0.3 mg/dL (0.1-1.0); CALCIUM, TOTAL 9.2 mg/dL (8.8-10.5); CARBON DIOXIDE 28 mmol/L (22-29); CHLORIDE 110 mmol/L (98-107); CHOL/HDL RATIO 2.3 (3.9-5.7); CHOLESTEROL 157 mg/dL (131-200); CREATININE 0.73 mg/dL (0.60-1.30); FREE T4 (FREE THYROXINE) 0.93 ng/dL (0.76-1.46); GLOMERULAR FILTR. RATE CALC > 60 mL/min (>60); GLUCOSE,RANDOM 88 mg/dL (70-110); HDL CHOLESTEROL 68 mg/dL (40-60); HEMOGLOBIN A1C 5.3 % (3.8-5.6); LDL CHOL (CALC.) 79 mg/dL (0-130); POTASSIUM 4.1 mmol/L (3.5-5.1); SODIUM SERUM 142 mmol/L (136-145); THYROID STIMULATING HORMONE 1.43 uIU/mL (0.36-3.74); TOTAL PROTEIN, SERUM 6.5 g/dL (6.4-8.2); TRIGLYCERIDES 50 mg/dL (15-150); UREA NITROGEN, BLOOD 16 mg/dL (7-18)
[2022-09-07] MEDS: FOLIC ACID 1 MG TABLET PO SCH (10:05)
[2022-09-07] MEDS: NALTREXONE HCL 50 MG TABLET PO SCH (10:05)
[2022-09-07] MEDS: THIAMINE 100 MG TABLET PO SCH ×2 (10:05→16:48)
[2022-09-07] MEDS: PANTOPRAZOLE SODIUM 40 MG DR TABLET PO SCH ×2 (10:05→16:49)
[2022-09-07] MEDS: MULTIVITAMINS WITH MINERALS, THERAPEUTIC TABLET PO SCH (10:05)
[2022-09-07] MEDS: OMEGA-3/DHA/EPA/FISH OIL 1,000 MG CAPSULE PO SCH (10:05)
[2022-09-07] MEDS: GABAPENTIN 400 MG CAPSULE PO SCH ×3 (10:05→16:48)
[2022-09-07] MEDS: DULoxetine HCL 20 MG CAPSULE PO SCH (10:05)
[2022-09-07] MEDS: LORazepam 2 MG TABLET PO PRN ×2 (10:17→16:51)
[2022-09-07] MEDS: MELATONIN 5 MG TABLET PO SCH (20:23)
[2022-09-07] MEDS: OLANZapine 5 MG RAPDIS TABLET PO SCH (20:24)
[2022-09-07 20:42] VITALS: BP 121/71
[2022-09-08 08:25] VITALS: BP 121/72
[2022-09-08] MEDS: DULoxetine HCL 20 MG CAPSULE PO SCH (09:12)
[2022-09-08] MEDS: OMEGA-3/DHA/EPA/FISH OIL 1,000 MG CAPSULE PO SCH (09:12)
[2022-09-08] MEDS: GABAPENTIN 400 MG CAPSULE PO SCH ×3 (09:13→16:29)
[2022-09-08] MEDS: FOLIC ACID 1 MG TABLET PO SCH (09:13)
[2022-09-08] MEDS: NALTREXONE HCL 50 MG TABLET PO SCH (09:14)
[2022-09-08] MEDS: PANTOPRAZOLE SODIUM 40 MG DR TABLET PO SCH ×2 (09:14→16:29)
[2022-09-08] MEDS: MULTIVITAMINS WITH MINERALS, THERAPEUTIC TABLET PO SCH (09:14)
[2022-09-08] MEDS: THIAMINE 100 MG TABLET PO SCH ×2 (09:14→16:29)
[2022-09-08] MEDS: LORazepam 2 MG TABLET PO PRN ×2 (10:45→20:00)
[2022-09-08 20:17] VITALS: BP 127/79
[2022-09-08] MEDS: OLANZapine 5 MG RAPDIS TABLET PO SCH (20:50)
[2022-09-08] MEDS: MELATONIN 5 MG TABLET PO SCH (20:51)
[2022-09-09] MEDS: ZOLPIDEM TARTRATE 10 MG TABLET PO PRN (00:26)
[2022-09-09 08:01] VITALS: BP 127/85
[2022-09-09] MEDS: DULoxetine HCL 20 MG CAPSULE PO SCH (08:03)
[2022-09-09] MEDS: NALTREXONE HCL 50 MG TABLET PO SCH (08:03)
[2022-09-09] MEDS: THIAMINE 100 MG TABLET PO SCH ×2 (08:03→16:45)
[2022-09-09] MEDS: PANTOPRAZOLE SODIUM 40 MG DR TABLET PO SCH ×2 (08:03→16:45)
[2022-09-09] MEDS: OMEGA-3/DHA/EPA/FISH OIL 1,000 MG CAPSULE PO SCH (08:03)
[2022-09-09] MEDS: GABAPENTIN 400 MG CAPSULE PO SCH ×3 (08:03→16:44)
[2022-09-09] MEDS: FOLIC ACID 1 MG TABLET PO SCH (08:03)
[2022-09-09] MEDS: MULTIVITAMINS WITH MINERALS, THERAPEUTIC TABLET PO SCH (08:03)
[2022-09-09] MEDS: LORazepam 2 MG TABLET PO PRN ×3 (08:04→19:04)
[2022-09-09 20:01] VITALS: BP 139/90
[2022-09-09] MEDS: OLANZapine 5 MG RAPDIS TABLET PO SCH (20:06)
[2022-09-09] MEDS: MELATONIN 5 MG TABLET PO SCH (20:06)
[2022-09-10] MEDS: FOLIC ACID 1 MG TABLET PO SCH (07:55)
[2022-09-10] MEDS: DULoxetine HCL 20 MG CAPSULE PO SCH (07:55)
[2022-09-10] MEDS: MULTIVITAMINS WITH MINERALS, THERAPEUTIC TABLET PO SCH (07:55)
[2022-09-10] MEDS: OMEGA-3/DHA/EPA/FISH OIL 1,000 MG CAPSULE PO SCH (07:56)
[2022-09-10] MEDS: NALTREXONE HCL 50 MG TABLET PO SCH (07:56)
[2022-09-10] MEDS: GABAPENTIN 400 MG CAPSULE PO SCH ×3 (07:56→16:20)
[2022-09-10] MEDS: THIAMINE 100 MG TABLET PO SCH ×2 (07:56→16:20)
[2022-09-10] MEDS: PANTOPRAZOLE SODIUM 40 MG DR TABLET PO SCH ×2 (07:56→16:20)
[2022-09-10] MEDS: LORazepam 2 MG TABLET PO PRN ×2 (08:04→17:59)
[2022-09-10 08:42] VITALS: BP 126/90
[2022-09-10] MEDS ORDERED: PALIPERIDONE PALMITATE 156 MG/ML SYRINGE IM ONE (09:00)
[2022-09-10 10:11] LABS: GLUCOMETER DEV NAME(LOC) POC.BV
[2022-09-10] MEDS: MELATONIN 5 MG TABLET PO SCH (20:40)
[2022-09-10] MEDS: OLANZapine 5 MG RAPDIS TABLET PO SCH (20:41)
[2022-09-10 20:43] VITALS: BP 117/81
[2022-09-11 08:08] VITALS: BP 116/73
[2022-09-11] MEDS: NALTREXONE HCL 50 MG TABLET PO SCH (10:11)
[2022-09-11] MEDS: THIAMINE 100 MG TABLET PO SCH (10:11)
[2022-09-11] MEDS: PANTOPRAZOLE SODIUM 40 MG DR TABLET PO SCH (10:11)
[2022-09-11] MEDS: OMEGA-3/DHA/EPA/FISH OIL 1,000 MG CAPSULE PO SCH (10:11)
[2022-09-11] MEDS: DULoxetine HCL 20 MG CAPSULE PO SCH (10:11)
[2022-09-11] MEDS: GABAPENTIN 400 MG CAPSULE PO SCH ×2 (10:12→13:23)
[2022-09-11] MEDS: MULTIVITAMINS WITH MINERALS, THERAPEUTIC TABLET PO SCH (10:12)
[2022-09-11] MEDS: FOLIC ACID 1 MG TABLET PO SCH (10:12)
[2022-09-11] MEDS: LORazepam 2 MG TABLET PO PRN (10:29)
[2022-09-11] MEDS ORDERED: DULO20CA71 PO (15:07)
[2022-09-11] MEDS ORDERED: MELA5TAB40 PO (15:07)
[2022-09-11] MEDS ORDERED: OLAN5TAB94 PO (15:07)
[2022-09-11] MEDS ORDERED: GABA-1201 PO (15:07)
[2022-09-11] MEDS ORDERED: NALT50TA PO (15:07)
[2022-09-11] MEDS ORDERED: OMEG-135 PO (15:07)
[2022-09-21] MEDS ORDERED: HALOPERIDOL DECANOATE 50 MG/ML VIAL IM SCH (09:00)
== END 2022-09-11 16:00 | disposition home or self-care (01) | DRG 885 ==
LOC: EMS 17:33 → B2X 23:00
PROVIDERS: ADMIT Psychiatry & Neurology Psychiatry; ATTEND Psychiatry & Neurology Psychiatry
DX: F25.1 Schizoaffective disorder, depressive type (principal); R45.851 Suicidal ideations; F60.0 Paranoid personality disorder; I10 Essential (primary) hypertension; J44.9 Chronic obstructive pulmonary disease, unspecified; E03.9 Hypothyroidism, unspecified; D64.9 Anemia, unspecified; M16.11 Unilateral primary osteoarthritis, right hip; K25.9 Gastric ulcer, unspecified as acute or chronic, without hemorrhage or perforation; F32.A Depression, unspecified; F41.9 Anxiety disorder, unspecified; E66.9 Obesity, unspecified; Z20.822 Contact with and (suspected) exposure to COVID-19; Z55.9 Problems related to education and literacy, unspecified; Z59.9 Problem related to housing and economic circumstances, unspecified; Z63.9 Problem related to primary support group, unspecified; Z65.3 Problems related to other legal circumstances; Z74.01 Bed confinement status; Z80.3 Family history of malignant neoplasm of breast; Z85.3 Personal history of malignant neoplasm of breast; Z87.11 Personal history of peptic ulcer disease; Z87.891 Personal history of nicotine dependence; Z91.14 Patient's other noncompliance with medication regimen; Z91.199 Patient's noncompliance with other medical treatment and regimen due to unspecified reason; Z68.25 Body mass index [BMI] 25.0-25.9, adult; Z79.899 Other long term (current) drug therapy; Z88.0 Allergy status to penicillin
CPT/HCPCS: 80053; 80061; 83036; 84439; 84443; 85025; 90732; 99285; G0480; J1200; J1630; J1631; J2060; Q9967